=== PATIENT | female | born 1970 | race Hispanic/Latino ===

== ENCOUNTER 2017-07-27 01:31 | Emergency (ER) | payer MEDICAID ==
[2017-07-27 01:32] VITALS: BMI 33.7
[2017-07-27 02:11] VITALS: BP 150/85; PULSE 89; RESP 16; TEMP 97.6; O2SAT 99
--- NOTE | 2017-07-27 03:03 | ED PDOC ---
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 Patient states that she had a grand mal seizure x2 weeks ago and the back pain originated from EMS lifting her up incorrectly. Notes pain is worse lying down and with movement and is mitigated when standing. Confirms pain radiates bilaterally to the hips, with more intensity to the right hip. (-) numbness or weakness (other than chronic left). Notes that she cannot take NSAIDS due to fibroids and bleeding problems. PCP: Anselmo Singh - Risk Factors AAA Risk Factors: Neg: Older Than 49 Years Of Age Past Medical History Reviewed: Historical Data, Nursing Documentation, Vital Signs Vital Signs: Last Vital Signs Temp 97.6 F 07/27/17 02:01 Pulse 89 07/27/17 02:01 Resp 16 07/27/17 02:01 BP 150/85 07/27/17 02:01 Pulse Ox 99 07/27/17 02:01 - Medical History PMH: Asthma, Migraine, Seizures Denies: No Chronic Diseases, Chronic Kidney Disease - Surgical History Surgical History: Cholecystectomy, Tonsillectomy - Family History Family History: States: Unknown Family Hx - Social History Current smoker - smoking cessation education provided: No Ex-Smoker (has not smoked in the last 12 months): No Alcohol: None Drugs: Denies - Home Medications Home Medications: Ambulatory Orders Medication Instructions Recorded Albuterol HFA [Ventolin HFA 90 2 puff INH Q3H PRN 07/04/14 mcg/actuation (8 g)] Mometasone [Asmanex Twisthaler] 2 puff INH DAILY 07/04/14 diaZEpam [Valium] 5 mg PO HS 07/04/14 Atorvastatin [Lipitor] 10 mg PO DIN 08/01/16 Fluticasone Nasal [Flonase] 2 actuation NS DAILY #1 spr 08/01/16 LORazepam [Ativan] 1 mg PO PRN PRN 08/01/16 Levetiracetam [Keppra Xr] 3 tab PO BID 08/01/16 SUMAtriptan succinate [Imitrex Tab] 100 mg PO ONCE PRN #9 tab 08/01/16 SUMAtriptan succinate [Imitrex Tab] 100 mg PO PRN PRN 08/01/16 acetaZOLAMIDE [Diamox Sequels 500 1 tab PO DAILY 08/01/16 mg SR Cap] Cyclobenzaprine [Cyclobenzaprine 10 mg PO BID #15 tab 07/27/17 HCl] - Allergies Allergies/Adverse Reactions: Allergies Allergy/AdvReac Type Severity Reaction Status Date / Time No Known Allergies Allergy Verified 08/01/16 11:45 Review of Systems ROS Statement: Except As Marked, All Systems Reviewed And Found Negative Musculoskeletal: Positive for: Back Pain (lower back pain) Neurological: Positive for: Seizures. Negative for: Weakness, Numbness Physical Exam - Reviewed Nursing Documentation Reviewed: Yes Vital Signs Reviewed: Yes - Physical Exam Appears: Positive for: Non-toxic, No Acute Distress Head Exam: Positive for: ATRAUMATIC Skin: Positive for: Normal Color, Warm, Dry Eye Exam: Positive for: Normal appearance Cardiovascular/Chest: Positive for: Regular Rate, Rhythm. Negative for: Murmur Respiratory: Positive for: Normal Breath Sounds. Negative for: Respiratory Distress Gastrointestinal/Abdominal: Positive for: Soft. Negative for: Tenderness Back: Positive for: Vertebral Tenderness (lumbar vertebral and paravertebral tenderness), Other ((+) bilateral straight leg raise with more weakness of left side in comparison to right). Negative for: Normal Inspection Extremity: Negative for: Deformity Neurologic/Psych: Positive for: Alert, spooler operator automatic II-XII (intact), Oriented, Cerebellar Tests (intact), Other (distally neurovascularly intact). Negative for: Motor/Sensory Deficits ((-) saddle anesthesia, (+) left sided paralysis/ weakness from brain surgery previously) - ECG O2 Sat by Pulse Oximetry: 99 (RA) Pulse Ox Interpretation: Normal Medical Decision Making Medical Decision Makin Initial impression: muscular spasm Initial plan: * UPreg * UDip * XR LUMBAR SPINE COMPLETE * Flexeril 10mg PO * Re-eval 0400 Patient notes feeling much better and is stable for discharge home. Return precautions discussed. Scribe Attestation: Documented by Jessica Chu acting as a scribe for Orlando Lay MD. Scribe Attestation: All medical record entries made by the Scribe were at my direction and personally dictated by me. I have reviewed the chart and agree that the record accurately reflects my personal performance of the history, physical exam, medical decision making, and the department course for this patient. I have also personally directed, reviewed, and agree with the discharge instructions and disposition. Disposition - Clinical Impression Clinical Impression: Back strain - Disposition Referrals: Timo Singh MD [Staff Provider] - Disposition: Routine/Home Disposition Time: 04:00 Condition: STABLE Prescriptions: Cyclobenzaprine [Cyclobenzaprine HCl] 10 mg PO BID #15 tab Instructions: Muscle Spasm (ED), Back Exercises (ED) Forms: [facility] (Dutch)
--- NOTE | 2017-07-27 08:28 | RAD ---
PROCEDURE: Radiographs of the Lumbar Spine. HISTORY: lower back strain COMPARISON: No prior. FINDINGS: BONES: Normal alignment. No listhesis. No fracture. DISC SPACES: Minimal spondylosis appreciated L2-3 and L3-4 anteriorly. OTHER FINDINGS: None. IMPRESSION: No acute fracture or spondylolisthesis. Limited spondylosis L2-3 and L3-4.
== END 2017-07-27 04:15 | disposition home or self-care (01) ==
LOC: H.ER 01:31
DX: S39.012A Strain of muscle, fascia and tendon of lower back, initial encounter (principal); X50.9XXA Other and unspecified overexertion or strenuous movements or postures, initial encounter; Y92.89 Other specified places as the place of occurrence of the external cause; G40.909 Epilepsy, unspecified, not intractable, without status epilepticus; I69.959 Hemiplegia and hemiparesis following unspecified cerebrovascular disease affecting unspecified side; J45.909 Unspecified asthma, uncomplicated

== ENCOUNTER 2018-01-07 02:58 | Inpatient (IN) | payer MEDICAID ==
[2018-01-07 02:58] VITALS: BMI 33.7
[2018-01-07] MEDS ORDERED: Magnesium Sulfate 2 gm/50 ml 2 GM/50 ML BAG IV STA (03:57)
[2018-01-07] MEDS ORDERED: Albuterol-Ipratrop 3 mg / 0.5 (3 ml) UD INH STA (03:57)
--- NOTE | 2018-01-07 04:01 | ED PDOC ---
HPI: SOB/CHF/COPD Chief Complaint (Provider): shortness of breath, cough History Per: Patient, Family Onset/Duration Of Symptoms: Days (3) Current Symptoms Are (Timing): Still Present Quality: Burning Associated Symptoms: Fever, Sweating <Rosalie Echevarria - Last Filed: 01/07/18 06:21> <Jay Parker - Last Filed: 01/07/18 06:45> Chief Complaint (Nursing): Chest Pain Additional Complaint(s): 47 year old female presents with 3 day history of worsening shortness of breath , nonproductive cough and fevers. TMAX 101 at home, has been taking tylenol for fevers. She has been using her inhalers without relief of her symptoms. Patient unable to speak in full sentences due to dyspnea and dry cough. She has retrosternal burning that began earlier today. Last exacerbation requiring hospitalization was 3 years ago. Last exacerbation requiring antibiotics was 3 months ago. Typically given Clindamycin for her respiratory infections. PCP: Dr. Emily Singh Oral Surgery Technician: Dr. Watson. (Rosalie Echevarria) Supervising Attending Note - Supervising Attending Note The Documented history was done by the: Physician Gas Booster Engineer The documented physical exam was done by the: Physician Gas Booster Engineer - Attestation: I have personally seen and examined this patient.: Yes I have fully participated in the care of the patient.: Yes I have reviewed all pertinent clinical information, including history, physical exam and plan: Yes <Jay Parker - Last Filed: 01/07/18 06:45> Past Medical History - Medical History PMH: Asthma, Migraine, Seizures Denies: Chronic Kidney Disease - Surgical History Surgical History: Cholecystectomy, Tonsillectomy Other surgeries: myomectomy, uterine fibroid emblolization, two brain surgeries - Family History Family History: States: Unknown Family Hx <Rosalie Echevarria - Last Filed: 01/07/18 06:21> <Jay Parker - Last Filed: 01/07/18 06:45> Vital Signs: Last Vital Signs Temp 98.2 F 01/07/18 06:02 Pulse 104 H 01/07/18 06:02 Resp 16 01/07/18 06:02 BP 118/74 01/07/18 06:02 Pulse Ox 98 01/07/18 06:21 - Home Medications Home Medications: Ambulatory Orders Medication Instructions Recorded Albuterol HFA [Ventolin HFA 90 2 puff INH Q3H PRN 07/04/14 mcg/actuation (8 g)] Mometasone [Asmanex Twisthaler] 2 puff INH DAILY 07/04/14 diaZEpam [Valium] 5 mg PO HS 07/04/14 Atorvastatin [Lipitor] 10 mg PO DIN 08/01/16 Fluticasone Nasal [Flonase] 2 actuation NS DAILY #1 spr 08/01/16 LORazepam [Ativan] 1 mg PO PRN PRN 08/01/16 Levetiracetam [Keppra Xr] 3 tab PO BID 08/01/16 SUMAtriptan succinate [Imitrex Tab] 100 mg PO ONCE PRN #9 tab 08/01/16 acetaZOLAMIDE [Diamox Sequels 500 1 tab PO DAILY 08/01/16 mg SR Cap] Cyclobenzaprine [Cyclobenzaprine 10 mg PO BID #15 tab 07/27/17 HCl] - Allergies Allergies/Adverse Reactions: Allergies Allergy/AdvReac Type Severity Reaction Status Date / Time tree and shrub pollen Allergy ITCHING Verified 01/07/18 03:24 Review of Systems Constitutional: Positive for: Fever, Sweats, Weakness Eyes: Negative for: Vision Change ENT: Negative for: Nose Congestion, Throat Pain Cardiovascular: Positive for: Chest Pain. Negative for: Palpitations, Light Headedness Respiratory: Positive for: Cough, Shortness of Breath, Wheezing. Negative for: Hemoptysis Gastrointestinal: Negative for: Nausea, Vomiting, Abdominal Pain, Diarrhea Genitourinary Female: Negative for: Dysuria, Frequency Neurological: Positive for: Seizures. Negative for: Incoordination, Confusion, Altered Mental Status <Rosalie Echevarria - Last Filed: 01/07/18 06:21> Physical Exam - Physical Exam Appears: Positive for: In Acute Distress Head Exam: Positive for: ATRAUMATIC, NORMAL INSPECTION, NORMOCEPHALIC Skin: Positive for: Normal Color, Warm, DRY Neck: Positive for: Normal, Painless ROM Cardiovascular/Chest: Positive for: Regular Rate, Rhythm, Chest Non Tender. Negative for: Edema Respiratory: Positive for: Decreased Breath Sounds, Accessory Muscle Use, Respiratory Distress. Negative for: Rales, Rhonchi, Wheezing Gastrointestinal/Abdominal: Positive for: Normal Exam, Soft Neurologic/Psych: Positive for: Alert, tank car reconditioner II-XII, Oriented, Mood/Affect ( appropriate) <Rosalie Echevarria - Last Filed: 01/07/18 06:21> - Laboratory Results Result Diagrams: 01/07/18 04:58 01/07/18 04:58 - ECG O2 Sat by Pulse Oximetry: 98 <Rosalie Echevarria - Last Filed: 01/07/18 06:21> - Laboratory Results Result Diagrams: 01/07/18 04:58 01/07/18 04:58 <Jay Parker - Last Filed: 01/07/18 06:45> - Progress ED Course And Treament: 47 year old female with worsening shortness of breath, nonproductive cough and fever. --CBC --CMP --Troponin --ECG --CXR --Solumedrol 125mg --Pepcid 40mg --Magnesium 2mg IV --Upreg Case d/w Dr. Parker. Reeval: 0550 -Labs and imaging reviewed: WBC 14.6, CXR clear (pending report) -Patient continues to cough, complaining of anterior chest pain and sore throat. -Cepachol and toradol ordered. -lung sounds diminished bilaterally, cough with inspiration, O2 sat 98% on room air. Will admit for observation given lack of improvement after treatment. Case d/w Dr. Parker (Rosalie Echevarria) Disposition - Disposition Disposition Time: 06:02 - Pt Status Changed To: Hospital Disposition Of: Observation <Rosalie Echevarria - Last Filed: 01/07/18 06:21> <Jay Parker - Last Filed: 01/07/18 06:45> - Clinical Impression Clinical Impression: Chest pain, Asthma exacerbation - Disposition Condition: FAIR
[2018-01-07] MEDS ORDERED: Magnesium Sulfate 2 gm/50 ml 2 GM/50 ML BAG ONE (04:14)
[2018-01-07 05:35] LABS: BASO # 0.1 K/uL (0.0-0.2); BASO % 0.5 % (0.0-2.0); EOS # 0.2 K/uL (0.0-0.7); EOS % 1.3 % (0.0-4.0); LYMPH # 2.9 K/uL (1.0-4.3); LYMPH % 19.6 % (20.0-40.0); MEAN CELL VOLUME 85.2 fl (81.0-99.0); MEAN CORPUSCULAR HEMOGLOBIN 28.5 pg (27.0-31.0); MEAN CORPUSCULAR HGB CONC 33.5 g/dL (33.0-37.0); MEAN PLATELET VOLUME 9.5 fl (7.2-11.7); MONO # 0.8 K/uL (0.0-0.8); MONO % 5.5 % (0.0-10.0); NEUT # 10.7 K/uL (1.8-7.0); NEUT % 73.1 % (50.0-75.0); RBC 4.55 Mil/uL (3.80-5.20); RED CELL DISTRIBUTION WIDTH 14.1 % (11.5-14.5); WHITE BLOOD COUNT 14.6 K/uL (4.8-10.8)
[2018-01-07 05:39] LABS: ALB/GLOB RATIO 1.2 (1.0-2.1); ALBUMIN 4.2 g/dL (3.5-5.0); ALT/SGPT 38 U/L (9-52); AST/SGOT 23 U/L (14-36); BLOOD UREA NITROGEN 4 mg/dl (7-17); CALCIUM 9.4 mg/dL (8.4-10.2); GFR AFRICAN-AMERICAN > 60; GFR NON-AFRICAN AMERICAN > 60
[2018-01-07] MEDS ORDERED: Benzocaine/Menthol (Cepacol) Lozenge PO STA (05:40)
--- NOTE | 2018-01-07 06:46 | CP.PCM.HP ---
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 Patient presents c/o dry cough started 3 days ago associated with SOB, wheezing that persists even with albuterol pump and asmanex medications. She also reports fever x 3 days, T max 101.9, chest pain associated with cough started yesterday and reports a unwitnessed seizure episode yesterday lasting for about 5 minutes. She denies any trigger factors but relates her symptoms with (seasonal allergy) and has been also c/o sore throat, runny nose, itching eyes. Last asthma exacerbation requiring hospitalization was 3 years ago. Last exacerbation requiring antibiotics was 3 months ago. She denies nausea, vomiting, abd pain, dysuria, new focal weaknes, numbness. Typically given Clindamycin for her respiratory infections. On evaluation in ED patient in not respiratory distress, o2 sat room air 98, good air entry, no wheezing, but persistent dry cough. PCP: Dr. Emily Singh Taxicab Coordinator: Dr. Watson. 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 myomectomy PSHx: denies ETOH, rect drugs. Former smoker 1 PPD/day. quit 10 years ago. Code status : Full code Ed course VS: RR: 18. O 2 sat : 98 Labs: CBC: 14.6>13.0<396 Imaging: CXR: hyperinflation, no active pulmonary disease. Pending final report Meds: duoneb, solumedrol 125 mg IV. Present on Admission - Present on Admission Any Indicators Present on Admission: No History of DVT/PE: No History of Uncontrolled Diabetes: No Urinary Catheter: No Decubitus Ulcer Present: No Review of Systems - Review of Systems All systems: reviewed and no additional remarkable complaints except - Respiratory Respiratory: Cough, Wheezing Additional comments: sore throat, runny nose, eyes itching - Neurological Neurological: Weakness Additional comments: left side body residual Past Patient History - Infectious Disease Hx of Infectious Diseases: None - Tetanus Immunizations Tetanus Immunization: Up to Date - Past Medical History & Family History Past Medical History?: Yes - Past Social History Smoking Status: Former Smoker - CARDIAC Hx Cardiac Disorders: No - PULMONARY Hx Asthma: Yes - NEUROLOGICAL Hx Migraine: Yes Hx Seizures: Yes - HEENT Hx HEENT Problems: No - RENAL Hx Chronic Kidney Disease: No - ENDOCRINE/METABOLIC Hx Endocrine Disorders: No - HEMATOLOGICAL/ONCOLOGICAL Hx Blood Disorders: No - INTEGUMENTARY Hx Dermatological Problems: No - MUSCULOSKELETAL/RHEUMATOLOGICAL Hx Musculoskeletal Disorders: Yes (paralysis of left side) Hx Falls: No - GASTROINTESTINAL Hx Gastrointestinal Disorders: No - GENITOURINARY/GYNECOLOGICAL Hx Genitourinary Disorders: No - PSYCHIATRIC Hx Psychophysiologic Disorder: No Hx Substance Use: No - SURGICAL HISTORY Hx Cholecystectomy: Yes Hx Tonsillectomy: Yes - ANESTHESIA Hx Anesthesia: Yes Hx Anesthesia Reactions: No Meds Allergies/Adverse Reactions: Allergies Allergy/AdvReac Type Severity Reaction Status Date / Time tree and shrub pollen Allergy ITCHING Verified 01/07/18 03:24 Physical Exam - Constitutional Appears: No Acute Distress - Head Exam Head Exam: ATRAUMATIC, NORMOCEPHALIC - ENT Exam ENT Exam: Mucous Membranes Moist - Neck Exam Neck exam: Positive for: Normal Inspection - Respiratory Exam Respiratory Exam: Clear to Auscultation Bilateral. absent: Rales, Rhonchi, Wheezes - Cardiovascular Exam Cardiovascular Exam: REGULAR RHYTHM, +S1, +S2 - GI/Abdominal Exam GI & Abdominal Exam: Normal Bowel Sounds, Soft. absent: Tenderness - Extremities Exam Extremities exam: Positive for: normal inspection. Negative for: pedal edema - Neurological Exam Neurological exam: Alert, Oriented x3 - Expanded Neurological Exam Expanded Neuro motor strength exam: Left Upper Extremity: 3, Right Upper Extremity: 5, Left Lower Extremity: 4, Right Lower Extremity: 5 - Psychiatric Exam Psychiatric exam: Normal Affect, Normal Mood - Skin Skin Exam: Intact Results - Vital Signs Recent Vital Signs: Last Vital Signs Temp 98.2 F 01/07/18 06:02 Pulse 104 H 01/07/18 06:02 Resp 16 01/07/18 06:02 BP 118/74 01/07/18 06:02 Pulse Ox 98 01/07/18 06:21 - Labs Result Diagrams: 01/07/18 04:58 01/07/18 04:58 Labs: Laboratory Results - last 24 hr 01/07/18 01/07/18 01/07/18 04:58 04:58 06:05 WBC 14.6 H RBC 4.55 Hgb 13.0 Hct 38.8 MCV 85.2 MCH 28.5 MCHC 33.5 RDW 14.1 Plt Count 396 MPV 9.5 Neut % (Auto) 73.1 Lymph % (Auto) 19.6 L Cannon % (Auto) 5.5 Eos % (Auto) 1.3 Baso % (Auto) 0.5 Neut # (Auto) 10.7 H Lymph # (Auto) 2.9 Cannon # (Auto) 0.8 Eos # (Auto) 0.2 Baso # (Auto) 0.1 Sodium 145 Potassium 4.1 Chloride 103 Carbon Dioxide 25 Anion Gap 21 H BUN 4 L Creatinine 0.7 Est GFR ( Amer) > 60 Est GFR (Non-Af Amer) > 60 Random Glucose 92 Calcium 9.4 Total Bilirubin 0.3 AST 23 ALT 38 Alkaline Phosphatase 102 Troponin I < 0.0120 Total Protein 7.7 Albumin 4.2 Globulin 3.4 Albumin/Globulin Ratio 1.2 Influenza Typ A,B (EIA) Negative for flu a/b Assessment & Plan - Assessment and Plan (Free Text) Plan: Assessment/Plan 47 yo ,f, PMHx/o Asthma, Brain astrocytoma(first surgery in 1977 on right parietal lobe and the second tumor resection 1992) that left her with left side residual paralysis and seizure disorder admitted for Asthma exacerbation 1) Asthma Exacerbation -admit ob stele -s/p solumedrol 125 mg IV, duoneb ED -c/w duoneb q 4h PRN -c/w solumedrol 60 mg IV BID -CXR: no acute infiltrate -WBC: 14.6, seizure event will give clindamycin -clindamycin 600 mg IV q 8h. -f/u procalcitonin -Taxicab Coordinator consult suggested 2) Seizure disorder Secondary to brain astrocytoma -seizure precaution -Ativan 1mg IV Q 6h PRN seizure -c/w keppra 3) Hx/o Brain Astrocytoma -with residual left hemiparesis -on f/u 4) DVT prophylaxis Lovenox 40 mg sc daily
[2018-01-07] MEDS ORDERED: Sodium Chloride 3% for Inhalation 4 ML VIAL.NEB IH PRN (06:47)
[2018-01-07] MEDS ORDERED: SUMATRIPTAN SUCCINATE 100 MG PO PRN (06:53)
[2018-01-07] MEDS ORDERED: Albuterol-Ipratrop 3 mg / 0.5 (3 ml) UD INH PRN (07:17)
--- NOTE | 2018-01-07 08:33 | RAD ---
HISTORY: COMPARISON: 08/01/2016. TECHNIQUE: Chest PA and lateral FINDINGS: LINES AND TUBES: None. LUNG AND PLEURA: The lungs are well inflated and clear. No pleural effusion or pneumothorax. HEART AND MEDIASTINUM: The heart is not enlarged. The hilar and mediastinal contours are within normal limits. SKELETAL STRUCTURES: The bony structures are within normal limits for the patient's age. VISUALIZED UPPER ABDOMEN: Normal. OTHER FINDINGS: None. IMPRESSION: No active pulmonary disease.
[2018-01-07] MEDS: Clindamycin 600mg/50ml D5W 600 MG/50 ML VIAL IVPB SCH ×2 (08:52→16:47)
[2018-01-07] MEDS: Enoxaparin 40 mg Syringe SC SCH (08:54)
[2018-01-07] MEDS ORDERED: LEVETIRACETAM PO SCH (09:00)
[2018-01-07] MEDS ORDERED: acetaZOLAMIDE 500 mg SR Cap PO SCH ×2 (09:00→12:53)
[2018-01-07] MEDS ORDERED: methylPREDNISolone 80 MG in Sodium Chloride 0.9% 50 ML IVPB SCH (11:30)
[2018-01-07] MEDS ORDERED: MethylPREDNISolone 40 mg Vial IVP SCH (11:45)
[2018-01-07] MEDS: Promethazine DM 12.5 mg-30 mg/10 ml Syrup PO SCH ×3 (12:44→21:43)
[2018-01-07] MEDS ORDERED: LEVETIRACETAM 1500 MG PO SCH (12:53)
--- NOTE | 2018-01-07 13:08 | CON ---
DATE: HISTORY OF PRESENT ILLNESS: Ms. De Luna is a 47-year-old female who was referred for pulmonary evaluation after she was admitted for acute asthma and seizure disorder. She is well known to me from prior admission and from being seen in the office. She has a history of multiple brain surgeries in the past for astrocytoma and has had recurrent seizures since. She also has residual paralysis of the left side of the body due to brain surgery. She has recurrent asthma attacks with response to multiple medications, but also was resistant to multiple medications. She presently lives at home with her . She reports that she has had fever for about 3 days prior to presentation and has multiple seizure episodes. FAMILY HISTORY: Non-revealing. SOCIAL HISTORY: Socially, she does not smoke or drink. REVIEW OF SYSTEMS: Essentially remarkable for recurrent seizures and asthma attacks. PHYSICAL EXAMINATION: GENERAL: The patient is alert and oriented. Appears frail. VITAL SIGNS: Remarkable for blood pressure of 131/80, pulse of 103, respiratory rate of 18-20 per minute. She is afebrile. O2 sat 95% on room air. SKIN: Shows fair turgor. HEENT: Pupils are equal and reactive to light and accommodation. Mouth shows fair hygiene. NECK: JVP flat. LUNG: Poor aeration bilaterally with audible rales and wheezing and dullness at the bases. HEART: Regular. ABDOMEN: Soft and nontender, no organomegaly. EXTREMITIES: Show no edema or cyanosis. CENTRAL NERVOUS SYSTEM: The patient is alert and oriented has no gross deficits except for weakness of left side of the body. LABORATORY DATA: WBC 14.6, hemoglobin 13, and platelet count 396,000. Sodium 145, potassium 4.1, BUN of 4, and creatinine 0.7. Influenza A and B negative. Chest x-ray, no acute cardiopulmonary pathology noted. IMPRESSION: Acute exacerbation of asthma, upper respiratory tract infection, mucus plugging of airways, recurrent seizures, history of astrocytoma of the brain status post surgical resection, and residual paralysis of left side of the body. PLAN: The plan is appropriate treatment of asthma, aerolized bronchodilators, mucolytics to help expectorate sputum, and IV steroids. We will continue to follow with you. Further therapy will depend on findings. Reginaldo Watson MD [facility] # [id number]
--- NOTE | 2018-01-07 14:23 | CP.PCM.CON ---
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 She takes lamictal bid at home, and has several breakthrough seizurs per year. She had 2 breakthrough seizures on this visit. She is currently on lamictal 100 mg am and 200 mg pm, and is compliant. Recent video EEG results not known, nor are the results of recent EEG or MRI brain known. She tolerates lamictal well. ROS: positive for malaise and fever. PMH/PSH: as above FH/SH: as above aLL: NKDA On exam: AAOX3. PERRL. CN 2-12 normal. Left sided plegia. Sensory: decreased ft, pin left side. gait not tested. Past Patient History - Infectious Disease Hx of Infectious Diseases: None - Tetanus Immunizations Tetanus Immunization: Up to Date - Past Medical History & Family History Past Medical History?: Yes - Past Social History Smoking Status: Former Smoker - CARDIAC Hx Cardiac Disorders: No - PULMONARY Hx Asthma: Yes - NEUROLOGICAL Hx Migraine: Yes Hx Seizures: Yes - HEENT Hx HEENT Problems: No - RENAL Hx Chronic Kidney Disease: No - ENDOCRINE/METABOLIC Hx Endocrine Disorders: No - HEMATOLOGICAL/ONCOLOGICAL Hx Blood Disorders: No - INTEGUMENTARY Hx Dermatological Problems: No - MUSCULOSKELETAL/RHEUMATOLOGICAL Hx Musculoskeletal Disorders: Yes (paralysis of left side) Hx Falls: No - GASTROINTESTINAL Hx Gastrointestinal Disorders: No - GENITOURINARY/GYNECOLOGICAL Hx Genitourinary Disorders: No - PSYCHIATRIC Hx Psychophysiologic Disorder: No Hx Substance Use: No - SURGICAL HISTORY Hx Cholecystectomy: Yes Hx Tonsillectomy: Yes - ANESTHESIA Hx Anesthesia: Yes Hx Anesthesia Reactions: No Meds Allergies/Adverse Reactions: Allergies Allergy/AdvReac Type Severity Reaction Status Date / Time tree and shrub pollen Allergy ITCHING Verified 01/07/18 03:24 - Medications Medications: Current Medications Acetaminophen (Tylenol 325mg Tab) 650 mg PO Q6 PRN PRN Reason: Pain, Mild (1-3) Acetaminophen (Tylenol 325mg Tab) 650 mg PO Q6 PRN PRN Reason: Fever >100.4 F Acetazolamide (Diamox Sequels 500 Mg Sr Cap) 250 mg PO DAILY [facility] Acetylcysteine (Acetylcysteine 20%) 2 ml INH RBID [facility] Atorvastatin Calcium (Lipitor) 10 mg PO DIN [facility] Diazepam (Valium) 5 mg PO HS [facility] Enoxaparin Sodium (Lovenox) 40 mg SC DAILY [facility] PRN Reason: Protocol Last Admin: 01/07/18 08:54 Dose: 40 mg Fluticasone Propionate (Flonase) 2 spr TERRANCE DAILY [facility] Last Admin: 01/07/18 10:02 Dose: Not Given Home Med (Sumatriptan Succinate [Imitrex Tab]) 100 mg PO ONCE PRN PRN Reason: Migraine headache Home Med (Levetiracetam [Keppra Xr]) 1,500 mg PO BID [facility] Clindamycin Phosphate (Cleocin) 600 mg in 50 mls @ 50 mls/hr IVPB Q8 [facility] PRN Reason: Protocol Last Admin: 01/07/18 08:52 Dose: 50 mls/hr Ketorolac Tromethamine (Toradol) 30 mg IVP Q6 PRN PRN Reason: Pain, severe (8-10) Lorazepam (Ativan) 1 mg IVP Q6H PRN PRN Reason: Seizure activity Methylprednisolone (Solu-Medrol) 80 mg IVP Q8 [facility] Ondansetron HCl (Zofran Inj) 4 mg IVP Q6 PRN PRN Reason: Nausea/Vomiting Promethazine HCl/Dextromethorphan (Phenergan Dm Syrup) 10 ml PO Q6 [facility] Last Admin: 01/07/18 12:44 Dose: 10 ml Sucralfate (Carafate Oral Susp) 1 gm PO QID [facility] Results - Vital Signs Recent Vital Signs: Last Vital Signs Temp 98.3 F 01/07/18 12:00 Pulse 93 H 01/07/18 12:00 Resp 18 01/07/18 12:00 BP 115/69 01/07/18 12:00 Pulse Ox 97 01/07/18 12:00 - Labs Result Diagrams: 01/07/18 04:58 01/07/18 04:58 Labs: Laboratory Results - last 24 hr 01/07/18 01/07/18 01/07/18 04:58 04:58 06:05 WBC 14.6 H RBC 4.55 Hgb 13.0 Hct 38.8 MCV 85.2 MCH 28.5 MCHC 33.5 RDW 14.1 Plt Count 396 MPV 9.5 Neut % (Auto) 73.1 Lymph % (Auto) 19.6 L [place] % (Auto) 5.5 Eos % (Auto) 1.3 Baso % (Auto) 0.5 Neut # (Auto) 10.7 H Lymph # (Auto) 2.9 [place] # (Auto) 0.8 Eos # (Auto) 0.2 Baso # (Auto) 0.1 Sodium 145 Potassium 4.1 Chloride 103 Carbon Dioxide 25 Anion Gap 21 H BUN 4 L Creatinine 0.7 Est GFR ( Amer) > 60 Est GFR (Non-Af Amer) > 60 Random Glucose 92 Calcium 9.4 Total Bilirubin 0.3 AST 23 ALT 38 Alkaline Phosphatase 102 Troponin I < 0.0120 Total Protein 7.7 Albumin 4.2 Globulin 3.4 Albumin/Globulin Ratio 1.2 Influenza Typ A,B (EIA) Negative for flu a/b Assessment & Plan - Assessment and Plan (Free Text) Assessment: 47 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 Plan: 1. continue current lamictal. 2 Add keppra 1 gram Iv now and continue on 500 mg bid 3. EEG in am. 4. MRI Brain with contrast needed to evaluate for progression of lesion or development of new one. Thank you Dr. Mosley
[2018-01-07] MEDS ORDERED: Gadodiamide 287 MG/ML VIAL (15ML) IV ONE (14:40)
[2018-01-07] MEDS: Sucralfate 1 gm/10 ml Oral Susp UD PO SCH ×3 (14:47→21:43)
[2018-01-07] MEDS ORDERED: methylPREDNISolone 60 MG in Sodium Chloride 0.9% 50 ML IV SCH (15:00)
[2018-01-07 15:35] LABS: SQUAMOUS EPITHIAL < 1 /hpf (0-5); URINE BACTERIA RARE (<OCC); URINE BILIRUBIN NEGATIVE (NEGATIVE); URINE BLOOD NEGATIVE (NEGATIVE); URINE CLARITY CLEAR (Clear); URINE COLOR STRAW (YELLOW); URINE GLUCOSE (UA) >=500 mg/dL (Normal); URINE LEUKOCYTE ESTERASE NEG Leu/uL (Negative); URINE PROTEIN NEGATIVE (NEGATIVE); URINE UROBILINOGEN 0.2-1.0 mg/dL (0.2-1.0)
--- NOTE | 2018-01-07 16:00 | MRI ---
PROCEDURE: MRI BRAIN WITH AND WITHOUT CONTRAST HISTORY: intracranial lesion COMPARISON: 05/13/2012 TECHNIQUE: Multiplanar, multisequence MR images of the brain were obtained with and without intravenous contrast enhancement. 18 cc Omniscan was injected intravenously. FINDINGS: HEMORRHAGE: None DWI: No evidence of an acute or early subacute infarction. BRAIN PARENCHYMA: Since the prior examination, there has been no significant interval change in the appearance of cystic encephalomalacia and gliosis in the right posterior frontal and parietal lobe with volume loss and ex vacuo dilatation of the atrium and occipital horn of the right lateral ventricle. There are mild chronic microangiopathic changes. There is no mass, mass effect or abnormal extra-axial fluid collection. The midline sagittal structures are normal. ENHANCEMENT: No abnormal parenchymal or leptomeningeal enhancement. There is stable smooth linear right parietal dural and focal parenchymal enhancement likely in the spectrum of posttreatment changes. VENTRICLES: Minus grow atrophy CRANIUM: There is normal bone marrow signal pattern. ORBITS: Grossly unremarkable. PARANASAL SINUSES/MASTOIDS: There is a retention cyst/ polyp in the left maxillary sinus. The remaining included paranasal sinuses are predominantly clear. VASCULAR SYSTEM: Skull base flow voids intact. OTHER FINDINGS: None . IMPRESSION: 1. Little interval change in cystic encephalomalacia and gliosis with volume loss in the right posterior frontal and parietal lobes in keeping with postsurgical/ posttreatment changes. No evidence of recurrent tumor. 2. Mild chronic microangiopathic changes and mild age-related global parenchymal volume loss.
[2018-01-07] MEDS: Albuterol-Ipratrop 3 mg / 0.5 (3 ml) UD INH PRN ×2 (16:32→19:18)
[2018-01-07] MEDS ORDERED: levETIRAcetam 1,000 MG in Sodium Chloride 0.9% 100 ML IVPB ONE (18:23)
--- NOTE | 2018-01-07 19:17 | CP.PCM.PCO ---
Progress - Progress Progress: Patient seen at bedside after she stated refusing seizure medication. Plan was discussed with neurology Dr. Mosley to give patient 1 gm Kepra loading dose and then continue with home dosage with Kepra 1500 BID. Patient is refusing the generic version of kepra stating it makes her sick and precipitates seizures. She had brought her home meds however they were in a zip lock back and pharmacy does not allow patient to use it without a pharmacy issued bottle. Patient last took her dosage of kepra xr from her home meds this morning on her own. has went home to get the bottle so pharmacy will dispense medications. Currently patient declining generic kepra from the hospital.
[2018-01-07] MEDS: Acetylcysteine 20% Inhal Soln (4ml) INH SCH (19:18)
[2018-01-07] MEDS ORDERED: Home Med 1 UNIT PO SCH (20:00)
[2018-01-07] MEDS: KEPPRA PO SCH (22:39)
[2018-01-07] MEDS: [UNRECOGNIZED DRUG - OTHER] PO SCH (22:39)
[2018-01-08] MEDS: Albuterol-Ipratrop 3 mg / 0.5 (3 ml) UD INH PRN ×4 (00:19→18:59)
[2018-01-08] MEDS: Clindamycin 600mg/50ml D5W 600 MG/50 ML VIAL IVPB SCH ×2 (01:13→09:06)
[2018-01-08] MEDS: Promethazine DM 12.5 mg-30 mg/10 ml Syrup PO SCH ×4 (04:53→22:05)
[2018-01-08 05:40] LABS: BASO # 0.2 K/uL (0.0-0.2); BASO % 1.2 % (0.0-2.0); HEMOGLOBIN 11.9 g/dL (12.0-16.0); LYMPH # 0.8 K/uL (1.0-4.3); LYMPH % 4.3 % (20.0-40.0); MEAN CELL VOLUME 84.9 fl (81.0-99.0); MEAN CORPUSCULAR HEMOGLOBIN 27.9 pg (27.0-31.0); MEAN CORPUSCULAR HGB CONC 32.9 g/dL (33.0-37.0); MEAN PLATELET VOLUME 9.3 fl (7.2-11.7); MONO # 0.3 K/uL (0.0-0.8); MONO % 1.6 % (0.0-10.0); NEUT % 92.9 % (50.0-75.0); PLATELET COUNT 435 K/uL (130-400); RBC 4.26 Mil/uL (3.80-5.20); RED CELL DISTRIBUTION WIDTH 14.2 % (11.5-14.5); WHITE BLOOD COUNT 18.4 K/uL (4.8-10.8)
[2018-01-08 06:11] LABS: ALB/GLOB RATIO 1.2 (1.0-2.1); ALT/SGPT 32 U/L (9-52); AST/SGOT 21 U/L (14-36); BLOOD UREA NITROGEN 8 mg/dl (7-17); CALCIUM 9.3 mg/dL (8.4-10.2); GFR AFRICAN-AMERICAN > 60; GFR NON-AFRICAN AMERICAN > 60
[2018-01-08] MEDS: Acetylcysteine 20% Inhal Soln (4ml) INH SCH ×2 (07:21→18:59)
--- NOTE | 2018-01-08 08:27 | CP.PCM.PN ---
Addendum entered and electronically signed by Sultan Kennedy MD 01/08/18 14:00: Will order hormonal labs as requested by neuro. Pt's is on her menses now and evaluate for menstrual related seizure. Original Note: Subjective - Date & Time of Evaluation Date of Evaluation: 01/08/18 Time of Evaluation: 08:10 - Subjective Subjective: Patient seen and examined this morning. No acute overnight evernts. Pt continues to have dry cough and shortness of breath. Reports some right sided headache. Denies chest pain, dyspnea on exertion, nausea,vomiting, blurry vision , fever or chills. Pt is tolerating PO. Has regular BM and voiding regularly. Objective - Vital Signs/Intake and Output Vital Signs (last 24 hours): Temp Pulse Resp BP Pulse Ox 98 F 109 H 18 122/72 97 01/08/18 08:00 01/08/18 08:00 01/08/18 08:00 01/08/18 08:00 01/08/18 08:00 - Medications Medications: Current Medications Acetaminophen (Tylenol 325mg Tab) 650 mg PO Q6 PRN PRN Reason: Pain, Mild (1-3) Acetaminophen (Tylenol 325mg Tab) 650 mg PO Q6 PRN PRN Reason: Fever >100.4 F Acetazolamide (Diamox Sequels 500 Mg Sr Cap) 250 mg PO DAILY [facility] Acetylcysteine (Acetylcysteine 20%) 2 ml INH RBID [facility] Last Admin: 01/08/18 07:21 Dose: 2 ml Albuterol/Ipratropium (Duoneb 3 Mg/0.5 Mg (3 Ml) Ud) 3 ml INH RQ4 PRN PRN Reason: Shortness of Breath Last Admin: 01/08/18 07:21 Dose: 3 ml Atorvastatin Calcium (Lipitor) 10 mg PO DIN [facility] Last Admin: 01/07/18 18:23 Dose: 10 mg Diazepam (Valium) 5 mg PO HS [facility] Last Admin: 01/07/18 21:45 Dose: 5 mg Enoxaparin Sodium (Lovenox) 40 mg SC DAILY [facility] PRN Reason: Protocol Last Admin: 01/07/18 08:54 Dose: 40 mg Fluticasone Propionate (Flonase) 2 spr TERRANCE DAILY [facility] Last Admin: 01/07/18 10:02 Dose: Not Given Home Med (Sumatriptan Succinate [Imitrex Tab]) 100 mg PO ONCE PRN PRN Reason: Migraine headache Home Med (Home Med) 1,500 unit PO BID [facility] Last Admin: 01/07/18 22:39 Dose: 1,500 unit Clindamycin Phosphate (Cleocin) 600 mg in 50 mls @ 50 mls/hr IVPB Q8 [facility] PRN Reason: Protocol Last Admin: 01/08/18 01:13 Dose: 50 mls/hr Ketorolac Tromethamine (Toradol) 30 mg IVP Q6 PRN PRN Reason: Pain, severe (8-10) Last Admin: 01/07/18 23:54 Dose: 30 mg Lorazepam (Ativan) 1 mg IVP Q6H PRN PRN Reason: Seizure activity Methylprednisolone (Solu-Medrol) 80 mg IVP Q8 [facility] Last Admin: 01/08/18 01:14 Dose: 80 mg Ondansetron HCl (Zofran Inj) 4 mg IVP Q6 PRN PRN Reason: Nausea/Vomiting Potassium Chloride (K-Dur 20 Meq Er Tab) 40 meq PO BID [facility] Stop: 01/08/18 17:01 Promethazine HCl/Dextromethorphan (Phenergan Dm Syrup) 10 ml PO Q6 [facility] Last Admin: 01/08/18 04:53 Dose: 10 ml Sucralfate (Carafate Oral Susp) 1 gm PO QID [facility] Last Admin: 01/07/18 21:43 Dose: 1 gm - Labs Labs: 01/08/18 04:20 01/08/18 04:20 - Constitutional Appears: Non-toxic, No Acute Distress - Head Exam Head Exam: ATRAUMATIC, NORMOCEPHALIC - Eye Exam Eye Exam: Normal appearance - ENT Exam ENT Exam: Mucous Membranes Moist - Neck Exam Neck Exam: Normal Inspection - Respiratory Exam Respiratory Exam: Decreased Breath Sounds (B/L), NORMAL BREATHING PATTERN. absent: Accessory Muscle Use, Rales, Rhonchi, Wheezes - Cardiovascular Exam Cardiovascular Exam: REGULAR RHYTHM, RRR, +S1, +S2 - GI/Abdominal Exam GI & Abdominal Exam: Soft, Normal Bowel Sounds. absent: Tenderness - Extremities Exam Extremities Exam: Normal Inspection. absent: Calf Tenderness, Pedal Edema - Neurological Exam Neurological Exam: Alert, Awake, Oriented x3 - Psychiatric Exam Psychiatric exam: Anxious - Skin Skin Exam: Normal Color, Warm Assessment and Plan - Assessment and Plan (Free Text) Assessment: 47 yo female with pmhx of Asthma, brain astrocytoma (first surgery in 1977 on right parietal lobe and the second tumor resection 1992) that left her with left side residual paralysis and seizure disorder admitted for Asthma exacerbation 1) Asthma Exacerbation -s/p solumedrol 125 mg IV, duoneb ED -c/w duoneb q 4h PRN -c/w solumedrol 80 mg IV q8 -c/w acetylcystein 2 ml INH bid -c/w promethazine DM 10 ml po q6 -CXR: no acute infiltrate -WBC: 14.6, seizure event will give clindamycin -C/w clindamycin 600 mg IV q 8h. -f/u procalcitonin -Eyeglass Cutter consult appreciated 2) Seizure disorder -Secondary to brain astrocytoma -seizure precaution -Ativan 1mg IV Q 6h PRN seizure -c/w home medication: keppra XR 1500 mg po BID -Neurology on board 3) Hx/o Brain Astrocytoma -with residual left hemiparesis -f/u outpatient with Dr. Tilley 4) Migraine -c/w sumatriptan prn 5) DVT prophylaxis Lovenox 40 mg sc daily 6) Code Status -Full code
--- NOTE | 2018-01-08 08:35 | CP.PCM.PN ---
Subjective - Date & Time of Evaluation Date of Evaluation: 01/08/18 Time of Evaluation: 08:35 - Subjective Subjective: STILL C/O SOB AND DIFFICULTY EXPECTORATING SPUTUM SOME ANXIETY Objective - Vital Signs/Intake and Output Vital Signs (last 24 hours): Temp Pulse Resp BP Pulse Ox 98 F 109 H 18 122/72 97 01/08/18 08:00 01/08/18 08:00 01/08/18 08:00 01/08/18 08:00 01/08/18 08:00 - Medications Medications: Current Medications Acetaminophen (Tylenol 325mg Tab) 650 mg PO Q6 PRN PRN Reason: Pain, Mild (1-3) Acetaminophen (Tylenol 325mg Tab) 650 mg PO Q6 PRN PRN Reason: Fever >100.4 F Acetazolamide (Diamox Sequels 500 Mg Sr Cap) 250 mg PO DAILY [facility] Acetylcysteine (Acetylcysteine 20%) 2 ml INH RBID [facility] Last Admin: 01/08/18 07:21 Dose: 2 ml Albuterol/Ipratropium (Duoneb 3 Mg/0.5 Mg (3 Ml) Ud) 3 ml INH RQ4 PRN PRN Reason: Shortness of Breath Last Admin: 01/08/18 07:21 Dose: 3 ml Atorvastatin Calcium (Lipitor) 10 mg PO DIN [facility] Last Admin: 01/07/18 18:23 Dose: 10 mg Diazepam (Valium) 5 mg PO HS [facility] Last Admin: 01/07/18 21:45 Dose: 5 mg Enoxaparin Sodium (Lovenox) 40 mg SC DAILY [facility] PRN Reason: Protocol Last Admin: 01/07/18 08:54 Dose: 40 mg Fluticasone Propionate (Flonase) 2 spr TERRANCE DAILY [facility] Last Admin: 01/07/18 10:02 Dose: Not Given Home Med (Sumatriptan Succinate [Imitrex Tab]) 100 mg PO ONCE PRN PRN Reason: Migraine headache Home Med (Home Med) 1,500 unit PO BID [facility] Last Admin: 01/07/18 22:39 Dose: 1,500 unit Clindamycin Phosphate (Cleocin) 600 mg in 50 mls @ 50 mls/hr IVPB Q8 [facility] PRN Reason: Protocol Last Admin: 01/08/18 01:13 Dose: 50 mls/hr Ketorolac Tromethamine (Toradol) 30 mg IVP Q6 PRN PRN Reason: Pain, severe (8-10) Last Admin: 01/07/18 23:54 Dose: 30 mg Lorazepam (Ativan) 1 mg IVP Q6H PRN PRN Reason: Seizure activity Methylprednisolone (Solu-Medrol) 80 mg IVP Q8 [facility] Last Admin: 01/08/18 01:14 Dose: 80 mg Ondansetron HCl (Zofran Inj) 4 mg IVP Q6 PRN PRN Reason: Nausea/Vomiting Potassium Chloride (K-Dur 20 Meq Er Tab) 40 meq PO BID [facility] Stop: 01/08/18 17:01 Promethazine HCl/Dextromethorphan (Phenergan Dm Syrup) 10 ml PO Q6 [facility] Last Admin: 01/08/18 04:53 Dose: 10 ml Sucralfate (Carafate Oral Susp) 1 gm PO QID [facility] Last Admin: 01/07/18 21:43 Dose: 1 gm - Labs Labs: 01/08/18 04:20 01/08/18 04:20 - Constitutional Appears: In Acute Distress - Head Exam Head Exam: ATRAUMATIC, NORMAL INSPECTION, NORMOCEPHALIC - Eye Exam Eye Exam: EOMI, Normal appearance, PERRL Pupil Exam: NORMAL ACCOMODATION, PERRL - ENT Exam ENT Exam: Mucous Membranes Moist, Normal Exam - Neck Exam Neck Exam: Full ROM, Normal Inspection. absent: Lymphadenopathy - Respiratory Exam Respiratory Exam: Decreased Breath Sounds, Prolonged Expiratory Phase, Wheezes, NORMAL BREATHING PATTERN - Cardiovascular Exam Cardiovascular Exam: REGULAR RHYTHM, +S1, +S2. absent: Murmur - GI/Abdominal Exam GI & Abdominal Exam: Soft, Normal Bowel Sounds. absent: Tenderness - Rectal Exam Rectal Exam: NORMAL INSPECTION - Extremities Exam Extremities Exam: Full ROM, Normal Capillary Refill, Normal Inspection. absent : Joint Swelling, Pedal Edema - Back Exam Back Exam: NORMAL INSPECTION - Neurological Exam Neurological Exam: Alert, Awake, CN II-XII Intact, Normal Gait, Oriented x3 - Psychiatric Exam Psychiatric exam: Normal Affect, Normal Mood - Skin Skin Exam: Dry, Intact, Normal Color, Warm Assessment and Plan - Assessment and Plan (Free Text) Assessment: ACUTE ASTHMA URI SEIZURES Plan: CONTINUE RX ORDERED ADD WATER BOTTLE TO
--- NOTE | 2018-01-08 08:45 | CARD ---
APPROVED REPORT EKG Measurement Heart [id number] <Conclusion> Normal sinus rhythm Normal ECG
[2018-01-08] MEDS: Sucralfate 1 gm/10 ml Oral Susp UD PO SCH ×4 (09:06→22:05)
[2018-01-08] MEDS: [UNRECOGNIZED DRUG - OTHER] PO SCH (09:08)
[2018-01-08] MEDS: KEPPRA PO SCH (09:08)
[2018-01-08] MEDS: Potassium Chloride 20 mEq ER Tab PO SCH ×2 (09:09→16:34)
[2018-01-08] MEDS: Enoxaparin 40 mg Syringe SC SCH (09:09)
[2018-01-08 12:26] LABS: BANDS 1 % (0-2); HYPOCHROMIC SLIGHT; LYMPHOCYTE 3 % (20-50); MONOCYTE 3 % (0-10); NEUTROPHIL 93 % (42-75); PLATELET ESTIMATE SLIGHTLY INCREASED (NORMAL); TOTAL CELLS COUNTED 100; TOXIC GRANULATION PRESENT
--- NOTE | 2018-01-08 14:45 | RAD ---
HISTORY: shortness of breath COMPARISON: 01/07/2018. FINDINGS: LUNGS: The lungs are well inflated and clear. PLEURA: No significant pleural effusion identified, no pneumothorax apparent. CARDIOVASCULAR: Normal. OSSEOUS STRUCTURES: No significant abnormalities. VISUALIZED UPPER ABDOMEN: Normal. OTHER FINDINGS: None. IMPRESSION: No active pulmonary disease.
[2018-01-08 15:51] LABS: FSH 4.2 mIU/mL
[2018-01-08] MEDS: LEVETIRACETAM 500 MG PO SCH ×2 (18:44→22:05)
--- NOTE | 2018-01-08 19:36 | CP.PCM.PN ---
Subjective - Date & Time of Evaluation Date of Evaluation: 01/08/18 Time of Evaluation: 13:00 - Subjective Subjective: Mrs. De Luna was seen and examined today at bedside. I confirmed that she takes 1500 mg of Keppra XR BID and is not taking Lamictal. Since she does have an increased frequency of seizures recently, I had started her on Qudexy ( topiramate ER), but this was not approved by insurance. Her seizures tend to increase in frequency with her menstruation. Today is the first day of her menstrual cycle. She also has difficulty with respirations and a possible pneumonia at this time, which can promote increased seizure frequency in someone with epilepsy. Objective - Vital Signs/Intake and Output Vital Signs (last 24 hours): Temp Pulse Resp BP Pulse Ox 98.0 F 88 18 102/65 99 01/08/18 15:52 01/08/18 15:52 01/08/18 15:52 01/08/18 15:52 01/08/18 15:52 - Medications Medications: Current Medications Acetaminophen (Tylenol 325mg Tab) 650 mg PO Q6 PRN PRN Reason: Pain, Mild (1-3) Acetaminophen (Tylenol 325mg Tab) 650 mg PO Q6 PRN PRN Reason: Fever >100.4 F Acetazolamide (Diamox 250 Mg Tab) 250 mg PO BID [facility] Last Admin: 01/08/18 16:30 Dose: 250 mg Acetylcysteine (Acetylcysteine 20%) 2 ml INH RBID [facility] Last Admin: 01/08/18 18:59 Dose: 2 ml Albuterol/Ipratropium (Duoneb 3 Mg/0.5 Mg (3 Ml) Ud) 3 ml INH RQ4 PRN PRN Reason: Shortness of Breath Last Admin: 01/08/18 18:59 Dose: 3 ml Atorvastatin Calcium (Lipitor) 10 mg PO DIN [facility] Last Admin: 01/08/18 16:35 Dose: 10 mg Diazepam (Valium) 5 mg PO HS [facility] Last Admin: 01/07/18 21:45 Dose: 5 mg Enoxaparin Sodium (Lovenox) 40 mg SC DAILY [facility] PRN Reason: Protocol Last Admin: 01/08/18 09:09 Dose: 40 mg Fluticasone Propionate (Flonase) 2 spr TERRANCE DAILY [facility] Last Admin: 01/08/18 09:07 Dose: 2 spr Home Med (Sumatriptan Succinate [Imitrex Tab]) 100 mg PO ONCE PRN PRN Reason: Migraine headache Home Med (Patient's Own Medication) 3 unit PO BID [facility] Last Admin: 01/08/18 18:44 Dose: Not Given Ketorolac Tromethamine (Toradol) 30 mg IVP Q6 PRN PRN Reason: Pain, severe (8-10) Last Admin: 01/07/18 23:54 Dose: 30 mg Lorazepam (Ativan) 1 mg IVP Q6H PRN PRN Reason: Seizure activity Last Admin: 01/08/18 14:09 Dose: 1 mg Methylprednisolone (Solu-Medrol) 80 mg IVP Q8 [facility] Last Admin: 01/08/18 16:38 Dose: 80 mg Ondansetron HCl (Zofran Inj) 4 mg IVP Q6 PRN PRN Reason: Nausea/Vomiting Promethazine HCl/Dextromethorphan (Phenergan Dm Syrup) 10 ml PO Q6 [facility] Last Admin: 01/08/18 16:37 Dose: 10 ml Sucralfate (Carafate Oral Susp) 1 gm PO QID [facility] Last Admin: 01/08/18 16:30 Dose: 1 gm - Labs Labs: 01/08/18 04:20 01/08/18 04:20 - Neurological Exam Additional comments: Neurologically unchanged compared with previous examination. Assessment and Plan (1) Seizure disorder Assessment & Plan: Will continue home dose of Keppra XR 1500 mg BID and will order hormone levels. Neurology will follow. Status: Acute
[2018-01-09] MEDS: Promethazine DM 12.5 mg-30 mg/10 ml Syrup PO SCH ×4 (04:36→21:30)
[2018-01-09] MEDS: Albuterol-Ipratrop 3 mg / 0.5 (3 ml) UD INH PRN ×2 (08:17→20:13)
[2018-01-09] MEDS: Acetylcysteine 20% Inhal Soln (4ml) INH SCH ×2 (08:17→20:13)
--- NOTE | 2018-01-09 08:41 | CP.PCM.PN ---
Subjective - Date & Time of Evaluation Date of Evaluation: 01/09/18 Time of Evaluation: 08:41 - Subjective Subjective: STILL HAVING DIFFICULTY EXPECTORATING SPUTUM SOB PERSISTS HAD A SEIZURE YESTERDAY Objective - Vital Signs/Intake and Output Vital Signs (last 24 hours): Temp Pulse Resp BP Pulse Ox 97.9 F 78 18 124/82 98 01/09/18 07:48 01/09/18 07:48 01/09/18 07:48 01/09/18 07:48 01/09/18 07:48 - Medications Medications: Current Medications Acetaminophen (Tylenol 325mg Tab) 650 mg PO Q6 PRN PRN Reason: Pain, Mild (1-3) Last Admin: 01/09/18 01:30 Dose: 650 mg Acetaminophen (Tylenol 325mg Tab) 650 mg PO Q6 PRN PRN Reason: Fever >100.4 F Acetazolamide (Diamox 250 Mg Tab) 250 mg PO BID [facility] Last Admin: 01/08/18 16:30 Dose: 250 mg Acetylcysteine (Acetylcysteine 20%) 2 ml INH RBID [facility] Last Admin: 01/09/18 08:17 Dose: 2 ml Albuterol/Ipratropium (Duoneb 3 Mg/0.5 Mg (3 Ml) Ud) 3 ml INH RQ4 PRN PRN Reason: Shortness of Breath Last Admin: 01/09/18 08:17 Dose: 3 ml Atorvastatin Calcium (Lipitor) 10 mg PO DIN [facility] Last Admin: 01/08/18 16:35 Dose: 10 mg Diazepam (Valium) 5 mg PO HS [facility] Last Admin: 01/08/18 22:08 Dose: 5 mg Enoxaparin Sodium (Lovenox) 40 mg SC DAILY [facility] PRN Reason: Protocol Last Admin: 01/08/18 09:09 Dose: 40 mg Fluticasone Propionate (Flonase) 2 spr TERRANCE DAILY [facility] Last Admin: 01/08/18 09:07 Dose: 2 spr Home Med (Sumatriptan Succinate [Imitrex Tab]) 100 mg PO ONCE PRN PRN Reason: Migraine headache Home Med (Patient's Own Medication) 3 unit PO BID [facility] Last Admin: 01/08/18 22:05 Dose: 3 unit Ketorolac Tromethamine (Toradol) 30 mg IVP Q6 PRN PRN Reason: Pain, severe (8-10) Last Admin: 01/07/18 23:54 Dose: 30 mg Lorazepam (Ativan) 1 mg IVP Q6H PRN PRN Reason: Seizure activity Last Admin: 01/08/18 14:09 Dose: 1 mg Methylprednisolone (Solu-Medrol) 80 mg IVP Q8 [facility] Last Admin: 01/09/18 01:28 Dose: 80 mg Ondansetron HCl (Zofran Inj) 4 mg IVP Q6 PRN PRN Reason: Nausea/Vomiting Last Admin: 01/09/18 01:30 Dose: 4 mg Promethazine HCl/Dextromethorphan (Phenergan Dm Syrup) 10 ml PO Q6 [facility] Last Admin: 01/09/18 04:36 Dose: Not Given Sucralfate (Carafate Oral Susp) 1 gm PO QID [facility] Last Admin: 01/08/18 22:05 Dose: 1 gm - Labs Labs: 01/08/18 04:20 01/08/18 04:20 - Constitutional Appears: Chronically Ill - Head Exam Head Exam: ATRAUMATIC, NORMAL INSPECTION, NORMOCEPHALIC - Eye Exam Eye Exam: EOMI, Normal appearance, PERRL Pupil Exam: NORMAL ACCOMODATION, PERRL - ENT Exam ENT Exam: Mucous Membranes Moist, Normal Exam - Neck Exam Neck Exam: Full ROM, Normal Inspection. absent: Lymphadenopathy - Respiratory Exam Respiratory Exam: Decreased Breath Sounds, Prolonged Expiratory Phase, Rales, Wheezes, NORMAL BREATHING PATTERN - Cardiovascular Exam Cardiovascular Exam: REGULAR RHYTHM, +S1, +S2. absent: Murmur - GI/Abdominal Exam GI & Abdominal Exam: Soft, Normal Bowel Sounds. absent: Tenderness - Rectal Exam Rectal Exam: NORMAL INSPECTION - Extremities Exam Extremities Exam: Full ROM, Normal Capillary Refill, Normal Inspection. absent : Joint Swelling, Pedal Edema - Back Exam Back Exam: NORMAL INSPECTION - Neurological Exam Neurological Exam: Alert, Awake, CN II-XII Intact, Normal Gait, Oriented x3 - Psychiatric Exam Psychiatric exam: Normal Affect, Normal Mood - Skin Skin Exam: Dry, Intact, Normal Color, Warm Assessment and Plan - Assessment and Plan (Free Text) Assessment: ACUTE ASTHMA URI MUCUS PLUGGING OF AIRWAYS SEIZURES HX OF RESECTED BRAIN TUMOR Plan: TAPER STEROIDS CHEST PT
--- NOTE | 2018-01-09 08:44 | CP.PCM.PN ---
Subjective - Date & Time of Evaluation Date of Evaluation: 01/09/18 Time of Evaluation: 07:20 - Subjective Subjective: Patient seen and examined this morning. No acute overnight events. Pt continues to have dry cough and states shortness of breath has improved. Pt has an witnessed seizure yesterday. Saturating well on RA. Denies chest pain, dyspnea on exertion, nausea,vomiting, blurry vision, fever or chills. Pt is tolerating PO. Has regular BM and voiding regularly. Objective - Vital Signs/Intake and Output Vital Signs (last 24 hours): Temp Pulse Resp BP Pulse Ox 97.9 F 78 18 124/82 98 01/09/18 07:48 01/09/18 07:48 01/09/18 07:48 01/09/18 07:48 01/09/18 07:48 - Medications Medications: Current Medications Acetaminophen (Tylenol 325mg Tab) 650 mg PO Q6 PRN PRN Reason: Pain, Mild (1-3) Last Admin: 01/09/18 01:30 Dose: 650 mg Acetaminophen (Tylenol 325mg Tab) 650 mg PO Q6 PRN PRN Reason: Fever >100.4 F Acetazolamide (Diamox 250 Mg Tab) 250 mg PO BID [facility] Last Admin: 01/08/18 16:30 Dose: 250 mg Acetylcysteine (Acetylcysteine 20%) 2 ml INH RBID [facility] Last Admin: 01/09/18 08:17 Dose: 2 ml Albuterol/Ipratropium (Duoneb 3 Mg/0.5 Mg (3 Ml) Ud) 3 ml INH RQ4 PRN PRN Reason: Shortness of Breath Last Admin: 01/09/18 08:17 Dose: 3 ml Atorvastatin Calcium (Lipitor) 10 mg PO DIN [facility] Last Admin: 01/08/18 16:35 Dose: 10 mg Diazepam (Valium) 5 mg PO HS [facility] Last Admin: 01/08/18 22:08 Dose: 5 mg Enoxaparin Sodium (Lovenox) 40 mg SC DAILY [facility] PRN Reason: Protocol Last Admin: 01/08/18 09:09 Dose: 40 mg Fluticasone Propionate (Flonase) 2 spr TERRANCE DAILY [facility] Last Admin: 01/08/18 09:07 Dose: 2 spr Home Med (Sumatriptan Succinate [Imitrex Tab]) 100 mg PO ONCE PRN PRN Reason: Migraine headache Home Med (Patient's Own Medication) 3 unit PO BID [facility] Last Admin: 01/08/18 22:05 Dose: 3 unit Ketorolac Tromethamine (Toradol) 30 mg IVP Q6 PRN PRN Reason: Pain, severe (8-10) Last Admin: 01/07/18 23:54 Dose: 30 mg Lorazepam (Ativan) 1 mg IVP Q6H PRN PRN Reason: Seizure activity Last Admin: 01/08/18 14:09 Dose: 1 mg Methylprednisolone (Solu-Medrol) 60 mg IVP Q12 [facility] Ondansetron HCl (Zofran Inj) 4 mg IVP Q6 PRN PRN Reason: Nausea/Vomiting Last Admin: 01/09/18 01:30 Dose: 4 mg Promethazine HCl/Dextromethorphan (Phenergan Dm Syrup) 10 ml PO Q6 [facility] Last Admin: 01/09/18 04:36 Dose: Not Given Sucralfate (Carafate Oral Susp) 1 gm PO QID [facility] Last Admin: 01/08/18 22:05 Dose: 1 gm - Labs Labs: 01/08/18 04:20 01/08/18 04:20 - Additional Findings Additional findings: - Constitutional Appears: Non-toxic, No Acute Distress - Head Exam Head Exam: ATRAUMATIC, NORMOCEPHALIC - Eye Exam Eye Exam: Normal appearance - ENT Exam ENT Exam: Mucous Membranes Moist - Neck Exam Neck Exam: Normal Inspection - Respiratory Exam Respiratory Exam: Decreased Breath Sounds (B/L) and mild wheezing, NORMAL BREATHING PATTERN. absent: Accessory Muscle Use, Rales, Rhonchi, - Cardiovascular Exam Cardiovascular Exam: REGULAR RHYTHM, RRR, +S1, +S2 - GI/Abdominal Exam GI & Abdominal Exam: Soft, Normal Bowel Sounds. absent: Tenderness - Extremities Exam Extremities Exam: Normal Inspection. 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 Watson on board -c/w duoneb q 4h PRN -Start solumedrol 60 mg IV q12 (tapering steroid) -c/w acetylcystein 2 ml INH bid -c/w promethazine DM 10 ml po q6 -CXR: no acute infiltrate -WBC: 26.7 likely secondary to steroid -d/c clindamycin 600 mg IV q 8h. -Procalcitonin <0.05 2) Seizure disorder -Secondary to brain astrocytoma -seizure precaution -Ativan 1mg IV Q 6h PRN seizure -c/w home medication: keppra XR 1500 mg po BID -Neurology on board -f/u TSH, Estradiol, FSH, LH and prolactin 3) Hx/o Brain Astrocytoma -with residual left hemiparesis -f/u outpatient with Dr. Tilley 4) Migraine -c/w sumatriptan prn 5) DVT prophylaxis Lovenox 40 mg sc daily 6) Code Status -Full code
[2018-01-09 09:24] LABS: HEMOGLOBIN 12.6 g/dL (12.0-16.0); MEAN CORPUSCULAR HGB CONC 34.1 g/dL (33.0-37.0); RBC 4.36 Mil/uL (3.80-5.20); RED CELL DISTRIBUTION WIDTH 14.5 % (11.5-14.5); WHITE BLOOD COUNT 26.7 K/uL (4.8-10.8)
[2018-01-09 09:38] LABS: BLOOD UREA NITROGEN 18 mg/dl (7-17); CALCIUM 9.2 mg/dL (8.4-10.2); GFR AFRICAN-AMERICAN > 60; GFR NON-AFRICAN AMERICAN > 60
[2018-01-09] MEDS: Sucralfate 1 gm/10 ml Oral Susp UD PO SCH ×4 (09:44→21:30)
[2018-01-09] MEDS: LEVETIRACETAM 500 MG PO SCH ×2 (09:45→16:39)
[2018-01-09] MEDS: Enoxaparin 40 mg Syringe SC SCH (09:45)
--- NOTE | 2018-01-09 11:45 | CP.PCM.PN ---
Subjective - Date & Time of Evaluation Date of Evaluation: 01/09/18 Time of Evaluation: 11:42 - Subjective Subjective: Ms. De Luna was seen and examined at the bedside. She is alert, oriented x 3. She denies any headache, dizziness, lightheadedness uses oxygen at all times. She is able to follow simple commands. There was no untoward events overnight. Objective - Vital Signs/Intake and Output Vital Signs (last 24 hours): Temp Pulse Resp BP Pulse Ox 97.9 F 78 18 124/82 96 01/09/18 08:55 01/09/18 08:55 01/09/18 08:55 01/09/18 08:55 01/09/18 08:55 - Medications Medications: Current Medications Acetaminophen (Tylenol 325mg Tab) 650 mg PO Q6 PRN PRN Reason: Pain, Mild (1-3) Last Admin: 01/09/18 01:30 Dose: 650 mg Acetaminophen (Tylenol 325mg Tab) 650 mg PO Q6 PRN PRN Reason: Fever >100.4 F Acetazolamide (Diamox 250 Mg Tab) 250 mg PO BID [facility] Last Admin: 01/09/18 09:44 Dose: 250 mg Acetylcysteine (Acetylcysteine 20%) 2 ml INH RBID [facility] Last Admin: 01/09/18 08:17 Dose: 2 ml Albuterol/Ipratropium (Duoneb 3 Mg/0.5 Mg (3 Ml) Ud) 3 ml INH RQ4 PRN PRN Reason: Shortness of Breath Last Admin: 01/09/18 08:17 Dose: 3 ml Atorvastatin Calcium (Lipitor) 10 mg PO DIN [facility] Last Admin: 01/08/18 16:35 Dose: 10 mg Diazepam (Valium) 5 mg PO HS [facility] Last Admin: 01/08/18 22:08 Dose: 5 mg Enoxaparin Sodium (Lovenox) 40 mg SC DAILY [facility] PRN Reason: Protocol Last Admin: 01/09/18 09:45 Dose: 40 mg Fluticasone Propionate (Flonase) 2 spr TERRANCE DAILY [facility] Last Admin: 01/09/18 09:44 Dose: 2 spr Home Med (Sumatriptan Succinate [Imitrex Tab]) 100 mg PO ONCE PRN PRN Reason: Migraine headache Home Med (Patient's Own Medication) 3 unit PO BID [facility] Last Admin: 01/09/18 09:45 Dose: 3 unit Ketorolac Tromethamine (Toradol) 30 mg IVP Q6 PRN PRN Reason: Pain, severe (8-10) Last Admin: 01/07/18 23:54 Dose: 30 mg Lorazepam (Ativan) 1 mg IVP Q6H PRN PRN Reason: Seizure activity Last Admin: 01/08/18 14:09 Dose: 1 mg Methylprednisolone (Solu-Medrol) 60 mg IVP Q12 [facility] Last Admin: 01/09/18 09:46 Dose: 60 mg Ondansetron HCl (Zofran Inj) 4 mg IVP Q6 PRN PRN Reason: Nausea/Vomiting Last Admin: 01/09/18 01:30 Dose: 4 mg Promethazine HCl/Dextromethorphan (Phenergan Dm Syrup) 10 ml PO Q6 [facility] Last Admin: 01/09/18 04:36 Dose: Not Given Sucralfate (Carafate Oral Susp) 1 gm PO QID [facility] Last Admin: 01/09/18 09:44 Dose: 1 gm - Labs Labs: 01/09/18 09:00 01/09/18 09:00 - Constitutional Appears: No Acute Distress - Head Exam Head Exam: NORMAL INSPECTION - Eye Exam Pupil Exam: PERRL - Neurological Exam Neurological Exam: Alert, Awake, Oriented x3 Neuro motor strength exam: Left Upper Extremity: 5, Right Upper Extremity: 5, Left Lower Extremity: 5, Right Lower Extremity: 5 Additional comments: Neurological examination unchanged from previous examination. Assessment and Plan (1) Seizure disorder Assessment & Plan: Case discussed with Dr. Tilley, continue all current medical regimen including home dose of Keppra XR 1500 mg BID and some of the hormone levels are pending. Status: Acute
[2018-01-09 19:19] LABS: BENZODIAZEPINES, UR NEGATIVE (NEGATIVE); PHENCYCLIDINE, UR NEGATIVE (NEGATIVE)
[2018-01-09 19:34] LABS: BARBITURATES, UR NEGATIVE (NEGATIVE); OPIATES, UR NEGATIVE (NEGATIVE)
[2018-01-09 20:31] LABS: PROLACTIN 44.7 ng/mL (3.0-18.9)
[2018-01-09 22:01] LABS: ESTRADIOL (E2) 42.5 pg/mL
[2018-01-10] MEDS: Promethazine DM 12.5 mg-30 mg/10 ml Syrup PO SCH ×2 (04:26→09:05)
[2018-01-10 07:47] LABS: HEMOGLOBIN 12.8 g/dL (12.0-16.0); MEAN CORPUSCULAR HEMOGLOBIN 28.1 pg (27.0-31.0); MEAN CORPUSCULAR HGB CONC 33.5 g/dL (33.0-37.0); RBC 4.56 Mil/uL (3.80-5.20); RED CELL DISTRIBUTION WIDTH 14.3 % (11.5-14.5); WHITE BLOOD COUNT 17.2 K/uL (4.8-10.8)
[2018-01-10] MEDS: Acetylcysteine 20% Inhal Soln (4ml) INH SCH (07:53)
[2018-01-10] MEDS: Albuterol-Ipratrop 3 mg / 0.5 (3 ml) UD INH PRN (07:53)
[2018-01-10 08:08] VITALS: BP 124/83; PULSE 62; RESP 20; TEMP 98.4; O2SAT 98
[2018-01-10] MEDS: Enoxaparin 40 mg Syringe SC SCH (09:04)
[2018-01-10] MEDS: Sucralfate 1 gm/10 ml Oral Susp UD PO SCH (09:04)
[2018-01-10] MEDS: LEVETIRACETAM 500 MG PO SCH (09:05)
--- NOTE | 2018-01-10 09:50 | CP.PCM.PN ---
Subjective - Date & Time of Evaluation Date of Evaluation: 01/10/18 Time of Evaluation: 09:51 - Subjective Subjective: SOB IMPROVED WANTS TO GO HOME O2 SAT--98% ON RA Objective - Vital Signs/Intake and Output Vital Signs (last 24 hours): Temp Pulse Resp BP Pulse Ox 98.4 F 62 20 124/83 98 01/10/18 08:07 01/10/18 08:07 01/10/18 08:07 01/10/18 08:07 01/10/18 08:07 - Medications Medications: Current Medications Acetaminophen (Tylenol 325mg Tab) 650 mg PO Q6 PRN PRN Reason: Pain, Mild (1-3) Last Admin: 01/09/18 01:30 Dose: 650 mg Acetaminophen (Tylenol 325mg Tab) 650 mg PO Q6 PRN PRN Reason: Fever >100.4 F Acetazolamide (Diamox 250 Mg Tab) 250 mg PO BID [facility] Last Admin: 01/10/18 09:04 Dose: 250 mg Acetylcysteine (Acetylcysteine 20%) 2 ml INH RBID [facility] Last Admin: 01/10/18 07:53 Dose: 2 ml Albuterol/Ipratropium (Duoneb 3 Mg/0.5 Mg (3 Ml) Ud) 3 ml INH RQ4 PRN PRN Reason: Shortness of Breath Last Admin: 01/10/18 07:53 Dose: 3 ml Atorvastatin Calcium (Lipitor) 10 mg PO DIN [facility] Last Admin: 01/09/18 16:38 Dose: 10 mg Diazepam (Valium) 5 mg PO HS [facility] Last Admin: 01/09/18 21:30 Dose: 5 mg Enoxaparin Sodium (Lovenox) 40 mg SC DAILY [facility] PRN Reason: Protocol Last Admin: 01/10/18 09:04 Dose: 40 mg Fluticasone Propionate (Flonase) 2 spr TERRANCE DAILY [facility] Last Admin: 01/10/18 09:04 Dose: 2 spr Home Med (Sumatriptan Succinate [Imitrex Tab]) 100 mg PO ONCE PRN PRN Reason: Migraine headache Home Med (Patient's Own Medication) 3 unit PO BID [facility] Last Admin: 01/10/18 09:05 Dose: 3 unit Ketorolac Tromethamine (Toradol) 30 mg IVP Q6 PRN PRN Reason: Pain, severe (8-10) Last Admin: 01/07/18 23:54 Dose: 30 mg Lorazepam (Ativan) 1 mg IVP Q6H PRN PRN Reason: Seizure activity Last Admin: 01/08/18 14:09 Dose: 1 mg Methylprednisolone (Solu-Medrol) 60 mg IVP Q12 [facility] Last Admin: 01/10/18 09:05 Dose: 60 mg Ondansetron HCl (Zofran Inj) 4 mg IVP Q6 PRN PRN Reason: Nausea/Vomiting Last Admin: 01/09/18 01:30 Dose: 4 mg Promethazine HCl/Dextromethorphan (Phenergan Dm Syrup) 10 ml PO Q6 [facility] Last Admin: 01/10/18 09:05 Dose: 10 ml Sucralfate (Carafate Oral Susp) 1 gm PO QID [facility] Last Admin: 01/10/18 09:04 Dose: 1 gm - Labs Labs: 01/10/18 05:30 01/09/18 09:00 - Constitutional Appears: No Acute Distress - Head Exam Head Exam: ATRAUMATIC, NORMAL INSPECTION, NORMOCEPHALIC - Eye Exam Eye Exam: EOMI, Normal appearance, PERRL Pupil Exam: NORMAL ACCOMODATION, PERRL - ENT Exam ENT Exam: Mucous Membranes Moist, Normal Exam - Neck Exam Neck Exam: Full ROM, Normal Inspection. absent: Lymphadenopathy - Respiratory Exam Respiratory Exam: Clear to Ausculation Bilateral, Prolonged Expiratory Phase, NORMAL BREATHING PATTERN - Cardiovascular Exam Cardiovascular Exam: REGULAR RHYTHM, +S1, +S2. absent: Murmur - GI/Abdominal Exam GI & Abdominal Exam: Soft, Normal Bowel Sounds. absent: Tenderness - Rectal Exam Rectal Exam: NORMAL INSPECTION - Extremities Exam Extremities Exam: Full ROM, Normal Capillary Refill, Normal Inspection. absent : Joint Swelling, Pedal Edema - Back Exam Back Exam: NORMAL INSPECTION - Neurological Exam Neurological Exam: Alert, Awake, CN II-XII Intact, Normal Gait, Oriented x3 - Psychiatric Exam Psychiatric exam: Normal Affect, Normal Mood - Skin Skin Exam: Dry, Intact, Normal Color, Warm Assessment and Plan - Assessment and Plan (Free Text) Assessment: ASTHMA--IMPROVED LEUKOCYTOSIS DUE TO STEROIDS Plan: BEIN PO PREDNISONE OK TO D/C FROM THE PULMONARY VIEPOINT REPEAT CBC OUT PT
--- NOTE | 2018-01-10 10:37 | CP.PCM.DIS ---
Provider - Provider Date of Admission: 01/09/18 08:53 Attending physician: Madelin Sosa MD Time Spent in preparation of Discharge (in minutes): 30 Diagnosis - Discharge Diagnosis (1) Asthma exacerbation Status: Acute (2) Seizure disorder Status: Chronic (3) URI (upper respiratory infection) Status: Acute Hospital Course - Lab Results Lab Results: Micro Results 01/07/18 04:58 Blood-Venous Blood Culture - Preliminary NO GROWTH AFTER 3 DAYS 01/08/18 12:58 Sputum Gram Stain - Final Most Recent Lab Values WBC 17.2 K/uL (4.8-10.8) H 01/10/18 05:30 RBC 4.56 Mil/uL (3.80-5.20) 01/10/18 05:30 Hgb 12.8 g/dL (12.0-16.0) 01/10/18 05:30 Hct 38.3 % (34.0-47.0) 01/10/18 05:30 MCV 84.0 fl (81.0-99.0) 01/10/18 05:30 MCH 28.1 pg (27.0-31.0) 01/10/18 05:30 MCHC 33.5 g/dL (33.0-37.0) 01/10/18 05:30 RDW 14.3 % (11.5-14.5) 01/10/18 05:30 Plt Count 493 K/uL (130-400) H 01/10/18 05:30 MPV 9.3 fl (7.2-11.7) 01/08/18 04:20 Neut % (Auto) 92.9 % (50.0-75.0) H 01/08/18 04:20 Lymph % (Auto) 4.3 % (20.0-40.0) L 01/08/18 04:20 [place] % (Auto) 1.6 % (0.0-10.0) 01/08/18 04:20 Eos % (Auto) 0.0 % (0.0-4.0) 01/08/18 04:20 Baso % (Auto) 1.2 % (0.0-2.0) 01/08/18 04:20 Neut # (Auto) 17.0 K/uL (1.8-7.0) H 01/08/18 04:20 Lymph # (Auto) 0.8 K/uL (1.0-4.3) L 01/08/18 04:20 [place] # (Auto) 0.3 K/uL (0.0-0.8) 01/08/18 04:20 Eos # (Auto) 0.0 K/uL (0.0-0.7) 01/08/18 04:20 Baso # (Auto) 0.2 K/uL (0.0-0.2) 01/08/18 04:20 Neutrophils % (Manual) 93 % (42-75) H 01/08/18 04:20 Band Neutrophils % 1 % (0-2) 01/08/18 04:20 Lymphocytes % (Manual) 3 % (20-50) L 01/08/18 04:20 Monocytes % (Manual) 3 % (0-10) 01/08/18 04:20 Toxic Granulation Present 01/08/18 04:20 Platelet Estimate Slightly increased (NORMAL) H 01/08/18 04:20 Hypochromasia (manual) Slight 01/08/18 04:20 Sodium 138 mmol/l (132-148) 01/09/18 09:00 Potassium 4.3 MMOL/L (3.6-5.0) 01/09/18 09:00 Chloride 108 mmol/L (98-107) H 01/09/18 09:00 Carbon Dioxide 16 mmol/L (22-30) L 01/09/18 09:00 Anion Gap 18 (10-20) 01/09/18 09:00 BUN 18 mg/dl (7-17) H 01/09/18 09:00 Creatinine 0.8 mg/dl (0.7-1.2) 01/09/18 09:00 Est GFR ( Amer) > 60 01/09/18 09:00 Est GFR (Non-Af Amer) > 60 01/09/18 09:00 Random Glucose 139 mg/dL (65-105) H 01/09/18 09:00 Calcium 9.2 mg/dL (8.4-10.2) 01/09/18 09:00 Total Bilirubin 0.2 mg/dl (0.2-1.3) 01/08/18 04:20 AST 21 U/L (14-36) 01/08/18 04:20 ALT 32 U/L (9-52) 01/08/18 04:20 Alkaline Phosphatase 88 U/L (38-126) 01/08/18 04:20 Troponin I < 0.0120 ng/mL (0.00-0.120) 01/07/18 04:58 Total Protein 7.2 G/DL (6.3-8.2) 01/08/18 04:20 Albumin 4.0 g/dL (3.5-5.0) 01/08/18 04:20 Globulin 3.2 gm/dL (2.2-3.9) 01/08/18 04:20 Albumin/Globulin Ratio 1.2 (1.0-2.1) 01/08/18 04:20 Procalcitonin < 0.05 NG/ML (0.19-0.49) L 01/07/18 09:14 TSH 3rd Generation 0.07 mIU/ML (0.46-4.68) L 01/10/18 05:30 Estradiol (E2) Level 42.5 pg/mL 01/08/18 15:11 FSH 3rd Generation 4.2 mIU/mL 01/08/18 15:11 Luteinizing Hormone 19.6 mIU/ml 01/08/18 15:11 Prolactin 44.7 ng/mL (3.0-18.9) H 01/08/18 15:11 Urine Color Straw (YELLOW) 01/07/18 15:27 Urine Clarity Clear (Clear) 01/07/18 15:27 Urine pH 5.0 (5.0-8.0) 01/07/18 15:27 Ur Specific [place] 1.012 (1.003-1.030) 01/07/18 15:27 Urine Protein Negative mg/dL (NEGATIVE) 01/07/18 15:27 Urine Glucose (UA) >=500 mg/dL (Normal) 01/07/18 15:27 Urine Ketones Negative mg/dL (NEGATIVE) 01/07/18 15:27 Urine Blood Negative (NEGATIVE) 01/07/18 15:27 Urine Nitrate Negative (NEGATIVE) 01/07/18 15:27 Urine Bilirubin Negative (NEGATIVE) 01/07/18 15:27 Urine Urobilinogen 0.2-1.0 mg/dL (0.2-1.0) 01/07/18 15:27 Ur Leukocyte Esterase Neg Von/uL (Negative) 01/07/18 15:27 Urine RBC (Auto) 2 /hpf (0-3) 01/07/18 15:27 Urine Microscopic WBC 1 /hpf (0-5) 01/07/18 15:27 Ur Squamous Epith Cells < 1 /hpf (0-5) 01/07/18 15:27 Urine Bacteria Rare (<OCC) 01/07/18 15:27 Urine Opiates Screen Negative (NEGATIVE) 01/09/18 18:54 Urine Methadone Screen Negative (NEGATIVE) 01/09/18 18:54 Ur Barbiturates Screen Negative (NEGATIVE) 01/09/18 18:54 Ur Phencyclidine Scrn Negative (NEGATIVE) 01/09/18 18:54 Ur Amphetamines Screen Negative (NEGATIVE) 01/09/18 18:54 U Benzodiazepines Scrn Negative (NEGATIVE) 01/09/18 18:54 U Oth Cocaine Metabols Negative (NEGATIVE) 01/09/18 18:54 U Cannabinoids Screen Negative (NEGATIVE) 01/09/18 18:54 Influenza Typ A,B (EIA) Negative for flu a/b (NEGATIVE) 01/07/18 06:05 - Hospital Course Hospital Course: 47 year old female with PMH of Asthma, Brain astrocytoma (first surgery in 1977 on right parietal lobe and the second tumor resection 1992) that 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 Pt also reports multiple episodes of seizures for last few months. Pt's community health educator Dr. Watson and neurologist Dr. Tilley were consulted. Pt received solumedrol, duoneb q4h , promethazine DM and acetylcysteine during hospitalization. Pt continues to receive her home medications for seizure. Pt had one episode of witnessed seizure while in Telemetry and received ativan 1 mg IVP. Her seizure is likely secondary to her menstruation as she had seizure during menstruation in the past. Pt's respiratory symptoms improved and is medically stable to discharge home. New medications on discharge: predniSONE [predniSONE Tab] 40 mg PO DAILY for 5 days Promethazine HCl/Codeine [Prometh-Codein 6.25-10 mg/5 ml] 5 ml PO Q4 PRN #70 ml Continue with rest of the home medications Discharge Exam - Head Exam Head Exam: ATRAUMATIC, NORMAL INSPECTION, NORMOCEPHALIC - Eye Exam Eye Exam: Normal appearance - ENT Exam ENT Exam: Mucous Membranes Moist - Respiratory Exam Respiratory Exam: Clear to PA & Lateral, NORMAL BREATHING PATTERN. absent: Accessory Muscle Use, Rales, Rhonchi, Wheezes, Respiratory Distress - Cardiovascular Exam Cardiovascular Exam: REGULAR RHYTHM, RRR, +S1, +S2 - GI/Abdominal Exam GI & Abdominal Exam: Normal Bowel Sounds, Soft. absent: Tenderness - Neurological Exam Neurological exam: Alert, Oriented x3 - Psychiatric Exam Psychiatric exam: Normal Affect, Normal Mood - Skin Skin Exam: Normal Color, Warm Discharge Plan - Discharge Medications Prescriptions: predniSONE [predniSONE Tab] 40 mg PO DAILY #10 tab Promethazine HCl/Codeine [Prometh-Codein 6.25-10 mg/5 ml] 5 ml PO Q4 PRN #70 ml PRN Reason: Cough - Follow Up Plan Condition: FAIR Disposition: HOME/ ROUTINE Instructions: Asthma, Adult (DC), Seizures, Adult (DC) Additional Instructions: Please follow up with your PMD in 3 days Follow up with Dr. Watson and Dr. Tilley in 1 week Referrals: Reginaldo Watson MD [Staff Provider] - Josiah Tilley MD [Medical Doctor] -
--- NOTE | 2018-01-10 12:41 | CP.PCM.PN ---
Subjective - Date & Time of Evaluation Date of Evaluation: 01/10/18 Time of Evaluation: 12:41 - Subjective Subjective: Ms. De Luna was seen and examined at the bedside. She is alert, oriented x 3. She denies any headache, dizziness, lightheadedness uses oxygen at all times. She is able to follow simple commands. She is being discharge today.There was no untoward events overnight. Objective - Vital Signs/Intake and Output Vital Signs (last 24 hours): Temp Pulse Resp BP Pulse Ox 98.4 F 62 20 124/83 98 01/10/18 08:07 01/10/18 08:07 01/10/18 08:07 01/10/18 08:07 01/10/18 08:07 - Medications Medications: Current Medications Acetaminophen (Tylenol 325mg Tab) 650 mg PO Q6 PRN PRN Reason: Pain, Mild (1-3) Last Admin: 01/09/18 01:30 Dose: 650 mg Acetaminophen (Tylenol 325mg Tab) 650 mg PO Q6 PRN PRN Reason: Fever >100.4 F Acetazolamide (Diamox 250 Mg Tab) 250 mg PO BID [facility] Last Admin: 01/10/18 09:04 Dose: 250 mg Acetylcysteine (Acetylcysteine 20%) 2 ml INH RBID [facility] Last Admin: 01/10/18 07:53 Dose: 2 ml Albuterol/Ipratropium (Duoneb 3 Mg/0.5 Mg (3 Ml) Ud) 3 ml INH RQ4 PRN PRN Reason: Shortness of Breath Last Admin: 01/10/18 07:53 Dose: 3 ml Atorvastatin Calcium (Lipitor) 10 mg PO DIN [facility] Last Admin: 01/09/18 16:38 Dose: 10 mg Diazepam (Valium) 5 mg PO HS [facility] Last Admin: 01/09/18 21:30 Dose: 5 mg Enoxaparin Sodium (Lovenox) 40 mg SC DAILY [facility] PRN Reason: Protocol Last Admin: 01/10/18 09:04 Dose: 40 mg Fluticasone Propionate (Flonase) 2 spr TERRANCE DAILY [facility] Last Admin: 01/10/18 09:04 Dose: 2 spr Home Med (Sumatriptan Succinate [Imitrex Tab]) 100 mg PO ONCE PRN PRN Reason: Migraine headache Home Med (Patient's Own Medication) 3 unit PO BID [facility] Last Admin: 01/10/18 09:05 Dose: 3 unit Ketorolac Tromethamine (Toradol) 30 mg IVP Q6 PRN PRN Reason: Pain, severe (8-10) Last Admin: 01/07/18 23:54 Dose: 30 mg Lorazepam (Ativan) 1 mg IVP Q6H PRN PRN Reason: Seizure activity Last Admin: 01/08/18 14:09 Dose: 1 mg Methylprednisolone (Solu-Medrol) 60 mg IVP Q12 [facility] Last Admin: 01/10/18 09:05 Dose: 60 mg Ondansetron HCl (Zofran Inj) 4 mg IVP Q6 PRN PRN Reason: Nausea/Vomiting Last Admin: 01/09/18 01:30 Dose: 4 mg Promethazine HCl/Dextromethorphan (Phenergan Dm Syrup) 10 ml PO Q6 [facility] Last Admin: 01/10/18 09:05 Dose: 10 ml Sucralfate (Carafate Oral Susp) 1 gm PO QID [facility] Last Admin: 01/10/18 09:04 Dose: 1 gm - Labs Labs: 01/10/18 05:30 01/09/18 09:00 - Constitutional Appears: No Acute Distress - Head Exam Head Exam: NORMAL INSPECTION - Neurological Exam Neurological Exam: Alert, Awake, Oriented x3 Neuro motor strength exam: Left Upper Extremity: 4, Right Upper Extremity: 4, Left Lower Extremity: 4, Right Lower Extremity: 4 Additional comments: Neurological unchanged from previous examination. Assessment and Plan (1) Seizure disorder Assessment & Plan: Case discussed with Dr. Tilley, continue all current medical regimen including home dose of Keppra XR 1500 mg BID. Recommend hydration, follow up with an outpatient neurologist or Dr. Tilley at [address] [place] [address] [address] [facility] [address] tel. [phone] Status: Chronic
--- NOTE | 2018-01-10 14:05 | PQF GENQUE ---
Dr. Sosa, Please clarify type of asthma: if known:i.e. Mild intermittent Mild persistent Moderate persistent Severe persistent OR:Unable to determine H and P: Asthma Exacerbation -admit ob stele -s/p solumedrol 125 mg IV, duoneb ED -c/w duoneb q 4h PRN -c/w solumedrol 60 mg IV BID -CXR: no acute infiltrate -WBC: 14.6, seizure event will give clindamycin -clindamycin 600 mg IV q 8h. - f/u procalcitonin -Load Out Supervisor consult suggested This form is a permanent part of the medical record Clarification of your documentation is requested to better reflect the severity of illness and intensity of treatment of your patient. Indicators present [] Specify: [] [] Specify: [] [] Specify: [] [] Specify: [] Location in the medical record that reflects the above clinical findings: [] Treatment Provided: [] PHYSICIAN'S RESPONSE Based on your medical judgment of the clinical indicators outlined above please clarify the following: [] Practitioner response [] If unable to determine, please check the box, sign and date. Present On Admission (POA) Indicator: [] Present at the time of admission [] Not present at the time of admission [] Clinically Undetermined In responding to this query, please exercise your independent professional judgment. The fact that a question is asked does not imply that any particular answer is desired or expected. Thank you for your clarification on this documentation. If you have any questions please call. * Thank you, Sonam eMza RN farm adviser PATRIA
== END 2018-01-10 13:50 | disposition home or self-care (01) | DRG 97 ==
LOC: H.ER 02:58 → H.ERHOLD 05:51 → H.TEL 06:56 → H.ERHOLD 08:53 → OBSVTOIN 01-09 08:53 → H.MEDSURG1 01-10 03:45
PROVIDERS: ADMIT Family Medicine Geriatric Medicine; ATTEND Family Medicine Geriatric Medicine
DX: J45.41 Moderate persistent asthma with (acute) exacerbation (principal); Z90.49 Acquired absence of other specified parts of digestive tract; G43.909 Migraine, unspecified, not intractable, without status migrainosus; G40.209 Localization-related (focal) (partial) symptomatic epilepsy and epileptic syndromes with complex partial seizures, not intractable, without status epilepticus; Z85.841 Personal history of malignant neoplasm of brain; J06.9 Acute upper respiratory infection, unspecified; G81.94 Hemiplegia, unspecified affecting left nondominant side; T38.0X5A Adverse effect of glucocorticoids and synthetic analogues, initial encounter; D72.829 Elevated white blood cell count, unspecified; T17.990A Other foreign object in respiratory tract, part unspecified in causing asphyxiation, initial encounter; Z87.891 Personal history of nicotine dependence; E78.5 Hyperlipidemia, unspecified

== ENCOUNTER 2018-02-08 02:21 | Emergency (ER) | payer MEDICAID ==
[2018-02-08 02:22] VITALS: BMI 33.7
--- NOTE | 2018-02-08 03:10 | ED PDOC ---
HPI: Seizure Time Seen by Provider: 02/08/18 02:42 Chief Complaint (Nursing): Seizure History Per: Patient History/Exam Limitations: no limitations Recent Seizure Activity Began: Just Before Arrival Number Of Seizures: One Quality Of Seizure: Generalized Precipitating Factor(s): Other Additional Complaint(s): Hx of seizure disorder and asthma presenting with seizure and head injury, states she is on her menstrual cycle and often has seizure around this time, states that she fell and hit her head against a bag of groceries containing glass. States that she feels better now but has a headache as a result of the injury. Compliant with medications. Denies numbnes, weakness, loss of function , blurry vision. Past Medical History Reviewed: Historical Data, Nursing Documentation, Vital Signs Vital Signs: Last Vital Signs Temp 98.4 F 02/08/18 02:36 Pulse 78 02/08/18 02:36 Resp 16 02/08/18 02:36 BP 121/77 02/08/18 02:36 Pulse Ox 100 02/08/18 04:43 - Medical History PMH: Asthma, Migraine, Seizures Denies: Chronic Kidney Disease - Surgical History Surgical History: Cholecystectomy, Tonsillectomy - Family History Family History: States: Unknown Family Hx - Home Medications Home Medications: Ambulatory Orders Medication Instructions Recorded Albuterol HFA [Ventolin HFA 90 2 puff INH Q3H PRN 07/04/14 mcg/actuation (8 g)] Mometasone [Asmanex Twisthaler] 2 puff INH DAILY 07/04/14 diaZEpam [Valium] 5 mg PO HS 07/04/14 Atorvastatin [Lipitor] 10 mg PO DIN 08/01/16 Fluticasone Nasal [Flonase] 2 actuation NS DAILY #1 spr 08/01/16 LORazepam [Ativan] 1 mg PO PRN PRN 08/01/16 Levetiracetam [Keppra Xr] 3 tab PO BID 08/01/16 SUMAtriptan succinate [Imitrex Tab] 100 mg PO ONCE PRN #9 tab 08/01/16 Cyclobenzaprine [Flexeril] 10 mg PO BID #15 tab 07/27/17 acetaZOLAMIDE [Diamox 250 mg Tab] 250 mg PO BID 01/08/18 Promethazine HCl/Codeine 5 ml PO Q4 PRN #70 ml 01/10/18 [Prometh-Codein 6.25-10 mg/5 ml] predniSONE [predniSONE Tab] 40 mg PO DAILY #10 tab 01/10/18 - Allergies Allergies/Adverse Reactions: Allergies Allergy/AdvReac Type Severity Reaction Status Date / Time tree and shrub pollen Allergy ITCHING Verified 01/07/18 03:24 Review of Systems ROS Statement: Except As Marked, All Systems Reviewed And Found Negative Neurological: Positive for: Seizures, Headache. Negative for: Numbness Physical Exam - Reviewed Nursing Documentation Reviewed: Yes Vital Signs Reviewed: Yes - Physical Exam Appears: Positive for: Well, Non-toxic, No Acute Distress Head Exam: Positive for: NORMAL INSPECTION, NORMOCEPHALIC. Negative for: ATRAUMATIC (2 linear lacerations to R upper forehead, 2cm each, nonbleeding) Skin: Positive for: Normal Color, Warm, DRY Eye Exam: Positive for: EOMI, Normal appearance, PERRL ENT: Positive for: Normal ENT Inspection Neck: Positive for: Normal, Painless ROM Cardiovascular/Chest: Positive for: Regular Rate, Rhythm Respiratory: Positive for: CNT, Normal Breath Sounds Gastrointestinal/Abdominal: Positive for: Normal Exam, Soft. Negative for: Tenderness Back: Positive for: Normal Inspection Extremity: Positive for: Normal ROM. 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 Negative for: Motor/Sensory Deficits, Aphasia, Facial Droop Procedures - Laceration/Wound Repair Right Upper Head Wound Length (cm): 2 Wound's Depth, Shape: superficial Wound Explored: clean Irrigated w/ Saline (ccs): 50 Wound Repaired With: Skin adhesive Wound Complexity: Simple - ECG O2 Sat by Pulse Oximetry: 100 Medical Decision Making Medical Decision MakinAM A/P: Hx of seizure disorder, asthma presenting with head injury and seizure -patent currently A& O x3, no seizure activity seen in ED, well appearing, normal vitals, calm, pleasant -likely patient had seizure because of menstruation, currently neurologicaly intact -will get head CT -re-evval Time: 0439 CT Head FINDINGS: Brain: Stable appearance of the right frontoparietal resection cavity and adjacent gliosis. No acute hemorrhage, mass effect or midline shift. No extra-axial fluid collection. Ventricles: Stable dilatation of the right lateral ventricle. No acute hydrocephalus. Bones/joints: Right craniotomy. No acute fracture. Soft tissues: No soft tissue swelling. Sinuses: Trace left maxillary sinus fluid. Mastoid air cells: Mastoid air cells are well-aerated. IMPRESSION: No acute findings. Dictated and Authenticated by: Ranulfo Singh MD 02/08/2018 4:39 AM Eastern Time ([place] & [place]) 500 Patient awake, alert, wound cleaned and repaired. Will d/c home. Advised to followup with Dr. Tilley. Disposition - Clinical Impression Clinical Impression: Seizure disorder, Head injury - Patient ED Disposition Is Patient to be Admitted: No - Disposition Referrals: Reginaldo Watson MD [Primary Care Provider] - Josiah Tilley MD [Medical Doctor] - Disposition: Routine/Home Disposition Time: 04:56 Condition: STABLE Instructions: Minor Head Injury, Laceration Repair With Glue (DC) Forms: [employer] (Urdu)
[2018-02-08] MEDS ORDERED: Tdap Vaccine 0.5 ml Vial (10-64 yrs) IM ONE ×2 (04:44→04:54)
[2018-02-08 05:48] VITALS: BP 130/76; PULSE 76; RESP 18; TEMP 97.9; O2SAT 98
--- NOTE | 2018-02-08 09:04 | CT ---
PROCEDURE: CT HEAD WITHOUT CONTRAST. HISTORY: seizure d/o, head injury after seizure COMPARISON: Noncontrast head CT 10/02/2013. TECHNIQUE: Axial computed tomography images were obtained through the head/brain without intravenous contrast. Radiation dose: Total exam DLP = 855.67 mGy-cm. This CT exam was performed using one or more of the following dose reduction techniques: Automated exposure control, adjustment of the mA and/or kV according to patient size, and/or use of iterative reconstruction technique. FINDINGS: HEMORRHAGE: No intracranial hemorrhage. BRAIN: Postop gliosis/encephalomalacia at the posterior right frontoparietal lobe is reiterated with prominent ex vacuo expansion of the right lateral ventricle again identified. No acute cortical edema is appreciated throughout with a chronic lacune identified in the left frontal lobe superiorly within deep white matter. Posterior fossa contents remain normal appearing including the brainstem. No suspicious extra-axial collection. No mass effect. VENTRICLES: No hydrocephalus. Ex vacuo expansion of lateral ventricle as discussed above. CALVARIUM: Prior right frontoparietal and temporal craniotomy reiterated. No fracture identified. PARANASAL SINUSES: Trace left maxillary sinusitis identified in the interval. MASTOID AIR CELLS: Unremarkable as visualized. No inflammatory changes. OTHER FINDINGS: None. IMPRESSION: Stable nonacute head CT. Prior right frontal, parietal and temporal craniotomy reiterated with chronic right frontoparietal postoperative gliosis/ encephalomalacia reiterated. No interval fracture or intracranial hemorrhage appreciable. Concordant preliminary report from [facility], 02/08/2018.
== END 2018-02-08 05:10 | disposition home or self-care (01) ==
LOC: H.ER 02:21
DX: G40.909 Epilepsy, unspecified, not intractable, without status epilepticus (principal); S09.90XA Unspecified injury of head, initial encounter; S01.81XA Laceration without foreign body of other part of head, initial encounter; W19.XXXA Unspecified fall, initial encounter

== ENCOUNTER 2018-02-28 04:14 | Emergency (ER) | payer MEDICAID ==
[2018-02-28 04:15] VITALS: BMI 33.7
[2018-02-28 04:24] VITALS: RESP 18
--- NOTE | 2018-02-28 04:54 | ED PDOC ---
Lower Extremity Pain/Injury Time Seen by Provider: 02/28/18 04:34 Chief Complaint (Nursing): Lower Extremity Problem/Injury Chief Complaint (Provider): left knee, ankle pain History Per: Patient History/Exam Limitations: no limitations Onset/Duration Of Symptoms: Days (1) Current Symptoms Are (Timing): Still Present Additional Complaint(s): 48 y/o female presents for evaluation of left knee, left ankle, and left foot pain x 1 day. Patient states she has history of seizures and when she gets them she tenses up and twists her body; notes having a seizure yesterday afternoon and that the pain and swelling to the left knee/ankle/foot started after. Patient reports history of decreased sensation to left lower extremity due to brain tumor, but reports pain since the injury. Denies new numbness/ weakness, limitation of movement. Past Medical History Reviewed: Historical Data, Nursing Documentation, Vital Signs Vital Signs: Last Vital Signs Temp 98.7 F 02/28/18 04:20 Pulse 72 02/28/18 04:20 Resp 18 02/28/18 04:20 BP 124/90 02/28/18 04:20 Pulse Ox 98 02/28/18 04:20 - Medical History PMH: Asthma, Migraine, Seizures Denies: Chronic Kidney Disease - Surgical History Surgical History: Cholecystectomy, Tonsillectomy - Family History Family History: States: Unknown Family Hx - Home Medications Home Medications: Ambulatory Orders Medication Instructions Recorded Albuterol HFA [Ventolin HFA 90 2 puff INH Q3H PRN 07/04/14 mcg/actuation (8 g)] Mometasone [Asmanex Twisthaler] 2 puff INH DAILY 07/04/14 diaZEpam [Valium] 5 mg PO HS 07/04/14 Atorvastatin [Lipitor] 10 mg PO DIN 08/01/16 Fluticasone Nasal [Flonase] 2 actuation NS DAILY #1 spr 08/01/16 LORazepam [Ativan] 1 mg PO PRN PRN 08/01/16 Levetiracetam [Keppra Xr] 3 tab PO BID 08/01/16 SUMAtriptan succinate [Imitrex Tab] 100 mg PO ONCE PRN #9 tab 08/01/16 Cyclobenzaprine [Flexeril] 10 mg PO BID #15 tab 07/27/17 acetaZOLAMIDE [Diamox 250 mg Tab] 250 mg PO BID 01/08/18 Promethazine HCl/Codeine 5 ml PO Q4 PRN #70 ml 01/10/18 [Prometh-Codein 6.25-10 mg/5 ml] predniSONE [predniSONE Tab] 40 mg PO DAILY #10 tab 01/10/18 - Allergies Allergies/Adverse Reactions: Allergies Allergy/AdvReac Type Severity Reaction Status Date / Time tree and shrub pollen Allergy ITCHING Verified 01/07/18 03:24 Review of Systems ROS Statement: Except As Marked, All Systems Reviewed And Found Negative Musculoskeletal: Positive for: Leg Pain (left knee, left ankle, left foot) Physical Exam - Reviewed Nursing Documentation Reviewed: Yes Vital Signs Reviewed: Yes - Physical Exam Appears: Positive for: Well, Non-toxic, No Acute Distress Skin: Positive for: Normal Color Pulses-Dorsalis Pedis (L): 2+ Pulses-Dorsalis Pedis (R): 2+ Pulses-Post. Tibialis (L): 2+ Pulses-Post. Tibialis (R): 2+ Extremity: Positive for: Normal ROM, Swelling (Mild edema left knee; anterior pain with flexion. Diffuse swelling left ankle, dorsal aspect left foot with tenderness to palpation. Distal NV/motor intact) Neurologic/Psych: Positive for: Alert, Oriented (x3) - ECG O2 Sat by Pulse Oximetry: 98 - Other Rad xray left knee X-Ray: Viewed By Me X-Ray Interpretation: no acute findings xray left ankle X-Ray: Viewed By Ar X-Ray Interpretation: no acute findings; lucency distal tibia which was noted in 2014 xray xray left foot X-Ray: Viewed By Ar X-Ray Interpretation: no acute findings - Progress ED Course And Treament: xray's, ibuprofen Patient educated on findings, left knee wrapped in ROBERT, left foot wrapped in ROBERT , aircast applied to left ankle Advised RICE. Continue Naproxen PRN pain Follow up podiatry Return precautions given Disposition - Clinical Impression Clinical Impression: Knee injury, Injury of ankle and foot - Patient ED Disposition Is Patient to be Admitted: No Counseled Patient/Family Regarding: Studies Performed, Diagnosis, Need For Followup - Disposition Referrals: Podiatry Clinic [Outside] Disposition: Routine/Home Disposition Time: 05:30 Condition: STABLE Instructions: Ankle Sprain, Foot Sprain (DC), Knee Pain Forms: [employer] (Tuvaluan)
[2018-02-28 06:45] VITALS: BP 121/83; PULSE 71; TEMP 98.2; O2SAT 99
--- NOTE | 2018-02-28 09:58 | RAD ---
Date of service: 02/28/2018 PROCEDURE: Left Knee Radiographs. HISTORY: Pain. COMPARISON: None. FINDINGS: BONES: Normal. No fracture. JOINTS: Normal. No osteoarthritis. JOINT EFFUSION: None. OTHER FINDINGS: None. IMPRESSION: Normal radiographs of the left knee.
--- NOTE | 2018-02-28 10:00 | RAD ---
Date of service: 02/28/2018 PROCEDURE: Left Ankle Radiographs. HISTORY: injury, swelling COMPARISON: 07/04/2014 FINDINGS: BONES: No acute fracture. Stable patchy sclerotic focus situated centrally in the distal tibial diaphysis, unchanged from prior examination. 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 JOINTS: Normal. No osteoarthritis. Ankle mortise maintained. Talar dome intact SOFT TISSUES: Normal. OTHER FINDINGS: None. IMPRESSION: No acute abnormality. 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
--- NOTE | 2018-02-28 10:00 | RAD ---
Date of service: 02/28/2018 PROCEDURE: Left Foot Radiographs. HISTORY: injury, swelling COMPARISON: None. FINDINGS: BONES: Normal. No fracture. JOINTS: Normal. SOFT TISSUES: Normal. OTHER FINDINGS: None. IMPRESSION: Normal left foot radiographs.
== END 2018-02-28 06:26 | disposition home or self-care (01) ==
LOC: H.ER 04:14
DX: S89.92XA Unspecified injury of left lower leg, initial encounter (principal); S99.912A Unspecified injury of left ankle, initial encounter; S99.922A Unspecified injury of left foot, initial encounter; X50.9XXA Other and unspecified overexertion or strenuous movements or postures, initial encounter; Y92.89 Other specified places as the place of occurrence of the external cause; G40.909 Epilepsy, unspecified, not intractable, without status epilepticus

== ENCOUNTER 2018-06-16 20:47 | Emergency (ER) | payer MEDICAID ==
[2018-06-16 20:47] VITALS: BMI 33.7
[2018-06-16 21:04] VITALS: BP 131/84; PULSE 81; RESP 18; TEMP 98.6; O2SAT 100
--- NOTE | 2018-06-16 22:22 | ED PDOC ---
Lower Extremity Pain/Injury Time Seen by Provider: 06/16/18 21:27 Chief Complaint (Nursing): Lower Extremity Problem/Injury Chief Complaint (Provider): Left foot and ankle pain History Per: Patient History/Exam Limitations: no limitations Onset/Duration Of Symptoms: Mins Current Symptoms Are (Timing): Still Present Additional History Per: Family (significant other at bedside) Additional Complaint(s): 48yo female with history of brain cancer, seizures, comes to ER reporting left foot and ankle pain, occurring prior to arrival. Patient states she had a seizure at home this morning resulting in the injury. She reports a history of injury to the same foot and ankle with the same mechanism. Patient was evaluated by Dr. Patricia this past summer, had a foot MRI which showed ligamentous injury to the same foot; patient has not had a surgical repair. She reports the pain at 8/10 and it radiates to her knee. Patient states she is complaint with her Keppra at home and has an upcoming appointment with her neurologist. Patient notes she has seizures daily despite compliance with her medication, and this is not outside her norm. PMD: Dr. Singh Neurologist: Dr. Tilley Past Medical History Reviewed: Historical Data, Nursing Documentation, Vital Signs Vital Signs: Last Vital Signs Temp 98.6 F 06/16/18 21:00 Pulse 81 06/16/18 21:00 Resp 18 06/16/18 21:00 BP 131/84 06/16/18 21:00 Pulse Ox 100 06/16/18 21:00 - Medical History PMH: Anemia, Asthma, Gall Bladder Disease, Migraine, Seizures Other PMH: brain cancer - Surgical History Surgical History: Cholecystectomy, Tonsillectomy Other surgeries: brain surgery x2, fibroid removal x2 - Family History Family History: States: Unknown Family Hx - Home Medications Home Medications: Ambulatory Orders Medication Instructions Recorded RX: Albuterol HFA [Ventolin HFA 90 2 puff INH Q3H PRN 07/04/14 mcg/actuation (8 g)] RX: Mometasone [Asmanex Twisthaler] 2 puff INH DAILY 07/04/14 RX: diaZEpam [Valium] 5 mg PO HS 07/04/14 RX: Atorvastatin [Lipitor] 10 mg PO DIN 08/01/16 RX: Fluticasone Nasal [Flonase] 2 actuation NS DAILY #1 spr 08/01/16 RX: LORazepam [Ativan] 1 mg PO PRN PRN 08/01/16 RX: Levetiracetam [Keppra Xr] 3 tab PO BID 08/01/16 RX: SUMAtriptan succinate [Imitrex 100 mg PO ONCE PRN #9 tab 08/01/16 Tab] RX: Cyclobenzaprine [Flexeril] 10 mg PO BID #15 tab 07/27/17 RX: acetaZOLAMIDE [Diamox 250 mg 250 mg PO BID 01/08/18 Tab] Promethazine HCl/Codeine 5 ml PO Q4 PRN #70 ml 01/10/18 [Prometh-Codein 6.25-10 mg/5 ml] RX: predniSONE [predniSONE Tab] 40 mg PO DAILY #10 tab 01/10/18 RX: Naproxen 500 mg PO BID PRN #20 tab 06/16/18 - Allergies Allergies/Adverse Reactions: Allergies Allergy/AdvReac Type Severity Reaction Status Date / Time tree and shrub pollen Allergy ITCHING Verified 06/16/18 21:04 Review of Systems ROS Statement: Except As Marked, All Systems Reviewed And Found Negative Musculoskeletal: Positive for: Foot Pain (and ankle - left) Physical Exam - Reviewed Nursing Documentation Reviewed: Yes Vital Signs Reviewed: Yes - Physical Exam Comments: GENERAL APPEARANCE: Patient is awake, alert, oriented x 3, in no acute distress. SKIN: Warm, dry; (-) cyanosis. CHEST AND RESPIRATORY: (-) rales, (-) rhonchi, (-) wheezes; breath sounds equal bilaterally. Respirations even and nonlabored. HEART AND CARDIOVASCULAR: (-) irregularity ABDOMEN AND GI: Soft; (-) tenderness; (-) palpable mass. LOWER EXTREMITY: Effusion noted to left ankle. Edema noted to dorsum of left mid-foot. NO ROM of left ankle secondary to pain (+) tenderness to palpation of proximal aspect of left 2nd -5th metatarsals. Tenderness to left lateral malleolus. Normal distal sensation. Normal capillary refill. Left knee nontender and with full ROM. (+) distal pulse. (+) distal sensation. NEUROLOGIC: Mental status as above. GCS = 15. Pupils equal and reactive. EOMI and painless. (-) facial asymmetry (-) aphasia. Speech: clear. Cerebellar tests intact. - ECG O2 Sat by Pulse Oximetry: 100 (RA) Pulse Ox Interpretation: Normal Medical Decision Making Medical Decision Making: Impression: Acute foot and ankle pain Plan: * XR Left ankle * XR Left foot * Toradol 30mg IM 2220 Foot XR: no fracture Ankle XR: no fracture Consult placed to podiatry. Spoke with podiatry resident, Lauren Keenan who will evaluate patient in ED. 2300 Podiatry at bedside. See consult note. 2355 Thompson compression placed by podiatry. Patient declined crutches. Patient notes she has an upcoming appointment with both her neurologist and podiatry. On re-evaluation, patient reports improvement of symptoms. On exam, patient remains AAOx3, in no acute distress. Lungs clear to auscultation, cardiac RRR, abdomen soft, non-tender, repeat neuro exam shows no focal findings. VSS, stable for discharge. RICE encouraged. Lab/Diagnostic results d/w the patient in great detail. Diagnosis of acute foot /ankle pain/sprain d/w the patient. Based on history, exam and diagnostic results, plan will be for outpatient follow up with podiatry and neurology. Patient instructed to follow-up with pmd / referral provided / the clinic in 1- 2 days without fail. Advised to take medication as prescribed. Return to the emergency room at any time for any new or worsening symptoms. Patient states she fully agrees with and understands discharge instructions. States that she agrees with the plan and disposition. Verbalized and repeated discharge instructions and plan. I have given the patient opportunity to ask any additional questions. Scribe Attestation: Documented by Estefany Mckeon, acting as a scribe for AMY Jiménez. Provider Scribe Attestation: All medical record entries made by the Scribe were at my direction and personally dictated by me. I have reviewed the chart and agree that the record accurately reflects my personal performance of the history, physical exam, medical decision making, and the department course for this patient. I have also personally directed, reviewed, and agree with the discharge instructions and disposition. Disposition - Clinical Impression Clinical Impression: Ankle pain, Foot pain, Ankle sprain, Foot sprain - Patient ED Disposition Is Patient to be Admitted: No Counseled Patient/Family Regarding: Studies Performed, Diagnosis, Need For Followup, Rx Given - Disposition Referrals: Efrain Patricia MD [Staff Provider] - Josiah Tilley MD [Medical Doctor] - Disposition: Routine/Home Disposition Time: 23:55 Condition: STABLE Additional Instructions: The emergency medical care you received today was directed towards the acute presenting symptoms. If you were prescribed any medication, please fill it and give as directed. It may take several days for your symptoms to resolve. Return to the Emergency Department at any time if symptoms worsen, do not improve, or if any other problems arise. Please contact your doctor in 2 days for re-evaluation and follow up / or call one of the physicians/clinics you have been referred to that are listed on the Patient Visit Information form that is included in your discharge packet. Bring any paperwork you were given at discharge with you along with any medications to your follow up visit. Our treatment cannot replace ongoing medical care by a primary care provider (PCP) outside of the emergency department. Prescriptions: RX: Naproxen 500 mg PO BID PRN #20 tab PRN Reason: Pain, Moderate (4-7) Instructions: Ankle Sprain, Muscle and Bone Pain (DC), Foot Sprain (DC) Forms: [employer] (Slovak) Print Language: KHMER - POA Present On Arrival: Falls Or Trauma
--- NOTE | 2018-06-17 06:15 | CP.PCM.CON ---
History of Present Illness - History of Present Illness History of Present Illness: Podiatry consult note for Dr. Patricia, 48 y/o female presented to clinic due to complaints of pain to her left foot. Patient states she has hx of seizure episodes and states on 06/12/18, she "banged" her foot while she sustained a seizure episode. Patient reports the pain worsened and patient decided to come to the ER. Patient reports history of numbness and tingling, along with paralysis to the left side due to hx of brain tumors. Patient states she is having difficulty ambulating to the the injury to the left side. Review of Systems - Review of Systems All systems: reviewed and no additional remarkable complaints except Review of Systems: Patient denies F/N/V/SOB/chills/posterior calf pain Past Patient History - Infectious Disease Hx of Infectious Diseases: None - Tetanus Immunizations Tetanus Immunization: Up to Date - Past Medical History & Family History Past Medical History?: Yes - Past Social History Smoking Status: Former Smoker - CARDIAC Hx Cardiac Disorders: No - PULMONARY Hx Asthma: Yes - NEUROLOGICAL Hx Migraine: Yes Hx Seizures: Yes - HEENT Hx HEENT Problems: No - RENAL Hx Chronic Kidney Disease: No - ENDOCRINE/METABOLIC Hx Endocrine Disorders: No - HEMATOLOGICAL/ONCOLOGICAL Hx Anemia: Yes - INTEGUMENTARY Hx Dermatological Problems: No - MUSCULOSKELETAL/RHEUMATOLOGICAL Hx Musculoskeletal Disorders: Yes Other/Comment: Hx weakness and decreased sensation to Left side of body - GASTROINTESTINAL Hx Gall Bladder Disease: Yes - GENITOURINARY/GYNECOLOGICAL Hx Genitourinary Disorders: Yes Other/Comment: Hx uterine fibroids - PSYCHIATRIC Hx Psychophysiologic Disorder: No Hx Substance Use: No - SURGICAL HISTORY Hx Cholecystectomy: Yes Hx Tonsillectomy: Yes - ANESTHESIA Hx Anesthesia: Yes Hx Anesthesia Reactions: No Meds Home Medications: Home Medication List Medication Instructions Recorded Confirmed Type Naproxen 500 mg PO BID PRN #20 tab 06/16/18 Rx Allergies/Adverse Reactions: Allergies Allergy/AdvReac Type Severity Reaction Status Date / Time tree and shrub pollen Allergy ITCHING Verified 06/16/18 21:04 Physical Exam - Constitutional Appears: Well, Non-toxic, No Acute Distress - Head Exam Head Exam: ATRAUMATIC, NORMOCEPHALIC - Extremities Exam Additional comments: VASC: DP and PT 2/4 bilaterally, CFT less than 5 seconds X 10, TG cool to cool (patient baseline), minimal to mild edema noted to the left foot diffusely NEURO: diminished due to previous hx of jaswant tumor DERM: minimal to mild edema with erythema notes to the left dorsum of the foot, no open lesions, no clinical signs of infection, no ecchymosis ORTHO: diffuse pain on palpation to the left foot, pain with ankle range of motion, MSK 3/5, left foot in a plantarflexed and inverted position due to paralysis - Neurological Exam Neurological exam: Alert, Oriented x3 - Psychiatric Exam Psychiatric exam: Normal Affect, Normal Mood Results - Vital Signs Recent Vital Signs: Last Vital Signs Temp 98.6 F 06/16/18 21:00 Pulse 81 06/16/18 21:00 Resp 18 06/16/18 21:00 BP 131/84 06/16/18 21:00 Pulse Ox 100 06/17/18 00:09 Assessment & Plan - Assessment and Plan (Free Text) Assessment: 48 y/o female seen and evaluated for left foot injury due to seizure episode Plan: Patient seen and evaluated Plan discussed with attending Dr. Patricia Patient X-rays obtained: no acute fractures or dislocation left ankle, small non-ossifying fibroma or possible bone infarct seen distal metaphysis of the tibia Patient placed in a Thompson compression as she cannot tolerate a splint or use crutches Patient advised to return to ED if symptoms worsen Patient states she has an appointment with Dr. Patricia to follow up in his office Patient also strongly advised to follow up with neurologist Dr. Tilley for seizure episodes Patient demonstrated verbal understanding thank you for the consult - Date & Time Date: 06/18/18 Time: 10:02
--- NOTE | 2018-06-17 08:24 | RAD ---
Date of service: 06/16/2018 PROCEDURE: Left Ankle Radiographs. HISTORY: s/p fall COMPARISON: None available. FINDINGS: BONES: No acute fracture or destructive bony lesion identified. 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 JOINTS: Normal. No osteoarthritis. Ankle mortise maintained. Talar dome intact SOFT TISSUES: Normal. OTHER FINDINGS: None. IMPRESSION: No acute fractures or dislocation left ankle. 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
--- NOTE | 2018-06-17 08:26 | RAD ---
Date of service: 06/16/2018 PROCEDURE: Left Foot Radiographs. HISTORY: s/p fall COMPARISON: None. FINDINGS: BONES: No acute fracture or destructive bony lesion identified. JOINTS: Normal. SOFT TISSUES: Normal. OTHER FINDINGS: Incidental nonaggressive bone lesion left ankle at the distal tibia. Please see separate left ankle radiograph report 06/16/2018. IMPRESSION: No acute fracture or dislocation left foot.
== END 2018-06-17 | disposition home or self-care (01) ==
LOC: H.ER 20:47
DX: S93.602A Unspecified sprain of left foot, initial encounter (principal); S93.402A Sprain of unspecified ligament of left ankle, initial encounter; G40.909 Epilepsy, unspecified, not intractable, without status epilepticus; W19.XXXA Unspecified fall, initial encounter; Y92.89 Other specified places as the place of occurrence of the external cause; D25.9 Leiomyoma of uterus, unspecified; D64.9 Anemia, unspecified; Z85.841 Personal history of malignant neoplasm of brain
CPT/HCPCS: 73610; 73630; 96372; 99284; J1885

== ENCOUNTER 2018-12-28 05:43 | Inpatient (IN) | payer MEDICARE, MEDICAID ==
[2018-12-28 05:56] VITALS: BMI 33.3
--- NOTE | 2018-12-28 06:13 | ED PDOC ---
HPI: Seizure Time Seen by Provider: 12/28/18 06:09 Chief Complaint (Nursing): Seizure Chief Complaint (Provider): Seizure, left ankle pain History Per: Patient History/Exam Limitations: no limitations Number Of Seizures: One Associated Symptoms: Incontinence Of Stool, Injury As A Result Of Seizure Activity (left ankle) Additional Complaint(s): Rosario De Luna is a 48 year old female, with a past medical history of seizure disorder, who presents to the emergency department for evaluation s/p a seizure prior to arrival. Patient reports injuring her left ankle due to seizure and notes swelling to the area, she is currently unable to bear weight on her left foot. Patient states seizure was worst than typical episodes and was associated with incontinence of stool. Patient denies missing any dose from her Keppra XR. She also reports being worked on by Dr. Watson for shortness of breath. She denies any chest pain, vomiting, dizziness, vision changes, weakness, numbness or other medical complaints. PMD: Timo Singh Neurologist: Dr. Tilley Director Agency [employer] Strategic Partnerships: Dr. Watson Past Medical History Reviewed: Historical Data, Nursing Documentation, Vital Signs Vital Signs: Last Vital Signs Temp 98.2 F 12/28/18 06:02 Pulse 91 H 12/28/18 06:02 Resp 18 12/28/18 06:02 BP 131/81 12/28/18 06:02 Pulse Ox 98 12/28/18 06:02 Primary Care Provider: Timo Singh - Medical History PMH: Anemia, Asthma, Gall Bladder Disease, Migraine, Seizures Denies: Chronic Kidney Disease - Surgical History Surgical History: Cholecystectomy, Tonsillectomy - Family History Family History: States: Unknown Family Hx - Home Medications Home Medications: Ambulatory Orders Medication Instructions Recorded Albuterol HFA [Ventolin HFA 90 2 puff INH Q3H PRN 07/04/14 mcg/actuation (8 g)] diaZEpam [Valium] 5 mg PO HS 07/04/14 Atorvastatin [Lipitor] 10 mg PO DIN 08/01/16 LORazepam [Ativan] 1 mg PO PRN PRN 08/01/16 Levetiracetam [Keppra Xr] 3 tab PO BID 08/01/16 SUMAtriptan succinate [Imitrex Tab] 100 mg PO ONCE PRN #9 tab 08/01/16 Desloratadine/Pseudoephedrine 1 each PO BID 12/28/18 [Clarinex-D 12 Hour Tablet] predniSONE [predniSONE Tab] 1 tab PO BID 12/28/18 - Allergies Allergies/Adverse Reactions: Allergies Allergy/AdvReac Type Severity Reaction Status Date / Time tree and shrub pollen Allergy ITCHING Verified 12/28/18 05:56 Review of Systems ROS Statement: Except As Marked, All Systems Reviewed And Found Negative Cardiovascular: Negative for: Chest Pain Gastrointestinal: Negative for: Vomiting Musculoskeletal: Positive for: Foot Pain (left ankle) Neurological: Positive for: Seizures. Negative for: Weakness, Numbness, Dizziness Physical Exam - Reviewed Nursing Documentation Reviewed: Yes Vital Signs Reviewed: Yes - Physical Exam Appears: Positive for: No Acute Distress Head Exam: Positive for: ATRAUMATIC (No visible injuries to the scalp but tenderness to palpation on the right-side), NORMAL INSPECTION, NORMOCEPHALIC Skin: Positive for: Normal Color, Warm, Dry Eye Exam: Positive for: Normal appearance, EOMI, PERRL Neck: Positive for: Normal, Painless ROM, Supple Cardiovascular/Chest: Positive for: Regular Rate, Rhythm. Negative for: Murmur Respiratory: Positive for: Normal Breath Sounds, Other (coughed during examination). Negative for: Respiratory Distress Gastrointestinal/Abdominal: Positive for: Normal Exam, Soft. Negative for: Tenderness, Guarding, Rebound Back: Positive for: Normal Inspection. Negative for: L CVA Tenderness, R CVA Tenderness, Vertebral Tenderness Extremity: Positive for: Normal ROM (limited ROM to left ankle secondary to pain), Tenderness (lateral left ankle), Swelling (and ecchymosis to left lateral ankle). Negative for: Deformity Neurological/Psych: Positive for: Awake, Alert, Normal Tone, Symmetric/Intact Strength, Oriented (x3). Negative for: Lethargic, Motor/Sensory Deficits, Facial Droop - Laboratory Results Result Diagrams: 12/28/18 06:30 12/28/18 06:30 - ECG O2 Sat by Pulse Oximetry: 98 (RA) Pulse Ox Interpretation: Normal Medical Decision Making Medical Decision Making: Time: 06:09 Initial Impression: Seizure seems to be worst than typical with left ankle swe lling and pain as well as worsening confusion, nausea, and head pain. Patient is also being worked on by Dr. Watson for shortness of breath. Will get CXR. Initial Plan: --Type and screen --Head w/o contrast [CT] --EKG --BMP --Troponin I --CBC w/ differential --PTT --PT --Chest Portable --Morphine 2 mg IVP --NaCl 1,000 ml IV 1,000 mls/hr --Ankle left 3 views routine [RAD] --Reevaluation Time: 0700 --Patient with pmHx of epilepsy with previous brain surgery and tumors presents with severe seizure. Patient reports left ankle pain and swelling associated with severe headache postictal. Stable vitals with recent work-up for shortness of breath. Endorsed to Dr. Smith pending lab, CT brain, CXR, and left ankle XR results. Scribe Attestation: Documented by Davey Wade and Alpa Villegas, acting as scribes for Yvette Berger MD. Provider Scribe Attestation: All medical record entries made by the Scribe were at my direction and personally dictated by me. I have reviewed the chart and agree that the record accurately reflects my personal performance of the history, physical exam, medical decision making, and the department course for this patient. I have also personally directed, reviewed, and agree with the discharge instructions and disposition. Disposition - Clinical Impression Clinical Impression: Generalized seizure, Ankle fracture - Disposition Disposition: Transfer of Care Disposition Time: 07:00 Condition: FAIR
[2018-12-28] MEDS ORDERED: Sodium Chloride 0.9% 1,000 ML IV STA (06:14)
[2018-12-28 07:12] LABS: INR 1.1; PROTHROMBIN TIME 12.6 Seconds (9.8-13.1)
[2018-12-28 07:15] LABS: PARTIAL THROMBOPLASTIN TIME 34.9 Seconds (25.6-37.1)
[2018-12-28 07:21] LABS: BASO # 0.1 K/uL (0.0-0.2); BASO % 0.4 % (0.0-2.0); EOS % 0.2 % (0.0-4.0); HEMOGLOBIN 12.8 g/dL (12.0-16.0); LYMPH # 2.6 K/uL (1.0-4.3); LYMPH % 16.9 % (20.0-40.0); MEAN CELL VOLUME 86.2 fl (81.0-99.0); MEAN CORPUSCULAR HEMOGLOBIN 29.7 pg (27.0-31.0); MEAN CORPUSCULAR HGB CONC 34.4 g/dL (33.0-37.0); MEAN PLATELET VOLUME 8.8 fl (7.2-11.7); MONO # 0.8 K/uL (0.0-0.8); MONO % 5.4 % (0.0-10.0); NEUT % 77.1 % (50.0-75.0); NRBC % 0.1 % (0.0-0.0); RBC 4.31 Mil/uL (3.80-5.20); RED CELL DISTRIBUTION WIDTH 13.1 % (11.5-14.5); WHITE BLOOD COUNT 15.5 K/uL (4.8-10.8)
[2018-12-28 07:27] LABS: BLOOD UREA NITROGEN 12 mg/dl (7-17); CALCIUM 9.3 mg/dL (8.4-10.2); GFR NON-AFRICAN AMERICAN > 60
--- NOTE | 2018-12-28 07:29 | ED PDOC ---
- Laboratory Results Result Diagrams: 12/28/18 06:30 12/28/18 06:30 Lab Results: PT 12.6 Seconds (9.8-13.1) 12/28/18 06:30 INR 1.1 12/28/18 06:30 APTT 34.9 Seconds (25.6-37.1) 12/28/18 06:30 - ECG O2 Sat by Pulse Oximetry: 98 (RA) Medical Decision Making Medical Decision Making: Time: 699 --Patient endorsed to provider by Dr. Berger pending lab, CT brain, CXR, and XR left ankle results. Time: 816 --XRs interpreted by provider: CXR: (-) active disease. XR left ankle: (+) tibia fracture. Podiatry consult initiated. Time: 818 --Podiatry resident made aware of case. Time: 843 --Case discussed with hospitalist, Dr. Willard. Scribe Attestation: Documented by Alpa Villegas, acting as a scribe for Sanchez Smith MD. Provider Scribe Attestation: All medical record entries made by the Scribe were at my direction and personally dictated by me. I have reviewed the chart and agree that the record accurately reflects my personal performance of the history, physical exam, medical decision making, and the department course for this patient. I have also personally directed, reviewed, and agree with the discharge instructions and disposition. Disposition Discussed With : Sulma Willard - Clinical Impression Clinical Impression: Generalized seizure, Ankle fracture - POA Present On Arrival: None - Disposition Disposition: Hospitalized as Observation Patient Disposition Time: 09:03 Condition: FAIR Forms: [employer] (Maori)
[2018-12-28] MEDS ORDERED: Albuterol-Ipratrop 3 mg / 0.5 (3 ml) UD INH PRN (09:58)
--- NOTE | 2018-12-28 11:09 | RAD ---
Date of service: 12/28/2018 HISTORY: possible admission COMPARISON: 01/08/2018. FINDINGS: LUNGS: No active pulmonary disease. PLEURA: No significant pleural effusion identified, no pneumothorax apparent. CARDIOVASCULAR: No atherosclerotic calcification present Normal. OSSEOUS STRUCTURES: No significant abnormalities. VISUALIZED UPPER ABDOMEN: Normal. OTHER FINDINGS: None. IMPRESSION: No active disease. No significant interval change compared to the prior examination(s).
--- NOTE | 2018-12-28 11:12 | RAD ---
Date of service: 12/28/2018 PROCEDURE: Left Ankle Radiographs. HISTORY: trauma with pain/swelling COMPARISON: 06/16/2018 left ankle. 03/29/2018 MRI left ankle. TECHNIQUE: 3 views obtained. FINDINGS: BONES: Oblique fracture distal left fibula. Stable calcific focus in the intramedullary canal consistent with previously suspected bone infarct. JOINTS: Normal. No osteoarthritis. Ankle mortise maintained. Talar dome intact SOFT TISSUES: Soft tissue swelling attests to the acuity of the fracture. OTHER FINDINGS: None. IMPRESSION: Acute oblique distal left fibular fracture above and extending to the ankle mortise.
--- NOTE | 2018-12-28 11:14 | CP.PCM.HP ---
<Khadar Gruber - Last Filed: 12/28/18 13:05> History of Present Illness - History of Present Illness History of Present Illness: 48 yo female with Hx of seizure, Left sided paralysis, asthma, brain tumor, migraine brought by to ED due to having a episode of seizure which cause her to hit her head, and twist her ankle and loss of BM. Patient state that she normally get seizure 2 every mo, and normally she can control the fall and never had lost BM. Patient also complain of headache, nuasea, Otherwise patient have no complains. Allergy: tree and shrub pollen PCP: Jarek Matta as neurologist, Dr. Watson as band manager PMH: asthma, left sided paralysis, seizure, migraine PSH cholesystectomy, tumor resection of brain Smoke: denies smoking drinking or drug use ER VItals : 97.8 , 82 hr, Bp 143/71, 100 CBC 15.5, PLt 439 CMP: K 3.5 Trop negative Chest xray Negative for disease Ct: head no acute changes Ankle X-ray : acute oblique distal left fibular fracture above and extending to the ankle mortise. Present on Admission - Present on Admission Any Indicators Present on Admission: No Review of Systems - Review of Systems All systems: reviewed and no additional remarkable complaints except Past Patient History - Infectious Disease Hx of Infectious Diseases: None - Tetanus Immunizations Tetanus Immunization: Up to Date - Past Medical History & Family History Past Medical History?: Yes - Past Social History Smoking Status: Former Smoker - CARDIAC Hx Cardiac Disorders: No - PULMONARY Hx Asthma: Yes - NEUROLOGICAL Hx Neurological Disorder: Yes (seizures, migraine) - HEENT Hx HEENT Problems: No - RENAL Hx Chronic Kidney Disease: No - ENDOCRINE/METABOLIC Hx Endocrine Disorders: No - HEMATOLOGICAL/ONCOLOGICAL Hx Blood Disorders: Yes (anemia) - INTEGUMENTARY Hx Dermatological Problems: No - MUSCULOSKELETAL/RHEUMATOLOGICAL Hx Musculoskeletal Disorders: Yes - GASTROINTESTINAL Hx Gall Bladder Disease: Yes - GENITOURINARY/GYNECOLOGICAL Hx Genitourinary Disorders: Yes - PSYCHIATRIC Hx Psychophysiologic Disorder: No - SURGICAL HISTORY Hx Cholecystectomy: Yes Hx Tonsillectomy: Yes Other/Comment: tumor removed from brain - ANESTHESIA Hx Anesthesia: Yes Hx Anesthesia Reactions: No Meds Allergies/Adverse Reactions: Allergies Allergy/AdvReac Type Severity Reaction Status Date / Time tree and shrub pollen Allergy ITCHING Verified 12/28/18 05:56 Physical Exam - Constitutional Appears: Well, Non-toxic, No Acute Distress - Head Exam Head Exam: ATRAUMATIC, NORMAL INSPECTION, NORMOCEPHALIC - Eye Exam Eye Exam: EOMI, Normal appearance, PERRL Pupil Exam: NORMAL ACCOMODATION, PERRL - ENT Exam ENT Exam: Mucous Membranes Moist, Normal Exam - Respiratory Exam Respiratory Exam: Wheezes, NORMAL BREATHING PATTERN - Cardiovascular Exam Cardiovascular Exam: REGULAR RHYTHM, +S1, +S2 - GI/Abdominal Exam GI & Abdominal Exam: Normal Bowel Sounds, Soft - Extremities Exam Additional comments: Loss of sensation left part of face with paralysis. Edematous of left ankle. otherwise normal - Neurological Exam Neurological exam: Alert, Oriented x3 - Psychiatric Exam Psychiatric exam: Normal Affect, Normal Mood - Skin Skin Exam: Dry, Intact, Normal Color, Warm Results - Vital Signs Recent Vital Signs: Last Vital Signs Temp 99.1 F 12/28/18 11:08 Pulse 84 12/28/18 11:08 Resp 16 12/28/18 11:08 BP 107/72 12/28/18 11:08 Pulse Ox 99 12/28/18 11:06 - Labs Result Diagrams: 12/28/18 06:30 12/28/18 06:30 Labs: Laboratory Results - last 24 hr 12/28/18 12/28/18 12/28/18 05:45 06:30 06:30 WBC 15.5 H RBC 4.31 Hgb 12.8 Hct 37.1 MCV 86.2 D MCH 29.7 MCHC 34.4 RDW 13.1 Plt Count 439 H MPV 8.8 Neut % (Auto) 77.1 H Lymph % (Auto) 16.9 L Pratt % (Auto) 5.4 Eos % (Auto) 0.2 Baso % (Auto) 0.4 Neut # (Auto) 12.0 H Lymph # (Auto) 2.6 Pratt # (Auto) 0.8 Eos # (Auto) 0.0 Baso # (Auto) 0.1 PT INR APTT Sodium 136 Potassium 3.5 L Chloride 101 Carbon Dioxide 24 Anion Gap 15 BUN 12 Creatinine 0.7 Est GFR ( Amer) > 60 Est GFR (Non-Af Amer) > 60 POC Glucose (mg/dL) 101 Random Glucose 95 Calcium 9.3 Troponin I < 0.0120 Blood Type Antibody Screen BBK History Checked 12/28/18 12/28/18 06:30 06:30 WBC RBC Hgb Hct MCV MCH MCHC RDW Plt Count MPV Neut % (Auto) Lymph % (Auto) Pratt % (Auto) Eos % (Auto) Baso % (Auto) Neut # (Auto) Lymph # (Auto) Pratt # (Auto) Eos # (Auto) Baso # (Auto) PT 12.6 INR 1.1 APTT 34.9 Sodium Potassium Chloride Carbon Dioxide Anion Gap BUN Creatinine Est GFR ( Amer) Est GFR (Non-Af Amer) POC Glucose (mg/dL) Random Glucose Calcium Troponin I Blood Type A POSITIVE Antibody Screen Negative BBK History Checked Patient has bt Assessment & Plan - Assessment and Plan (Free Text) Assessment: 48 yo female with Hx of seizure, Left sided paralysis, asthma, brain tumor brought by to ED due to having a episode of seizure. Admitted for seizure exacerbation and ankle fracture. Seizure Chronic CT scan no change Will increase keppra to [address] luna informed Fibular fracture Acute Fall induced Podiatry on case, Surgery will be done on Sunday Asthma improved s/p deuonab Continue home medication Migraine Continue home medication DVT heparin 5000 q8h Hold before surgery on sunday <Carrie Chen - Last Filed: 12/29/18 20:36> Results - Vital Signs Recent Vital Signs: Last Vital Signs Temp 98.2 F 12/29/18 20:12 Pulse 83 12/29/18 20:12 Resp 16 12/29/18 20:12 BP 105/71 12/29/18 20:12 Pulse Ox 98 12/29/18 20:12 - Labs Result Diagrams: 12/28/18 06:30 12/28/18 06:30 Labs: Laboratory Results - last 24 hr 12/28/18 22:44 Urine Color Straw Urine Clarity Clear Urine pH 8.0 Ur Specific [place] 1.009 Urine Protein Negative Urine Glucose (UA) Neg Urine Ketones Negative Urine Blood Negative Urine Nitrate Negative Urine Bilirubin Negative Urine Urobilinogen 0.2-1.0 Ur Leukocyte Esterase Neg Urine RBC (Auto) 2 Urine Microscopic WBC < 1 Ur Squamous Epith Cells 1 Urine Bacteria Rare Attending/Attestation - Attestation I have personally seen and examined this patient.: Yes I have fully participated in the care of the patient.: Yes I have reviewed all pertinent clinical information: Yes Notes (Text): Agree with findings and plan as above.
--- NOTE | 2018-12-28 12:25 | CT ---
Date of service: 12/28/2018 PROCEDURE: CT HEAD WITHOUT CONTRAST. HISTORY: head trauma COMPARISON: 10/02/2013 and 02/08/2018. TECHNIQUE: Axial computed tomography images were obtained through the head/brain without intravenous contrast. Supplemental Coronal and Sagittal projections created and reviewed. Radiation dose: Total exam DLP = 893.91 mGy-cm. This CT exam was performed using one or more of the following dose reduction techniques: Automated exposure control, adjustment of the mA and/or kV according to patient size, and/or use of iterative reconstruction technique. FINDINGS: HEMORRHAGE: No intracranial hemorrhage. BRAIN: Encephalomalacia change right parietal lobe. Findings related to known surgical resection of brain tumor. No atrophy or chronic microvascular ischemic changes. VENTRICLES: Ipsilateral ventricular dilatation/hydrocephalus FX vacuo. CALVARIUM: Stable craniotomy defect right parietal bone. PARANASAL SINUSES: Unremarkable as visualized. No significant inflammatory changes. MASTOID AIR CELLS: Unremarkable as visualized. No inflammatory changes. OTHER FINDINGS: None. IMPRESSION: No acute intracranial abnormalities. Stable findings related to right parietal craniotomy, underlying encephalomalacia change status post tumor resection. Concordant results (preliminary interpretation) provided by SUHA AMEZQUITA. Procedure Completed: 06:59. Preliminary Report: Interpreted and electronically signed: 07:41. Final Interpretation: 12:21.
--- NOTE | 2018-12-28 12:32 | CP.PCM.CON ---
History of Present Illness - History of Present Illness History of Present Illness: Podiatry consult note for Dr. Patricia 48 yo female with Hx of seizure, Left sided paralysis, asthma, brain tumor brought by to ED due to having a episode of seizure which cause her to hit her head, and twist her ankle. Patient admits to severe paint o the left ankle and states she is unable to bear weight at this time. Patient has seen Dr. Patricia in the past and was recommended to have MRI for the left ankle pain and she was unable to.Patient denies any other pedal complains. Patient also complain of headache, nuasea, Otherwise patient have no complains. Allergy: tree and shrub pollen PCP: Jarek Matta as neurologist, Dr. Watson as pattern hanger Medication: Keppra Er 500 PMH: asthma, left sided paralysis, seizure PSH cholesystectomy, tumor resection of brain Smoke: denies smoking drinking or drug use Past Patient History - Infectious Disease Hx of Infectious Diseases: None - Tetanus Immunizations Tetanus Immunization: Up to Date - Past Medical History & Family History Past Medical History?: Yes - Past Social History Smoking Status: Former Smoker - CARDIAC Hx Cardiac Disorders: No - PULMONARY Hx Asthma: Yes - NEUROLOGICAL Hx Neurological Disorder: Yes (seizures, migraine) - HEENT Hx HEENT Problems: No - RENAL Hx Chronic Kidney Disease: No - ENDOCRINE/METABOLIC Hx Endocrine Disorders: No - HEMATOLOGICAL/ONCOLOGICAL Hx Blood Disorders: Yes (anemia) - INTEGUMENTARY Hx Dermatological Problems: No - MUSCULOSKELETAL/RHEUMATOLOGICAL Hx Musculoskeletal Disorders: Yes - GASTROINTESTINAL Hx Gall Bladder Disease: Yes - GENITOURINARY/GYNECOLOGICAL Hx Genitourinary Disorders: Yes - PSYCHIATRIC Hx Psychophysiologic Disorder: No - SURGICAL HISTORY Hx Cholecystectomy: Yes Hx Tonsillectomy: Yes Other/Comment: tumor removed from brain - ANESTHESIA Hx Anesthesia: Yes Hx Anesthesia Reactions: No Meds Allergies/Adverse Reactions: Allergies Allergy/AdvReac Type Severity Reaction Status Date / Time tree and shrub pollen Allergy ITCHING Verified 12/28/18 05:56 - Medications Medications: Current Medications Albuterol/Ipratropium (Duoneb 3 Mg/0.5 Mg (3 Ml) Ud) 3 ml INH RQ4 PRN PRN Reason: Shortness of Breath Physical Exam - Constitutional Appears: Well, Non-toxic, No Acute Distress - Head Exam Head Exam: ATRAUMATIC, NORMOCEPHALIC - Eye Exam Eye Exam: Normal appearance - ENT Exam ENT Exam: Mucous Membranes Moist - Respiratory Exam Respiratory Exam: Clear to Auscultation Bilateral - Cardiovascular Exam Cardiovascular Exam: REGULAR RHYTHM, +S1, +S2 - Extremities Exam Additional comments: Left lower extremity exam: VASC: DP and PT 2/4 bilaterally, CFT less than 5 seconds X 10, TG cool to cool (patient baseline), minimal to mild edema noted to the left lateral aspect of the ankle NEURO: diminished due to previous hx of brain tumor DERM: minimal to mild edema with erythema noted to the left lateral aspect of the ankle, no open lesions, no clinical signs of infection, no ecchymosis ORTHO: diffuse pain on palpation to the left foot, pain with ankle range of motion, MSK 3/5, left foot in a plantarflexed and inverted position due to paralysis - Neurological Exam Neurological exam: Alert, Oriented x3 - Psychiatric Exam Psychiatric exam: Normal Affect - Skin Skin Exam: Normal Color Results - Vital Signs Recent Vital Signs: Last Vital Signs Temp 97.8 F 12/28/18 12:27 Pulse 82 12/28/18 12:27 Resp 20 12/28/18 12:27 BP 139/93 H 12/28/18 12:27 Pulse Ox 100 12/28/18 12:27 - Labs Result Diagrams: 12/28/18 06:30 12/28/18 06:30 Labs: Laboratory Results - last 24 hr 12/28/18 12/28/18 12/28/18 05:45 06:30 06:30 WBC 15.5 H RBC 4.31 Hgb 12.8 Hct 37.1 MCV 86.2 D MCH 29.7 MCHC 34.4 RDW 13.1 Plt Count 439 H MPV 8.8 Neut % (Auto) 77.1 H Lymph % (Auto) 16.9 L Riley % (Auto) 5.4 Eos % (Auto) 0.2 Baso % (Auto) 0.4 Neut # (Auto) 12.0 H Lymph # (Auto) 2.6 Riley # (Auto) 0.8 Eos # (Auto) 0.0 Baso # (Auto) 0.1 PT INR APTT Sodium 136 Potassium 3.5 L Chloride 101 Carbon Dioxide 24 Anion Gap 15 BUN 12 Creatinine 0.7 Est GFR ( Amer) > 60 Est GFR (Non-Af Amer) > 60 POC Glucose (mg/dL) 101 Random Glucose 95 Calcium 9.3 Troponin I < 0.0120 Blood Type Antibody Screen BBK History Checked 12/28/18 12/28/18 06:30 06:30 WBC RBC Hgb Hct MCV MCH MCHC RDW Plt Count MPV Neut % (Auto) Lymph % (Auto) Riley % (Auto) Eos % (Auto) Baso % (Auto) Neut # (Auto) Lymph # (Auto) Riley # (Auto) Eos # (Auto) Baso # (Auto) PT 12.6 INR 1.1 APTT 34.9 Sodium Potassium Chloride Carbon Dioxide Anion Gap BUN Creatinine Est GFR ( Amer) Est GFR (Non-Af Amer) POC Glucose (mg/dL) Random Glucose Calcium Troponin I Blood Type A POSITIVE Antibody Screen Negative BBK History Checked Patient has bt Assessment & Plan - Assessment and Plan (Free Text) Assessment: 48 y/o female seen and evaluated for left ankle injury due to seizure episode Plan: Patient seen and evaluated Plan discussed with attending Dr. Patricia Patient X-rays obtained: acute fracture of the distal fibula, small non- ossifying fibroma or possible bone infarct seen distal metaphysis of the tibia Patient placed in a posterior splint Surgical shoe dispensed Patient educated on risks and benefits for surgical intervention (ORIF of the left fibula). patient opts for surgery, Patient scheduled for ORIF of left ankle on Sunday 2:00 pm Please provide medical clearance Patient to be NWB at this time to the LLE PT ordered to aid patient ambulate CT of the left ankle ordered Thank you for the consult
[2018-12-28] MEDS ORDERED: Albuterol HFA 90 mcg/actuation (8 g) INH PRN (13:13)
--- NOTE | 2018-12-28 14:11 | CT ---
Date of service: 12/28/2018 PROCEDURE: Left lower extremity CT. HISTORY: evaluate distal fibular fracture COMPARISON: December 28, 2018. Plain film radiographs. 03/29/2018 MRI left ankle. Summary of findings on the comparison examination: Ill-defined focal area of signal abnormality in the medullary cavity of the distal tibia measuring 1.7 centimeters with centrally decreased T1 signal and increased STIR signal. This may represent a prominent bone infarct. TECHNIQUE: 2.5 mm axial acquisition and display. Coronal and sagittal reconstructions. Dose report (mGy-cm): 410.82 Supplemental 3D volume rendering. FINDINGS: Redemonstration of distal left fibular fracture. The fracture is oblique extending over a distance 1.8 cm. The most distal aspect is at the level of the ankle mortise. Major fracture fragments are anatomically aligned. Soft tissue swelling attests to the acuity of the fracture. This is lateral to the distal fibula. Small joint effusion identified. The ankle mortise is intact including the anatomic relationships of the distal tibia, fibula and talus. Incidental finding(s): Intramedullary areas of calcification likely atypical bone infarct. Findings better lucid aided and described in greater detail on previous MRI. IMPRESSION: Acute/obliques distal fibular fracture. Major fracture fragments are anatomically aligned. Lateral soft tissue swelling noted. Small joint effusion.
[2018-12-29 00:17] LABS: SQUAMOUS EPITHIAL 1 /hpf (0-5); URINE BACTERIA RARE (<OCC); URINE BILIRUBIN NEGATIVE (NEGATIVE); URINE BLOOD NEGATIVE (NEGATIVE); URINE CLARITY CLEAR (Clear); URINE COLOR STRAW (YELLOW); URINE GLUCOSE (UA) NEG (NEGATIVE); URINE LEUKOCYTE ESTERASE NEG Leu/uL (Negative); URINE PROTEIN NEGATIVE (NEGATIVE); URINE UROBILINOGEN 0.2-1.0 mg/dL (0.2-1.0)
--- NOTE | 2018-12-29 09:38 | CP.PCM.PN ---
<Khadar Gruber - Last Filed: 12/29/18 13:35> Subjective - Date & Time of Evaluation Date of Evaluation: 12/29/18 Time of Evaluation: 08:00 - Subjective Subjective: Patient seen and examined at bedside today, no acute event overnight. Patient is doing well. Medically optimized for surgery tomorrow Objective - Vital Signs/Intake and Output Vital Signs (last 24 hours): Temp Pulse Resp BP Pulse Ox 98 F 54 L 20 94/59 L 97 12/29/18 08:20 12/29/18 08:20 12/29/18 08:20 12/29/18 08:20 12/29/18 08:20 - Medications Medications: Current Medications Albuterol (Ventolin Hfa 90 Mcg/Actuation (8 G)) 2 puff INH Q3H PRN PRN Reason: Shortness of Breath Albuterol/Ipratropium (Duoneb 3 Mg/0.5 Mg (3 Ml) Ud) 3 ml INH RQ4 PRN PRN Reason: Shortness of Breath Atorvastatin Calcium (Lipitor) 10 mg PO DIN [facility] Last Admin: 12/28/18 17:00 Dose: 10 mg Diazepam (Valium) 5 mg PO HS [facility] Last Admin: 12/28/18 21:17 Dose: Not Given Heparin Sodium (Porcine) (Heparin) 5,000 units SC Q8 [facility]; Protocol Stop: 12/29/18 23:59 Last Admin: 12/29/18 01:28 Dose: 5,000 units Levetiracetam (Keppra) 750 mg PO Q12 [facility] Last Admin: 12/28/18 21:13 Dose: 750 mg Loratadine (Claritin) 10 mg PO DAILY [facility] Last Admin: 12/28/18 16:57 Dose: 10 mg Lorazepam (Ativan) 1 mg PO Q4 PRN PRN Reason: Seizure activity Sumatriptan Succinate (Imitrex Tab) 100 mg PO ONCE PRN PRN Reason: Migraine headache Last Admin: 12/28/18 16:58 Dose: 100 mg - Labs Labs: 12/28/18 06:30 12/28/18 06:30 PT 12.6 Seconds (9.8-13.1) 12/28/18 06:30 INR 1.1 12/28/18 06:30 APTT 34.9 Seconds (25.6-37.1) 12/28/18 06:30 - Constitutional Appears: Non-toxic, No Acute Distress - Head Exam Head Exam: ATRAUMATIC, NORMAL INSPECTION, NORMOCEPHALIC - Eye Exam Eye Exam: EOMI, Normal appearance, PERRL Pupil Exam: NORMAL ACCOMODATION, PERRL - ENT Exam ENT Exam: Mucous Membranes Moist, Normal Exam - Neck Exam Neck Exam: Full ROM, Normal Inspection - Respiratory Exam Respiratory Exam: Clear to Ausculation Bilateral, NORMAL BREATHING PATTERN - Cardiovascular Exam Cardiovascular Exam: REGULAR RHYTHM, +S1, +S2 - GI/Abdominal Exam GI & Abdominal Exam: Soft, Normal Bowel Sounds - Extremities Exam Extremities Exam: Full ROM, Normal Capillary Refill, Normal Inspection Additional comments: left ankle wrapped with ROBERT - Neurological Exam Neurological Exam: Alert, Awake, Oriented x3 - Psychiatric Exam Psychiatric exam: Normal Affect, Normal Mood - Skin Skin Exam: Dry, Intact, Normal Color, Warm Assessment and Plan - Assessment and Plan (Free Text) Assessment: Assessment: 48 yo female with Hx of seizure, Left sided paralysis, asthma, brain tumor brought by to ED due to having a episode of seizure. Admitted for seizure exacerbation and ankle fracture. Medically Optimized, cleared for surgery Patient is stable, low risk for moderate risk procedure Seizure Chronic CT scan no change patient need Keppra ER 1500 BID original brand Fibular fracture Acute Fall induced Podiatry on case, Surgery will be done on Sunday Patient is medically optimized and clear for surgery tomorrow Asthma improved s/p deuonab Continue home medication Migraine Continue home medication DVT heparin 5000 q8h Hold before surgery on sunday <Carrie Chen - Last Filed: 12/29/18 20:31> Objective - Vital Signs/Intake and Output Vital Signs (last 24 hours): Temp Pulse Resp BP Pulse Ox 98.2 F 83 16 105/71 98 12/29/18 20:12 12/29/18 20:12 12/29/18 20:12 12/29/18 20:12 12/29/18 20:12 - Medications Medications: Current Medications Albuterol (Ventolin Hfa 90 Mcg/Actuation (8 G)) 2 puff INH Q3H PRN PRN Reason: Shortness of Breath Albuterol/Ipratropium (Duoneb 3 Mg/0.5 Mg (3 Ml) Ud) 3 ml INH RQ4 PRN PRN Reason: Shortness of Breath Atorvastatin Calcium (Lipitor) 10 mg PO DIN [facility] Last Admin: 12/29/18 17:15 Dose: 10 mg Diazepam (Valium) 5 mg PO HS [facility] Last Admin: 12/28/18 21:17 Dose: Not Given Heparin Sodium (Porcine) (Heparin) 5,000 units SC Q8 [facility]; Protocol Stop: 12/29/18 23:59 Last Admin: 12/29/18 09:42 Dose: 5,000 units Lacosamide (Vimpat) 50 mg PO BID [facility] Last Admin: 12/29/18 17:15 Dose: 50 mg Levetiracetam (Keppra) 750 mg PO Q12 [facility] Last Admin: 12/29/18 09:43 Dose: 750 mg Loratadine (Claritin) 10 mg PO DAILY [facility] Last Admin: 12/29/18 09:42 Dose: 10 mg Lorazepam (Ativan) 1 mg PO Q4 PRN PRN Reason: Seizure activity Sumatriptan Succinate (Imitrex Tab) 100 mg PO DAILY PRN PRN Reason: Migraine headache Last Admin: 12/29/18 14:03 Dose: 100 mg - Labs Labs: 12/28/18 06:30 12/28/18 06:30 PT 12.6 Seconds (9.8-13.1) 12/28/18 06:30 INR 1.1 12/28/18 06:30 APTT 34.9 Seconds (25.6-37.1) 12/28/18 06:30 Attending/Attestation - Attestation I have personally seen and examined this patient.: Yes I have fully participated in the care of the patient.: Yes I have reviewed all pertinent clinical information, including history, physical exam and plan: Yes Notes (Text): Agree with findings and plan as above.
--- NOTE | 2018-12-29 09:50 | CARD ---
APPROVED REPORT Date of service: 12/28/2018 EKG Measurement Heart [id number] NM [id number] <Conclusion> Normal sinus rhythm Normal ECG
--- NOTE | 2018-12-29 11:47 | CP.PCM.CON ---
History of Present Illness - History of Present Illness History of Present Illness: Neurology Consultation Note: Consult requested by Dr. Singh Mrs. 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 Review of Systems - Constitutional Constitutional: As Per HPI - EENT Eyes: absent: As Per HPI, Blind Spots, Blurred Vision, Change in Vision, Decreased Night Vision, Diplopia, Discharge, Dry Eye, Exophthalmos, Floaters, Irritation, Itchy Eyes, Loss of Peripheral Vision, Pain, Photophobia, Requires Corrective Lenses, Sees Flashes, Spots in Vision, Tunnel Vision, Other Visual Disturbances, Loss of Vision, Other Ears: absent: As Per HPI, Decreased Hearing, Ear Discharge, Ear Pain, Tinnitus, Abnormal Hearing, Disequilibrium, Dizziness, Other Nose/Mouth/Throat: absent: As Per HPI, Epistaxis, Nasal Congestion, Nasal Disch arge, Nasal Obstruction, Nasal Trauma, Nose Pain, Post Nasal Drip, Sinus Pain, Sinus Pressure, Bleeding Gums, Change in Voice, Dental Pain, Dry Mouth, Dysphagia, Halitosis, Hoarsness, Lip Swelling, Mouth Lesions, Mouth Pain, Odynophagia, Sore Throat, Throat Swelling, Tongue Swelling, Facial Pain, Neck Pain, Neck Mass, Other - Cardiovascular Cardiovascular: absent: As Per HPI, Acrocyanosis, Chest Pain, Chest Pain at Rest, Chest Pain with Activity, Claudication, Diaphoresis, Dyspnea, Dyspnea on Exertion, Edema, Irregular Heart Rhythm, Pain Radiating to Arm/Neck/Jaw, Leg Edema, Leg Ulcers, Lightheadedness, Orthopnea, Palpitations, Paroxysmal Nocturnal Dyspnea, Pedal Edema, Radiating Pain, Rapid Heart Rate, Slow Heart Rate, Syncope, Other - Respiratory Respiratory: absent: As Per HPI, Cough, Dyspnea, Hemoptysis, Dyspnea on Exertion, Wheezing, Snoring, Stridor, Pain on Inspiration, Chest Congestion, Excessive Mucous Production, Change in Mucous Color, Pain with Coughing, Other - Gastrointestinal Gastrointestinal: absent: As Per HPI, Abdominal Pain, Belching, Bloating, Change in Bowel Habits, Change in Stool Character, Coffee Ground Emesis, Constipation, Cramping, Diarrhea, Dyspepsia, Dysphagia, Early Satiety, Excessive Flatus, Fecal Incontinence, Heartburn, Hematemesis, Hematochezia, Loose Stools, Melena, Nausea, Odynophagia, Temesmus, Vomiting, Other - Musculoskeletal Musculoskeletal: Joint Swelling, Myalgias - Integumentary Integumentary: absent: As Per HPI, Acne, Alopecia, Bleeding Lesions, Change in Hair, Change in Nails, Change in Pigmentation, Changing Lesions, Dry Skin, Erythema, Furuncle, Hirsutism, Lesions, New Lesions, Non-Healing Lesions, Photosensitivity, Pruritus, Rash, Skin Pain, Skin Ulcer, Sores, Striae, Swelling, Unusual Bruising, Wounds, Jaundice, Other - Neurological Neurological: As Per HPI - Psychiatric Psychiatric: absent: As Per HPI, Abnormal Sleep Pattern, Anhedonia, Anxiety, Auditory Hallucinations, Behavioral Changes, Change in Appetite, Change in Libido, Confusion, Depression, Difficulty Concentrating, Hallucinations, Homicidal Ideation, Hopelessness, Irritability, Memory Loss, Mood Swings, Panic Attacks, Paranoia, Suicidal Ideation, Visual Hallucinations, Tactile Spencer llucinations, Other - Endocrine Endocrine: absent: As Per HPI, Change in Body Appearance, Change in Libido, Cold Intolorance, Deepening of Voice, Excessive Sweating, Fatigue, Flushing, Heat Intolorance, Increase in Ring/Shoe/Hat Size, Palpitations, Polydipsia, Polyphagia, Polyuria, Other - Hematologic/Lymphatic Hematologic: absent: As Per HPI, Easy Bleeding, Easy Bruising, Lymphadenopathy, Other Past Patient History - Infectious Disease Hx of Infectious Diseases: None - Tetanus Immunizations Tetanus Immunization: Up to Date - Past Medical History & Family History Past Medical History?: Yes - Past Social History Smoking Status: Former Smoker - CARDIAC Hx Cardiac Disorders: No - PULMONARY Hx Asthma: Yes - NEUROLOGICAL Hx Migraine: Yes Hx Seizures: Yes - HEENT Hx HEENT Problems: No - RENAL Hx Chronic Kidney Disease: No - ENDOCRINE/METABOLIC Hx Endocrine Disorders: No - HEMATOLOGICAL/ONCOLOGICAL Hx Anemia: Yes - INTEGUMENTARY Hx Dermatological Problems: No - MUSCULOSKELETAL/RHEUMATOLOGICAL Hx Musculoskeletal Disorders: Yes - GASTROINTESTINAL Hx Gall Bladder Disease: Yes - GENITOURINARY/GYNECOLOGICAL Hx Genitourinary Disorders: Yes - PSYCHIATRIC Hx Psychophysiologic Disorder: No - SURGICAL HISTORY Hx Cholecystectomy: Yes Hx Tonsillectomy: Yes - ANESTHESIA Hx Anesthesia: Yes Hx Anesthesia Reactions: No Meds Allergies/Adverse Reactions: Allergies Allergy/AdvReac Type Severity Reaction Status Date / Time tree and shrub pollen Allergy ITCHING Verified 12/28/18 05:56 - Medications Medications: Current Medications Albuterol (Ventolin Hfa 90 Mcg/Actuation (8 G)) 2 puff INH Q3H PRN PRN Reason: Shortness of Breath Albuterol/Ipratropium (Duoneb 3 Mg/0.5 Mg (3 Ml) Ud) 3 ml INH RQ4 PRN PRN Reason: Shortness of Breath Atorvastatin Calcium (Lipitor) 10 mg PO DIN [facility] Last Admin: 12/28/18 17:00 Dose: 10 mg Diazepam (Valium) 5 mg PO HS [facility] Last Admin: 12/28/18 21:17 Dose: Not Given Heparin Sodium (Porcine) (Heparin) 5,000 units SC Q8 [facility]; Protocol Stop: 12/29/18 23:59 Last Admin: 12/29/18 09:42 Dose: 5,000 units Levetiracetam (Keppra) 750 mg PO Q12 [facility] Last Admin: 12/29/18 09:43 Dose: 750 mg Loratadine (Claritin) 10 mg PO DAILY [facility] Last Admin: 12/29/18 09:42 Dose: 10 mg Lorazepam (Ativan) 1 mg PO Q4 PRN PRN Reason: Seizure activity Sumatriptan Succinate (Imitrex Tab) 100 mg PO ONCE PRN PRN Reason: Migraine headache Last Admin: 12/28/18 16:58 Dose: 100 mg Physical Exam - Constitutional Appears: Well - Head Exam Head Exam: ATRAUMATIC, NORMAL INSPECTION, NORMOCEPHALIC - Eye Exam Eye Exam: EOMI, Normal appearance, PERRL Pupil Exam: NORMAL ACCOMODATION, PERRL - ENT Exam ENT Exam: Mucous Membranes Moist, Normal Exam - Neck Exam Neck exam: Positive for: Normal Inspection - Respiratory Exam Respiratory Exam: Clear to Auscultation Bilateral, NORMAL BREATHING PATTERN - Cardiovascular Exam Cardiovascular Exam: REGULAR RHYTHM, +S1, +S2 - GI/Abdominal Exam GI & Abdominal Exam: Normal Bowel Sounds, Soft. absent: Tenderness - Extremities Exam Extremities exam: Positive for: joint swelling, tenderness - Back Exam Back exam: NORMAL INSPECTION - Neurological Exam Neurological exam: Abnormal Gait, Alert, CN II-XII Intact, Oriented x3, Reflexes Normal Additional comments: Left side hemiplegia noted with 3-4/5 strength - Psychiatric Exam Psychiatric exam: Normal Affect, Normal Mood - Skin Skin Exam: Dry, Intact, Normal Color, Warm Results - Vital Signs Recent Vital Signs: Last Vital Signs Temp 98 F 12/29/18 08:20 Pulse 54 L 12/29/18 08:20 Resp 20 12/29/18 08:20 BP 94/59 L 12/29/18 08:20 Pulse Ox 97 12/29/18 08:20 - Labs Result Diagrams: 12/28/18 06:30 12/28/18 06:30 Labs: Laboratory Results - last 24 hr 12/28/18 22:44 Urine Color Straw Urine Clarity Clear Urine pH 8.0 Ur Specific Bricelyn 1.009 Urine Protein Negative Urine Glucose (UA) Neg Urine Ketones Negative Urine Blood Negative Urine Nitrate Negative Urine Bilirubin Negative Urine Urobilinogen 0.2-1.0 Ur Leukocyte Esterase Neg Urine RBC (Auto) 2 Urine Microscopic WBC < 1 Ur Squamous Epith Cells 1 Urine Bacteria Rare Assessment & Plan (1) Seizure Assessment and Plan: Will continue home dose of Keppra 1500 mg BID (must be brand name and EXTENDED RELEASE) and add Vimpat 50 mg BID. Will follow the patient in the office. Status: Acute
--- NOTE | 2018-12-29 12:38 | CP.PCM.PN ---
Subjective - Date & Time of Evaluation Date of Evaluation: 12/29/18 Time of Evaluation: 12:37 - Subjective Subjective: Podiatry progress note for Dr. Patricia, 48 yo female seen and evaluated at bedside for left leg lateral malleolus fracture. Patient is AAOx3 and in NAD. Patient admits tomoderate pain to the leg. patient denies acute overnight events, denies any other complains at this time.Denies f/n/v/sob. States PT came to see her however she was not comfortable ambulating with a walker. Objective - Vital Signs/Intake and Output Vital Signs (last 24 hours): Temp Pulse Resp BP Pulse Ox 97.9 F 75 20 111/76 100 12/29/18 12:31 12/29/18 12:31 12/29/18 12:31 12/29/18 12:31 12/29/18 12:31 - Medications Medications: Current Medications Albuterol (Ventolin Hfa 90 Mcg/Actuation (8 G)) 2 puff INH Q3H PRN PRN Reason: Shortness of Breath Albuterol/Ipratropium (Duoneb 3 Mg/0.5 Mg (3 Ml) Ud) 3 ml INH RQ4 PRN PRN Reason: Shortness of Breath Atorvastatin Calcium (Lipitor) 10 mg PO DIN [facility] Last Admin: 12/28/18 17:00 Dose: 10 mg Diazepam (Valium) 5 mg PO HS [facility] Last Admin: 12/28/18 21:17 Dose: Not Given Heparin Sodium (Porcine) (Heparin) 5,000 units SC Q8 [facility]; Protocol Stop: 12/29/18 23:59 Last Admin: 12/29/18 09:42 Dose: 5,000 units Lacosamide (Vimpat) 50 mg PO BID [facility] Levetiracetam (Keppra) 750 mg PO Q12 [facility] Last Admin: 12/29/18 09:43 Dose: 750 mg Loratadine (Claritin) 10 mg PO DAILY [facility] Last Admin: 12/29/18 09:42 Dose: 10 mg Lorazepam (Ativan) 1 mg PO Q4 PRN PRN Reason: Seizure activity Sumatriptan Succinate (Imitrex Tab) 100 mg PO ONCE PRN PRN Reason: Migraine headache Last Admin: 12/28/18 16:58 Dose: 100 mg - Labs Labs: 12/28/18 06:30 12/28/18 06:30 PT 12.6 Seconds (9.8-13.1) 12/28/18 06:30 INR 1.1 12/28/18 06:30 APTT 34.9 Seconds (25.6-37.1) 12/28/18 06:30 - Constitutional Appears: Well, Non-toxic, No Acute Distress - Head Exam Head Exam: ATRAUMATIC, NORMOCEPHALIC - Eye Exam Eye Exam: Normal appearance - ENT Exam ENT Exam: Mucous Membranes Moist - Respiratory Exam Respiratory Exam: Clear to Ausculation Bilateral - Cardiovascular Exam Cardiovascular Exam: REGULAR RHYTHM, +S1, +S2 - Extremities Exam Additional comments: Left lower extremity exam: VASC: DP and PT 2/4 bilaterally, CFT less than 5 seconds X 10, TG cool to cool (patient baseline), minimal to mild edema noted to the left lateral aspect of the ankle NEURO: diminished due to previous hx of brain tumor DERM: minimal to mild edema with erythema noted to the left lateral aspect of t he ankle, no open lesions, no clinical signs of infection, no ecchymosis ORTHO: diffuse pain on palpation to the left foot, pain with ankle range of motion, MSK 3/5, left foot in a plantarflexed and inverted position due to paralysis - Neurological Exam Neurological Exam: Alert, Awake, Oriented x3 Assessment and Plan - Assessment and Plan (Free Text) Assessment: 48 y/o female seen and evaluated for left ankle injury due to seizure episode Plan: Patient seen and evaluated Plan discussed with attending Dr. Patricia Patient X-rays obtained: acute fracture of the distal fibula, small non- ossifying fibroma or possible bone infarct seen distal metaphysis of the tibia Patient placed in a posterior splint Surgical shoe dispensed Patient educated on risks and benefits for surgical intervention (ORIF of the left fibula). patient opts for surgery, Patient scheduled for ORIF of left ankle on Sunday 2:00 pm Medical clearance on file Patient to be NWB at this time to the LLE PT ordered to aid patient ambulate CT of the left ankle shows small joint effusion along with oblique fracture of the distal fibula Heparin placed on hold NPO diet ordered starting midnight
[2018-12-29] MEDS: Lacosamide 50 MG Tab PO SCH (17:15)
[2018-12-30 05:51] LABS: HEMOGLOBIN 12.2 g/dL (12.0-16.0); MEAN CELL VOLUME 85.9 fl (81.0-99.0); MEAN CORPUSCULAR HEMOGLOBIN 29.8 pg (27.0-31.0); MEAN CORPUSCULAR HGB CONC 34.7 g/dL (33.0-37.0); RBC 4.09 Mil/uL (3.80-5.20); RED CELL DISTRIBUTION WIDTH 13.2 % (11.5-14.5); WHITE BLOOD COUNT 9.4 K/uL (4.8-10.8)
[2018-12-30 05:54] LABS: ALB/GLOB RATIO 1.5 (1.0-2.1); ALBUMIN 3.9 g/dL (3.5-5.0); ALT/SGPT 76 U/L (9-52); AST/SGOT 33 U/L (14-36); BLOOD UREA NITROGEN 12 mg/dl (7-17); CALCIUM 8.7 mg/dL (8.4-10.2); GFR NON-AFRICAN AMERICAN > 60
--- NOTE | 2018-12-30 08:58 | CP.PCM.PN ---
Subjective - Date & Time of Evaluation Date of Evaluation: 12/30/18 Time of Evaluation: 07:00 - Subjective Subjective: Patient seen and examined at bedside. Patient have no complains per today. She is ready for surgery. Patient denies any complains. Objective - Vital Signs/Intake and Output Vital Signs (last 24 hours): Temp Pulse Resp BP Pulse Ox 97.9 F 77 20 108/72 98 12/30/18 08:33 12/30/18 08:33 12/30/18 08:33 12/30/18 08:33 12/30/18 08:33 - Medications Medications: Current Medications Albuterol (Ventolin Hfa 90 Mcg/Actuation (8 G)) 2 puff INH Q3H PRN PRN Reason: Shortness of Breath Albuterol/Ipratropium (Duoneb 3 Mg/0.5 Mg (3 Ml) Ud) 3 ml INH RQ4 PRN PRN Reason: Shortness of Breath Last Admin: 12/29/18 23:56 Dose: 3 ml Atorvastatin Calcium (Lipitor) 10 mg PO DIN [facility] Last Admin: 12/29/18 17:15 Dose: 10 mg Diazepam (Valium) 5 mg PO HS [facility] Last Admin: 12/29/18 22:14 Dose: 5 mg Lacosamide (Vimpat) 50 mg PO BID [facility] Last Admin: 12/29/18 17:15 Dose: 50 mg Levetiracetam (Keppra) 750 mg PO Q12 [facility] Last Admin: 12/29/18 22:14 Dose: 750 mg Loratadine (Claritin) 10 mg PO DAILY [facility] Last Admin: 12/29/18 09:42 Dose: 10 mg Lorazepam (Ativan) 1 mg PO Q4 PRN PRN Reason: Seizure activity Sumatriptan Succinate (Imitrex Tab) 100 mg PO DAILY PRN PRN Reason: Migraine headache Last Admin: 12/29/18 14:03 Dose: 100 mg - Labs Labs: 12/30/18 04:45 12/30/18 04:45 PT 12.6 Seconds (9.8-13.1) 12/28/18 06:30 INR 1.1 12/28/18 06:30 APTT 34.9 Seconds (25.6-37.1) 12/28/18 06:30 - Constitutional Appears: Well, Non-toxic, No Acute Distress - Head Exam Head Exam: ATRAUMATIC, NORMAL INSPECTION, NORMOCEPHALIC - Eye Exam Eye Exam: EOMI, Normal appearance, PERRL Pupil Exam: NORMAL ACCOMODATION, PERRL - ENT Exam ENT Exam: Mucous Membranes Moist, Normal Exam - Neck Exam Neck Exam: Full ROM, Normal Inspection - Respiratory Exam Respiratory Exam: Clear to Ausculation Bilateral, NORMAL BREATHING PATTERN - Cardiovascular Exam Cardiovascular Exam: REGULAR RHYTHM, +S1, +S2 - GI/Abdominal Exam GI & Abdominal Exam: Soft, Normal Bowel Sounds - Extremities Exam Extremities Exam: Normal Capillary Refill Additional comments: LEFT lower ext wrapped with ROBERT - Neurological Exam Neurological Exam: Alert, Awake, CN II-XII Intact, Normal Gait, Oriented x3 - Psychiatric Exam Psychiatric exam: Normal Affect, Normal Mood - Skin Skin Exam: Dry, Intact, Normal Color, Warm Assessment and Plan - Assessment and Plan (Free Text) Assessment: 48 yo female with Hx of seizure, Left sided paralysis, asthma, brain tumor brought by to ED due to having a episode of seizure. Admitted for seizure exacerbation and ankle fracture. Patient is stable, low risk for moderate risk procedure Heparin on Hold for surgery Seizure Chronic CT scan no change Patient on Own medication ( keppra 1500 BID ER Brand name) Fibular fracture Acute Fall induced Podiatry on case, Surgery today at 14:00 Patient is medically optimized and clear for surgery Asthma improved s/p deuonab Continue home medication Migraine Continue home medication Diet NPO for surgery DVT heparin 5000 q8h is on hold
[2018-12-30] MEDS: Lacosamide 50 MG Tab PO SCH ×2 (09:31→18:52)
[2018-12-30] MEDS ORDERED: Lactated Ringer's 1,000 ML IV SCH (10:45)
--- NOTE | 2018-12-30 11:46 | CP.PCM.PN ---
Subjective - Date & Time of Evaluation Date of Evaluation: 12/30/18 Time of Evaluation: 11:41 - Subjective Subjective: Podiatry progress note for Dr. Patricia, 48 yo female seen and evaluated at bedside for left leg lateral malleolus fracture. Patient is AAOx3 and in NAD. Patient states that she still have pain to the left leg 03/22. patient denies acute overnight events, denies any other complains at this time.Denies F/N/V/C/CP or SOB. Patient is aware with her surgery today. She confirmed her NPO status. Objective - Vital Signs/Intake and Output Vital Signs (last 24 hours): Temp Pulse Resp BP Pulse Ox 97.9 F 77 20 108/72 98 12/30/18 08:33 12/30/18 08:33 12/30/18 08:33 12/30/18 08:33 12/30/18 08:33 - Medications Medications: Current Medications Albuterol (Ventolin Hfa 90 Mcg/Actuation (8 G)) 2 puff INH Q3H PRN PRN Reason: Shortness of Breath Albuterol/Ipratropium (Duoneb 3 Mg/0.5 Mg (3 Ml) Ud) 3 ml INH RQ4 PRN PRN Reason: Shortness of Breath Last Admin: 12/29/18 23:56 Dose: 3 ml Atorvastatin Calcium (Lipitor) 10 mg PO DIN [facility] Last Admin: 12/29/18 17:15 Dose: 10 mg Diazepam (Valium) 5 mg PO HS [facility] Last Admin: 12/29/18 22:14 Dose: 5 mg Home Med (Levetiracetam [Keppra Xr]) 3 tab PO BID [facility] Lactated Ringer's (Lactated Ringer's) 1,000 mls @ 125 mls/hr IV .Q8H [facility] Last Admin: 12/30/18 11:05 Dose: 125 mls/hr Lacosamide (Vimpat) 50 mg PO BID [facility] Last Admin: 12/30/18 09:31 Dose: 50 mg Levetiracetam (Keppra) 750 mg PO Q12 [facility] Last Admin: 12/30/18 09:26 Dose: 750 mg Loratadine (Claritin) 10 mg PO DAILY [facility] Last Admin: 12/30/18 09:23 Dose: Not Given Lorazepam (Ativan) 1 mg PO Q4 PRN PRN Reason: Seizure activity Sumatriptan Succinate (Imitrex Tab) 100 mg PO DAILY PRN PRN Reason: Migraine headache Last Admin: 12/29/18 14:03 Dose: 100 mg - Labs Labs: 12/30/18 04:45 12/30/18 04:45 PT 12.6 Seconds (9.8-13.1) 12/28/18 06:30 INR 1.1 12/28/18 06:30 APTT 34.9 Seconds (25.6-37.1) 12/28/18 06:30 - Constitutional Appears: Well, Non-toxic, No Acute Distress - Head Exam Head Exam: ATRAUMATIC, NORMOCEPHALIC - Extremities Exam Additional comments: Left lower extremity exam: Posterior splint was C/D/I Cap refill < 3 sec to all digits - Neurological Exam Neurological Exam: Alert, Awake, Oriented x3 - Psychiatric Exam Psychiatric exam: Normal Affect, Normal Mood Assessment and Plan - Assessment and Plan (Free Text) Assessment: 48 y/o female seen and evaluated for left ankle fracture 2ry to seizure episode Plan: Patient seen and evaluated Plan discussed with attending Dr. Patricia Patient X-rays obtained: acute fracture of the distal fibula, small non- ossifying fibroma or possible bone infarct seen distal metaphysis of the tibia CT of the left ankle shows small joint effusion along with oblique fracture of the distal fibula Patient posterior splint kept C/D/I Patient NPO status confirmed Patient scheduled for ORIF of left ankle today at 2:00 pm Medical clearance on file Patient to stay NWB at this time to the E, To use wheelchair. PT ordered, Reccs appreciated Heparin placed on hold Podiatry will continue to follow up the patient while in house.
[2018-12-30] MEDS ORDERED: Lidocaine 1% Inj (20ml) ONE (13:39)
[2018-12-30] MEDS ORDERED: Bupivacaine 0.5% Inj(30mL) ONE (13:39)
[2018-12-30] MEDS ORDERED: Lidocaine 2% Jelly (5 ml) TOP ONE (13:45)
[2018-12-30] MEDS ORDERED: Propofol 10 mg/ml Inj (20 ML) ONE (13:45)
[2018-12-30] MEDS ORDERED: Lidocaine 1% 5ml Abboject ONE (13:45)
[2018-12-30] MEDS ORDERED: Midazolam 2 MG/2 ML VIAL ONE (13:45)
[2018-12-30] MEDS ORDERED: ceFAZolin 2 GM in Sodium Chloride 0.9% 100 ML IVPB ONE (13:54)
[2018-12-30] MEDS ORDERED: Lidocaine 2% Inj (20ml) INFIL ONE (13:54)
[2018-12-30] MEDS ORDERED: Bupivacaine 0.5% Inj(30mL) IJ ONE (13:54)
[2018-12-30] MEDS ORDERED: Sodium Chloride 0.9% 1,000 ML IV SCH (14:00)
[2018-12-30] MEDS ORDERED: Lactated Ringer's 1,000 ML IV ONE (14:20)
[2018-12-30] MEDS ORDERED: Sodium Chloride 0.9% 1,000 ML IV ONE (14:20)
[2018-12-30] MEDS ORDERED: Bupivacaine HCl 0.25% PF (30 ml) Inj ONE (15:12)
[2018-12-30] MEDS ORDERED: EPINEPHrine 1 mg/ml (1:1000) Inj ONE (15:13)
[2018-12-30] MEDS ORDERED: Oxycodone/Acetaminophen 5/325 mg Tab PO PRN (16:37)
--- NOTE | 2018-12-30 16:39 | PCM.SURG1 ---
Surgeon's Initial Post Op Note - Surgeon's Notes Surgeon: Dr. Patricia Tool Worker: Vale Izquierdo PGY2, Lee Scales PGY2, Janice Chamorro PGY1 Type of Anesthesia: General LMA Anesthesia Administered By: Dr. Del Rio Pre-Operative Diagnosis: Left fibular fracture Operative Findings: See operative report. m: Synthes 5 hole fibular contour plate, 3.5 x 22mm screw, 2.7 x 18mm locking screw (x2), 2.7 x 12mm locking screw, 2.7 x 16mm locking screw, 2-0 vicryl, 4-0 vicryl, 4-0 monocryl Post-Operative Diagnosis: Same Operation Performed: Left fibular fracture ORIF Specimen/Specimens Removed: n/a Estimated Blood Loss: EBL {In ML}: 15 Blood Products Given: N/A Drains Used: No Drains Post-Op Condition: Good Date of Surgery/Procedure: 12/30/18 Time of Surgery/Procedure: 16:39
[2018-12-30] MEDS ORDERED: HYDROmorphone 0.5 mg/0.5 ml ISec IVP PRN (16:41)
--- NOTE | 2018-12-30 16:48 | PCM.ANESB2 ---
Popliteal Nerve Block - Popliteal Nerve Block Date of Procedure: 12/30/18 Anesthesiologist: Dr. Del Rio Pre-Procedure Diagnosis: S/P ORIF left fibular fracture Post-Procedure Diagnosis: S/P ORIF left fibular fracture Procedure Performed: Popliteal Nerve Block Left - Procedure Popliteal Nerve Block: This procedure was explained to the patient that it is for post-operative pain management. Consent was obtained after a thorough discussion with the patient regarding the benefits and possible complications of local anesthetic block of the sciatic nerve at the popliteal level. The patient was brought to the operating room and standard monitors are applied. Time-out was held with the circulating nurse to confirm the correct side and the appropriate block. After the surgery while still under general anesthesia, patient's operative leg was gently raised and supported and the groove in between the biceps femoris and vastus lateralis muscles was carefully palpated. The skin approximately 8cm above the popliteal crease was then marked. The ultrasound transducer was then applied to the posterior thigh approximately 8cm above the popliteal crease in the transverse plane and the sciatic nerve before its division was visualized lateral to the popliteal artery and in between the bicep femoris and semimembranosus/semitendinosus muscles. After identification, the lateral portion of the thigh was prepped with Chloraprep solution. At this point, a # 20 gauge Stimuplex insulated 4 inch needle was inserted into pre-marked area and advanced in a perpendicular direction. The needle was inserted above the ultrasound transducer in-plane towards the sciatic nerve in a [id number] direction. Needle advancement was performed carefully under direct ultrasound visualization. Nerve stimulator was used and dorsiflexion of the left foot was elicited at a current of 0.3 MA. After repeated negative aspi ration, 5cc of 0.25% Bupivacaine with 1:200,000 epinephrine was injected and this was flowed with 25cc of 0.25% Bupivacaine with 1:200,000 epinephrine. Under ultrasound guidance the local anesthetics were observed surrounding sciatic nerve . The needle was removed intact and sterile dressing was applied. The patient tolerated the popliteal nerve block well with stable vital signs and was subsequently awaken from anesthesia. Then transported to PACU.
[2018-12-30] MEDS ORDERED: LEVETIRACETAM PO SCH (17:00)
[2018-12-30 17:50] VITALS: RESP 18
[2018-12-30] MEDS: Sodium Chloride 0.9% 1,000 ML IV SCH (18:46)
[2018-12-30] MEDS: LEVETIRACETAM PO SCH (19:07)
--- NOTE | 2018-12-30 19:30 | CP.PCM.PCO ---
Assessment/Plan - Assessment and Plan (Free Text) Assessment: POST-OP NOTE 48 YO Female admitted after a seizure episode with L fibular fracture. Pt seen and examined post-op Left fibular fracture ORIF Patient is awake, alert, eating dinner. No acute distress, not endorsing any pain currently. O: GEN: NAD H: S1S2 no additional heart sounds Resp: clear breath sounds AB: BS+, NT Ext: LLE in wrap, toes noted, moving all toes. Cap refill <2 sec Neuro: AAO x 3 A/P: -abx as per podiatry -pain management -PT consulted
[2018-12-30] MEDS: Oxycodone/Acetaminophen 5/325 mg Tab PO PRN (21:04)
--- NOTE | 2018-12-30 22:40 | PCM.OP ---
Operative Report - Operative Report Date of Surgery/Procedure: 12/30/18 Time of Surgery/Procedure: 14:00 Surgeon: Dr. Efrain Patricia DPM Crate Maker: Dr. Vale Izquierdo DPM PGY-2, Dr. Lee Scales DPM PGY-2, Dr. Janice Chamorro DPM PGY-1 Anesthesia/Sedation: General Endo with popliteal block Pre-Operative Diagnosis: Left displaced fibular fracture Post-Operative Diagnosis: same Indication for Surgery: Indications: The patient is a 48 year-old femalewith the above diagnoses. The patient sustained trauma to her left lower extremity on 12/28/18 in which she twisted her left ankle during a seizure. Patient reports persistent pain to the left lower extremity. She was brought to the emergency room in which upon plain films of left ankle, shown a displaced oblique fibular fracture at the level of the ankle joint. The patient signed the consent after careful explanation of risks, benefits, complication and alternatives for surgical procedure. No guarantees were given nor implied. NPO status was confirmed prior to taking patient to the OR. Operative Findings: see operative report below unstable displaced fibular fracture Procedure/Operation Description: Preparation: The patient was brought to the operating room and placed on the operating room table in supine position. A well-padded pneumatic thigh tourniquet was placed to the patient's left thigh. After general sedation was administered, the left foot was then prepped and draped in usual sterile manner. Esmarch was utilized to exsanguinate the patient's left foot. Pneumatic thigh tourniquet was then inflated to 350 mmHg and procedure began. Attention was directed to the lateral aspect of the left ankle at the distal fibular. Using a skin marker, the incision placement was marked after the identification of the fibular borders. With the use of a #15 blade, an approximately 7 cm in length linear incision was created over the lateral aspect of the fibula. The incision was carried from proximal to distal to the level of the malleolus. The incision was carried to the level of periosteum using blunt and sharp dissection. All neurovascular structures encountered were retracted, ligated and bovied as necessary. At this time with the use of a freer, the periosteum was dissected free from its osseous attachments. During this time, a short oblique displaced fracture at the distal fibular at the level of the ankle joint was noted. Next with a use of #15 blade, the surrounding soft tissue was dissected from the fracture site. The fracture fragment was distracted distally and copious amounts of saline solution was irrigated at surgical site to remove hemorrhagic tissue and coagulated blood from the fracture site. Again, the surgical site was then copiously irrigated with normal sterile. At this time via the use of a bone clamp and distal and proximal distraction. The fracture was placed in an anatomical corrected position with noted increased length to the fibula and moravian of the ankle mortis upon performing this procedure. Upon establishment of correct length of the fibular the fracture was clamped reduction clamps. Using AO standard and technique, a 3.5 x 22mm lag screw was placed across the fracture site in order to allow for interfragmentary screw fixation. Upon completion of this procedure, the bone clamped was removed. It was noted that good fixation had been achieved across the fracture site. During this time, the fibular fracture was evaluated and noted to be in good reduction. Utilizing C-arm, the fibular fracture was reduced and in good alignment and length. At this time, a Synthes 5 hole fibular contour plate was utilized at the lateral aspect of the fibular. Proper alignment and placement of plate was confirmed using C-arm. Next attention was directed to the most distal holes of the plate in which using AO standard and technique, was fixated via the use of 2.7 mm lock ing screws x 4. Next attention was directed to the proximal holes on the plate which using standard AO technique, was fixated with the use of 2.7 screws x 3. Upon completion of the fibular reduction and fixation, the surgical site was copiously irrigated with normal sterile saline. Utilizing C-arm, the correction was assess and noted to be excellent. At this time the periosteum was reapproximated with the use of #2 -O Vicryl in continuously running suture technique. Next via the use of 4-0 Vicryl, the subcutaneous tissue was reapproximated in simple suture pattern. Next via the use of 4-0 monocril, subcuticular and skin was closed and reapproximated in running continuous suture technique. Steri-strips applied. Surgical site dressed with wet to dry dsd, gauze, Doug, Webril, and posterior splint. Pneumatic thigh tourniquet was deflated with hyperemic response noted to the entire left lower extremity with capillary refill time < 3 seconds to the digits. Estimated Blood Loss: 15 cc Complications: none, stable Discharge & Condition: Postoperative Condition: The patient tolerated the anesthesia and procedure well and was escorted to the recovery room with vital signs stable and neurovascular status intact to the left lower extremity. Posterior splint on and intact. Keep dressing clean, dry and intact. Patient will follow up with Dr. Patricia in his office within 1 week upon discharge.
[2018-12-31] MEDS: Sodium Chloride 0.9% 1,000 ML IV SCH (01:58)
[2018-12-31 06:03] LABS: BASO # 0.1 K/uL (0.0-0.2); BASO % 0.9 % (0.0-2.0); EOS # 0.1 K/uL (0.0-0.7); EOS % 0.8 % (0.0-4.0); HEMOGLOBIN 11.6 g/dL (12.0-16.0); LYMPH # 2.3 K/uL (1.0-4.3); LYMPH % 22.4 % (20.0-40.0); MEAN CELL VOLUME 87.8 fl (81.0-99.0); MEAN CORPUSCULAR HEMOGLOBIN 29.9 pg (27.0-31.0); MEAN PLATELET VOLUME 8.6 fl (7.2-11.7); MONO # 0.6 K/uL (0.0-0.8); MONO % 6.2 % (0.0-10.0); NEUT % 69.7 % (50.0-75.0); RBC 3.88 Mil/uL (3.80-5.20); RED CELL DISTRIBUTION WIDTH 13.5 % (11.5-14.5)
--- NOTE | 2018-12-31 06:18 | CP.PCM.PN ---
Subjective - Date & Time of Evaluation Date of Evaluation: 12/31/18 Time of Evaluation: 08:00 - Subjective Subjective: Patient seen and examined. S/P ORIF day 1. Patient is doing well, pain is tolerated with percocet. Patient have no complains as per today. Objective - Vital Signs/Intake and Output Vital Signs (last 24 hours): Temp Pulse Resp BP Pulse Ox 97.7 F 83 18 102/63 100 12/31/18 05:24 12/31/18 05:24 12/31/18 05:24 12/31/18 05:24 12/31/18 05:24 Intake and Output: 12/30/18 12/31/18 18:59 06:59 Intake Total 500 700 Output Total 15 Balance 500 685 - Medications Medications: Current Medications Acetaminophen (Tylenol 325mg Tab) 325 mg PO Q4 PRN PRN Reason: Pain, Mild (1-3) Albuterol (Ventolin Hfa 90 Mcg/Actuation (8 G)) 2 puff INH Q3H PRN PRN Reason: Shortness of Breath Albuterol/Ipratropium (Duoneb 3 Mg/0.5 Mg (3 Ml) Ud) 3 ml INH RQ4 PRN PRN Reason: Shortness of Breath Last Admin: 12/29/18 23:56 Dose: 3 ml Atorvastatin Calcium (Lipitor) 10 mg PO DIN [facility] Last Admin: 12/30/18 18:48 Dose: 10 mg Cephalexin Monohydrate (Keflex) 500 mg PO Q8 [facility]; Protocol Last Admin: 12/31/18 01:58 Dose: 500 mg Diazepam (Valium) 5 mg PO HS [facility] Last Admin: 12/30/18 23:07 Dose: 5 mg Home Med (Levetiracetam [Keppra Xr]) 1,500 tab PO BID [facility] Last Admin: 12/30/18 19:07 Dose: 1,500 tab Sodium Chloride (Sodium Chloride 0.9%) 1,000 mls @ 60 mls/hr IV .[id number] [facility] Stop: 12/31/18 13:56 Sodium Chloride (Sodium Chloride 0.9%) 1,000 mls @ 100 mls/hr IV .Q10H [facility] Last Admin: 12/31/18 01:58 Dose: 100 mls/hr Lacosamide (Vimpat) 50 mg PO BID [facility] Last Admin: 12/30/18 18:52 Dose: 50 mg Levetiracetam (Keppra) 750 mg PO Q12 [facility] Last Admin: 12/30/18 09:26 Dose: 750 mg Loratadine (Claritin) 10 mg PO DAILY [facility] Last Admin: 12/30/18 09:23 Dose: Not Given Lorazepam (Ativan) 1 mg PO Q4 PRN PRN Reason: Seizure activity Oxycodone/Acetaminophen (Percocet 5/325 Mg Tab) 1 tab PO Q4 PRN PRN Reason: Pain, moderate (4-7) Stop: 01/02/19 16:38 Oxycodone/Acetaminophen (Percocet 5/325 Mg Tab) 2 tab PO Q4 PRN PRN Reason: Pain, severe (8-10) Stop: 01/02/19 16:38 Last Admin: 12/30/18 21:04 Dose: 2 tab Sumatriptan Succinate (Imitrex Tab) 100 mg PO DAILY PRN PRN Reason: Migraine headache Last Admin: 12/29/18 14:03 Dose: 100 mg - Labs Labs: 12/31/18 05:35 12/30/18 04:45 PT 12.6 Seconds (9.8-13.1) 12/28/18 06:30 INR 1.1 12/28/18 06:30 APTT 34.9 Seconds (25.6-37.1) 12/28/18 06:30 Assessment and Plan - Assessment and Plan (Free Text) Assessment: Assessment: 48 yo female with Hx of seizure, Left sided paralysis, asthma, brain tumor brought by to ED due to having a episode of seizure. Admitted for seizure exacerbation and ankle fracture. S/P ORIF of the fibula day 1 Fibular fracture S/P day 1 ORIF PT/OT on case Podiatry on case Will be discharged to Acute rehab Will continue on Percocet for pain Keflex 500mg cap q8 for 1 week Anticoagulant for 14 days Follow up with Dr. Patricia at his office Patient will need wheelchair Seizure Chronic, stable, no change CT scan no change Patient on Own medication ( keppra 1500 BID ER Brand name) Asthma improved s/p deuonab Continue home medication Migraine Continue home medication Diet Regular diet DVT Lovenox 40SC
[2018-12-31 06:34] LABS: ALB/GLOB RATIO 1.4 (1.0-2.1); ALBUMIN 3.7 g/dL (3.5-5.0); ALT/SGPT 82 U/L (9-52); AST/SGOT 52 U/L (14-36); BLOOD UREA NITROGEN 11 mg/dl (7-17); CALCIUM 8.1 mg/dL (8.4-10.2); GFR NON-AFRICAN AMERICAN > 60
--- NOTE | 2018-12-31 07:36 | PQF ---
PROVIDER RESPONSE TEXT: Mild intermittent REVIEWER QUERY TEXT: Asthma Specificity and Type 2 (two) queries: 1. Asthma is documented in the Medical Record. Please specify the type 2. Severity of asthma : i.e.exacerbation or stable Such as: -- Mild intermittent -- Mild persistent -- Moderate persistent -- Severe persistent -- Other, please specify H and P: Respiratory: Exam: Wheezes, Normal Breathing Pattern Impression includes: Asthma --mproved s/p duoneb Continue home medication The patient's Clinical Indicators include: -- Query created by: Sonam Meza on 12/30/2018 2:47 PM Electronically signed by: Khadar Gonzalez 12/31/2018 7:33 AM
[2018-12-31] MEDS: LEVETIRACETAM PO SCH ×2 (08:50→17:43)
[2018-12-31] MEDS: Oxycodone/Acetaminophen 5/325 mg Tab PO PRN ×3 (08:56→23:27)
[2018-12-31] MEDS: Lacosamide 50 MG Tab PO SCH ×2 (08:57→17:42)
--- NOTE | 2018-12-31 10:13 | CP.PCM.PN ---
Subjective - Date & Time of Evaluation Date of Evaluation: 12/31/18 Time of Evaluation: 10:07 - Subjective Subjective: Podiatry progress note for Dr. Patricia, 48 y/o female seen and evaluated 1 day S/P ORIF Left ankle fracture. Patient is AAOx3 and in NAD. Patient states that she is having painat the surgery site 03/22. patient denies acute overnight events, denies any other complains at this time.Denies F/N/V/C/CP or SOB. Objective - Vital Signs/Intake and Output Vital Signs (last 24 hours): Temp Pulse Resp BP Pulse Ox 98.7 F 87 18 111/77 97 12/31/18 08:22 12/31/18 08:22 12/31/18 08:22 12/31/18 08:22 12/31/18 08:22 Intake and Output: 12/31/18 12/31/18 06:59 18:59 Intake Total 700 Output Total 15 Balance 685 - Medications Medications: Current Medications Acetaminophen (Tylenol 325mg Tab) 325 mg PO Q4 PRN PRN Reason: Pain, Mild (1-3) Albuterol (Ventolin Hfa 90 Mcg/Actuation (8 G)) 2 puff INH Q3H PRN PRN Reason: Shortness of Breath Albuterol/Ipratropium (Duoneb 3 Mg/0.5 Mg (3 Ml) Ud) 3 ml INH RQ4 PRN PRN Reason: Shortness of Breath Last Admin: 12/29/18 23:56 Dose: 3 ml Atorvastatin Calcium (Lipitor) 10 mg PO DIN [facility] Last Admin: 12/30/18 18:48 Dose: 10 mg Cephalexin Monohydrate (Keflex) 500 mg PO Q8 [facility]; Protocol Last Admin: 12/31/18 08:50 Dose: 500 mg Diazepam (Valium) 5 mg PO HS [facility] Last Admin: 12/30/18 23:07 Dose: 5 mg Enoxaparin Sodium (Lovenox) 40 mg SC DAILY [facility]; Protocol Home Med (Levetiracetam [Keppra Xr]) 1,500 tab PO BID [facility] Last Admin: 12/31/18 08:50 Dose: 1,500 tab Lacosamide (Vimpat) 50 mg PO BID [facility] Last Admin: 12/31/18 08:57 Dose: 50 mg Levetiracetam (Keppra) 750 mg PO Q12 [facility] Last Admin: 12/30/18 09:26 Dose: 750 mg Loratadine (Claritin) 10 mg PO DAILY [facility] Last Admin: 12/31/18 08:50 Dose: 10 mg Lorazepam (Ativan) 1 mg PO Q4 PRN PRN Reason: Seizure activity Oxycodone/Acetaminophen (Percocet 5/325 Mg Tab) 1 tab PO Q4 PRN PRN Reason: Pain, moderate (4-7) Stop: 01/02/19 16:38 Oxycodone/Acetaminophen (Percocet 5/325 Mg Tab) 2 tab PO Q4 PRN PRN Reason: Pain, severe (8-10) Stop: 01/02/19 16:38 Last Admin: 12/31/18 08:56 Dose: 2 tab Sumatriptan Succinate (Imitrex Tab) 100 mg PO DAILY PRN PRN Reason: Migraine headache Last Admin: 12/31/18 08:50 Dose: 100 mg - Labs Labs: 12/31/18 05:35 12/31/18 05:35 PT 12.6 Seconds (9.8-13.1) 12/28/18 06:30 INR 1.1 12/28/18 06:30 APTT 34.9 Seconds (25.6-37.1) 12/28/18 06:30 - Constitutional Appears: Well, Non-toxic, No Acute Distress - Head Exam Head Exam: ATRAUMATIC, NORMOCEPHALIC - Extremities Exam Additional comments: Left lower extremity exam: Posterior splint was C/D/I Cap refill < 3 sec to all digits - Neurological Exam Neurological Exam: Alert, Awake, Oriented x3 - Psychiatric Exam Psychiatric exam: Normal Affect, Normal Mood Assessment and Plan - Assessment and Plan (Free Text) Assessment: 48 y/o female seen and evaluated 1 day S/P ORIF Left ankle fracture. Plan: Patient seen and evaluated Plan discussed with attending Dr. Patricia Charts, labs and vitals reviewed; Afebrile, No leukocytosis Patient X-rays obtained: acute fracture of the distal fibula, small non- ossifying fibroma or possible bone infarct seen distal metaphysis of the tibia CT of the left ankle shows small joint effusion along with oblique fracture of the distal fibula Postoperative X-ray: Satisfactory ORIF of the fibula. Patient posterior splint kept C/D/I Patient to stay NWB at this time to the LLE, To use wheelchair. PT ordered, Reccs appreciated Recommended discharging the patient to [facility]. Patient refused and want to be disch arged home. 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 Rx; Keflex 500 mg caps Q8 for 1 week. Rx; Percocet 325/5mg PO, Q4-6, PRN for pain. Rx; Wheelchair. Patient to follow up within one week with Dr. Patricia at his office Patient expressed verbal understanding. Podiatry will continue to follow up the patient while in house.
--- NOTE | 2018-12-31 12:26 | RAD ---
Date of service: 12/30/2018 PROCEDURE: Left Ankle Radiographs. HISTORY: s/p left ankle fracture COMPARISON: Preoperative study 12/28/2018. TECHNIQUE: 3 views obtained. FINDINGS: BONES: Satisfactory postoperative findings related to open reduction internal fixation distal left fibular fracture. No evidence of orthopedic hardware failure. JOINTS: Normal. No osteoarthritis. Ankle mortise maintained. Talar dome intact SOFT TISSUES: Normal. OTHER FINDINGS: None. IMPRESSION: Satisfactory postoperative status.
[2019-01-01 05:33] LABS: BASO # 0.1 K/uL (0.0-0.2); BASO % 0.6 % (0.0-2.0); EOS # 0.1 K/uL (0.0-0.7); HEMOGLOBIN 11.8 g/dL (12.0-16.0); LYMPH # 2.2 K/uL (1.0-4.3); MEAN CORPUSCULAR HEMOGLOBIN 29.6 pg (27.0-31.0); MEAN CORPUSCULAR HGB CONC 33.7 g/dL (33.0-37.0); MEAN PLATELET VOLUME 8.8 fl (7.2-11.7); MONO # 0.7 K/uL (0.0-0.8); MONO % 7.1 % (0.0-10.0); NEUT # 6.3 K/uL (1.8-7.0); NEUT % 67.3 % (50.0-75.0); RBC 3.97 Mil/uL (3.80-5.20); RED CELL DISTRIBUTION WIDTH 13.9 % (11.5-14.5); WHITE BLOOD COUNT 9.4 K/uL (4.8-10.8)
[2019-01-01 05:49] LABS: BLOOD UREA NITROGEN 13 mg/dl (7-17); GFR NON-AFRICAN AMERICAN > 60
[2019-01-01] MEDS: Oxycodone/Acetaminophen 5/325 mg Tab PO PRN ×2 (08:58→15:18)
[2019-01-01] MEDS: Lacosamide 50 MG Tab PO SCH ×2 (08:58→17:11)
[2019-01-01] MEDS ORDERED: Enoxaparin 40 mg Syringe SC SCH (09:00)
[2019-01-01] MEDS: LEVETIRACETAM PO SCH ×2 (09:00→17:14)
--- NOTE | 2019-01-01 10:09 | CP.PCM.PN ---
Subjective - Date & Time of Evaluation Date of Evaluation: 01/01/19 Time of Evaluation: 10:07 - Subjective Subjective: Podiatry progress note for Dr. Patricia, 48 y/o female seen and evaluated 2 days S/P ORIF Left ankle fracture. Patient is AAOx3 and in NAD. Patient states that she is having pain at the surgery site but better than yesterday. patient denies acute overnight events, denies any other complains at this time.Denies F/N/V/C/CP or SOB. Objective - Vital Signs/Intake and Output Vital Signs (last 24 hours): Temp Pulse Resp BP Pulse Ox 98.8 F 81 18 116/79 97 01/01/19 08:00 01/01/19 08:00 01/01/19 08:00 01/01/19 08:00 01/01/19 08:00 - Medications Medications: Current Medications Acetaminophen (Tylenol 325mg Tab) 325 mg PO Q4 PRN PRN Reason: Pain, Mild (1-3) Albuterol (Ventolin Hfa 90 Mcg/Actuation (8 G)) 2 puff INH Q3H PRN PRN Reason: Shortness of Breath Albuterol/Ipratropium (Duoneb 3 Mg/0.5 Mg (3 Ml) Ud) 3 ml INH RQ4 PRN PRN Reason: Shortness of Breath Last Admin: 12/29/18 23:56 Dose: 3 ml Atorvastatin Calcium (Lipitor) 10 mg PO DIN [facility] Last Admin: 12/31/18 17:43 Dose: 10 mg Diazepam (Valium) 5 mg PO HS [facility] Last Admin: 12/31/18 23:25 Dose: 5 mg Enoxaparin Sodium (Lovenox) 40 mg SC DAILY [facility]; Protocol Last Admin: 01/01/19 09:00 Dose: 40 mg Home Med (Levetiracetam [Keppra Xr]) 1,500 tab PO BID [facility] Last Admin: 01/01/19 09:00 Dose: 1,500 tab Lacosamide (Vimpat) 50 mg PO BID [facility] Last Admin: 01/01/19 08:58 Dose: 50 mg Levetiracetam (Keppra) 750 mg PO Q12 [facility] Last Admin: 12/30/18 09:26 Dose: 750 mg Loratadine (Claritin) 10 mg PO DAILY [facility] Last Admin: 01/01/19 09:00 Dose: 10 mg Lorazepam (Ativan) 1 mg PO Q4 PRN PRN Reason: Seizure activity Oxycodone/Acetaminophen (Percocet 5/325 Mg Tab) 1 tab PO Q4 PRN PRN Reason: Pain, moderate (4-7) Stop: 01/02/19 16:38 Oxycodone/Acetaminophen (Percocet 5/325 Mg Tab) 2 tab PO Q4 PRN PRN Reason: Pain, severe (8-10) Stop: 01/02/19 16:38 Last Admin: 01/01/19 08:58 Dose: 2 tab Sumatriptan Succinate (Imitrex Tab) 100 mg PO DAILY PRN PRN Reason: Migraine headache Last Admin: 12/31/18 08:50 Dose: 100 mg - Labs Labs: 01/01/19 04:55 01/01/19 04:55 PT 12.6 Seconds (9.8-13.1) 12/28/18 06:30 INR 1.1 12/28/18 06:30 APTT 34.9 Seconds (25.6-37.1) 12/28/18 06:30 - Constitutional Appears: Well, Non-toxic, No Acute Distress - Head Exam Head Exam: ATRAUMATIC, NORMOCEPHALIC - Extremities Exam Additional comments: Left lower extremity exam: Posterior splint was C/D/I Cap refill < 3 sec to all digits - Neurological Exam Neurological Exam: Alert, Awake, Oriented x3 - Psychiatric Exam Psychiatric exam: Normal Affect, Normal Mood Assessment and Plan - Assessment and Plan (Free Text) Assessment: 48 y/o female seen and evaluated 2 days S/P ORIF Left ankle fracture. Plan: Patient seen and evaluated Plan discussed with attending Dr. Patricia Charts, labs and vitals reviewed; Afebrile, No leukocytosis Patient X-rays obtained: acute fracture of the distal fibula, small non- ossifying fibroma or possible bone infarct seen distal metaphysis of the tibia CT of the left ankle shows small joint effusion along with oblique fracture of the distal fibula Postoperative left ankle X-ray: Satisfactory ORIF of the fibula. Patient posterior splint kept C/D/I Patient to stay NWB at this time to the E, To use wheelchair. PT ordered, Reccs appreciated Recommended discharging the patient to [facility]. Patient refused and want to be discharged home. After Dr Singh discussion with the patient yesterday. Patient will be dischar ged to TCU. Patient instructed to continue icing and elevation of the LLE. Patient expressed verbal understanding. Podiatry will continue to follow up the patient while in house.
[2019-01-01 11:52] VITALS: TEMP 98.2
--- NOTE | 2019-01-01 12:05 | CP.PCM.DIS ---
Provider - Provider Date of Admission: 12/28/18 09:53 Attending physician: Timo Singh MD Consults: 12/28/18 18:11 Neurology Consult Routine Comment: Consulting Provider: Josiah Tilley Consulting Physician: Josiah Tilley Reason for Consult: s/p seizure Time Spent in preparation of Discharge (in minutes): 20 Diagnosis - Discharge Diagnosis (1) Ankle fracture Status: Acute (2) Seizure Status: Chronic Hospital Course - Lab Results Lab Results: Most Recent Lab Values WBC 9.4 K/uL (4.8-10.8) 01/01/19 04:55 RBC 3.97 Mil/uL (3.80-5.20) 01/01/19 04:55 Hgb 11.8 g/dL (12.0-16.0) L 01/01/19 04:55 Hct 35.0 % (34.0-47.0) 01/01/19 04:55 MCV 88.0 fl (81.0-99.0) 01/01/19 04:55 MCH 29.6 pg (27.0-31.0) 01/01/19 04:55 MCHC 33.7 g/dL (33.0-37.0) 01/01/19 04:55 RDW 13.9 % (11.5-14.5) 01/01/19 04:55 Plt Count 381 K/uL (130-400) 01/01/19 04:55 MPV 8.8 fl (7.2-11.7) 01/01/19 04:55 Neut % (Auto) 67.3 % (50.0-75.0) 01/01/19 04:55 Lymph % (Auto) 24.0 % (20.0-40.0) 01/01/19 04:55 [place] % (Auto) 7.1 % (0.0-10.0) 01/01/19 04:55 Eos % (Auto) 1.0 % (0.0-4.0) 01/01/19 04:55 Baso % (Auto) 0.6 % (0.0-2.0) 01/01/19 04:55 Neut # (Auto) 6.3 K/uL (1.8-7.0) 01/01/19 04:55 Lymph # (Auto) 2.2 K/uL (1.0-4.3) 01/01/19 04:55 [place] # (Auto) 0.7 K/uL (0.0-0.8) 01/01/19 04:55 Eos # (Auto) 0.1 K/uL (0.0-0.7) 01/01/19 04:55 Baso # (Auto) 0.1 K/uL (0.0-0.2) 01/01/19 04:55 PT 12.6 Seconds (9.8-13.1) 12/28/18 06:30 INR 1.1 12/28/18 06:30 APTT 34.9 Seconds (25.6-37.1) 12/28/18 06:30 Sodium 137 mmol/l (132-148) 01/01/19 04:55 Potassium 3.6 MMOL/L (3.6-5.0) 01/01/19 04:55 Chloride 101 mmol/L (98-107) 01/01/19 04:55 Carbon Dioxide 27 mmol/L (22-30) 01/01/19 04:55 Anion Gap 13 (10-20) 01/01/19 04:55 BUN 13 mg/dl (7-17) 01/01/19 04:55 Creatinine 0.7 mg/dl (0.7-1.2) 01/01/19 04:55 Est GFR ( Amer) > 60 01/01/19 04:55 Est GFR (Non-Af Amer) > 60 01/01/19 04:55 POC Glucose (mg/dL) 67 mg/dL (65-110) 12/30/18 11:19 Random Glucose 106 mg/dL (65-105) H 01/01/19 04:55 Calcium 9.0 mg/dL (8.4-10.2) 01/01/19 04:55 Total Bilirubin 0.4 mg/dl (0.2-1.3) 12/31/18 05:35 AST 52 U/L (14-36) H D 12/31/18 05:35 ALT 82 U/L (9-52) H 12/31/18 05:35 Alkaline Phosphatase 104 U/L (38-126) 12/31/18 05:35 Troponin I < 0.0120 ng/mL (0.00-0.120) 12/28/18 06:30 Total Protein 6.2 G/DL (6.3-8.2) L 12/31/18 05:35 Albumin 3.7 g/dL (3.5-5.0) 12/31/18 05:35 Globulin 2.6 gm/dL (2.2-3.9) 12/31/18 05:35 Albumin/Globulin Ratio 1.4 (1.0-2.1) 12/31/18 05:35 Urine Color Straw (YELLOW) 12/28/18 22:44 Urine Clarity Clear (Clear) 12/28/18 22:44 Urine pH 8.0 (5.0-8.0) 12/28/18 22:44 Ur Specific [place] 1.009 (1.003-1.030) 12/28/18 22:44 Urine Protein Negative mg/dL (NEGATIVE) 12/28/18 22:44 Urine Glucose (UA) Neg mg/dL (NEGATIVE) 12/28/18 22:44 Urine Ketones Negative mg/dL (NEGATIVE) 12/28/18 22:44 Urine Blood Negative (NEGATIVE) 12/28/18 22:44 Urine Nitrate Negative (NEGATIVE) 12/28/18 22:44 Urine Bilirubin Negative (NEGATIVE) 12/28/18 22:44 Urine Urobilinogen 0.2-1.0 mg/dL (0.2-1.0) 12/28/18 22:44 Ur Leukocyte Esterase Neg Von/uL (Negative) 12/28/18 22:44 Urine RBC (Auto) 2 /hpf (0-3) 12/28/18 22:44 Urine Microscopic WBC < 1 /hpf (0-5) 12/28/18 22:44 Ur Squamous Epith Cells 1 /hpf (0-5) 12/28/18 22:44 Urine Bacteria Rare (<OCC) 12/28/18 22:44 Blood Type A POSITIVE 12/28/18 06:30 Antibody Screen Negative 12/28/18 06:30 BBK History Checked Patient has bt 12/28/18 06:30 - Hospital Course Hospital Course: 48 yo female with Hx of seizure, Left sided paralysis, asthma, brain tumor brought by to ED due to having a episode of seizure. Admitted for seizure exacerbation and ankle fracture. Patient X-Ray positive for fibular fracture, Patient was sent to OR for ORIF. Podiatry, PT/OT were on the case. Patient was placed on Keflex 500mg, percocet and anticoagulant. PT/OT recommended patient to be discharge to Acute Rehab. Podiatry would like to see patient in 1 week after discharge for evaluation. During her stay patient also was worked up for her worsen seizure. Dr. Tilley. Dr tilley added Vimpat 50mg and increased her Keppra to 750 ER, cleared her to go for acute rehab for fracture Otherwise patient have no complains. She is doing well. No seizure since she have been in hospital. patient recovering well from surgery. Patient will be discharge to Acute rehab for mo PT/OT Patient will be discharge with Keflex 500 mg cap Q8 for 1 week Percocet 325/5mg, Q4-6, PRn for pain Rx; wheelchair Patient need follow up with Dr. Patricia Home modification for fall precaution given. Discharge Exam - Head Exam Head Exam: ATRAUMATIC, NORMAL INSPECTION, NORMOCEPHALIC - Eye Exam Eye Exam: EOMI, Normal appearance Pupil Exam: NORMAL ACCOMODATION, PERRL - Respiratory Exam Respiratory Exam: Clear to PA & Lateral, NORMAL BREATHING PATTERN, UNREMARKABLE - Cardiovascular Exam Cardiovascular Exam: REGULAR RHYTHM, +S1, +S2 - GI/Abdominal Exam GI & Abdominal Exam: Normal Bowel Sounds, Unremarkable - Extremities Exam Additional comments: Alan wrapped on LEFT - Neurological Exam Neurological exam: Alert, CN II-XII Intact, Normal Gait, Oriented x3, Reflexes Normal - Psychiatric Exam Psychiatric exam: Normal Affect, Normal Mood - Skin Skin Exam: Dry, Intact, Normal Color, Warm Discharge Plan - Follow Up Plan Condition: FAIR Disposition: HOME/ ROUTINE Instructions: Seizures, Adult (DC), Open Reduction and Internal Fixation Surgery (DC) Additional Instructions: [facility] visiting nurse [phone] Referrals: Efrain Patricia MD [Staff Provider] - Josiah Tilley MD [Medical Doctor] - Timo Singh MD [Staff Provider] -
[2019-01-01 14:23] VITALS: O2SAT 98
[2019-01-01 16:00] VITALS: BP 108/67; PULSE 52
[2019-01-01] MEDS ORDERED: LEVETIRACETAM PO SCH (17:00)
== END 2019-01-01 18:25 | DRG 493 ==
LOC: H.ER 05:43 → H.ERHOLD 09:02 → OBSVTOIN 09:53 → H.TEL 11:22
PROVIDERS: ADMIT Family Medicine; ATTEND Family Medicine
PROC: 3E0T33Z Introduction of Anti-inflammatory into Peripheral Nerves and Plexi, Percutaneous Approach (ICD-10-PCS; 2018-12-30)
PROC: 0QSK04Z Reposition Left Fibula with Internal Fixation Device, Open Approach (ICD-10-PCS; principal; 2018-12-30 14:30)
PROC: 3E0T3BZ Introduction of Anesthetic Agent into Peripheral Nerves and Plexi, Percutaneous Approach (ICD-10-PCS; 2018-12-30 14:30)
PROC: F07Z9FZ Gait Training/Functional Ambulation Treatment using Assistive, Adaptive, Supportive or Protective Equipment (ICD-10-PCS; 2018-12-31)
DX: S82.62XA Displaced fracture of lateral malleolus of left fibula, initial encounter for closed fracture (principal); G40.009 Localization-related (focal) (partial) idiopathic epilepsy and epileptic syndromes with seizures of localized onset, not intractable, without status epilepticus; G81.94 Hemiplegia, unspecified affecting left nondominant side; G43.909 Migraine, unspecified, not intractable, without status migrainosus; J45.20 Mild intermittent asthma, uncomplicated; Z85.841 Personal history of malignant neoplasm of brain; X50.1XXA Overexertion from prolonged static or awkward postures, initial encounter; Y93.89 Activity, other specified; Y92.9 Unspecified place or not applicable; Z87.891 Personal history of nicotine dependence

== ENCOUNTER 2019-01-01 17:46 | Inpatient (IN) | payer MEDICARE, MEDICAID ==
[2019-01-01 18:51] VITALS: BMI 35.3
[2019-01-01] MEDS ORDERED: Albuterol HFA 90 mcg/actuation (8 g) INH PRN (20:39)
[2019-01-01] MEDS ORDERED: Oxycodone/Acetaminophen 5/325 mg Tab PO PRN (20:41)
[2019-01-01] MEDS ORDERED: Albuterol-Ipratrop 3 mg / 0.5 (3 ml) UD INH PRN (21:06)
[2019-01-01] MEDS: Oxycodone/Acetaminophen 5/325 mg Tab PO PRN (22:14)
[2019-01-02] MEDS: Enoxaparin 40 mg Syringe SC SCH (08:19)
--- NOTE | 2019-01-02 08:29 | CP.PCM.HP ---
History of Present Illness - History of Present Illness History of Present Illness: 48 yo female with Hx of seizure, Left sided paralysis, asthma, brain tumor brought to ER due having a episode of seizure. Admitted for seizure exacerbation and ankle fracture. Patient had a ORIF on 12/30/18. Patient was seen by PT/OT a nd podiatry. Patient was started on Keflex, percocet for pain and their recommendation is for patient to be admitted to Acute rehab for recovery. Patient report feeling sluggish, and slow, she believe its due to the Vimpat that was recently started by her neurologist. Otherwise she is feeling fine, pain controlled with medication, and is ready to start recovery. Allergy: tree and shrub pollen PCP: Jarek Matta as neurologist, Dr. Watson as rate manager PMH: asthma, left sided paralysis, seizure, migraine PSH cholesystectomy, tumor resection of brain Smoke: denies smoking drinking or drug use Present on Admission - Present on Admission Any Indicators Present on Admission: No Review of Systems - Review of Systems All systems: reviewed and no additional remarkable complaints except Past Patient History - Infectious Disease Hx of Infectious Diseases: None - Tetanus Immunizations Tetanus Immunization: Up to Date - Past Medical History & Family History Past Medical History?: Yes - Past Social History Smoking Status: Former Smoker - CARDIAC Hx Cardiac Disorders: No - PULMONARY Hx Respiratory Disorders: Yes Hx Asthma: Yes - NEUROLOGICAL Hx Neurological Disorder: Yes Hx Migraine: Yes Hx Seizures: Yes Other/Comment: hx brain tumor-had resectionin 1977 and 1992 - HEENT Hx HEENT Problems: Yes Other/Comment: uses eyeglasses for reading-eyeglasses left at home - RENAL Hx Chronic Kidney Disease: No - ENDOCRINE/METABOLIC Hx Endocrine Disorders: No - HEMATOLOGICAL/ONCOLOGICAL Hx AIDS: No Hx Human Immunodeficiency Virus (HIV): No - INTEGUMENTARY Hx Dermatological Problems: No - MUSCULOSKELETAL/RHEUMATOLOGICAL Hx Falls: Yes - GASTROINTESTINAL Hx Gastrointestinal Disorders: Yes Hx Gall Bladder Disease: Yes (had Cholecystectomy) - GENITOURINARY/GYNECOLOGICAL Hx Genitourinary Disorders: Yes Other/Comment: with overactive bladder - PSYCHIATRIC Hx Psychophysiologic Disorder: No Hx Substance Use: No - SURGICAL HISTORY Hx Surgeries: Yes Hx Cholecystectomy: Yes Other/Comment: Embolization and Myomectomy-fibroid - ANESTHESIA Hx Anesthesia: Yes Hx Anesthesia Reactions: No Hx Malignant Hyperthermia: No Meds Allergies/Adverse Reactions: Allergies Allergy/AdvReac Type Severity Reaction Status Date / Time tree and shrub pollen Allergy ITCHING Verified 01/01/19 20:33 Physical Exam - Constitutional Appears: Well, Non-toxic, No Acute Distress - Head Exam Head Exam: ATRAUMATIC, NORMAL INSPECTION, NORMOCEPHALIC - Eye Exam Eye Exam: EOMI, Normal appearance Pupil Exam: NORMAL ACCOMODATION, Unequal - ENT Exam ENT Exam: Mucous Membranes Moist, Normal Exam - Neck Exam Neck exam: Positive for: Normal Inspection - Respiratory Exam Respiratory Exam: Clear to Auscultation Bilateral, NORMAL BREATHING PATTERN - Cardiovascular Exam Cardiovascular Exam: REGULAR RHYTHM, +S1, +S2 - GI/Abdominal Exam GI & Abdominal Exam: Normal Bowel Sounds, Soft - Extremities Exam Extremities exam: Positive for: normal inspection Additional comments: case noted on LEFT lower extremeties - Back Exam Back exam: NORMAL INSPECTION - Neurological Exam Neurological exam: Alert, Oriented x3, Reflexes Normal - Psychiatric Exam Psychiatric exam: Normal Affect, Normal Mood - Skin Skin Exam: Dry, Normal Color, Warm Results - Vital Signs Recent Vital Signs: Last Vital Signs Temp 97.9 F 01/01/19 19:00 Pulse 86 01/01/19 19:30 Resp 18 01/01/19 19:30 BP 112/69 01/01/19 19:00 Pulse Ox 99 01/01/19 19:30 Assessment & Plan - Assessment and Plan (Free Text) Assessment: 48 yo female with Hx of seizure, Left sided paralysis, asthma, brain tumor brought by to ED due to having a episode of seizure which have caused a left ankle fracture with ORIF. s/p surgery 3 X-rays obtained: acute fracture of the distal fibula, small non-ossifying fibroma or possible bone infarct seen distal metaphysis of the tibia CT of the left ankle shows small joint effusion along with oblique fracture of the distal fibula Fibular fracture S/p rehab, in Acute rehab S/P day 3 ORIF Podiatry on case Continue PT/OT recommendation on Percocet for pain 2 tab for severe, 1 for mod continue Keflex 500mg cap q8 for 1 week Patient will need wheelchair after d/c Seizure Chronic, stable, no change CT scan no change Patient on Own medication ( keppra 1500 BID ER Brand name) Jarek vaughan due to Vimpat possible s/e will follow up with recommendation Asthma Continue home medication Migraine Continue home medication Diet Regular diet DVT Lovenox 40SC .
[2019-01-02] MEDS: LEVETIRACETAM PO SCH ×2 (08:46→17:00)
[2019-01-02] MEDS: Oxycodone/Acetaminophen 5/325 mg Tab PO PRN ×2 (08:49→20:38)
[2019-01-02] MEDS: Lacosamide 50 MG Tab PO SCH ×2 (08:49→17:03)
--- NOTE | 2019-01-02 09:52 | CP.PCM.PN ---
Subjective - Date & Time of Evaluation Date of Evaluation: 01/02/19 Time of Evaluation: 09:50 - Subjective Subjective: Podiatry progress note for Dr. Patricia, 48 y/o female seen and evaluated 3 days S/P ORIF Left ankle fracture. Patient is AAOx3 and in NAD. Patient states that she is having some throbbing pain at the surgery site but it's improving. patient denies acute overnight events, denies any other complains at this time.Denies F/N/V/C/CP or SOB. Patient moved to acute rehab yesterday. Objective - Vital Signs/Intake and Output Vital Signs (last 24 hours): Temp Pulse Resp BP Pulse Ox 97.9 F 86 18 112/69 99 01/01/19 19:00 01/01/19 19:30 01/01/19 19:30 01/01/19 19:00 01/01/19 19:30 - Medications Medications: Current Medications Acetaminophen (Tylenol 325mg Tab) 325 mg PO Q4 PRN PRN Reason: Pain, Mild (1-3) Albuterol (Ventolin Hfa 90 Mcg/Actuation (8 G)) 2 puff INH Q3H PRN PRN Reason: Shortness of Breath Albuterol/Ipratropium (Duoneb 3 Mg/0.5 Mg (3 Ml) Ud) 3 ml INH RQ6 PRN PRN Reason: Shortness of Breath Atorvastatin Calcium (Lipitor) 10 mg PO DIN [facility] Diazepam (Valium) 5 mg PO HS [facility] Last Admin: 01/01/19 23:16 Dose: 5 mg Enoxaparin Sodium (Lovenox) 40 mg SC DAILY [facility]; Protocol Last Admin: 01/02/19 08:19 Dose: 40 mg Home Med (Levetiracetam [Keppra Xr]) 3 tab PO BID [facility] Lacosamide (Vimpat) 50 mg PO BID [facility] Last Admin: 01/02/19 08:49 Dose: 50 mg Lactobacillus Acidophilus (Bacid Acidophilus) 1 cap PO DAILY [facility] Loratadine (Claritin) 10 mg PO DAILY [facility] Last Admin: 01/02/19 08:20 Dose: 10 mg Lorazepam (Ativan) 1 mg PO Q4 PRN PRN Reason: Agitation Oxycodone/Acetaminophen (Percocet 5/325 Mg Tab) 2 tab PO Q6 PRN PRN Reason: Pain, severe (8-10) Stop: 01/04/19 20:42 Last Admin: 01/02/19 08:49 Dose: 2 tab Oxycodone/Acetaminophen (Percocet 5/325 Mg Tab) 1 tab PO Q6 PRN PRN Reason: Pain, moderate (4-7) Stop: 01/04/19 20:42 Sumatriptan Succinate (Imitrex Tab) 100 mg PO ONCE PRN PRN Reason: Migraine headache Last Admin: 01/02/19 08:21 Dose: 100 mg - Constitutional Appears: Well, Non-toxic, No Acute Distress - Head Exam Head Exam: ATRAUMATIC, NORMOCEPHALIC - Extremities Exam Additional comments: Left lower extremity exam: Posterior splint was C/D/I Cap refill < 3 sec to all digits - Neurological Exam Neurological Exam: Alert, Awake, Oriented x3 - Psychiatric Exam Psychiatric exam: Normal Affect, Normal Mood Assessment and Plan - Assessment and Plan (Free Text) Assessment: 48 y/o female seen and evaluated 3 days S/P ORIF Left ankle fracture. Plan: Patient seen and evaluated Plan discussed with attending Dr. Patricia Charts, labs and vitals reviewed; Afebrile, No leukocytosis Patient X-rays obtained: acute fracture of the distal fibula, small non- ossifying fibroma or possible bone infarct seen distal metaphysis of the tibia CT of the left ankle shows small joint effusion along with oblique fracture of the distal fibula Postoperative left ankle X-ray: Satisfactory ORIF of the fibula. Patient posterior splint kept C/D/I Patient to stay NWB at this time to the LLE, To use wheelchair. PT ordered, Reccs appreciated Recommended discharging the patient to [facility]. Patient refused and want to be discharged home. Patient moved to acute rehab in the hospital yesterday. Patient instructed to continue icing and elevation of the LLE. Patient expressed verbal understanding. Podiatry will continue to follow up the patient while in house.
[2019-01-02] MEDS: Lactobacillus Acidophilus 500 MU Cap PO SCH (11:45)
[2019-01-02] MEDS: CALCIUM MAGNESIUM ZINC PO SCH (11:46)
--- NOTE | 2019-01-02 19:38 | PCM.OPOC ---
Physiatry Overall Plan of Care - Overall Plan of Care Estimated Length of Stay in Weeks: 3 Rehab Impairment: Mobility, Gait, Cognition, Speech, Balance, Coordination Etiologic Diagnosis: Other Rehab/Medical Prognosis: Fair - Anticipated Interventions Physical Therapy:: Yes Number of Hours: 1 Number of times per week: 5 Number of Week(s) Duration: 3 Occupational Therapy:: Yes Number of Hours: 1 Number of times per week: 5 Number of Week(s) Duration: 3 Speech Therapy:: Yes Number of Hours: 1 Number of times per week: 5 Number of Week(s) Duration: 3 Recreational Therapy:: Yes Number of Hours: 1 Number of times per week: 5 Number of Week(s) Duration: 3 - Therapy Goals Bed Mobility: Independent Ambulation: Supervision Functional Positional Changes:: Independent - Functional Status Prior to Admission: independent Current Status: now needs assistance - Functional Outcomes Functional Outcomes: fair - Discharge Plan Identification of Barriers to Discharge: Home Situation Discharge Destination: Home
--- NOTE | 2019-01-02 19:42 | PCM.CPAPS ---
History of Present Illness - History of Present Illness History of Present Illness: 48 year old female admitted to acute rehab with diagnosis of left ankle fracture status post ORIF now with cast . Other PMH of brain tumor, left sided paralysis and brain tumor. Review of Systems - Musculoskeletal Musculoskeletal: Abnormal Gait, Limited Range of Motion, Muscle Weakness Past Patient History - Infectious Disease Hx of Infectious Diseases: None - Tetanus Immunizations Tetanus Immunization: Up to Date - Past Medical History & Family History Past Medical History?: Yes - Past Social History Smoking Status: Former Smoker - CARDIAC Hx Cardiac Disorders: No - PULMONARY Hx Respiratory Disorders: Yes Hx Asthma: Yes - NEUROLOGICAL Hx Neurological Disorder: Yes Hx Migraine: Yes Hx Seizures: Yes Other/Comment: hx brain tumor-had resectionin 1977 and 1992 - HEENT Hx HEENT Problems: Yes Other/Comment: uses eyeglasses for reading-eyeglasses left at home - RENAL Hx Chronic Kidney Disease: No - ENDOCRINE/METABOLIC Hx Endocrine Disorders: No - HEMATOLOGICAL/ONCOLOGICAL Hx AIDS: No Hx Human Immunodeficiency Virus (HIV): No - INTEGUMENTARY Hx Dermatological Problems: No - MUSCULOSKELETAL/RHEUMATOLOGICAL Hx Falls: Yes - GASTROINTESTINAL Hx Gastrointestinal Disorders: Yes Hx Gall Bladder Disease: Yes (had Cholecystectomy) - GENITOURINARY/GYNECOLOGICAL Hx Genitourinary Disorders: Yes Other/Comment: with overactive bladder - PSYCHIATRIC Hx Psychophysiologic Disorder: No Hx Substance Use: No - SURGICAL HISTORY Hx Surgeries: Yes Hx Cholecystectomy: Yes Other/Comment: Embolization and Myomectomy-fibroid - ANESTHESIA Hx Anesthesia: Yes Hx Anesthesia Reactions: No Hx Malignant Hyperthermia: No Meds Allergies/Adverse Reactions: Allergies Allergy/AdvReac Type Severity Reaction Status Date / Time tree and shrub pollen Allergy ITCHING Verified 01/01/19 20:33 - Medications Medications: Current Medications Acetaminophen (Tylenol 325mg Tab) 325 mg PO Q4 PRN PRN Reason: Pain, Mild (1-3) Albuterol (Ventolin Hfa 90 Mcg/Actuation (8 G)) 2 puff INH Q3H PRN PRN Reason: Shortness of Breath Albuterol/Ipratropium (Duoneb 3 Mg/0.5 Mg (3 Ml) Ud) 3 ml INH RQ6 PRN PRN Reason: Shortness of Breath Atorvastatin Calcium (Lipitor) 10 mg PO DIN [facility] Last Admin: 01/02/19 17:01 Dose: 10 mg Diazepam (Valium) 5 mg PO [facility] Last Admin: 01/01/19 23:16 Dose: 5 mg Enoxaparin Sodium (Lovenox) 40 mg SC DAILY [facility]; Protocol Last Admin: 01/02/19 08:19 Dose: 40 mg Home Med (Levetiracetam [Keppra Xr]) 3 tab PO BID [facility] Last Admin: 01/02/19 17:00 Dose: 3 tab Home Med (Patient's Own Medication) 1 unit PO DAILY [facility] Last Admin: 01/02/19 11:46 Dose: 1 unit Lacosamide (Vimpat) 50 mg PO BID [facility] Last Admin: 01/02/19 17:03 Dose: 50 mg Lactobacillus Acidophilus (Bacid Acidophilus) 1 cap PO DAILY [facility] Last Admin: 01/02/19 11:45 Dose: 1 cap Loratadine (Claritin) 10 mg PO DAILY [facility] Last Admin: 01/02/19 08:20 Dose: 10 mg Lorazepam (Ativan) 1 mg PO Q4 PRN PRN Reason: Agitation Oxycodone/Acetaminophen (Percocet 5/325 Mg Tab) 2 tab PO Q6 PRN PRN Reason: Pain, severe (8-10) Stop: 01/04/19 20:42 Last Admin: 01/02/19 08:49 Dose: 2 tab Oxycodone/Acetaminophen (Percocet 5/325 Mg Tab) 1 tab PO Q6 PRN PRN Reason: Pain, moderate (4-7) Stop: 01/04/19 20:42 Sumatriptan Succinate (Imitrex Tab) 100 mg PO ONCE PRN PRN Reason: Migraine headache Last Admin: 01/02/19 08:21 Dose: 100 mg Physical Exam - Constitutional Appears: Well - Head Exam Head Exam: ATRAUMATIC, NORMAL INSPECTION, NORMOCEPHALIC - Eye Exam Eye Exam: EOMI, Normal appearance Pupil Exam: NORMAL ACCOMODATION, PERRL - ENT Exam ENT Exam: Mucous Membranes Moist, Normal Exam - Neck Exam Neck exam: Positive for: Normal Inspection - Respiratory Exam Respiratory Exam: Clear to Auscultation Bilateral, NORMAL BREATHING PATTERN - Cardiovascular Exam Cardiovascular Exam: REGULAR RHYTHM - GI/Abdominal Exam GI & Abdominal Exam: Normal Bowel Sounds - Rectal Exam Rectal Exam: NORMAL INSPECTION - Exam External exam: NORMAL EXTERNAL EXAM - Extremities Exam Extremities exam: Positive for: normal inspection Additional comments: left leg short leg cast, history of left side paralysis - Back Exam Back exam: NORMAL INSPECTION - Neurological Exam Neurological exam: Alert - Psychiatric Exam Psychiatric exam: Normal Affect - Skin Skin Exam: Normal Color Results - Vital Signs Recent Vital Signs: Last Vital Signs Temp 97.3 F L 01/02/19 09:52 Pulse 77 01/02/19 09:52 Resp 19 01/02/19 09:52 BP 129/66 01/02/19 09:52 Pulse Ox 99 01/02/19 09:52 Assessment & Plan (1) Ankle fracture Assessment and Plan: plan for physical, occupational rec and speech therapy program, overall plan of care written Status: Acute (2) Asthma exacerbation Status: Acute (3) Back strain Status: Acute (4) Breakthrough seizure Status: Acute - Functional Status Prior to Admission: independent Current Status: now needs assistance Impairment Code: 08.9
[2019-01-02] MEDS ORDERED: Magnesium Hydroxide Susp 30 ml UD PO PRN (21:03)
[2019-01-03] MEDS: Oxycodone/Acetaminophen 5/325 mg Tab PO PRN ×2 (06:52→14:50)
--- NOTE | 2019-01-03 07:22 | CP.PCM.PN ---
Subjective - Date & Time of Evaluation Date of Evaluation: 01/03/19 Time of Evaluation: 07:20 - Subjective Subjective: Podiatry progress note for Dr. Patricia, 48 y/o female seen and evaluated 4 days S/P ORIF Left ankle fracture. Patient is AAOx3 and in NAD. Patient states that she is having throbbing pain at the surgery site Specially with PT mobilization but it's well controlled by pain meds. patient denies acute overnight events, denies any other complains at this time.Denies F/N/V/C/CP or SOB. Patient moved to acute rehab yesterday. Objective - Vital Signs/Intake and Output Vital Signs (last 24 hours): Temp Pulse Resp BP Pulse Ox 98.6 F 88 20 124/75 98 01/02/19 20:44 01/02/19 20:44 01/02/19 20:44 01/02/19 20:44 01/02/19 20:44 - Medications Medications: Current Medications Acetaminophen (Tylenol 325mg Tab) 325 mg PO Q4 PRN PRN Reason: Pain, Mild (1-3) Albuterol (Ventolin Hfa 90 Mcg/Actuation (8 G)) 2 puff INH Q3H PRN PRN Reason: Shortness of Breath Albuterol/Ipratropium (Duoneb 3 Mg/0.5 Mg (3 Ml) Ud) 3 ml INH RQ6 PRN PRN Reason: Shortness of Breath Atorvastatin Calcium (Lipitor) 10 mg PO DIN [facility] Last Admin: 01/02/19 17:01 Dose: 10 mg Diazepam (Valium) 5 mg PO HS [facility] Last Admin: 01/02/19 22:45 Dose: Not Given Docusate Sodium (Colace) 100 mg PO BID [facility] Last Admin: 01/02/19 22:45 Dose: 100 mg Enoxaparin Sodium (Lovenox) 40 mg SC DAILY [facility]; Protocol Last Admin: 01/02/19 08:19 Dose: 40 mg Home Med (Levetiracetam [Keppra Xr]) 3 tab PO BID [facility] Last Admin: 01/02/19 17:00 Dose: 3 tab Home Med (Patient's Own Medication) 1 unit PO DAILY [facility] Last Admin: 01/02/19 11:46 Dose: 1 unit Lacosamide (Vimpat) 50 mg PO BID [facility] Last Admin: 01/02/19 17:03 Dose: 50 mg Lactobacillus Acidophilus (Bacid Acidophilus) 1 cap PO DAILY [facility] Last Admin: 01/02/19 11:45 Dose: 1 cap Loratadine (Claritin) 10 mg PO DAILY [facility] Last Admin: 01/02/19 08:20 Dose: 10 mg Lorazepam (Ativan) 1 mg PO Q4 PRN PRN Reason: Agitation Magnesium Hydroxide (Milk Of Magnesia) 15 ml PO Q6 PRN PRN Reason: Constipation Oxycodone/Acetaminophen (Percocet 5/325 Mg Tab) 2 tab PO Q6 PRN PRN Reason: Pain, severe (8-10) Stop: 01/04/19 20:42 Last Admin: 01/03/19 06:52 Dose: 2 tab Oxycodone/Acetaminophen (Percocet 5/325 Mg Tab) 1 tab PO Q6 PRN PRN Reason: Pain, moderate (4-7) Stop: 01/04/19 20:42 Sumatriptan Succinate (Imitrex Tab) 100 mg PO ONCE PRN PRN Reason: Migraine headache Last Admin: 01/02/19 08:21 Dose: 100 mg - Constitutional Appears: Well, Non-toxic, No Acute Distress - Head Exam Head Exam: ATRAUMATIC, NORMOCEPHALIC - Extremities Exam Additional comments: Left lower extremity exam: Posterior splint was C/D/I Cap refill < 3 sec to all digits - Neurological Exam Neurological Exam: Alert, Awake, Oriented x3 - Psychiatric Exam Psychiatric exam: Normal Affect, Normal Mood Assessment and Plan - Assessment and Plan (Free Text) Assessment: 48 y/o female seen and evaluated 4 days S/P ORIF Left ankle fracture. Plan: Patient seen and evaluated Plan discussed with attending Dr. Patricia Charts, labs and vitals reviewed; Afebrile, No leukocytosis Patient X-rays obtained: acute fracture of the distal fibula, small non- ossifying fibroma or possible bone infarct seen distal metaphysis of the tibia CT of the left ankle shows small joint effusion along with oblique fracture of the distal fibula Postoperative left ankle X-ray: Satisfactory ORIF of the fibula. Patient posterior splint kept C/D/I Patient to stay NWB at this time to the E, To use wheelchair. PT ordered, Reccs appreciated Recommended discharging the patient to [facility]. Patient refused and want to be discharged home. Patient moved to acute rehab in the hospital yesterday. Patient instructed to continue icing and elevation of the LLE. Patient expressed verbal understanding. Podiatry will continue to follow up the patient while in house.
[2019-01-03] MEDS: Enoxaparin 40 mg Syringe SC SCH (08:57)
[2019-01-03] MEDS: LEVETIRACETAM PO SCH (08:58)
[2019-01-03] MEDS: Lactobacillus Acidophilus 500 MU Cap PO SCH (09:04)
[2019-01-03] MEDS: Lacosamide 50 MG Tab PO SCH (09:04)
[2019-01-03] MEDS: CALCIUM MAGNESIUM ZINC PO SCH (10:00)
--- NOTE | 2019-01-03 10:38 | CP.PCM.CON ---
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 Med history postive for a recent fall-fx, previous Brain Tumors- see medical record for complete medical history/medications. Social History: pt lives with her fiancee of 10+ years. She never and has no children. Pt reported a very postive relationship with her fiancee, and friends. She spoke of a very active life prior to admission with outings with friends, lunches and activity. Ed/Voc: pt born/raised in [place], did not graduate HS. She has not been in the work force as she had her first brain tumor at age 21. Pt denied a history of psychiatric medications. She reported counseling with at [facility] and later during the passing of her father. Pt denied recent counseling/treatment. On interview, pt spoke of her current distress due to her cognitive slowing/slurred speech reported as medication based. She spoke of distress due to her fx though that is secondary to her cognitive frustrations. MSE: pt alert, oriented to year, month, day though not date, Affect constricted, mood angry/dysphoric due to current challenges, no si no hi ideation, no psychosis. Plan: Continued Sup therapy (nursing consulted on patient's report) Dx: Adjustment Dx with depression Past Patient History - Infectious Disease Hx of Infectious Diseases: None - Tetanus Immunizations Tetanus Immunization: Up to Date - Past Medical History & Family History Past Medical History?: Yes - Past Social History Smoking Status: Former Smoker - CARDIAC Hx Cardiac Disorders: No - PULMONARY Hx Respiratory Disorders: Yes Hx Asthma: Yes - NEUROLOGICAL Hx Neurological Disorder: Yes Hx Migraine: Yes Hx Seizures: Yes Other/Comment: hx brain tumor-had resectionin 1977 and 1992 - HEENT Hx HEENT Problems: Yes Other/Comment: uses eyeglasses for reading-eyeglasses left at home - RENAL Hx Chronic Kidney Disease: No - ENDOCRINE/METABOLIC Hx Endocrine Disorders: No - HEMATOLOGICAL/ONCOLOGICAL Hx AIDS: No Hx Human Immunodeficiency Virus (HIV): No - INTEGUMENTARY Hx Dermatological Problems: No - MUSCULOSKELETAL/RHEUMATOLOGICAL Hx Falls: Yes - GASTROINTESTINAL Hx Gastrointestinal Disorders: Yes Hx Gall Bladder Disease: Yes (had Cholecystectomy) - GENITOURINARY/GYNECOLOGICAL Hx Genitourinary Disorders: Yes Other/Comment: with overactive bladder - PSYCHIATRIC Hx Psychophysiologic Disorder: No Hx Substance Use: No - SURGICAL HISTORY Hx Surgeries: Yes Hx Cholecystectomy: Yes Other/Comment: Embolization and Myomectomy-fibroid - ANESTHESIA Hx Anesthesia: Yes Hx Anesthesia Reactions: No Hx Malignant Hyperthermia: No Meds Allergies/Adverse Reactions: Allergies Allergy/AdvReac Type Severity Reaction Status Date / Time tree and shrub pollen Allergy ITCHING Verified 01/01/19 20:33 - Medications Medications: Current Medications Acetaminophen (Tylenol 325mg Tab) 325 mg PO Q4 PRN PRN Reason: Pain, Mild (1-3) Albuterol (Ventolin Hfa 90 Mcg/Actuation (8 G)) 2 puff INH Q3H PRN PRN Reason: Shortness of Breath Last Admin: 01/03/19 08:59 Dose: 2 puff Albuterol/Ipratropium (Duoneb 3 Mg/0.5 Mg (3 Ml) Ud) 3 ml INH RQ6 PRN PRN Reason: Shortness of Breath Atorvastatin Calcium (Lipitor) 10 mg PO DIN [facility] Last Admin: 01/02/19 17:01 Dose: 10 mg Diazepam (Valium) 5 mg PO HS [facility] Last Admin: 01/02/19 22:45 Dose: Not Given Docusate Sodium (Colace) 100 mg PO BID [facility] Last Admin: 01/03/19 08:57 Dose: 100 mg Enoxaparin Sodium (Lovenox) 40 mg SC DAILY [facility]; Protocol Last Admin: 01/03/19 08:57 Dose: 40 mg Home Med (Levetiracetam [Keppra Xr]) 3 tab PO BID [facility] Last Admin: 01/03/19 08:58 Dose: 3 tab Home Med (Patient's Own Medication) 1 unit PO DAILY [facility] Last Admin: 01/02/19 11:46 Dose: 1 unit Lacosamide (Vimpat) 50 mg PO BID [facility] Last Admin: 01/03/19 09:04 Dose: 50 mg Lactobacillus Acidophilus (Bacid Acidophilus) 1 cap PO DAILY [facility] Last Admin: 01/03/19 09:04 Dose: 1 cap Loratadine (Claritin) 10 mg PO DAILY [facility] Last Admin: 01/03/19 08:58 Dose: 10 mg Lorazepam (Ativan) 1 mg PO Q4 PRN PRN Reason: Agitation Magnesium Hydroxide (Milk Of Magnesia) 15 ml PO Q6 PRN PRN Reason: Constipation Oxycodone/Acetaminophen (Percocet 5/325 Mg Tab) 2 tab PO Q6 PRN PRN Reason: Pain, severe (8-10) Stop: 01/04/19 20:42 Last Admin: 01/03/19 06:52 Dose: 2 tab Oxycodone/Acetaminophen (Percocet 5/325 Mg Tab) 1 tab PO Q6 PRN PRN Reason: Pain, moderate (4-7) Stop: 01/04/19 20:42 Sumatriptan Succinate (Imitrex Tab) 100 mg PO ONCE PRN PRN Reason: Migraine headache Last Admin: 01/02/19 08:21 Dose: 100 mg Results - Vital Signs Recent Vital Signs: Last Vital Signs Temp 97.5 F L 01/03/19 08:36 Pulse 81 01/03/19 08:36 Resp 22 01/03/19 08:36 BP 130/67 01/03/19 08:36 Pulse Ox 100 01/03/19 08:36
--- NOTE | 2019-01-03 12:58 | CP.PCM.CON ---
History of Present Illness - History of Present Illness History of Present Illness: 48 YR OLD FEMALE S/P L FOOT/ANKLE SURGERY FOR REPAIR OF FRACTURE FOLLOWING AN ACCIDENTAL FALL.SHE IS REFERRED FOR EVALUATION BECAUSE OF ACUTE ASTHMA EXACERBATION.SHE C/O COUGH,SOB AND WHEEZING HX OF ASTHMA,BRAIN SURGERY,SEIZURES AND VASOMOTOR RHINITIS Past Patient History - Infectious Disease Hx of Infectious Diseases: None - Tetanus Immunizations Tetanus Immunization: Up to Date - Past Medical History & Family History Past Medical History?: Yes - Past Social History Smoking Status: Former Smoker - CARDIAC Hx Cardiac Disorders: No - PULMONARY Hx Respiratory Disorders: Yes Hx Asthma: Yes - NEUROLOGICAL Hx Neurological Disorder: Yes Hx Migraine: Yes Hx Seizures: Yes Other/Comment: hx brain tumor-had resectionin 1977 and 1992 - HEENT Hx HEENT Problems: Yes Other/Comment: uses eyeglasses for reading-eyeglasses left at home - RENAL Hx Chronic Kidney Disease: No - ENDOCRINE/METABOLIC Hx Endocrine Disorders: No - HEMATOLOGICAL/ONCOLOGICAL Hx AIDS: No Hx Human Immunodeficiency Virus (HIV): No - INTEGUMENTARY Hx Dermatological Problems: No - MUSCULOSKELETAL/RHEUMATOLOGICAL Hx Falls: Yes - GASTROINTESTINAL Hx Gastrointestinal Disorders: Yes Hx Gall Bladder Disease: Yes (had Cholecystectomy) - GENITOURINARY/GYNECOLOGICAL Hx Genitourinary Disorders: Yes Other/Comment: with overactive bladder - PSYCHIATRIC Hx Psychophysiologic Disorder: No Hx Substance Use: No - SURGICAL HISTORY Hx Surgeries: Yes Hx Cholecystectomy: Yes Other/Comment: Embolization and Myomectomy-fibroid - ANESTHESIA Hx Anesthesia: Yes Hx Anesthesia Reactions: No Hx Malignant Hyperthermia: No Meds Allergies/Adverse Reactions: Allergies Allergy/AdvReac Type Severity Reaction Status Date / Time tree and shrub pollen Allergy ITCHING Verified 01/01/19 20:33 - Medications Medications: Current Medications Acetaminophen (Tylenol 325mg Tab) 325 mg PO Q4 PRN PRN Reason: Pain, Mild (1-3) Albuterol/Ipratropium (Duoneb 3 Mg/0.5 Mg (3 Ml) Ud) 3 ml INH RQ6 PRN PRN Reason: Shortness of Breath Albuterol/Ipratropium (Duoneb 3 Mg/0.5 Mg (3 Ml) Ud) 3 ml INH RQ6 [facility] Atorvastatin Calcium (Lipitor) 10 mg PO DIN [facility] Last Admin: 01/02/19 17:01 Dose: 10 mg Diazepam (Valium) 5 mg PO HS [facility] Last Admin: 01/02/19 22:45 Dose: Not Given Docusate Sodium (Colace) 100 mg PO BID [facility] Last Admin: 01/03/19 08:57 Dose: 100 mg Enoxaparin Sodium (Lovenox) 40 mg SC DAILY [facility]; Protocol Last Admin: 01/03/19 08:57 Dose: 40 mg Home Med (Levetiracetam [Keppra Xr]) 3 tab PO BID [facility] Last Admin: 01/03/19 08:58 Dose: 3 tab Home Med (Patient's Own Medication) 1 unit PO DAILY [facility] Last Admin: 01/02/19 11:46 Dose: 1 unit Methylprednisolone 40 mg/ (Sodium Chloride) 50 mls @ 100 mls/hr IVPB Q12 [facility] Lacosamide (Vimpat) 50 mg PO BID [facility] Last Admin: 01/03/19 09:04 Dose: 50 mg Lactobacillus Acidophilus (Bacid Acidophilus) 1 cap PO DAILY [facility] Last Admin: 01/03/19 09:04 Dose: 1 cap Loratadine (Claritin) 10 mg PO DAILY [facility] Last Admin: 01/03/19 08:58 Dose: 10 mg Lorazepam (Ativan) 1 mg PO Q4 PRN PRN Reason: Agitation Magnesium Hydroxide (Milk Of Magnesia) 15 ml PO Q6 PRN PRN Reason: Constipation Montelukast Sodium (Singulair) 10 mg PO [facility] Oxycodone/Acetaminophen (Percocet 5/325 Mg Tab) 2 tab PO Q6 PRN PRN Reason: Pain, severe (8-10) Stop: 01/04/19 20:42 Last Admin: 01/03/19 06:52 Dose: 2 tab Oxycodone/Acetaminophen (Percocet 5/325 Mg Tab) 1 tab PO Q6 PRN PRN Reason: Pain, moderate (4-7) Stop: 01/04/19 20:42 Sumatriptan Succinate (Imitrex Tab) 100 mg PO ONCE PRN PRN Reason: Migraine headache Last Admin: 01/02/19 08:21 Dose: 100 mg Physical Exam - Constitutional Appears: Well Additional comments: MILD SOB AT REST ANXIOUS - Head Exam Head Exam: ATRAUMATIC, NORMAL INSPECTION, NORMOCEPHALIC - Eye Exam Eye Exam: EOMI, Normal appearance, PERRL Pupil Exam: NORMAL ACCOMODATION, PERRL - ENT Exam ENT Exam: Mucous Membranes Moist, Normal Exam - Neck Exam Neck exam: Positive for: Normal Inspection - Respiratory Exam Respiratory Exam: Decreased Breath Sounds, Wheezes, NORMAL BREATHING PATTERN - Cardiovascular Exam Cardiovascular Exam: REGULAR RHYTHM - GI/Abdominal Exam GI & Abdominal Exam: Normal Bowel Sounds, Soft. absent: Tenderness - Rectal Exam Rectal Exam: NORMAL INSPECTION - Extremities Exam Extremities exam: Positive for: tenderness Additional comments: L FOOT/ANKLE TENDERNESS - Back Exam Back exam: NORMAL INSPECTION - Neurological Exam Neurological exam: Alert, CN II-XII Intact, Normal Gait, Oriented x3, Reflexes Normal - Psychiatric Exam Psychiatric exam: Normal Affect, Normal Mood - Skin Skin Exam: Dry, Intact, Normal Color, Warm Results - Vital Signs Recent Vital Signs: Last Vital Signs Temp 97.5 F L 01/03/19 08:36 Pulse 81 01/03/19 08:36 Resp 22 01/03/19 08:36 BP 130/67 01/03/19 08:36 Pulse Ox 100 01/03/19 08:36 Assessment & Plan - Assessment and Plan (Free Text) Assessment: S/P L FOOT/ANKLE SURGERY ACUTE PERSISTENT ASTHMA SEIZURE DISORDERD VASOMOTOR RHINITIS Plan: SEE ORDERS - Date & Time Date: 01/03/19 Time: 13:00
[2019-01-03] MEDS ORDERED: methylPREDNISolone 40 MG in Sodium Chloride 0.9% 50 ML IVPB SCH (13:00)
--- NOTE | 2019-01-03 13:40 | CP.PCM.CON ---
History of Present Illness - History of Present Illness History of Present Illness: consult requested for anxiety 48 yo female with Hx of seizure, Left sided paralysis, asthma, brain tumor brought to ER due having a episode of seizure. Admitted for seizure exacerbation and ankle fracture. pt on evaluation pleasant cooperative denied any previous history of psychiatric treatment, pt reported coping well with her current medical illness, stated she is well supported by her fiance, reported she also has supportive friends , denied any changes in sleep or appetite denied mood changes, stated she is currently on diazepam prescribed by neurologist for post surgery spasms at night and also ativan for aborting seizures pt speech normal. thought form coherent mood reported fine affect appropriate denied any current suicidal or homicidal ideation denied perceptual disturbances, alert awake oriented x3 Past Patient History - Infectious Disease Hx of Infectious Diseases: None - Tetanus Immunizations Tetanus Immunization: Up to Date - Past Medical History & Family History Past Medical History?: Yes - Past Social History Smoking Status: Former Smoker - CARDIAC Hx Cardiac Disorders: No - PULMONARY Hx Respiratory Disorders: Yes Hx Asthma: Yes - NEUROLOGICAL Hx Neurological Disorder: Yes Hx Migraine: Yes Hx Seizures: Yes Other/Comment: hx brain tumor-had resectionin 1977 and 1992 - HEENT Hx HEENT Problems: Yes Other/Comment: uses eyeglasses for reading-eyeglasses left at home - RENAL Hx Chronic Kidney Disease: No - ENDOCRINE/METABOLIC Hx Endocrine Disorders: No - HEMATOLOGICAL/ONCOLOGICAL Hx AIDS: No Hx Human Immunodeficiency Virus (HIV): No - INTEGUMENTARY Hx Dermatological Problems: No - MUSCULOSKELETAL/RHEUMATOLOGICAL Hx Falls: Yes - GASTROINTESTINAL Hx Gastrointestinal Disorders: Yes Hx Gall Bladder Disease: Yes (had Cholecystectomy) - GENITOURINARY/GYNECOLOGICAL Hx Genitourinary Disorders: Yes Other/Comment: with overactive bladder - PSYCHIATRIC Hx Psychophysiologic Disorder: No Hx Substance Use: No - SURGICAL HISTORY Hx Surgeries: Yes Hx Cholecystectomy: Yes Other/Comment: Embolization and Myomectomy-fibroid - ANESTHESIA Hx Anesthesia: Yes Hx Anesthesia Reactions: No Hx Malignant Hyperthermia: No Meds Allergies/Adverse Reactions: Allergies Allergy/AdvReac Type Severity Reaction Status Date / Time tree and shrub pollen Allergy ITCHING Verified 01/01/19 20:33 - Medications Medications: Current Medications Acetaminophen (Tylenol 325mg Tab) 325 mg PO Q4 PRN PRN Reason: Pain, Mild (1-3) Albuterol/Ipratropium (Duoneb 3 Mg/0.5 Mg (3 Ml) Ud) 3 ml INH RQ6 PRN PRN Reason: Shortness of Breath Albuterol/Ipratropium (Duoneb 3 Mg/0.5 Mg (3 Ml) Ud) 3 ml INH RQ6 [facility] Atorvastatin Calcium (Lipitor) 10 mg PO DIN [facility] Last Admin: 01/02/19 17:01 Dose: 10 mg Diazepam (Valium) 5 mg PO HS [facility] Last Admin: 01/02/19 22:45 Dose: Not Given Docusate Sodium (Colace) 100 mg PO BID [facility] Last Admin: 01/03/19 08:57 Dose: 100 mg Enoxaparin Sodium (Lovenox) 40 mg SC DAILY [facility]; Protocol Last Admin: 01/03/19 08:57 Dose: 40 mg Home Med (Levetiracetam [Keppra Xr]) 3 tab PO BID [facility] Last Admin: 01/03/19 08:58 Dose: 3 tab Home Med (Patient's Own Medication) 1 unit PO DAILY [facility] Last Admin: 01/03/19 10:00 Dose: 1 unit Lacosamide (Vimpat) 50 mg PO BID [facility] Last Admin: 01/03/19 09:04 Dose: 50 mg Lactobacillus Acidophilus (Bacid Acidophilus) 1 cap PO DAILY [facility] Last Admin: 01/03/19 09:04 Dose: 1 cap Loratadine (Claritin) 10 mg PO DAILY [facility] Last Admin: 01/03/19 08:58 Dose: 10 mg Lorazepam (Ativan) 1 mg PO Q4 PRN PRN Reason: Agitation Magnesium Hydroxide (Milk Of Magnesia) 15 ml PO Q6 PRN PRN Reason: Constipation Methylprednisolone (Solu-Medrol) 40 mg IVP Q12H [facility] Montelukast Sodium (Singulair) 10 mg PO HS [facility] Oxycodone/Acetaminophen (Percocet 5/325 Mg Tab) 2 tab PO Q6 PRN PRN Reason: Pain, severe (8-10) Stop: 01/04/19 20:42 Last Admin: 01/03/19 06:52 Dose: 2 tab Oxycodone/Acetaminophen (Percocet 5/325 Mg Tab) 1 tab PO Q6 PRN PRN Reason: Pain, moderate (4-7) Stop: 01/04/19 20:42 Sumatriptan Succinate (Imitrex Tab) 100 mg PO ONCE PRN PRN Reason: Migraine headache Last Admin: 01/02/19 08:21 Dose: 100 mg Results - Vital Signs Recent Vital Signs: Last Vital Signs Temp 97.5 F L 01/03/19 08:36 Pulse 81 01/03/19 08:36 Resp 22 01/03/19 08:36 BP 130/67 01/03/19 08:36 Pulse Ox 100 01/03/19 08:36 Assessment & Plan - Assessment and Plan (Free Text) Assessment: no diagnosis or condition on axis I Plan: pt psychiatrically cleared for discharge upon medical clearance
[2019-01-03] MEDS: Albuterol-Ipratrop 3 mg / 0.5 (3 ml) UD INH SCH ×2 (14:00→19:31)
--- NOTE | 2019-01-03 14:10 | CP.PCM.PN ---
Subjective - Date & Time of Evaluation Date of Evaluation: 01/03/19 Time of Evaluation: 07:00 - Subjective Subjective: Patient seen and examined at bedside. Patient report feeling sluggish and want to see a neurologist to stop her Vimpat. She also would like to see a psychologist. Otherwise patient had no complains today. Objective - Vital Signs/Intake and Output Vital Signs (last 24 hours): Temp Pulse Resp BP Pulse Ox 97.5 F L 81 22 130/67 100 01/03/19 08:36 01/03/19 08:36 01/03/19 08:36 01/03/19 08:36 01/03/19 08:36 - Medications Medications: Current Medications Acetaminophen (Tylenol 325mg Tab) 325 mg PO Q4 PRN PRN Reason: Pain, Mild (1-3) Albuterol/Ipratropium (Duoneb 3 Mg/0.5 Mg (3 Ml) Ud) 3 ml INH RQ6 PRN PRN Reason: Shortness of Breath Albuterol/Ipratropium (Duoneb 3 Mg/0.5 Mg (3 Ml) Ud) 3 ml INH RQ6 [facility] Atorvastatin Calcium (Lipitor) 10 mg PO DIN [facility] Last Admin: 01/02/19 17:01 Dose: 10 mg Diazepam (Valium) 5 mg PO HS [facility] Last Admin: 01/02/19 22:45 Dose: Not Given Docusate Sodium (Colace) 100 mg PO BID [facility] Last Admin: 01/03/19 08:57 Dose: 100 mg Enoxaparin Sodium (Lovenox) 40 mg SC DAILY [facility]; Protocol Last Admin: 01/03/19 08:57 Dose: 40 mg Home Med (Levetiracetam [Keppra Xr]) 3 tab PO BID [facility] Last Admin: 01/03/19 08:58 Dose: 3 tab Home Med (Patient's Own Medication) 1 unit PO DAILY [facility] Last Admin: 01/03/19 10:00 Dose: 1 unit Lacosamide (Vimpat) 50 mg PO BID [facility] Last Admin: 01/03/19 09:04 Dose: 50 mg Lactobacillus Acidophilus (Bacid Acidophilus) 1 cap PO DAILY [facility] Last Admin: 01/03/19 09:04 Dose: 1 cap Loratadine (Claritin) 10 mg PO DAILY [facility] Last Admin: 01/03/19 08:58 Dose: 10 mg Lorazepam (Ativan) 1 mg PO Q4 PRN PRN Reason: Agitation Magnesium Hydroxide (Milk Of Magnesia) 15 ml PO Q6 PRN PRN Reason: Constipation Methylprednisolone (Solu-Medrol) 40 mg IVP Q12H [facility] Montelukast Sodium (Singulair) 10 mg PO HS [facility] Oxycodone/Acetaminophen (Percocet 5/325 Mg Tab) 2 tab PO Q6 PRN PRN Reason: Pain, severe (8-10) Stop: 01/04/19 20:42 Last Admin: 01/03/19 06:52 Dose: 2 tab Oxycodone/Acetaminophen (Percocet 5/325 Mg Tab) 1 tab PO Q6 PRN PRN Reason: Pain, moderate (4-7) Stop: 01/04/19 20:42 Sumatriptan Succinate (Imitrex Tab) 100 mg PO ONCE PRN PRN Reason: Migraine headache Last Admin: 01/02/19 08:21 Dose: 100 mg - Constitutional Appears: Well, Non-toxic, No Acute Distress - Head Exam Head Exam: ATRAUMATIC, NORMAL INSPECTION, NORMOCEPHALIC - Eye Exam Eye Exam: EOMI, Normal appearance, PERRL Pupil Exam: NORMAL ACCOMODATION, PERRL - ENT Exam ENT Exam: Mucous Membranes Moist, Normal Exam - Neck Exam Neck Exam: Full ROM, Normal Inspection - Respiratory Exam Respiratory Exam: Rales, NORMAL BREATHING PATTERN - Cardiovascular Exam Cardiovascular Exam: REGULAR RHYTHM, +S1, +S2 - GI/Abdominal Exam GI & Abdominal Exam: Soft, Normal Bowel Sounds - Extremities Exam Additional comments: Alan Wrap noted on left lower extremities - Back Exam Back Exam: NORMAL INSPECTION - Neurological Exam Neurological Exam: Alert, Awake, CN II-XII Intact, Normal Gait, Oriented x3 - Psychiatric Exam Psychiatric exam: Normal Affect, Normal Mood - Skin Skin Exam: Dry, Intact, Normal Color, Warm Assessment and Plan - Assessment and Plan (Free Text) Assessment: 48 yo female with Hx of seizure, Left sided paralysis, asthma, brain tumor brought by to ED due to having a episode of seizure which have caused a left ankle fracture with ORIF. s/p surgery 4 X-rays obtained: acute fracture of the distal fibula, small non-ossifying fibroma or possible bone infarct seen distal metaphysis of the tibia CT of the left ankle shows small joint effusion along with oblique fracture of the distal fibula Fibular fracture S/p rehab, in Acute rehab S/P day 4 ORIF Podiatry on case Continue PT/OT recommendation on Percocet for pain 2 tab for severe, 1 for mod Seizure Chronic, stable, no change CT scan no change As per Dr. Mosley will stop Vimpat and start keppra 1000mg Q12h Asthma Continue home medication Migraine Continue home medication Diet Regular diet DVT Lovenox 40SC .
--- NOTE | 2019-01-03 14:18 | CP.PCM.CON ---
History of Present Illness - History of Present Illness History of Present Illness: Neurology consult dictated. 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 SHe follows with Dr. Tilley and was started on vimpat 50 mg bid, in addition to her keppra xr. However, she feels that vimpat makes her extremely fatigued, and would like to be tapered down. PLan; 1. If keppra xr is not already on board, would load with 1 gram IV now and continue on 1000 mg bid, 2. After loading, would decrease vimpat to [address] Mosley Neurology Past Patient History - Infectious Disease Hx of Infectious Diseases: None - Tetanus Immunizations Tetanus Immunization: Up to Date - Past Medical History & Family History Past Medical History?: Yes - Past Social History Smoking Status: Former Smoker - CARDIAC Hx Cardiac Disorders: No - PULMONARY Hx Respiratory Disorders: Yes Hx Asthma: Yes - NEUROLOGICAL Hx Neurological Disorder: Yes Hx Migraine: Yes Hx Seizures: Yes Other/Comment: hx brain tumor-had resectionin 1977 and 1992 - HEENT Hx HEENT Problems: Yes Other/Comment: uses eyeglasses for reading-eyeglasses left at home - RENAL Hx Chronic Kidney Disease: No - ENDOCRINE/METABOLIC Hx Endocrine Disorders: No - HEMATOLOGICAL/ONCOLOGICAL Hx AIDS: No Hx Human Immunodeficiency Virus (HIV): No - INTEGUMENTARY Hx Dermatological Problems: No - MUSCULOSKELETAL/RHEUMATOLOGICAL Hx Falls: Yes - GASTROINTESTINAL Hx Gastrointestinal Disorders: Yes Hx Gall Bladder Disease: Yes (had Cholecystectomy) - GENITOURINARY/GYNECOLOGICAL Hx Genitourinary Disorders: Yes Other/Comment: with overactive bladder - PSYCHIATRIC Hx Psychophysiologic Disorder: No Hx Substance Use: No - SURGICAL HISTORY Hx Surgeries: Yes Hx Cholecystectomy: Yes Other/Comment: Embolization and Myomectomy-fibroid - ANESTHESIA Hx Anesthesia: Yes Hx Anesthesia Reactions: No Hx Malignant Hyperthermia: No Meds Allergies/Adverse Reactions: Allergies Allergy/AdvReac Type Severity Reaction Status Date / Time tree and shrub pollen Allergy ITCHING Verified 01/01/19 20:33 - Medications Medications: Current Medications Acetaminophen (Tylenol 325mg Tab) 325 mg PO Q4 PRN PRN Reason: Pain, Mild (1-3) Albuterol/Ipratropium (Duoneb 3 Mg/0.5 Mg (3 Ml) Ud) 3 ml INH RQ6 PRN PRN Reason: Shortness of Breath Albuterol/Ipratropium (Duoneb 3 Mg/0.5 Mg (3 Ml) Ud) 3 ml INH RQ6 [facility] Atorvastatin Calcium (Lipitor) 10 mg PO DIN [facility] Last Admin: 01/02/19 17:01 Dose: 10 mg Diazepam (Valium) 5 mg PO HS [facility] Last Admin: 01/02/19 22:45 Dose: Not Given Docusate Sodium (Colace) 100 mg PO BID [facility] Last Admin: 01/03/19 08:57 Dose: 100 mg Enoxaparin Sodium (Lovenox) 40 mg SC DAILY [facility]; Protocol Last Admin: 01/03/19 08:57 Dose: 40 mg Home Med (Levetiracetam [Keppra Xr]) 3 tab PO BID [facility] Last Admin: 01/03/19 08:58 Dose: 3 tab Home Med (Patient's Own Medication) 1 unit PO DAILY [facility] Last Admin: 01/03/19 10:00 Dose: 1 unit Lacosamide (Vimpat) 50 mg PO BID [facility] Last Admin: 01/03/19 09:04 Dose: 50 mg Lactobacillus Acidophilus (Bacid Acidophilus) 1 cap PO DAILY [facility] Last Admin: 01/03/19 09:04 Dose: 1 cap Loratadine (Claritin) 10 mg PO DAILY [facility] Last Admin: 01/03/19 08:58 Dose: 10 mg Lorazepam (Ativan) 1 mg PO Q4 PRN PRN Reason: Agitation Magnesium Hydroxide (Milk Of Magnesia) 15 ml PO Q6 PRN PRN Reason: Constipation Methylprednisolone (Solu-Medrol) 40 mg IVP Q12H [facility] Montelukast Sodium (Singulair) 10 mg PO HS [facility] Oxycodone/Acetaminophen (Percocet 5/325 Mg Tab) 2 tab PO Q6 PRN PRN Reason: Pain, severe (8-10) Stop: 01/04/19 20:42 Last Admin: 01/03/19 06:52 Dose: 2 tab Oxycodone/Acetaminophen (Percocet 5/325 Mg Tab) 1 tab PO Q6 PRN PRN Reason: Pain, moderate (4-7) Stop: 01/04/19 20:42 Sumatriptan Succinate (Imitrex Tab) 100 mg PO ONCE PRN PRN Reason: Migraine headache Last Admin: 01/02/19 08:21 Dose: 100 mg Results - Vital Signs Recent Vital Signs: Last Vital Signs Temp 97.5 F L 01/03/19 08:36 Pulse 81 01/03/19 08:36 Resp 22 01/03/19 08:36 BP 130/67 01/03/19 08:36 Pulse Ox 100 01/03/19 08:36
[2019-01-03] MEDS: MethylPREDNISolone 40 mg Vial IVP SCH (15:00)
--- NOTE | 2019-01-03 15:33 | CP.PCM.PN ---
Subjective - Date & Time of Evaluation Date of Evaluation: 01/03/19 Time of Evaluation: 14:00 - Subjective Subjective: no acute complaints at present Objective - Vital Signs/Intake and Output Vital Signs (last 24 hours): Temp Pulse Resp BP Pulse Ox 97.5 F L 81 22 130/67 100 01/03/19 08:36 01/03/19 08:36 01/03/19 08:36 01/03/19 08:36 01/03/19 08:36 - Medications Medications: Current Medications Acetaminophen (Tylenol 325mg Tab) 325 mg PO Q4 PRN PRN Reason: Pain, Mild (1-3) Albuterol/Ipratropium (Duoneb 3 Mg/0.5 Mg (3 Ml) Ud) 3 ml INH RQ6 PRN PRN Reason: Shortness of Breath Albuterol/Ipratropium (Duoneb 3 Mg/0.5 Mg (3 Ml) Ud) 3 ml INH RQ6 [facility] Atorvastatin Calcium (Lipitor) 10 mg PO DIN [facility] Last Admin: 01/02/19 17:01 Dose: 10 mg Diazepam (Valium) 5 mg PO HS [facility] Last Admin: 01/02/19 22:45 Dose: Not Given Docusate Sodium (Colace) 100 mg PO BID [facility] Last Admin: 01/03/19 08:57 Dose: 100 mg Enoxaparin Sodium (Lovenox) 40 mg SC DAILY [facility]; Protocol Last Admin: 01/03/19 08:57 Dose: 40 mg Home Med (Patient's Own Medication) 1 unit PO DAILY [facility] Last Admin: 01/03/19 10:00 Dose: 1 unit Lactobacillus Acidophilus (Bacid Acidophilus) 1 cap PO DAILY [facility] Last Admin: 01/03/19 09:04 Dose: 1 cap Levetiracetam (Keppra) 1,000 mg PO Q12 [facility] Loratadine (Claritin) 10 mg PO DAILY [facility] Last Admin: 01/03/19 08:58 Dose: 10 mg Lorazepam (Ativan) 1 mg PO Q4 PRN PRN Reason: Agitation Magnesium Hydroxide (Milk Of Magnesia) 15 ml PO Q6 PRN PRN Reason: Constipation Methylprednisolone (Solu-Medrol) 40 mg IVP Q12H [facility] Montelukast Sodium (Singulair) 10 mg PO HS [facility] Oxycodone/Acetaminophen (Percocet 5/325 Mg Tab) 2 tab PO Q6 PRN PRN Reason: Pain, severe (8-10) Stop: 01/04/19 20:42 Last Admin: 01/03/19 14:50 Dose: 2 tab Oxycodone/Acetaminophen (Percocet 5/325 Mg Tab) 1 tab PO Q6 PRN PRN Reason: Pain, moderate (4-7) Stop: 01/04/19 20:42 Sumatriptan Succinate (Imitrex Tab) 100 mg PO ONCE PRN PRN Reason: Migraine headache Last Admin: 01/02/19 08:21 Dose: 100 mg - Constitutional Appears: Well - Head Exam Head Exam: ATRAUMATIC, NORMAL INSPECTION, NORMOCEPHALIC - Eye Exam Eye Exam: EOMI, Normal appearance, PERRL Pupil Exam: NORMAL ACCOMODATION - ENT Exam ENT Exam: Mucous Membranes Moist, Normal Exam - Neck Exam Neck Exam: Full ROM, Normal Inspection - Respiratory Exam Respiratory Exam: Clear to Ausculation Bilateral, NORMAL BREATHING PATTERN - Cardiovascular Exam Cardiovascular Exam: REGULAR RHYTHM - GI/Abdominal Exam GI & Abdominal Exam: Soft, Normal Bowel Sounds - Rectal Exam Rectal Exam: NORMAL INSPECTION - Exam External exam: NORMAL EXTERNAL EXAM - Extremities Exam Extremities Exam: Full ROM, Normal Capillary Refill, Normal Inspection - Back Exam Back Exam: NORMAL INSPECTION - Neurological Exam Neurological Exam: Alert, Awake Neuro motor strength exam: Left Upper Extremity: 3, Right Upper Extremity: 3, Left Lower Extremity: 3, Right Lower Extremity: 3 - Psychiatric Exam Psychiatric exam: Normal Affect, Normal Mood - Skin Skin Exam: Dry, Normal Color Assessment and Plan (1) Ankle fracture Assessment & Plan: plan for physical, occupational, rec and speech therapy Status: Acute (2) Asthma exacerbation Status: Acute (3) Back strain Status: Acute (4) Breakthrough seizure Status: Acute
[2019-01-03] MEDS: FLUTICASONE PROPION/SALMETEROL 55-14 INHALER IH SCH (21:34)
[2019-01-03] MEDS ORDERED: KEPPRA 500 MG PO SCH (22:30)
[2019-01-03] MEDS: Benzocaine/Menthol (Cepacol) Lozenge PO PRN (23:36)
[2019-01-04] MEDS: MethylPREDNISolone 40 mg Vial IVP SCH (01:51)
[2019-01-04] MEDS: Albuterol-Ipratrop 3 mg / 0.5 (3 ml) UD INH SCH ×4 (02:00→19:12)
[2019-01-04] MEDS ORDERED: MethylPREDNISolone 40 mg Vial IVPB SCH (06:00)
[2019-01-04] MEDS: methylPREDNISolone 40 MG/50ML NS IVPB SCH ×2 (06:10→17:53)
[2019-01-04 07:04] LABS: HEMOGLOBIN 11.8 g/dL (12.0-16.0); MEAN CELL VOLUME 87.6 fl (81.0-99.0); MEAN CORPUSCULAR HEMOGLOBIN 29.2 pg (27.0-31.0); MEAN CORPUSCULAR HGB CONC 33.3 g/dL (33.0-37.0); RBC 4.06 Mil/uL (3.80-5.20); RED CELL DISTRIBUTION WIDTH 13.5 % (11.5-14.5); WHITE BLOOD COUNT 13.1 K/uL (4.8-10.8)
[2019-01-04] MEDS: Oxycodone/Acetaminophen 5/325 mg Tab PO PRN (08:24)
[2019-01-04] MEDS: Lactobacillus Acidophilus 500 MU Cap PO SCH (08:26)
[2019-01-04] MEDS: CALCIUM MAGNESIUM ZINC PO SCH (08:27)
[2019-01-04] MEDS: KEPPRA 500 MG PO SCH ×2 (08:27→20:55)
[2019-01-04] MEDS: Enoxaparin 40 mg Syringe SC SCH (08:27)
[2019-01-04] MEDS ORDERED: Lacosamide 50 MG Tab PO ONE (09:00)
[2019-01-04] MEDS ORDERED: Sodium Chloride 3% for Inhalation 4 ML VIAL.NEB IH PRN (09:05)
--- NOTE | 2019-01-04 09:09 | CP.PCM.PN ---
Subjective - Date & Time of Evaluation Date of Evaluation: 01/04/19 Time of Evaluation: 09:09 - Subjective Subjective: C/O COUGH WITH THICK MUCUS PRODUCTION Objective - Vital Signs/Intake and Output Vital Signs (last 24 hours): Temp Pulse Resp BP Pulse Ox 97.9 F 92 H 20 153/90 H 97 01/04/19 07:40 01/04/19 07:40 01/04/19 07:40 01/04/19 07:40 01/04/19 07:40 - Medications Medications: Current Medications Acetaminophen (Tylenol 325mg Tab) 325 mg PO Q4 PRN PRN Reason: Pain, Mild (1-3) Albuterol/Ipratropium (Duoneb 3 Mg/0.5 Mg (3 Ml) Ud) 3 ml INH RQ6 PRN PRN Reason: Shortness of Breath Albuterol/Ipratropium (Duoneb 3 Mg/0.5 Mg (3 Ml) Ud) 3 ml INH RQ6 [facility] Last Admin: 01/04/19 08:37 Dose: 3 ml Atorvastatin Calcium (Lipitor) 10 mg PO DIN [facility] Last Admin: 01/03/19 17:14 Dose: 10 mg Benzocaine/Menthol (Cepacol Sore Throat) 1 cullen PO Q3 PRN PRN Reason: Sore Throat Last Admin: 01/03/19 23:36 Dose: 1 cullen Clindamycin HCl (Cleocin) 300 mg PO Q8 [facility]; Protocol Diazepam (Valium) 5 mg PO HS [facility] Last Admin: 01/03/19 22:38 Dose: Not Given Docusate Sodium (Colace) 100 mg PO BID [facility] Last Admin: 01/03/19 17:09 Dose: 100 mg Enoxaparin Sodium (Lovenox) 40 mg SC DAILY [facility]; Protocol Last Admin: 01/04/19 08:27 Dose: 40 mg Home Med (Patient's Own Medication) 1 unit PO DAILY [facility] Last Admin: 01/04/19 08:27 Dose: 1 unit Home Med (Patient's Own Medication) 3 unit PO Q12 [facility] Last Admin: 01/04/19 08:27 Dose: 3 unit Methylprednisolone 40 mg/ (Sodium Chloride) 50 mls @ 100 mls/hr IVPB Q12H [facility] Last Admin: 01/04/19 06:10 Dose: 100 mls/hr Lactobacillus Acidophilus (Bacid Acidophilus) 1 cap PO DAILY [facility] Last Admin: 01/04/19 08:26 Dose: 1 cap Lorazepam (Ativan) 1 mg PO Q4 PRN PRN Reason: Agitation Magnesium Hydroxide (Milk Of Magnesia) 15 ml PO Q6 PRN PRN Reason: Constipation Montelukast Sodium (Singulair) 10 mg PO HS [facility] Last Admin: 01/03/19 22:36 Dose: 10 mg Oxycodone/Acetaminophen (Percocet 5/325 Mg Tab) 2 tab PO Q6 PRN PRN Reason: Pain, severe (8-10) Stop: 01/09/19 20:42 Last Admin: 01/04/19 08:24 Dose: 2 tab Oxycodone/Acetaminophen (Percocet 5/325 Mg Tab) 1 tab PO Q6 PRN PRN Reason: Pain, moderate (4-7) Stop: 01/09/19 20:42 Promethazine HCl/Dextromethorphan (Phenergan Dm Syrup) 10 ml PO Q6 PRN PRN Reason: Cough Sumatriptan Succinate (Imitrex Tab) 100 mg PO ONCE PRN PRN Reason: Migraine headache Last Admin: 01/02/19 08:21 Dose: 100 mg - Labs Labs: 01/04/19 06:00 - Constitutional Appears: No Acute Distress - Head Exam Head Exam: ATRAUMATIC, NORMAL INSPECTION, NORMOCEPHALIC - Eye Exam Eye Exam: EOMI, Normal appearance, PERRL Pupil Exam: NORMAL ACCOMODATION, PERRL - ENT Exam ENT Exam: Mucous Membranes Moist, Normal Exam - Neck Exam Neck Exam: Full ROM, Normal Inspection. absent: Lymphadenopathy - Respiratory Exam Respiratory Exam: Prolonged Expiratory Phase, Wheezes, NORMAL BREATHING PATTERN - Cardiovascular Exam Cardiovascular Exam: REGULAR RHYTHM, +S1, +S2. absent: Murmur - GI/Abdominal Exam GI & Abdominal Exam: Soft, Normal Bowel Sounds. absent: Tenderness - Rectal Exam Rectal Exam: NORMAL INSPECTION - Extremities Exam Extremities Exam: Full ROM, Normal Capillary Refill, Normal Inspection. absent: Joint Swelling, Pedal Edema - Back Exam Back Exam: NORMAL INSPECTION - Neurological Exam Neurological Exam: Alert, Awake, CN II-XII Intact, Normal Gait, Oriented x3 - Psychiatric Exam Psychiatric exam: Normal Affect, Normal Mood - Skin Skin Exam: Dry, Intact, Normal Color, Warm Assessment and Plan - Assessment and Plan (Free Text) Assessment: ASTHMA EXACERBATION URI Plan: ADD CLINDAMYCIN AND PHENERGAN TO RX D/C CLARITIN SPUTUM CULTURES
[2019-01-04] MEDS: FLUTICASONE PROPION/SALMETEROL 55-14 INHALER IH SCH (09:23)
[2019-01-04] MEDS: Mometasone 220 mcg/puff-14 puff Inh INH SCH (09:37)
[2019-01-04] MEDS: Pantoprazole 40 mg EC Tab PO SCH (19:01)
[2019-01-04] MEDS: Famotidine 40 MG/5 ML PO PRN (19:02)
[2019-01-04] MEDS: CLARINEX D PO SCH (21:05)
[2019-01-04] MEDS: Benzocaine/Menthol (Cepacol) Lozenge PO PRN (21:47)
[2019-01-05] MEDS: Albuterol-Ipratrop 3 mg / 0.5 (3 ml) UD INH SCH ×5 (01:36→19:33)
[2019-01-05] MEDS ORDERED: MethylPREDNISolone 40 mg Vial IVP SCH (06:00)
--- NOTE | 2019-01-05 08:19 | CP.PCM.PN ---
Subjective - Date & Time of Evaluation Date of Evaluation: 01/05/19 Time of Evaluation: 08:17 - Subjective Subjective: Podiatry progress note for Dr. Patricia, 48 y/o female seen and evaluated 4 days S/P ORIF Left ankle fracture. Patient is AAOx3 and in NAD. Patient states that she is having throbbing pain at the surgery site Specially with PT mobilization but it's well controlled by pain meds which she takes only in the morning with PT sessions. patient denies acute overnight events, denies any other complains at this time.Denies F/N/V/CP or SOB. She states that she has episodes of cough. Objective - Vital Signs/Intake and Output Vital Signs (last 24 hours): Temp Pulse Resp BP Pulse Ox 97.8 F 100 H 20 114/60 97 01/04/19 20:16 01/04/19 20:16 01/04/19 20:16 01/04/19 20:16 01/04/19 20:16 - Medications Medications: Current Medications Acetaminophen (Tylenol 325mg Tab) 325 mg PO Q4 PRN PRN Reason: Pain, Mild (1-3) Albuterol/Ipratropium (Duoneb 3 Mg/0.5 Mg (3 Ml) Ud) 3 ml INH RQ6 PRN PRN Reason: Shortness of Breath Albuterol/Ipratropium (Duoneb 3 Mg/0.5 Mg (3 Ml) Ud) 3 ml INH RQ6 [facility] Last Admin: 01/05/19 07:16 Dose: 3 ml Atorvastatin Calcium (Lipitor) 10 mg PO DIN [facility] Last Admin: 01/04/19 17:54 Dose: 10 mg Benzocaine/Menthol (Cepacol Sore Throat) 1 cullen PO Q3 PRN PRN Reason: Sore Throat Last Admin: 01/04/19 21:47 Dose: 1 cullen Clindamycin HCl (Cleocin) 300 mg PO Q8 [facility]; Protocol Last Admin: 01/05/19 06:27 Dose: 300 mg Diazepam (Valium) 5 mg PO HS [facility] Last Admin: 01/04/19 21:07 Dose: Not Given Docusate Sodium (Colace) 100 mg PO BID [facility] Last Admin: 01/04/19 17:54 Dose: 100 mg Enoxaparin Sodium (Lovenox) 40 mg SC DAILY [facility]; Protocol Last Admin: 01/04/19 08:27 Dose: 40 mg Famotidine (Pepcid) 40 mg PO DAILY PRN PRN Reason: ACID REFLUX Last Admin: 01/04/19 19:02 Dose: 40 mg Home Med (Patient's Own Medication) 1 unit PO DAILY [facility] Last Admin: 01/04/19 08:27 Dose: 1 unit Home Med (Patient's Own Medication) 3 unit PO Q12 [facility] Last Admin: 01/04/19 20:55 Dose: 3 unit Home Med (Patient's Own Medication) 1 unit PO Q12 [facility] Last Admin: 01/04/19 21:05 Dose: 1 unit Lactobacillus Acidophilus (Bacid Acidophilus) 1 cap PO DAILY [facility] Last Admin: 01/04/19 08:26 Dose: 1 cap Lorazepam (Ativan) 1 mg PO Q4 PRN PRN Reason: Agitation Magnesium Hydroxide (Milk Of Magnesia) 15 ml PO Q6 PRN PRN Reason: Constipation Methylprednisolone (Solu-Medrol) 40 mg IVP Q12@0600,1800 [facility] Last Admin: 01/05/19 06:26 Dose: 40 mg Mometasone Furoate (Asmanex Twisthaler 220 Mcg) 1 puff INH DAILY [facility] Last Admin: 01/04/19 09:37 Dose: 1 puff Montelukast Sodium (Singulair) 10 mg PO HS [facility] Last Admin: 01/04/19 21:02 Dose: Not Given Oxycodone/Acetaminophen (Percocet 5/325 Mg Tab) 2 tab PO Q6 PRN PRN Reason: Pain, severe (8-10) Stop: 01/09/19 20:42 Last Admin: 01/04/19 08:24 Dose: 2 tab Oxycodone/Acetaminophen (Percocet 5/325 Mg Tab) 1 tab PO Q6 PRN PRN Reason: Pain, moderate (4-7) Stop: 01/09/19 20:42 Pantoprazole Sodium (Protonix Ec Tab) 40 mg PO DAILY [facility] Last Admin: 01/04/19 19:01 Dose: 40 mg Promethazine HCl/Dextromethorphan (Phenergan Dm Syrup) 10 ml PO Q6 PRN PRN Reason: Cough Sumatriptan Succinate (Imitrex Tab) 100 mg PO ONCE PRN PRN Reason: Migraine headache Last Admin: 01/02/19 08:21 Dose: 100 mg - Labs Labs: 01/04/19 06:00 - Constitutional Appears: Well, Non-toxic, No Acute Distress - Head Exam Head Exam: ATRAUMATIC, NORMOCEPHALIC - Extremities Exam Additional comments: Left lower extremity exam: Posterior splint was C/D/I Cap refill < 3 sec to all digits - Neurological Exam Neurological Exam: Alert, Awake, Oriented x3 - Psychiatric Exam Psychiatric exam: Normal Affect, Normal Mood Assessment and Plan - Assessment and Plan (Free Text) Assessment: 48 y/o female seen and evaluated 6 days S/P ORIF Left ankle fracture. Plan: Patient seen and evaluated Plan discussed with attending Dr. Patricia Charts, labs and vitals reviewed; Afebrile, WBCs; 13.1 Patient X-rays obtained: acute fracture of the distal fibula, small non- ossifying fibroma or possible bone infarct seen distal metaphysis of the tibia CT of the left ankle shows small joint effusion along with oblique fracture of the distal fibula Postoperative left ankle X-ray: Satisfactory ORIF of the fibula. Patient posterior splint kept C/D/I Patient to stay NWB at this time to the LLE, To use wheelchair. PT ordered, Reccs appreciated Recommended discharging the patient to [facility]. Patient refused and want to be discharged home. Patient moved to acute rehab in the hospital yesterday. Patient instructed to continue icing and elevation of the LLE. Patient expressed verbal understanding. Podiatry will continue to follow up the patient while in house.
[2019-01-05] MEDS: Pantoprazole 40 mg EC Tab PO SCH (08:55)
[2019-01-05] MEDS: CALCIUM MAGNESIUM ZINC PO SCH (08:56)
[2019-01-05] MEDS: KEPPRA 500 MG PO SCH ×2 (08:56→21:29)
[2019-01-05] MEDS: CLARINEX D PO SCH ×2 (08:56→21:30)
[2019-01-05] MEDS: Mometasone 220 mcg/puff-14 puff Inh INH SCH (08:57)
[2019-01-05] MEDS: Lactobacillus Acidophilus 500 MU Cap PO SCH (08:58)
[2019-01-05] MEDS: Enoxaparin 40 mg Syringe SC SCH (08:59)
--- NOTE | 2019-01-05 12:01 | CP.PCM.PN ---
Subjective - Date & Time of Evaluation Date of Evaluation: 01/05/19 Time of Evaluation: 12:01 - Subjective Subjective: STILL COUGHING SOB LESS Objective - Vital Signs/Intake and Output Vital Signs (last 24 hours): Temp Pulse Resp BP Pulse Ox 98.1 F 100 H 20 125/66 96 01/05/19 09:53 01/05/19 09:53 01/05/19 09:53 01/05/19 09:53 01/05/19 09:53 - Medications Medications: Current Medications Acetaminophen (Tylenol 325mg Tab) 325 mg PO Q4 PRN PRN Reason: Pain, Mild (1-3) Last Admin: 01/05/19 10:43 Dose: 325 mg Albuterol/Ipratropium (Duoneb 3 Mg/0.5 Mg (3 Ml) Ud) 3 ml INH RQ6 PRN PRN Reason: Shortness of Breath Albuterol/Ipratropium (Duoneb 3 Mg/0.5 Mg (3 Ml) Ud) 3 ml INH RQ6 [facility] Last Admin: 01/05/19 07:16 Dose: 3 ml Atorvastatin Calcium (Lipitor) [address] [facility] Last Admin: 01/04/19 17:54 Dose: 10 mg Benzocaine/Menthol (Cepacol Sore Throat) 1 cullen PO Q3 PRN PRN Reason: Sore Throat Last Admin: 01/04/19 21:47 Dose: 1 cullen Clindamycin HCl (Cleocin) [address] [facility]; Protocol Last Admin: 01/05/19 06:27 Dose: 300 mg Diazepam (Valium) [address] [facility] Last Admin: 01/04/19 21:07 Dose: Not Given Docusate Sodium (Colace) [address] [facility] Last Admin: 01/05/19 08:54 Dose: 100 mg Enoxaparin Sodium (Lovenox) [address] [facility]; Protocol Last Admin: 01/05/19 08:59 Dose: 40 mg Famotidine (Pepcid) 40 mg PO DAILY PRN PRN Reason: ACID REFLUX Last Admin: 01/04/19 19:02 Dose: 40 mg Home Med (Patient's Own Medication) [address] [facility] Last Admin: 01/05/19 08:56 Dose: 1 unit Home Med (Patient's Own Medication) [address] [facility] Last Admin: 01/05/19 08:56 Dose: 3 unit Home Med (Patient's Own Medication) [address] [facility] Last Admin: 01/05/19 08:56 Dose: 1 unit Lactobacillus Acidophilus (Bacid Acidophilus) [address] [facility] Last Admin: 01/05/19 08:58 Dose: 1 cap Lorazepam (Ativan) 1 mg PO Q4 PRN PRN Reason: Agitation Magnesium Hydroxide (Milk Of Magnesia) 15 ml PO Q6 PRN PRN Reason: Constipation Methylprednisolone (Solu-Medrol) 40 mg IVP Q12@0600,1800 [facility] Last Admin: 01/05/19 06:26 Dose: 40 mg Mometasone Furoate (Asmanex Twisthaler 220 Mcg) [address] [facility] Last Admin: 01/05/19 08:57 Dose: 1 puff Montelukast Sodium (Singulair) [address] [facility] Last Admin: 01/04/19 21:02 Dose: Not Given Oxycodone/Acetaminophen (Percocet 5/325 Mg Tab) 2 tab PO Q6 PRN PRN Reason: Pain, severe (8-10) Stop: 01/09/19 20:42 Last Admin: 01/04/19 08:24 Dose: 2 tab Oxycodone/Acetaminophen (Percocet 5/325 Mg Tab) 1 tab PO Q6 PRN PRN Reason: Pain, moderate (4-7) Stop: 01/09/19 20:42 Pantoprazole Sodium (Protonix Ec Tab) [address] [facility] Last Admin: 01/05/19 08:55 Dose: 40 mg Promethazine HCl/Dextromethorphan (Phenergan Dm Syrup) 10 ml PO Q6 PRN PRN Reason: Cough Sumatriptan Succinate (Imitrex Tab) 100 mg PO ONCE PRN PRN Reason: Migraine headache Last Admin: 01/02/19 08:21 Dose: 100 mg - Labs Labs: 01/04/19 06:00 - Constitutional Appears: No Acute Distress - Head Exam Head Exam: ATRAUMATIC, NORMAL INSPECTION, NORMOCEPHALIC - Eye Exam Eye Exam: EOMI, Normal appearance, PERRL Pupil Exam: NORMAL ACCOMODATION, PERRL - ENT Exam ENT Exam: Mucous Membranes Moist, Normal Exam - Neck Exam Neck Exam: Full ROM, Normal Inspection. absent: Lymphadenopathy - Respiratory Exam Respiratory Exam: Prolonged Expiratory Phase, Rales, NORMAL BREATHING PATTERN - Cardiovascular Exam Cardiovascular Exam: REGULAR RHYTHM, +S1, +S2. absent: Murmur - GI/Abdominal Exam GI & Abdominal Exam: Soft, Normal Bowel Sounds. absent: Tenderness - Rectal Exam Rectal Exam: NORMAL INSPECTION - Extremities Exam Extremities Exam: Full ROM, Normal Capillary Refill, Tenderness. absent: Joint Swelling, Pedal Edema - Back Exam Back Exam: NORMAL INSPECTION - Neurological Exam Neurological Exam: Alert, Awake, CN II-XII Intact, Normal Gait, Oriented x3 - Psychiatric Exam Psychiatric exam: Normal Affect, Normal Mood - Skin Skin Exam: Dry, Intact, Normal Color, Warm Assessment and Plan - Assessment and Plan (Free Text) Assessment: ASTHMA S/P FOOT/ANKLE FRACTURE SEIZURES Plan: D/C SOLUMEDROL BEGIN PO PREDNISONE ADD MUCMYST TO RX
[2019-01-05] MEDS: Acetylcysteine 20% Inhal Soln (4ml) INH SCH (19:33)
[2019-01-06] MEDS: Albuterol-Ipratrop 3 mg / 0.5 (3 ml) UD INH SCH ×4 (01:01→19:28)
[2019-01-06] MEDS: Promethazine DM 12.5 mg-30 mg/10 ml Syrup PO PRN ×2 (05:13→17:29)
[2019-01-06] MEDS: Benzocaine/Menthol (Cepacol) Lozenge PO PRN ×4 (07:00→21:29)
[2019-01-06] MEDS: Acetylcysteine 20% Inhal Soln (4ml) INH SCH ×2 (08:10→19:28)
[2019-01-06] MEDS: CLARINEX D PO SCH ×2 (09:00→21:01)
[2019-01-06] MEDS: Mometasone 220 mcg/puff-14 puff Inh INH SCH (09:01)
[2019-01-06] MEDS: Enoxaparin 40 mg Syringe SC SCH (09:08)
[2019-01-06] MEDS: Oxycodone/Acetaminophen 5/325 mg Tab PO PRN (09:23)
[2019-01-06] MEDS: Lactobacillus Acidophilus 500 MU Cap PO SCH (09:30)
[2019-01-06] MEDS: KEPPRA 500 MG PO SCH ×2 (09:31→21:01)
[2019-01-06] MEDS: Pantoprazole 40 mg EC Tab PO SCH (09:32)
[2019-01-06] MEDS: CALCIUM MAGNESIUM ZINC PO SCH (09:33)
[2019-01-06] MEDS ORDERED: Promethazine 6.25 MG/5 ML CUP PO STA (09:36)
--- NOTE | 2019-01-06 11:08 | CP.PCM.PN ---
Subjective - Date & Time of Evaluation Date of Evaluation: 01/06/19 Time of Evaluation: 11:08 - Subjective Subjective: C/O COUGH WITH CHEST TIGHTNESS SPUTUM IS GREENISH Objective - Vital Signs/Intake and Output Vital Signs (last 24 hours): Temp Pulse Resp BP Pulse Ox 98.1 F 91 H 20 149/93 H 96 01/06/19 07:42 01/06/19 07:42 01/06/19 07:42 01/06/19 07:42 01/06/19 07:42 - Medications Medications: Current Medications Acetaminophen (Tylenol 325mg Tab) 325 mg PO Q4 PRN PRN Reason: Pain, Mild (1-3) Last Admin: 01/05/19 10:43 Dose: 325 mg Acetylcysteine (Acetylcysteine 20%) 2 ml INH RBID [facility] Last Admin: 01/06/19 08:10 Dose: 2 ml Albuterol/Ipratropium (Duoneb 3 Mg/0.5 Mg (3 Ml) Ud) 3 ml INH RQ6 PRN PRN Reason: Shortness of Breath Albuterol/Ipratropium (Duoneb 3 Mg/0.5 Mg (3 Ml) Ud) 3 ml INH RQ6 [facility] Last Admin: 01/06/19 08:10 Dose: 3 ml Atorvastatin Calcium (Lipitor) 10 mg PO DIN [facility] Last Admin: 01/05/19 16:52 Dose: 10 mg Benzocaine/Menthol (Cepacol Sore Throat) 1 cullen PO Q1 PRN PRN Reason: Sore Throat Clindamycin HCl (Cleocin) 300 mg PO Q8 [facility]; Protocol Last Admin: 01/06/19 06:34 Dose: 300 mg Diazepam (Valium) 5 mg PO HS [facility] Last Admin: 01/05/19 21:09 Dose: Not Given Docusate Sodium (Colace) 100 mg PO BID [facility] Last Admin: 01/06/19 09:31 Dose: 100 mg Enoxaparin Sodium (Lovenox) 40 mg SC DAILY [facility]; Protocol Last Admin: 01/06/19 09:08 Dose: 40 mg Famotidine (Pepcid) 40 mg PO DAILY PRN PRN Reason: ACID REFLUX Last Admin: 01/04/19 19:02 Dose: 40 mg Home Med (Patient's Own Medication) 1 unit PO DAILY [facility] Last Admin: 01/06/19 09:33 Dose: 1 unit Home Med (Patient's Own Medication) 3 unit PO Q12 [facility] Last Admin: 01/06/19 09:31 Dose: 3 unit Home Med (Patient's Own Medication) 1 unit PO Q12 [facility] Last Admin: 01/06/19 09:00 Dose: 1 unit Lactobacillus Acidophilus (Bacid Acidophilus) 1 cap PO DAILY [facility] Last Admin: 01/06/19 09:30 Dose: 1 cap Lorazepam (Ativan) 1 mg PO Q4 PRN PRN Reason: Agitation Magnesium Hydroxide (Milk Of Magnesia) 15 ml PO Q6 PRN PRN Reason: Constipation Mometasone Furoate (Asmanex Twisthaler 220 Mcg) 1 puff INH DAILY [facility] Last Admin: 01/06/19 09:01 Dose: 1 puff Oxycodone/Acetaminophen (Percocet 5/325 Mg Tab) 2 tab PO Q6 PRN PRN Reason: Pain, severe (8-10) Stop: 01/09/19 20:42 Last Admin: 01/06/19 09:23 Dose: 2 tab Oxycodone/Acetaminophen (Percocet 5/325 Mg Tab) 1 tab PO Q6 PRN PRN Reason: Pain, moderate (4-7) Stop: 01/09/19 20:42 Pantoprazole Sodium (Protonix Ec Tab) 40 mg PO DAILY [facility] Last Admin: 01/06/19 09:32 Dose: 40 mg Promethazine HCl/Dextromethorphan (Phenergan Dm Syrup) 10 ml PO Q6 PRN PRN Reason: Cough Last Admin: 01/06/19 05:13 Dose: 10 ml Sumatriptan Succinate (Imitrex Tab) 100 mg PO DAILY PRN PRN Reason: Migraine headache Last Admin: 01/06/19 09:40 Dose: 100 mg - Labs Labs: 01/04/19 06:00 - Constitutional Appears: Chronically Ill - Head Exam Head Exam: ATRAUMATIC, NORMAL INSPECTION, NORMOCEPHALIC - Eye Exam Eye Exam: EOMI, Normal appearance, PERRL Pupil Exam: NORMAL ACCOMODATION, PERRL - ENT Exam ENT Exam: Mucous Membranes Moist, Normal Exam - Neck Exam Neck Exam: Full ROM, Normal Inspection. absent: Lymphadenopathy - Respiratory Exam Respiratory Exam: Prolonged Expiratory Phase, Rales, Wheezes, NORMAL BREATHING PATTERN - Cardiovascular Exam Cardiovascular Exam: REGULAR RHYTHM, +S1, +S2. absent: Murmur - GI/Abdominal Exam GI & Abdominal Exam: Soft, Normal Bowel Sounds. absent: Tenderness - Rectal Exam Rectal Exam: NORMAL INSPECTION - Extremities Exam Extremities Exam: Full ROM, Normal Capillary Refill, Normal Inspection. absent: Joint Swelling, Pedal Edema - Back Exam Back Exam: NORMAL INSPECTION - Neurological Exam Neurological Exam: Abnormal Gait, Alert, Awake, CN II-XII Intact, Oriented x3 - Psychiatric Exam Psychiatric exam: Normal Affect, Normal Mood - Skin Skin Exam: Dry, Intact, Normal Color, Warm Assessment and Plan - Assessment and Plan (Free Text) Assessment: ASTHMA URI Plan: CXR ORDERED CONTINUE CURRENT RX
--- NOTE | 2019-01-06 11:52 | CP.PCM.PN ---
Subjective - Date & Time of Evaluation Date of Evaluation: 01/06/19 Time of Evaluation: 07:00 - Subjective Subjective: Patient seen and examined at bedside. Nurse called today in morning due to patient was complaining of severe headache, back pain, sore throat. Patient was tearful and wanted medication for pain. After receiving her migraine medication and percocet. Patient is back to baseline. Patient complain of cough and chest tightness Objective - Vital Signs/Intake and Output Vital Signs (last 24 hours): Temp Pulse Resp BP Pulse Ox 98.1 F 91 H 20 149/93 H 96 01/06/19 07:42 01/06/19 07:42 01/06/19 07:42 01/06/19 07:42 01/06/19 07:42 - Medications Medications: Current Medications Acetaminophen (Tylenol 325mg Tab) 325 mg PO Q4 PRN PRN Reason: Pain, Mild (1-3) Last Admin: 01/05/19 10:43 Dose: 325 mg Acetylcysteine (Acetylcysteine 20%) 2 ml INH RBID [facility] Last Admin: 01/06/19 08:10 Dose: 2 ml Albuterol/Ipratropium (Duoneb 3 Mg/0.5 Mg (3 Ml) Ud) 3 ml INH RQ6 PRN PRN Reason: Shortness of Breath Albuterol/Ipratropium (Duoneb 3 Mg/0.5 Mg (3 Ml) Ud) 3 ml INH RQ6 [facility] Last Admin: 01/06/19 08:10 Dose: 3 ml Atorvastatin Calcium (Lipitor) 10 mg PO DIN [facility] Last Admin: 01/05/19 16:52 Dose: 10 mg Benzocaine/Menthol (Cepacol Sore Throat) 1 cullen PO Q1 PRN PRN Reason: Sore Throat Clindamycin HCl (Cleocin) 300 mg PO Q8 [facility]; Protocol Last Admin: 01/06/19 06:34 Dose: 300 mg Diazepam (Valium) 5 mg PO HS [facility] Last Admin: 01/05/19 21:09 Dose: Not Given Docusate Sodium (Colace) 100 mg PO BID [facility] Last Admin: 01/06/19 09:31 Dose: 100 mg Enoxaparin Sodium (Lovenox) 40 mg SC DAILY [facility]; Protocol Last Admin: 01/06/19 09:08 Dose: 40 mg Famotidine (Pepcid) 40 mg PO DAILY PRN PRN Reason: ACID REFLUX Last Admin: 01/04/19 19:02 Dose: 40 mg Home Med (Patient's Own Medication) 1 unit PO DAILY [facility] Last Admin: 01/06/19 09:33 Dose: 1 unit Home Med (Patient's Own Medication) 3 unit PO Q12 [facility] Last Admin: 01/06/19 09:31 Dose: 3 unit Home Med (Patient's Own Medication) 1 unit PO Q12 [facility] Last Admin: 01/06/19 09:00 Dose: 1 unit Lactobacillus Acidophilus (Bacid Acidophilus) 1 cap PO DAILY [facility] Last Admin: 01/06/19 09:30 Dose: 1 cap Lorazepam (Ativan) 1 mg PO Q4 PRN PRN Reason: Agitation Magnesium Hydroxide (Milk Of Magnesia) 15 ml PO Q6 PRN PRN Reason: Constipation Mometasone Furoate (Asmanex Twisthaler 220 Mcg) 1 puff INH DAILY [facility] Last Admin: 01/06/19 09:01 Dose: 1 puff Oxycodone/Acetaminophen (Percocet 5/325 Mg Tab) 2 tab PO Q6 PRN PRN Reason: Pain, severe (8-10) Stop: 01/09/19 20:42 Last Admin: 01/06/19 09:23 Dose: 2 tab Oxycodone/Acetaminophen (Percocet 5/325 Mg Tab) 1 tab PO Q6 PRN PRN Reason: Pain, moderate (4-7) Stop: 01/09/19 20:42 Pantoprazole Sodium (Protonix Ec Tab) 40 mg PO DAILY [facility] Last Admin: 01/06/19 09:32 Dose: 40 mg Promethazine HCl/Dextromethorphan (Phenergan Dm Syrup) 10 ml PO Q6 PRN PRN Reason: Cough Last Admin: 01/06/19 05:13 Dose: 10 ml Sumatriptan Succinate (Imitrex Tab) 100 mg PO DAILY PRN PRN Reason: Migraine headache Last Admin: 01/06/19 09:40 Dose: 100 mg - Labs Labs: 01/04/19 06:00 - Constitutional Appears: Well, Non-toxic, No Acute Distress - Head Exam Head Exam: ATRAUMATIC, NORMAL INSPECTION, NORMOCEPHALIC - Eye Exam Eye Exam: EOMI, Normal appearance, PERRL Pupil Exam: NORMAL ACCOMODATION, PERRL - ENT Exam ENT Exam: Mucous Membranes Moist, Normal Exam - Neck Exam Neck Exam: Full ROM, Normal Inspection - Respiratory Exam Respiratory Exam: Clear to Ausculation Bilateral, NORMAL BREATHING PATTERN - Cardiovascular Exam Cardiovascular Exam: REGULAR RHYTHM, +S1, +S2 - GI/Abdominal Exam GI & Abdominal Exam: Soft, Normal Bowel Sounds - Extremities Exam Extremities Exam: Full ROM, Normal Capillary Refill, Normal Inspection - Back Exam Back Exam: NORMAL INSPECTION - Neurological Exam Neurological Exam: Alert, Awake, Oriented x3 - Psychiatric Exam Psychiatric exam: Normal Affect, Normal Mood - Skin Skin Exam: Dry, Intact, Normal Color, Warm Assessment and Plan - Assessment and Plan (Free Text) Assessment: 48 yo female with Hx of seizure, Left sided paralysis, asthma, brain tumor brought by to ED due to having a episode of seizure which have caused a left ankle fracture with ORIF. X-rays obtained: acute fracture of the distal fibula, small non-ossifying fibroma or possible bone infarct seen distal metaphysis of the tibia CT of the left ankle shows small joint effusion along with oblique fracture of the distal fibula Fibular fracture S/p rehab, in Acute rehab Podiatry on case Continue PT/OT recommendation on Percocet for pain 2 tab for severe, 1 for mod URI Patient report cough, with chest tightness Start on phenergan follow up chest X-ray Seizure Chronic, stable, no change CT scan no change Continue keppra 1000mg Q12h Asthma Continue home medication Migraine Continue home medication Diet Regular diet DVT Lovenox 40SC .
[2019-01-06] MEDS: Famotidine 40 MG/5 ML PO PRN (12:01)
--- NOTE | 2019-01-06 17:13 | RAD ---
Date of service: 01/06/2019 HISTORY: ASTHMA COMPARISON: Chest radiograph 12/28/2018. TECHNIQUE: 1 view obtained. FINDINGS: LUNGS: No active pulmonary disease. PLEURA: No significant pleural effusion identified, no pneumothorax apparent. CARDIOVASCULAR: No aortic atherosclerotic calcification present. Normal cardiac size. No pulmonary vascular congestion. OSSEOUS STRUCTURES: No significant abnormalities. VISUALIZED UPPER ABDOMEN: Normal. OTHER FINDINGS: None. IMPRESSION: No interval acute cardiopulmonary disease appreciated.
[2019-01-06] MEDS ORDERED: Alum-Mag Hydrox-Simethicone Susp (30 mL) PO ONE (21:56)
[2019-01-07] MEDS: Albuterol-Ipratrop 3 mg / 0.5 (3 ml) UD INH SCH ×4 (01:01→19:00)
[2019-01-07] MEDS: Benzocaine/Menthol (Cepacol) Lozenge PO PRN (01:13)
[2019-01-07 07:57] LABS: BASO # 0.1 K/uL (0.0-0.2); BASO % 0.5 % (0.0-2.0); EOS # 0.2 K/uL (0.0-0.7); EOS % 1.8 % (0.0-4.0); HEMOGLOBIN 12.9 g/dL (12.0-16.0); LYMPH # 2.2 K/uL (1.0-4.3); LYMPH % 16.8 % (20.0-40.0); MEAN CELL VOLUME 87.9 fl (81.0-99.0); MEAN CORPUSCULAR HEMOGLOBIN 29.2 pg (27.0-31.0); MEAN CORPUSCULAR HGB CONC 33.3 g/dL (33.0-37.0); MEAN PLATELET VOLUME 8.1 fl (7.2-11.7); MONO # 0.8 K/uL (0.0-0.8); MONO % 5.7 % (0.0-10.0); NEUT % 75.2 % (50.0-75.0); NRBC % 0.1 % (0.0-0.0); RBC 4.41 Mil/uL (3.80-5.20); RED CELL DISTRIBUTION WIDTH 13.9 % (11.5-14.5); WHITE BLOOD COUNT 13.3 K/uL (4.8-10.8)
[2019-01-07] MEDS: Acetylcysteine 20% Inhal Soln (4ml) INH SCH ×2 (08:06→19:00)
[2019-01-07 08:25] LABS: ALB/GLOB RATIO 1.4 (1.0-2.1); ALBUMIN 4.3 g/dL (3.5-5.0); ALT/SGPT 63 U/L (9-52); AST/SGOT 39 U/L (14-36); BLOOD UREA NITROGEN 13 mg/dl (7-17); CALCIUM 9.3 mg/dL (8.4-10.2); GFR NON-AFRICAN AMERICAN > 60
[2019-01-07] MEDS ORDERED: Povidone Iodine Topical 10% Sol EXT ONE (08:25)
[2019-01-07] MEDS ORDERED: Povidone Iodine Topical 10% Sol ONE (08:28)
[2019-01-07] MEDS: Oxycodone/Acetaminophen 5/325 mg Tab PO PRN ×2 (08:58→23:35)
[2019-01-07] MEDS: KEPPRA 500 MG PO SCH ×2 (09:07→21:48)
[2019-01-07] MEDS: Pantoprazole 40 mg EC Tab PO SCH (09:07)
[2019-01-07] MEDS: CALCIUM MAGNESIUM ZINC PO SCH (09:07)
[2019-01-07] MEDS: CLARINEX D PO SCH ×2 (09:07→21:48)
[2019-01-07] MEDS: Mometasone 220 mcg/puff-14 puff Inh INH SCH (09:09)
[2019-01-07] MEDS: Enoxaparin 40 mg Syringe SC SCH (09:10)
[2019-01-07] MEDS: Lactobacillus Acidophilus 500 MU Cap PO SCH (09:14)
--- NOTE | 2019-01-07 09:23 | CP.PCM.PN ---
Subjective - Date & Time of Evaluation Date of Evaluation: 01/07/19 Time of Evaluation: 09:20 - Subjective Subjective: Podiatry progress notes for DR. Patricia: 48 y/o female seen and evaluated 8 days S/P ORIF Left ankle fracture. Patient is AAOx3 and in NAD. Patient states that she is still having some pain at the surgery site Specially with PT mobilization but it's well controlled by pain meds. patient denies acute overnight events, denies any other complains at this time. Patient states that she has cough and chest infection now. She denies any recent F/N/V/CP or SOB. Objective - Vital Signs/Intake and Output Vital Signs (last 24 hours): Temp Pulse Resp BP Pulse Ox 98.2 F 94 H 22 117/73 95 01/07/19 08:12 01/07/19 08:12 01/07/19 08:12 01/07/19 08:12 01/07/19 08:12 - Medications Medications: Current Medications Acetaminophen (Tylenol 325mg Tab) 325 mg PO Q4 PRN PRN Reason: Pain, Mild (1-3) Last Admin: 01/05/19 10:43 Dose: 325 mg Acetylcysteine (Acetylcysteine 20%) 2 ml INH RBID [facility] Last Admin: 01/07/19 08:06 Dose: 2 ml Albuterol/Ipratropium (Duoneb 3 Mg/0.5 Mg (3 Ml) Ud) 3 ml INH RQ6 PRN PRN Reason: Shortness of Breath Albuterol/Ipratropium (Duoneb 3 Mg/0.5 Mg (3 Ml) Ud) 3 ml INH RQ6 [facility] Last Admin: 01/07/19 08:06 Dose: 3 ml Atorvastatin Calcium (Lipitor) 10 mg PO DIN [facility] Last Admin: 01/06/19 17:28 Dose: 10 mg Benzocaine/Menthol (Cepacol Sore Throat) 1 cullen PO Q1 PRN PRN Reason: Sore Throat Last Admin: 01/07/19 01:13 Dose: 1 cullen Clindamycin HCl (Cleocin) 300 mg PO Q8 [facility]; Protocol Last Admin: 01/07/19 06:51 Dose: 300 mg Diazepam (Valium) 5 mg PO HS [facility] Last Admin: 01/06/19 21:17 Dose: Not Given Docusate Sodium (Colace) 100 mg PO BID [facility] Last Admin: 01/07/19 09:08 Dose: 100 mg Enoxaparin Sodium (Lovenox) 40 mg SC DAILY [facility]; Protocol Last Admin: 01/07/19 09:10 Dose: 40 mg Famotidine (Pepcid) 40 mg PO DAILY PRN PRN Reason: ACID REFLUX Last Admin: 01/06/19 12:01 Dose: 40 mg Home Med (Patient's Own Medication) 1 unit PO DAILY [facility] Last Admin: 01/07/19 09:07 Dose: 1 unit Home Med (Patient's Own Medication) 3 unit PO Q12 [facility] Last Admin: 01/07/19 09:07 Dose: 3 unit Home Med (Patient's Own Medication) 1 unit PO Q12 [facility] Last Admin: 01/07/19 09:07 Dose: 1 unit Lactobacillus Acidophilus (Bacid Acidophilus) 1 cap PO DAILY [facility] Last Admin: 01/07/19 09:14 Dose: 1 cap Lorazepam (Ativan) 1 mg PO Q4 PRN PRN Reason: Agitation Magnesium Hydroxide (Milk Of Magnesia) 15 ml PO Q6 PRN PRN Reason: Constipation Mometasone Furoate (Asmanex Twisthaler 220 Mcg) 1 puff INH DAILY [facility] Last Admin: 01/07/19 09:09 Dose: 1 puff Oxycodone/Acetaminophen (Percocet 5/325 Mg Tab) 2 tab PO Q6 PRN PRN Reason: Pain, severe (8-10) Stop: 01/09/19 20:42 Last Admin: 01/07/19 08:58 Dose: 2 tab Oxycodone/Acetaminophen (Percocet 5/325 Mg Tab) 1 tab PO Q6 PRN PRN Reason: Pain, moderate (4-7) Stop: 01/09/19 20:42 Pantoprazole Sodium (Protonix Ec Tab) 40 mg PO DAILY [facility] Last Admin: 01/07/19 09:07 Dose: 40 mg Promethazine HCl/Dextromethorphan (Phenergan Dm Syrup) 10 ml PO Q6 PRN PRN Reason: Cough Last Admin: 01/06/19 17:29 Dose: 10 ml Sumatriptan Succinate (Imitrex Tab) 100 mg PO DAILY PRN PRN Reason: Migraine headache Last Admin: 01/06/19 09:40 Dose: 100 mg - Labs Labs: 01/07/19 07:35 01/07/19 07:35 - Constitutional Appears: Well, Non-toxic, No Acute Distress - Head Exam Head Exam: ATRAUMATIC - Extremities Exam Additional comments: Left lower extremity exam: VASC: DP and PT 2/4 bilaterally, Cap refill < 3 seconds to all digits, Temp gradient cool to cool, Mild edema noted to the left lateral aspect of the ankle. NEURO: Diminished due to previous hx of brain tumor DERM: Mild edema noted to the left lateral aspect of the ankle,Surgical wound looks clean/dry and intact with sutures in place and streri-strips as well. No erythema or drainage, no clinical signs of infection, No signs of wound dehiscen ce. MSK: Pain on palpation to the lateral malleolous, Mild pain with ankle range of motion, MSK 3/5, left foot in a plantarflexed and inverted position due to paralysisPodiatry progress note for Dr. Patricia, - Neurological Exam Neurological Exam: Alert, Awake, Oriented x3 - Psychiatric Exam Psychiatric exam: Normal Affect, Normal Mood Assessment and Plan - Assessment and Plan (Free Text) Assessment: 48 y/o female seen and evaluated 8 days S/P ORIF Left ankle fracture. Plan: Patient seen and evaluated Plan discussed with attending Dr. Patricia Charts, labs and vitals reviewed; Afebrile, WBCs; 13.3 Patient X-rays obtained: acute fracture of the distal fibula, small non- ossifying fibroma or possible bone infarct seen distal metaphysis of the tibia CT of the left ankle shows small joint effusion along with oblique fracture of the distal fibula Postoperative left ankle X-ray: Satisfactory ORIF of the fibula. Patient posterior splint removed. Surgical wound dressed with betadine and DSD. Patient transferred to CAM walker Patient to stay NWB at this time to the LLE, To use wheelchair. PT on-board, Reccs appreciated Patient still in the acute rehab in the hospital. Continue icing and elevation of the LLE. Podiatry will continue to follow up the patient while in house.
--- NOTE | 2019-01-07 20:29 | CP.PCM.PN ---
Subjective - Date & Time of Evaluation Date of Evaluation: 01/07/19 Time of Evaluation: 12:00 - Subjective Subjective: patient is more alert, less discomfort or pain, change of cast to brace on left leg Objective - Vital Signs/Intake and Output Vital Signs (last 24 hours): Temp Pulse Resp BP Pulse Ox 97.4 F L 100 H 20 122/75 100 01/07/19 20:07 01/07/19 20:07 01/07/19 20:07 01/07/19 20:07 01/07/19 20:07 - Medications Medications: Current Medications Acetaminophen (Tylenol 325mg Tab) 325 mg PO Q4 PRN PRN Reason: Pain, Mild (1-3) Last Admin: 01/05/19 10:43 Dose: 325 mg Acetylcysteine (Acetylcysteine 20%) 2 ml INH RBID [facility] Last Admin: 01/07/19 19:00 Dose: 2 ml Albuterol/Ipratropium (Duoneb 3 Mg/0.5 Mg (3 Ml) Ud) 3 ml INH RQ6 PRN PRN Reason: Shortness of Breath Albuterol/Ipratropium (Duoneb 3 Mg/0.5 Mg (3 Ml) Ud) 3 ml INH RQ6 [facility] Last Admin: 01/07/19 19:00 Dose: 3 ml Atorvastatin Calcium (Lipitor) 10 mg PO DIN [facility] Last Admin: 01/07/19 16:50 Dose: 10 mg Benzocaine/Menthol (Cepacol Sore Throat) 1 cullen PO Q1 PRN PRN Reason: Sore Throat Last Admin: 01/07/19 01:13 Dose: 1 cullen Clindamycin HCl (Cleocin) 300 mg PO Q8 [facility]; Protocol Last Admin: 01/07/19 13:22 Dose: 300 mg Diazepam (Valium) 5 mg PO HS [facility] Last Admin: 01/06/19 21:17 Dose: Not Given Docusate Sodium (Colace) 100 mg PO BID [facility] Last Admin: 01/07/19 16:50 Dose: 100 mg Enoxaparin Sodium (Lovenox) 40 mg SC DAILY [facility]; Protocol Last Admin: 01/07/19 09:10 Dose: 40 mg Famotidine (Pepcid) 40 mg PO DAILY PRN PRN Reason: ACID REFLUX Last Admin: 01/06/19 12:01 Dose: 40 mg Home Med (Patient's Own Medication) 1 unit PO DAILY [facility] Last Admin: 01/07/19 09:07 Dose: 1 unit Home Med (Patient's Own Medication) 3 unit PO Q12 [facility] Last Admin: 01/07/19 09:07 Dose: 3 unit Home Med (Patient's Own Medication) 1 unit PO Q12 [facility] Last Admin: 01/07/19 09:07 Dose: 1 unit Lactobacillus Acidophilus (Bacid Acidophilus) 1 cap PO DAILY [facility] Last Admin: 01/07/19 09:14 Dose: 1 cap Lorazepam (Ativan) 1 mg PO Q4 PRN PRN Reason: Agitation Magnesium Hydroxide (Milk Of Magnesia) 15 ml PO Q6 PRN PRN Reason: Constipation Mometasone Furoate (Asmanex Twisthaler 220 Mcg) 1 puff INH DAILY [facility] Last Admin: 01/07/19 09:09 Dose: 1 puff Oxycodone/Acetaminophen (Percocet 5/325 Mg Tab) 2 tab PO Q6 PRN PRN Reason: Pain, severe (8-10) Stop: 01/09/19 20:42 Last Admin: 01/07/19 08:58 Dose: 2 tab Oxycodone/Acetaminophen (Percocet 5/325 Mg Tab) 1 tab PO Q6 PRN PRN Reason: Pain, moderate (4-7) Stop: 01/09/19 20:42 Pantoprazole Sodium (Protonix Ec Tab) 40 mg PO DAILY [facility] Last Admin: 01/07/19 09:07 Dose: 40 mg Promethazine HCl/Dextromethorphan (Phenergan Dm Syrup) 10 ml PO Q6 PRN PRN Reason: Cough Last Admin: 01/06/19 17:29 Dose: 10 ml Sumatriptan Succinate (Imitrex Tab) 100 mg PO DAILY PRN PRN Reason: Migraine headache Last Admin: 01/07/19 17:50 Dose: 100 mg - Labs Labs: 01/07/19 07:35 01/07/19 07:35 - Constitutional Appears: Well - Head Exam Head Exam: ATRAUMATIC, NORMAL INSPECTION, NORMOCEPHALIC - Eye Exam Eye Exam: EOMI, Normal appearance, PERRL Pupil Exam: NORMAL ACCOMODATION, PERRL - ENT Exam ENT Exam: Mucous Membranes Moist, Normal Exam - Neck Exam Neck Exam: Full ROM - Respiratory Exam Respiratory Exam: Clear to Ausculation Bilateral, NORMAL BREATHING PATTERN - Cardiovascular Exam Cardiovascular Exam: REGULAR RHYTHM - GI/Abdominal Exam GI & Abdominal Exam: Normal Bowel Sounds - Rectal Exam Rectal Exam: NORMAL INSPECTION - Exam External exam: NORMAL EXTERNAL EXAM - Extremities Exam Extremities Exam: Full ROM, Normal Inspection - Back Exam Back Exam: NORMAL INSPECTION - Neurological Exam Neurological Exam: Alert Neuro motor strength exam: Left Upper Extremity: 3, Right Upper Extremity: 3, Left Lower Extremity: 2/1 (brace , ), Right Lower Extremity: 3 - Psychiatric Exam Psychiatric exam: Normal Affect - Skin Skin Exam: Dry, Normal Color Assessment and Plan (1) Ankle fracture Assessment & Plan: patient with new brace for left ankle as compared to the other short leg cast, team conference for am, status post therapy program Status: Acute (2) Asthma exacerbation Status: Acute (3) Back strain Status: Acute (4) Breakthrough seizure Status: Acute
--- NOTE | 2019-01-07 20:51 | CP.PCM.PN ---
Subjective - Date & Time of Evaluation Date of Evaluation: 01/05/19 Time of Evaluation: 12:30 - Subjective Subjective: no acute complaints at present Objective - Vital Signs/Intake and Output Vital Signs (last 24 hours): Temp Pulse Resp BP Pulse Ox 97.4 F L 100 H 20 122/75 100 01/07/19 20:07 01/07/19 20:07 01/07/19 20:07 01/07/19 20:07 01/07/19 20:07 - Medications Medications: Current Medications Acetaminophen (Tylenol 325mg Tab) 325 mg PO Q4 PRN PRN Reason: Pain, Mild (1-3) Last Admin: 01/05/19 10:43 Dose: 325 mg Acetylcysteine (Acetylcysteine 20%) 2 ml INH RBID CURT Last Admin: 01/07/19 19:00 Dose: 2 ml Albuterol/Ipratropium (Duoneb 3 Mg/0.5 Mg (3 Ml) Ud) 3 ml INH RQ6 PRN PRN Reason: Shortness of Breath Albuterol/Ipratropium (Duoneb 3 Mg/0.5 Mg (3 Ml) Ud) 3 ml INH RQ6 CURT Last Admin: 01/07/19 19:00 Dose: 3 ml Atorvastatin Calcium (Lipitor) 10 mg PO DIN [facility] Last Admin: 01/07/19 16:50 Dose: 10 mg Benzocaine/Menthol (Cepacol Sore Throat) 1 cullen PO Q1 PRN PRN Reason: Sore Throat Last Admin: 01/07/19 01:13 Dose: 1 cullen Clindamycin HCl (Cleocin) 300 mg PO Q8 [facility]; Protocol Last Admin: 01/07/19 13:22 Dose: 300 mg Diazepam (Valium) 5 mg PO HS [facility] Last Admin: 01/06/19 21:17 Dose: Not Given Docusate Sodium (Colace) 100 mg PO BID [facility] Last Admin: 01/07/19 16:50 Dose: 100 mg Enoxaparin Sodium (Lovenox) 40 mg SC DAILY [facility]; Protocol Last Admin: 01/07/19 09:10 Dose: 40 mg Famotidine (Pepcid) 40 mg PO DAILY PRN PRN Reason: ACID REFLUX Last Admin: 01/06/19 12:01 Dose: 40 mg Home Med (Patient's Own Medication) 1 unit PO DAILY [facility] Last Admin: 01/07/19 09:07 Dose: 1 unit Home Med (Patient's Own Medication) 3 unit PO Q12 [facility] Last Admin: 01/07/19 09:07 Dose: 3 unit Home Med (Patient's Own Medication) 1 unit PO Q12 [facility] Last Admin: 01/07/19 09:07 Dose: 1 unit Lactobacillus Acidophilus (Bacid Acidophilus) 1 cap PO DAILY [facility] Last Admin: 01/07/19 09:14 Dose: 1 cap Lorazepam (Ativan) 1 mg PO Q4 PRN PRN Reason: Agitation Magnesium Hydroxide (Milk Of Magnesia) 15 ml PO Q6 PRN PRN Reason: Constipation Mometasone Furoate (Asmanex Twisthaler 220 Mcg) 1 puff INH DAILY [facility] Last Admin: 01/07/19 09:09 Dose: 1 puff Oxycodone/Acetaminophen (Percocet 5/325 Mg Tab) 2 tab PO Q6 PRN PRN Reason: Pain, severe (8-10) Stop: 01/09/19 20:42 Last Admin: 01/07/19 08:58 Dose: 2 tab Oxycodone/Acetaminophen (Percocet 5/325 Mg Tab) 1 tab PO Q6 PRN PRN Reason: Pain, moderate (4-7) Stop: 01/09/19 20:42 Pantoprazole Sodium (Protonix Ec Tab) 40 mg PO DAILY [facility] Last Admin: 01/07/19 09:07 Dose: 40 mg Promethazine HCl/Dextromethorphan (Phenergan Dm Syrup) 10 ml PO Q6 PRN PRN Reason: Cough Last Admin: 01/06/19 17:29 Dose: 10 ml Sumatriptan Succinate (Imitrex Tab) 100 mg PO DAILY PRN PRN Reason: Migraine headache Last Admin: 01/07/19 17:50 Dose: 100 mg - Labs Labs: 01/07/19 07:35 01/07/19 07:35 - Constitutional Appears: Well - Head Exam Head Exam: ATRAUMATIC, NORMAL INSPECTION, NORMOCEPHALIC - Eye Exam Eye Exam: EOMI, Normal appearance Pupil Exam: NORMAL ACCOMODATION, PERRL - ENT Exam ENT Exam: Mucous Membranes Moist, Normal Exam - Neck Exam Neck Exam: Full ROM - Respiratory Exam Respiratory Exam: Clear to Ausculation Bilateral, NORMAL BREATHING PATTERN - Cardiovascular Exam Cardiovascular Exam: REGULAR RHYTHM - GI/Abdominal Exam GI & Abdominal Exam: Normal Bowel Sounds - Rectal Exam Rectal Exam: NORMAL INSPECTION - Exam External exam: NORMAL EXTERNAL EXAM - Back Exam Back Exam: NORMAL INSPECTION - Neurological Exam Neurological Exam: Alert, Awake Neuro motor strength exam: Left Upper Extremity: 3, Right Upper Extremity: 3, Left Lower Extremity: 2/1, Right Lower Extremity: 3 - Psychiatric Exam Psychiatric exam: Normal Affect Assessment and Plan (1) Ankle fracture Assessment & Plan: plan to continue with physical, occupational and rec therapy, podiatry follow up Status: Acute (2) Asthma exacerbation Status: Acute (3) Back strain Status: Acute (4) Breakthrough seizure Status: Acute
[2019-01-07] MEDS: Famotidine 40 MG/5 ML PO PRN (21:59)
[2019-01-07] MEDS ORDERED: Alum-Mag Hydrox-Simethicone Susp (30 mL) PO ONE (23:12)
[2019-01-08] MEDS: Albuterol-Ipratrop 3 mg / 0.5 (3 ml) UD INH SCH ×4 (01:11→19:12)
--- NOTE | 2019-01-08 06:37 | CP.PCM.PN ---
Subjective - Date & Time of Evaluation Date of Evaluation: 01/08/19 Time of Evaluation: 08:00 - Subjective Subjective: Patient seen and examined today. No acute event overnight. Patient still complaining of cough, which is being taken care of with Dr Watson. Otherwise patient report mod pain in her leg that improve with percocet but would like to take less percocet for now. No other complaints Objective - Vital Signs/Intake and Output Vital Signs (last 24 hours): Temp Pulse Resp BP Pulse Ox 97.4 F L 100 H 20 122/75 100 01/07/19 20:07 01/07/19 20:07 01/07/19 20:07 01/07/19 20:07 01/07/19 20:07 - Medications Medications: Current Medications Acetaminophen (Tylenol 325mg Tab) 325 mg PO Q4 PRN PRN Reason: Pain, Mild (1-3) Last Admin: 01/05/19 10:43 Dose: 325 mg Acetylcysteine (Acetylcysteine 20%) 2 ml INH RBID CURT Last Admin: 01/07/19 19:00 Dose: 2 ml Albuterol/Ipratropium (Duoneb 3 Mg/0.5 Mg (3 Ml) Ud) 3 ml INH RQ6 PRN PRN Reason: Shortness of Breath Albuterol/Ipratropium (Duoneb 3 Mg/0.5 Mg (3 Ml) Ud) 3 ml INH RQ6 [facility] Last Admin: 01/08/19 01:11 Dose: 3 ml Atorvastatin Calcium (Lipitor) 10 mg PO DIN [facility] Last Admin: 01/07/19 16:50 Dose: 10 mg Benzocaine/Menthol (Cepacol Sore Throat) 1 cullen PO Q1 PRN PRN Reason: Sore Throat Last Admin: 01/07/19 01:13 Dose: 1 cullen Clindamycin HCl (Cleocin) 300 mg PO Q8 [facility]; Protocol Last Admin: 01/07/19 21:48 Dose: 300 mg Diazepam (Valium) 5 mg PO HS [facility] Last Admin: 01/07/19 21:49 Dose: Not Given Docusate Sodium (Colace) 100 mg PO BID [facility] Last Admin: 01/07/19 16:50 Dose: 100 mg Enoxaparin Sodium (Lovenox) 40 mg SC DAILY [facility]; Protocol Last Admin: 01/07/19 09:10 Dose: 40 mg Famotidine (Pepcid) 40 mg PO DAILY PRN PRN Reason: ACID REFLUX Last Admin: 01/07/19 21:59 Dose: 40 mg Home Med (Patient's Own Medication) 1 unit PO DAILY [facility] Last Admin: 01/07/19 09:07 Dose: 1 unit Home Med (Patient's Own Medication) 3 unit PO Q12 [facility] Last Admin: 01/07/19 21:48 Dose: 3 unit Home Med (Patient's Own Medication) 1 unit PO Q12 [facility] Last Admin: 01/07/19 21:48 Dose: 1 unit Lactobacillus Acidophilus (Bacid Acidophilus) 1 cap PO DAILY [facility] Last Admin: 01/07/19 09:14 Dose: 1 cap Lorazepam (Ativan) 1 mg PO Q4 PRN PRN Reason: Agitation Magnesium Hydroxide (Milk Of Magnesia) 15 ml PO Q6 PRN PRN Reason: Constipation Mometasone Furoate (Asmanex Twisthaler 220 Mcg) 1 puff INH DAILY [facility] Last Admin: 01/07/19 09:09 Dose: 1 puff Oxycodone/Acetaminophen (Percocet 5/325 Mg Tab) 2 tab PO Q6 PRN PRN Reason: Pain, severe (8-10) Stop: 01/09/19 20:42 Last Admin: 01/07/19 23:35 Dose: 2 tab Oxycodone/Acetaminophen (Percocet 5/325 Mg Tab) 1 tab PO Q6 PRN PRN Reason: Pain, moderate (4-7) Stop: 01/09/19 20:42 Pantoprazole Sodium (Protonix Ec Tab) 40 mg PO DAILY [facility] Last Admin: 01/07/19 09:07 Dose: 40 mg Promethazine HCl/Dextromethorphan (Phenergan Dm Syrup) 10 ml PO Q6 PRN PRN Reason: Cough Last Admin: 01/06/19 17:29 Dose: 10 ml Sumatriptan Succinate (Imitrex Tab) 100 mg PO DAILY PRN PRN Reason: Migraine headache Last Admin: 01/07/19 17:50 Dose: 100 mg - Labs Labs: 01/07/19 07:35 01/07/19 07:35 Assessment and Plan - Assessment and Plan (Free Text) Assessment: 48 yo female with Hx of seizure, Left sided paralysis, asthma, brain tumor brou ght by to ED due to having a episode of seizure which have caused a left ankle fracture with ORIF. X-rays obtained: acute fracture of the distal fibula, small non-ossifying fibroma or possible bone infarct seen distal metaphysis of the tibia CT of the left ankle shows small joint effusion along with oblique fracture of the distal fibula Fibular fracture S/p rehab, in Acute rehab Podiatry on case Continue PT/OT recommendation on Percocet for pain 2 tab for severe, 1 for mod URI Patient report cough, with chest tightness On phenergan X-ray negative Seizure Chronic, stable, no change CT scan no change Continue keppra 1000mg Q12h Asthma Continue home medication Migraine Continue home medication Diet Regular diet DVT Lovenox 40SC .
[2019-01-08] MEDS: Acetylcysteine 20% Inhal Soln (4ml) INH SCH ×2 (07:24→19:12)
[2019-01-08] MEDS: Mometasone 220 mcg/puff-14 puff Inh INH SCH (08:38)
[2019-01-08] MEDS: Lactobacillus Acidophilus 500 MU Cap PO SCH (08:38)
[2019-01-08] MEDS: Enoxaparin 40 mg Syringe SC SCH (08:42)
[2019-01-08] MEDS: CLARINEX D PO SCH ×2 (08:43→21:38)
[2019-01-08] MEDS: CALCIUM MAGNESIUM ZINC PO SCH (08:43)
[2019-01-08] MEDS: Pantoprazole 40 mg EC Tab PO SCH (08:43)
[2019-01-08] MEDS: KEPPRA 500 MG PO SCH ×2 (08:43→21:37)
[2019-01-08] MEDS: Famotidine 40 MG/5 ML PO PRN (08:44)
--- NOTE | 2019-01-08 08:50 | CP.PCM.PN ---
Subjective - Date & Time of Evaluation Date of Evaluation: 01/08/19 Time of Evaluation: 08:51 - Subjective Subjective: C/O COUGH WITH SORETHROAT AND BROWN SPUTUM X SEVERAL DAYS ALL WORKUP HAS BEEN NON-REVEALING Objective - Vital Signs/Intake and Output Vital Signs (last 24 hours): Temp Pulse Resp BP Pulse Ox 97.5 F L 87 22 110/72 97 01/08/19 07:57 01/08/19 07:57 01/08/19 07:57 01/08/19 07:57 01/08/19 07:57 - Medications Medications: Current Medications Acetaminophen (Tylenol 325mg Tab) 325 mg PO Q4 PRN PRN Reason: Pain, Mild (1-3) Last Admin: 01/05/19 10:43 Dose: 325 mg Acetylcysteine (Acetylcysteine 20%) 2 ml INH RBID CURT Last Admin: 01/08/19 07:24 Dose: 2 ml Albuterol/Ipratropium (Duoneb 3 Mg/0.5 Mg (3 Ml) Ud) 3 ml INH RQ6 PRN PRN Reason: Shortness of Breath Albuterol/Ipratropium (Duoneb 3 Mg/0.5 Mg (3 Ml) Ud) 3 ml INH RQ6 [facility] Last Admin: 01/08/19 07:24 Dose: 3 ml Atorvastatin Calcium (Lipitor) 10 mg PO DIN [facility] Last Admin: 01/07/19 16:50 Dose: 10 mg Benzocaine/Menthol (Cepacol Sore Throat) 1 cullen PO Q1 PRN PRN Reason: Sore Throat Last Admin: 01/07/19 01:13 Dose: 1 cullen Clindamycin HCl (Cleocin) 300 mg PO Q8 [facility]; Protocol Last Admin: 01/08/19 08:30 Dose: 300 mg Diazepam (Valium) 5 mg PO HS [facility] Last Admin: 01/07/19 21:49 Dose: Not Given Docusate Sodium (Colace) 100 mg PO BID [facility] Last Admin: 01/08/19 08:43 Dose: 100 mg Enoxaparin Sodium (Lovenox) 40 mg SC DAILY [facility]; Protocol Last Admin: 01/08/19 08:42 Dose: 40 mg Famotidine (Pepcid) 40 mg PO DAILY PRN PRN Reason: ACID REFLUX Last Admin: 01/08/19 08:44 Dose: 40 mg Home Med (Patient's Own Medication) 1 unit PO DAILY [facility] Last Admin: 01/08/19 08:43 Dose: 1 unit Home Med (Patient's Own Medication) 3 unit PO Q12 [facility] Last Admin: 01/08/19 08:43 Dose: 3 unit Home Med (Patient's Own Medication) 1 unit PO Q12 [facility] Last Admin: 01/08/19 08:43 Dose: 1 unit Lactobacillus Acidophilus (Bacid Acidophilus) 1 cap PO DAILY [facility] Last Admin: 01/08/19 08:38 Dose: 1 cap Lorazepam (Ativan) 1 mg PO Q4 PRN PRN Reason: Agitation Magnesium Hydroxide (Milk Of Magnesia) 15 ml PO Q6 PRN PRN Reason: Constipation Mometasone Furoate (Asmanex Twisthaler 220 Mcg) 1 puff INH DAILY [facility] Last Admin: 01/08/19 08:38 Dose: 1 puff Oxycodone/Acetaminophen (Percocet 5/325 Mg Tab) 2 tab PO Q6 PRN PRN Reason: Pain, severe (8-10) Stop: 01/09/19 20:42 Last Admin: 01/07/19 23:35 Dose: 2 tab Oxycodone/Acetaminophen (Percocet 5/325 Mg Tab) 1 tab PO Q6 PRN PRN Reason: Pain, moderate (4-7) Stop: 01/09/19 20:42 Pantoprazole Sodium (Protonix Ec Tab) 40 mg PO DAILY [facility] Last Admin: 01/08/19 08:43 Dose: 40 mg Promethazine HCl/Dextromethorphan (Phenergan Dm Syrup) 10 ml PO Q6 PRN PRN Reason: Cough Last Admin: 01/06/19 17:29 Dose: 10 ml Sumatriptan Succinate (Imitrex Tab) 100 mg PO DAILY PRN PRN Reason: Migraine headache Last Admin: 01/07/19 17:50 Dose: 100 mg - Labs Labs: 01/07/19 07:35 01/07/19 07:35 - Constitutional Appears: Chronically Ill - Head Exam Head Exam: ATRAUMATIC, NORMAL INSPECTION, NORMOCEPHALIC - Eye Exam Eye Exam: EOMI, Normal appearance, PERRL Pupil Exam: NORMAL ACCOMODATION, PERRL - ENT Exam ENT Exam: Mucous Membranes Moist, Normal Exam - Neck Exam Neck Exam: Full ROM, Normal Inspection. absent: Lymphadenopathy - Respiratory Exam Respiratory Exam: Prolonged Expiratory Phase, Wheezes, NORMAL BREATHING PATTERN - Cardiovascular Exam Cardiovascular Exam: REGULAR RHYTHM, +S1, +S2. absent: Murmur - GI/Abdominal Exam GI & Abdominal Exam: Soft, Normal Bowel Sounds. absent: Tenderness - Rectal Exam Rectal Exam: NORMAL INSPECTION - Extremities Exam Extremities Exam: Full ROM, Normal Capillary Refill. absent: Joint Swelling, Pedal Edema Additional comments: L LEG IN A BOOT - Back Exam Back Exam: NORMAL INSPECTION - Neurological Exam Neurological Exam: Alert, Awake, CN II-XII Intact, Normal Gait, Oriented x3 - Psychiatric Exam Psychiatric exam: Normal Affect, Normal Mood - Skin Skin Exam: Dry, Intact, Normal Color, Warm Assessment and Plan - Assessment and Plan (Free Text) Assessment: ACUTE ASTHMA UR Plan: CONTINUE RX ORDERED
--- NOTE | 2019-01-08 12:31 | PCM.PSYTMC ---
Acute Rehab Team Conference - - Vital Signs: Vital Signs (Last 8 Hours): Vital Signs 01/08/19 07:57 Temperature 97.5 F L Pulse Rate 87 Respiratory 22 Rate Blood Pressure 110/72 O2 Sat by Pulse 97 Oximetry Pain: 0 - Precautions: Precautions: Fall Prevention, Seizure - Medications/Other Issues: Comment: On Minna Javed - Consults: Comment: Pulmo: seen 01/08. Neuro. Dr. Wright psychiatrist - Skin: Incision Line Treatment: left leg dressing, cam boot AAT - Toileting: Toileting: Minimal Assistance - Bladder Management: Bladder Pattern: Normal Voiding Method: Toilet, Bedside Commode Bladder Management: Minimal Assistance - Transfers: Transfers: Minimal Assistance - ADL's: ADL's: Minimal Assistance - Pain Management: Other Intervention:: on percocet for pain as needed - Patient/Family Teaching: Other Intervention:: safety measures, seizure precaution, medications usage - Goals/Time Frame: Comment: be home with less pain, seizure prevention as possible - Provider: Registered Nurse:: Aster Gonzales Physical Therapy - Bed Mobility Bed Mobility: Verbal Cues, Contact Guard - Transfers Wheelchair to Mat: Verbal Cues, Minimal Assistance Sit to Stand: Verbal Cues, Contact Guard - Ambulation Level of Assistance: Verbal Cues, Contact Guard Distance (ft.): 20 Assistive Devices: Rolling Walker Orthoses: CAM boot to LLE NWB - Standing Balance Static Stand: Contact Guard Assist - Pain Pain (assessed during therapy session): 8 Alleviating Techniques: Medication, Position Change, Elevation Comment: Pain in LLE - Insight/Carryover Insight/Carryover: Good - Patient/Family Education Comment: Safety, weightbearing precautions, POC - Assessment/Plan Assessment: Pt is actively participating in PT tx session focusing on BLE strengthening exercises, endurance activities, and functional mobility training. Pt currently requires CGA for bed mobility and transfers, CGA for hopping with RW, supervision for WC mobility. Pt is NWB LLE, wears CAM boot per podiatry. Pt will continue to benefit from skilled PT interventions to address deficits, reduce fall risk, and maximize functional independence. - Goals Timeframe: 2 weeks Goals: Sit < > supine mod I. Sit < > stand transfers mod I with RW. Pt will ambulate 50 ft with RW mod I. Pt will propel WC 150 ft mod I. Pt will negotiate 2 stairs with min A - Provider Physical Therapist:: Kat Negron License Number:: [id number] Occupational Therapy - Arousal/Attention/Orientation Level of Consciousness: Awake, Alert Patient Orientation: Person, Place, Time - ADL/IADL Self Feeding: Set-up Help Grooming: Set-up Help Bathing-Upper Ext: Set-up Help Bathing-Lower Ext: Contact Guard Dressing-Lower Ext: Set-up Help Homemaking: Contact Guard Comment: patient uses tub transfer bench during bathing - Sitting Balance Static Sitting: Independent without upper extremity support Dynamic Sitting: Requires supervision - Transfers Wheelchair to Bed Transfers: Contact Guard Toilet Transfers: Contact Guard Tub Transfers: Verbal Cues, Contact Guard - Wheelchair Management Level of Assistance: Supervision, Verbal Cues Distance (ft.): 150 - Upper Extremity Status Right Upper Extremity Comment: AROM WFLs. strength WFLs Left Upper Extremity Comment: AROM WFLs. impaired gross motor/fine motro coordination from previous brain surgeru - Pain Pain (assessed during therapy session): 7 Alleviating Techniques: Medication, Position Change Comment: intermittent pain in L LE - Insight/Carryover Insight/Carryover: Good - Patient/Family Education Comment: weight bearing status, therapy schedule, role of OT, plan of care, d/c planning, ae/dme education - Assessment/Plan Assessment: patient is a 49 yo female with h/o atypical seziures , who presents to [facility] s/p fall resulting in Left fibular fracture. patient is s/p L ORIF. patient presents with pain in LLE, non weight bearing status LLE, impaired dynamic standing balance, impaired acitvity tolerance, impaired LUE sensation , gross motor/fine motor coordination from previous brain surgery , impaired knowledge of adaptive/compnesatory techs. patient also with increased anxiety levels. At this time pt completes functional transfers with CS/CGA, ub adls witrh set up assist and lb adls with overall cga, and toileting with cga. patient educated on usage/application of appropriate dme/ae. recommended dme: tub transfer bench, 3 in 1 commode , w/c and rw - Goals Comment: goal: intermittent supervision with bathing/iadls - Provider Occupational Therapist:: Jessi Limon License Number: [id number] Speech Therapy - Consult Information Patient on Program: Yes Medical Diagnosis: Seizures Treatment Diagnosis: Cognitive Communication Impairment - Assessment Problem Solving Impairment: Mild Memory Impairment: Mild - Plan Assessment: Ms De Luna currently presnets with a mild cognitive communication imapirment characterized by deficits in the areas of high level reasoning, high level problem solving, and high level executive function/ attention skills. Plan: Continue Speech/Language Therapy Frequency: 3-5 times per week Duration: 1 week - Provider Therapist: Idania Machado License Number: [id number] Recreational Therapy - Participation Participation: Participates in Individual and/or Group Sessions - Attendance Attendance: 3-5 times per week - Activities Leisure Activities: Cards and Games - Socialization Level of Socialization: Initiates/interacts freely with care givers and peer - Diversional Time Diversional Time: television, music, word searches, games - Assessment Assessment/Plan: Pt is agreeable to participate in 1:1 recreation therapy sessions throughout stay on unit. Pt was oriented to tapple task and carried over task rules. Pt was mod I with task as pt required extended time to initate responses related to categories. Pt was presented with word searches to complete during her free time for diversion. Pt will continue to benefit from participating in recreation therapy sessions throughout stay on unit. Problems Currently Limiting Participation: pain, NWB L LE, L side paralysis, seizure precautions Goals and Time Frame: Pt will tolerate participating in 30 minutes of recreation therapy session with mod I by date of discharge. - Provider Therapist: Louise Cuellar Nutrition - Current Diet Current Diet/Supplement/Feedings: Regular Diet - Appetite Percent Meal Consumed: 50-74% - Comments Comments: Pt complains of constipation - Assessment/Goals/Time Frame Assessments/Goals/Time Frame: 1) Pt to consume at least 75% meals without GI upset x 5-7 days. 2) Pt weight to remain stable within 3# x 5-7 days, with lo sses of 0.5-1#/week welcomed upon discharge. Follow up 01/14 - Provider Provider: Angel Gill Case Management - Psychosocial Assessment Support Systems: Leo Jacobson (significant other) - [phone] Psychological Interventions/Needs: Patient is AAO and able to verbalize needs. Discharge Concerns: Patient is NWB to LLE and will require asist. Patient also has a history of seizures and chronic L sided weakness. Patient/Family Meeting: CM met with patient and rehab team. Intervention/Goal/Outcome: 1. Goal: Intermittent supervision 2. Plan: home with VNS 3. schedule f/u appts 4. DME needs 5. continued emotional support - Discharge Plan Discharge Plan: Home with services - Provider Provider: Jodi Velasco License Number: [id number] Rehabilitation Plan - Treatment Plan Treatment Plan: Physical Therapy, Occupational Therapy, Speech, Dietary, Patient/Family Education - Discharge Plan Discharge to: Home (DC 4)
--- NOTE | 2019-01-08 13:27 | CP.PCM.PN ---
Subjective - Date & Time of Evaluation Date of Evaluation: 01/08/19 Time of Evaluation: 13:27 Objective - Vital Signs/Intake and Output Vital Signs (last 24 hours): Temp Pulse Resp BP Pulse Ox 97.5 F L 87 22 110/72 97 01/08/19 07:57 01/08/19 07:57 01/08/19 07:57 01/08/19 07:57 01/08/19 07:57 - Medications Medications: Current Medications Acetaminophen (Tylenol 325mg Tab) 325 mg PO Q4 PRN PRN Reason: Pain, Mild (1-3) Last Admin: 01/05/19 10:43 Dose: 325 mg Acetylcysteine (Acetylcysteine 20%) 2 ml INH RBID CURT Last Admin: 01/08/19 07:24 Dose: 2 ml Albuterol/Ipratropium (Duoneb 3 Mg/0.5 Mg (3 Ml) Ud) 3 ml INH RQ6 PRN PRN Reason: Shortness of Breath Albuterol/Ipratropium (Duoneb 3 Mg/0.5 Mg (3 Ml) Ud) 3 ml INH RQ6 [facility] Last Admin: 01/08/19 13:15 Dose: 3 ml Atorvastatin Calcium (Lipitor) 10 mg PO DIN [facility] Last Admin: 01/07/19 16:50 Dose: 10 mg Benzocaine/Menthol (Cepacol Sore Throat) 1 cullen PO Q1 PRN PRN Reason: Sore Throat Last Admin: 01/07/19 01:13 Dose: 1 cullen Benzonatate (Tessalon Perles) 200 mg PO Q8 PRN PRN Reason: Cough Clindamycin HCl (Cleocin) 300 mg PO Q8 [facility]; Protocol Last Admin: 01/08/19 08:30 Dose: 300 mg Diazepam (Valium) 5 mg PO HS [facility] Last Admin: 01/07/19 21:49 Dose: Not Given Docusate Sodium (Colace) 100 mg PO BID [facility] Last Admin: 01/08/19 08:43 Dose: 100 mg Enoxaparin Sodium (Lovenox) 40 mg SC DAILY [facility]; Protocol Last Admin: 01/08/19 08:42 Dose: 40 mg Famotidine (Pepcid) 40 mg PO DAILY PRN PRN Reason: ACID REFLUX Last Admin: 01/08/19 08:44 Dose: 40 mg Home Med (Patient's Own Medication) 1 unit PO DAILY [facility] Last Admin: 01/08/19 08:43 Dose: 1 unit Home Med (Patient's Own Medication) 3 unit PO Q12 [facility] Last Admin: 01/08/19 08:43 Dose: 3 unit Home Med (Patient's Own Medication) 1 unit PO Q12 [facility] Last Admin: 01/08/19 08:43 Dose: 1 unit Lactobacillus Acidophilus (Bacid Acidophilus) 1 cap PO DAILY [facility] Last Admin: 01/08/19 08:38 Dose: 1 cap Lorazepam (Ativan) 1 mg PO Q4 PRN PRN Reason: Agitation Magnesium Hydroxide (Milk Of Magnesia) 15 ml PO Q6 PRN PRN Reason: Constipation Mometasone Furoate (Asmanex Twisthaler 220 Mcg) 1 puff INH DAILY [facility] Last Admin: 01/08/19 08:38 Dose: 1 puff Oxycodone/Acetaminophen (Percocet 5/325 Mg Tab) 2 tab PO Q6 PRN PRN Reason: Pain, severe (8-10) Stop: 01/09/19 20:42 Last Admin: 01/07/19 23:35 Dose: 2 tab Oxycodone/Acetaminophen (Percocet 5/325 Mg Tab) 1 tab PO Q6 PRN PRN Reason: Pain, moderate (4-7) Stop: 01/09/19 20:42 Pantoprazole Sodium (Protonix Ec Tab) 40 mg PO DAILY [facility] Last Admin: 01/08/19 08:43 Dose: 40 mg Promethazine HCl/Dextromethorphan (Phenergan Dm Syrup) 10 ml PO Q6 PRN PRN Reason: Cough Last Admin: 01/06/19 17:29 Dose: 10 ml Sumatriptan Succinate (Imitrex Tab) 100 mg PO DAILY PRN PRN Reason: Migraine headache Last Admin: 01/07/19 17:50 Dose: 100 mg - Labs Labs: 01/07/19 07:35 01/07/19 07:35
--- NOTE | 2019-01-08 13:35 | CP.PCM.PN ---
Subjective - Date & Time of Evaluation Date of Evaluation: 01/08/19 Time of Evaluation: 11:30 - Subjective Subjective: no acute complaints of leg pain Objective - Vital Signs/Intake and Output Vital Signs (last 24 hours): Temp Pulse Resp BP Pulse Ox 97.5 F L 87 22 110/72 97 01/08/19 07:57 01/08/19 07:57 01/08/19 07:57 01/08/19 07:57 01/08/19 07:57 - Medications Medications: Current Medications Acetaminophen (Tylenol 325mg Tab) 325 mg PO Q4 PRN PRN Reason: Pain, Mild (1-3) Last Admin: 01/05/19 10:43 Dose: 325 mg Acetylcysteine (Acetylcysteine 20%) 2 ml INH RBID [facility] Last Admin: 01/08/19 07:24 Dose: 2 ml Albuterol/Ipratropium (Duoneb 3 Mg/0.5 Mg (3 Ml) Ud) 3 ml INH RQ6 PRN PRN Reason: Shortness of Breath Albuterol/Ipratropium (Duoneb 3 Mg/0.5 Mg (3 Ml) Ud) 3 ml INH RQ6 [facility] Last Admin: 01/08/19 13:15 Dose: 3 ml Atorvastatin Calcium (Lipitor) 10 mg PO DIN [facility] Last Admin: 01/07/19 16:50 Dose: 10 mg Benzocaine/Menthol (Cepacol Sore Throat) 1 cullen PO Q1 PRN PRN Reason: Sore Throat Last Admin: 01/07/19 01:13 Dose: 1 cullen Benzonatate (Tessalon Perles) 200 mg PO Q8 PRN PRN Reason: Cough Clindamycin HCl (Cleocin) 300 mg PO Q8 [facility]; Protocol Last Admin: 01/08/19 08:30 Dose: 300 mg Diazepam (Valium) 5 mg PO HS [facility] Last Admin: 01/07/19 21:49 Dose: Not Given Docusate Sodium (Colace) 100 mg PO BID [facility] Last Admin: 01/08/19 08:43 Dose: 100 mg Enoxaparin Sodium (Lovenox) 40 mg SC DAILY [facility]; Protocol Last Admin: 01/08/19 08:42 Dose: 40 mg Famotidine (Pepcid) 40 mg PO DAILY PRN PRN Reason: ACID REFLUX Last Admin: 01/08/19 08:44 Dose: 40 mg Home Med (Patient's Own Medication) 1 unit PO DAILY [facility] Last Admin: 01/08/19 08:43 Dose: 1 unit Home Med (Patient's Own Medication) 3 unit PO Q12 [facility] Last Admin: 01/08/19 08:43 Dose: 3 unit Home Med (Patient's Own Medication) 1 unit PO Q12 [facility] Last Admin: 01/08/19 08:43 Dose: 1 unit Lactobacillus Acidophilus (Bacid Acidophilus) 1 cap PO DAILY [facility] Last Admin: 01/08/19 08:38 Dose: 1 cap Lorazepam (Ativan) 1 mg PO Q4 PRN PRN Reason: Agitation Magnesium Hydroxide (Milk Of Magnesia) 15 ml PO Q6 PRN PRN Reason: Constipation Mometasone Furoate (Asmanex Twisthaler 220 Mcg) 1 puff INH DAILY [facility] Last Admin: 01/08/19 08:38 Dose: 1 puff Oxycodone/Acetaminophen (Percocet 5/325 Mg Tab) 2 tab PO Q6 PRN PRN Reason: Pain, severe (8-10) Stop: 01/09/19 20:42 Last Admin: 01/07/19 23:35 Dose: 2 tab Oxycodone/Acetaminophen (Percocet 5/325 Mg Tab) 1 tab PO Q6 PRN PRN Reason: Pain, moderate (4-7) Stop: 01/09/19 20:42 Pantoprazole Sodium (Protonix Ec Tab) 40 mg PO DAILY [facility] Last Admin: 01/08/19 08:43 Dose: 40 mg Promethazine HCl/Dextromethorphan (Phenergan Dm Syrup) 10 ml PO Q6 PRN PRN Reason: Cough Last Admin: 01/06/19 17:29 Dose: 10 ml Sumatriptan Succinate (Imitrex Tab) 100 mg PO DAILY PRN PRN Reason: Migraine headache Last Admin: 01/07/19 17:50 Dose: 100 mg - Labs Labs: 01/07/19 07:35 01/07/19 07:35 - Constitutional Appears: Well - Head Exam Head Exam: ATRAUMATIC, NORMAL INSPECTION, NORMOCEPHALIC - Eye Exam Eye Exam: EOMI, Normal appearance, PERRL Pupil Exam: NORMAL ACCOMODATION, PERRL - ENT Exam ENT Exam: Mucous Membranes Moist, Normal Exam - Neck Exam Neck Exam: Full ROM, Normal Inspection - Respiratory Exam Respiratory Exam: Clear to Ausculation Bilateral, NORMAL BREATHING PATTERN - Cardiovascular Exam Cardiovascular Exam: REGULAR RHYTHM - GI/Abdominal Exam GI & Abdominal Exam: Soft, Normal Bowel Sounds - Rectal Exam Rectal Exam: NORMAL INSPECTION - Exam External exam: NORMAL EXTERNAL EXAM - Extremities Exam Extremities Exam: Full ROM, Normal Capillary Refill, Normal Inspection - Back Exam Back Exam: NORMAL INSPECTION - Neurological Exam Neurological Exam: Alert Neuro motor strength exam: Left Lower Extremity: 3 (brace) - Psychiatric Exam Psychiatric exam: Normal Affect, Normal Mood - Skin Skin Exam: Dry, Intact Assessment and Plan (1) Ankle fracture Assessment & Plan: Dr Orozco to follow up regarding new brace for the leg, paln for discharge for january 14 Status: Acute (2) Asthma exacerbation Status: Acute (3) Back strain Status: Acute (4) Breakthrough seizure Status: Acute
--- NOTE | 2019-01-08 15:46 | CP.PCM.PN ---
Subjective - Date & Time of Evaluation Date of Evaluation: 01/08/19 Time of Evaluation: 15:43 - Subjective Subjective: Neuro Follow-Up: Ms. De Luna was evaluated this afternoon at bedside. She has been feeling better; has not had any further episodes of lethargy and feeling tired since being off of the Vimpat. She offers no complaints today; is tolerating the therapy well. Pt is concerned that her Keppra XR is running out and she need pre-authorization for refills. ROS today is unremarkable. Objective - Vital Signs/Intake and Output Vital Signs (last 24 hours): Temp Pulse Resp BP Pulse Ox 97.5 F L 87 22 110/72 97 01/08/19 07:57 01/08/19 07:57 01/08/19 07:57 01/08/19 07:57 01/08/19 07:57 - Medications Medications: Current Medications Acetaminophen (Tylenol 325mg Tab) 325 mg PO Q4 PRN PRN Reason: Pain, Mild (1-3) Last Admin: 01/05/19 10:43 Dose: 325 mg Acetylcysteine (Acetylcysteine 20%) 2 ml INH RBID [facility] Last Admin: 01/08/19 07:24 Dose: 2 ml Albuterol/Ipratropium (Duoneb 3 Mg/0.5 Mg (3 Ml) Ud) 3 ml INH RQ6 PRN PRN Reason: Shortness of Breath Albuterol/Ipratropium (Duoneb 3 Mg/0.5 Mg (3 Ml) Ud) 3 ml INH RQ6 [facility] Last Admin: 01/08/19 13:15 Dose: 3 ml Atorvastatin Calcium (Lipitor) 10 mg PO DIN [facility] Last Admin: 01/07/19 16:50 Dose: 10 mg Benzocaine/Menthol (Cepacol Sore Throat) 1 cullen PO Q1 PRN PRN Reason: Sore Throat Last Admin: 01/07/19 01:13 Dose: 1 cullen Benzonatate (Tessalon Perles) 200 mg PO Q8 PRN PRN Reason: Cough Clindamycin HCl (Cleocin) 300 mg PO Q8 [facility]; Protocol Last Admin: 01/08/19 08:30 Dose: 300 mg Diazepam (Valium) 5 mg PO HS [facility] Last Admin: 01/07/19 21:49 Dose: Not Given Docusate Sodium (Colace) 100 mg PO BID [facility] Last Admin: 01/08/19 08:43 Dose: 100 mg Enoxaparin Sodium (Lovenox) 40 mg SC DAILY [facility]; Protocol Last Admin: 01/08/19 08:42 Dose: 40 mg Famotidine (Pepcid) 40 mg PO DAILY PRN PRN Reason: ACID REFLUX Last Admin: 01/08/19 08:44 Dose: 40 mg Home Med (Patient's Own Medication) 1 unit PO DAILY [facility] Last Admin: 01/08/19 08:43 Dose: 1 unit Home Med (Patient's Own Medication) 3 unit PO Q12 [facility] Last Admin: 01/08/19 08:43 Dose: 3 unit Home Med (Patient's Own Medication) 1 unit PO Q12 [facility] Last Admin: 01/08/19 08:43 Dose: 1 unit Lactobacillus Acidophilus (Bacid Acidophilus) 1 cap PO DAILY [facility] Last Admin: 01/08/19 08:38 Dose: 1 cap Lorazepam (Ativan) 1 mg PO Q4 PRN PRN Reason: Agitation Magnesium Hydroxide (Milk Of Magnesia) 15 ml PO Q6 PRN PRN Reason: Constipation Mometasone Furoate (Asmanex Twisthaler 220 Mcg) 1 puff INH DAILY [facility] Last Admin: 01/08/19 08:38 Dose: 1 puff Oxycodone/Acetaminophen (Percocet 5/325 Mg Tab) 2 tab PO Q6 PRN PRN Reason: Pain, severe (8-10) Stop: 01/09/19 20:42 Last Admin: 01/07/19 23:35 Dose: 2 tab Oxycodone/Acetaminophen (Percocet 5/325 Mg Tab) 1 tab PO Q6 PRN PRN Reason: Pain, moderate (4-7) Stop: 01/09/19 20:42 Pantoprazole Sodium (Protonix Ec Tab) 40 mg PO DAILY [facility] Last Admin: 01/08/19 08:43 Dose: 40 mg Promethazine HCl/Dextromethorphan (Phenergan Dm Syrup) 10 ml PO Q6 PRN PRN Reason: Cough Last Admin: 01/06/19 17:29 Dose: 10 ml Sumatriptan Succinate (Imitrex Tab) 100 mg PO DAILY PRN PRN Reason: Migraine headache Last Admin: 01/07/19 17:50 Dose: 100 mg - Labs Labs: 01/07/19 07:35 01/07/19 07:35 - Constitutional Appears: Well, Non-toxic, No Acute Distress - Head Exam Head Exam: NORMAL INSPECTION, NORMOCEPHALIC - Eye Exam Eye Exam: EOMI, Normal appearance Pupil Exam: NORMAL ACCOMODATION - ENT Exam ENT Exam: Mucous Membranes Moist - Neck Exam Neck Exam: Full ROM - Respiratory Exam Respiratory Exam: NORMAL BREATHING PATTERN - Neurological Exam Neurological Exam: Alert, Awake, CN II-XII Intact, Oriented x3 Additional comments: No tremors or abnormal movements. - Psychiatric Exam Psychiatric exam: Normal Affect, Normal Mood - Skin Skin Exam: Normal Color Assessment and Plan (1) Seizure Assessment & Plan: -Continue Keppra XR 1500mg PO BID. -Continue seizure precautions. -I have discussed with Dr. Tilley the need to obtain a pre-authorization to continue her Keppra XR. We have a copy of the paperwork that was sent to the pt and we have sent a copy to our office staff. -Notify neuro of any acute changes. Loren Torres DNP, [employer] d/w Dr. Tilley Status: Chronic
[2019-01-09] MEDS: Albuterol-Ipratrop 3 mg / 0.5 (3 ml) UD INH SCH ×3 (01:05→19:10)
[2019-01-09] MEDS: Mometasone 220 mcg/puff-14 puff Inh INH SCH (08:23)
[2019-01-09] MEDS: Lactobacillus Acidophilus 500 MU Cap PO SCH (08:25)
[2019-01-09] MEDS: Enoxaparin 40 mg Syringe SC SCH (08:27)
[2019-01-09] MEDS: CALCIUM MAGNESIUM ZINC PO SCH (08:28)
[2019-01-09] MEDS: CLARINEX D PO SCH ×2 (08:28→21:40)
[2019-01-09] MEDS: Pantoprazole 40 mg EC Tab PO SCH (08:29)
[2019-01-09] MEDS: Acetylcysteine 20% Inhal Soln (4ml) INH SCH ×2 (08:32→19:10)
[2019-01-09] MEDS: Oxycodone/Acetaminophen 5/325 mg Tab PO PRN (08:33)
[2019-01-09 08:50] LABS: ALB/GLOB RATIO 1.4 (1.0-2.1); ALT/SGPT 40 U/L (9-52); AST/SGOT 31 U/L (14-36); BLOOD UREA NITROGEN 17 mg/dl (7-17); CALCIUM 8.8 mg/dL (8.4-10.2); GFR NON-AFRICAN AMERICAN > 60
--- NOTE | 2019-01-09 09:26 | CP.PCM.PN ---
Subjective - Date & Time of Evaluation Date of Evaluation: 01/09/19 Time of Evaluation: 09:27 - Subjective Subjective: CONTINUES TO COUGH WITH MINIMAL SPUTUM PRODUCTION SPUTUM IS THICK AND TENACEOUS SOB LESS Objective - Vital Signs/Intake and Output Vital Signs (last 24 hours): Temp Pulse Resp BP Pulse Ox 97.3 F L 94 H 20 109/72 99 01/09/19 08:28 01/09/19 08:28 01/09/19 08:28 01/09/19 08:28 01/09/19 08:28 - Medications Medications: Current Medications Acetaminophen (Tylenol 325mg Tab) 325 mg PO Q4 PRN PRN Reason: Pain, Mild (1-3) Last Admin: 01/05/19 10:43 Dose: 325 mg Acetylcysteine (Acetylcysteine 20%) 2 ml INH RBID [facility] Last Admin: 01/09/19 08:32 Dose: 2 ml Albuterol/Ipratropium (Duoneb 3 Mg/0.5 Mg (3 Ml) Ud) 3 ml INH RQ6 PRN PRN Reason: Shortness of Breath Albuterol/Ipratropium (Duoneb 3 Mg/0.5 Mg (3 Ml) Ud) 3 ml INH RQ6 [facility] Last Admin: 01/09/19 08:32 Dose: 3 ml Atorvastatin Calcium (Lipitor) 10 mg PO DIN [facility] Last Admin: 01/08/19 21:38 Dose: 10 mg Benzocaine/Menthol (Cepacol Sore Throat) 1 cullen PO Q1 PRN PRN Reason: Sore Throat Last Admin: 01/07/19 01:13 Dose: 1 cullen Benzonatate (Tessalon Perles) 200 mg PO Q8 PRN PRN Reason: Cough Clindamycin HCl (Cleocin) 300 mg PO Q8 [facility]; Protocol Last Admin: 01/09/19 08:25 Dose: 300 mg Diazepam (Valium) 5 mg PO HS [facility] Last Admin: 01/08/19 21:43 Dose: Not Given Docusate Sodium (Colace) 100 mg PO BID [facility] Last Admin: 01/09/19 08:26 Dose: 100 mg Enoxaparin Sodium (Lovenox) 40 mg SC DAILY [facility]; Protocol Last Admin: 01/09/19 08:27 Dose: 40 mg Famotidine (Pepcid) 40 mg PO DAILY PRN PRN Reason: ACID REFLUX Last Admin: 01/08/19 08:44 Dose: 40 mg Home Med (Patient's Own Medication) 1 unit PO DAILY [facility] Last Admin: 01/09/19 08:28 Dose: 1 unit Home Med (Patient's Own Medication) 3 unit PO Q12 [facility] Last Admin: 01/08/19 21:37 Dose: 3 unit Home Med (Patient's Own Medication) 1 unit PO Q12 [facility] Last Admin: 01/09/19 08:28 Dose: 1 unit Lactobacillus Acidophilus (Bacid Acidophilus) 1 cap PO DAILY [facility] Last Admin: 01/09/19 08:25 Dose: 1 cap Lorazepam (Ativan) 1 mg PO Q4 PRN PRN Reason: Agitation Magnesium Hydroxide (Milk Of Magnesia) 15 ml PO Q6 PRN PRN Reason: Constipation Mometasone Furoate (Asmanex Twisthaler 220 Mcg) 1 puff INH DAILY [facility] Last Admin: 01/09/19 08:23 Dose: 1 puff Oxycodone/Acetaminophen (Percocet 5/325 Mg Tab) 2 tab PO Q6 PRN PRN Reason: Pain, severe (8-10) Stop: 01/09/19 20:42 Last Admin: 01/09/19 08:33 Dose: 2 tab Oxycodone/Acetaminophen (Percocet 5/325 Mg Tab) 1 tab PO Q6 PRN PRN Reason: Pain, moderate (4-7) Stop: 01/09/19 20:42 Pantoprazole Sodium (Protonix Ec Tab) 40 mg PO DAILY [facility] Last Admin: 01/09/19 08:29 Dose: 40 mg Promethazine HCl/Dextromethorphan (Phenergan Dm Syrup) 10 ml PO Q6 PRN PRN Reason: Cough Last Admin: 01/06/19 17:29 Dose: 10 ml Sumatriptan Succinate (Imitrex Tab) 100 mg PO DAILY PRN PRN Reason: Migraine headache Last Admin: 01/07/19 17:50 Dose: 100 mg - Labs Labs: 01/07/19 07:35 01/09/19 07:50 - Constitutional Appears: No Acute Distress - Head Exam Head Exam: ATRAUMATIC, NORMAL INSPECTION, NORMOCEPHALIC - Eye Exam Eye Exam: EOMI, Normal appearance, PERRL Pupil Exam: NORMAL ACCOMODATION, PERRL - ENT Exam ENT Exam: Mucous Membranes Moist, Normal Exam - Neck Exam Neck Exam: Full ROM, Normal Inspection. absent: Lymphadenopathy - Respiratory Exam Respiratory Exam: Prolonged Expiratory Phase, NORMAL BREATHING PATTERN - Cardiovascular Exam Cardiovascular Exam: REGULAR RHYTHM, +S1, +S2. absent: Murmur - GI/Abdominal Exam GI & Abdominal Exam: Soft, Normal Bowel Sounds. absent: Tenderness - Rectal Exam Rectal Exam: NORMAL INSPECTION - Extremities Exam Extremities Exam: Full ROM, Normal Capillary Refill, Normal Inspection. absent: Joint Swelling, Pedal Edema Additional comments: L LEG IN A SPLINT - Back Exam Back Exam: NORMAL INSPECTION - Neurological Exam Neurological Exam: Alert, Awake, CN II-XII Intact, Oriented x3 - Psychiatric Exam Psychiatric exam: Normal Affect, Normal Mood - Skin Skin Exam: Dry, Intact, Normal Color, Warm Assessment and Plan - Assessment and Plan (Free Text) Assessment: ASTHMA Plan: CONTINUE CURRENT RX CHEST PT
[2019-01-09 10:02] LABS: BASO # 0.1 K/uL (0.0-0.2); BASO % 0.6 % (0.0-2.0); EOS # 0.3 K/uL (0.0-0.7); EOS % 2.7 % (0.0-4.0); HEMOGLOBIN 12.3 g/dL (12.0-16.0); LYMPH # 1.9 K/uL (1.0-4.3); LYMPH % 17.9 % (20.0-40.0); MEAN CELL VOLUME 86.3 fl (81.0-99.0); MEAN CORPUSCULAR HEMOGLOBIN 29.2 pg (27.0-31.0); MEAN CORPUSCULAR HGB CONC 33.9 g/dL (33.0-37.0); MEAN PLATELET VOLUME 8.2 fl (7.2-11.7); MONO # 0.6 K/uL (0.0-0.8); MONO % 5.4 % (0.0-10.0); NEUT # 7.6 K/uL (1.8-7.0); NEUT % 73.4 % (50.0-75.0); NRBC % 0.1 % (0.0-0.0); RBC 4.19 Mil/uL (3.80-5.20); RED CELL DISTRIBUTION WIDTH 13.5 % (11.5-14.5); WHITE BLOOD COUNT 10.4 K/uL (4.8-10.8)
--- NOTE | 2019-01-09 10:14 | CP.PCM.PN ---
Subjective - Date & Time of Evaluation Date of Evaluation: 01/09/19 Time of Evaluation: 10:11 - Subjective Subjective: Podiatry progress notes for DR. Patricia: 48 y/o female seen and evaluated 10 days S/P ORIF Left ankle fracture. Patient is AAOx3 and in NAD. Patient was doing nebulizer session during the visit. Patient states that she is still having some pain at the surgery site but well controlled by pain meds. patient denies acute overnight events, denies any other complains at this time. Patient states that she still has dry cough. She denies any recent F/N/V/CP. Objective - Vital Signs/Intake and Output Vital Signs (last 24 hours): Temp Pulse Resp BP Pulse Ox 97.3 F L 94 H 20 109/72 99 01/09/19 08:28 01/09/19 08:28 01/09/19 08:28 01/09/19 08:28 01/09/19 08:28 - Medications Medications: Current Medications Acetaminophen (Tylenol 325mg Tab) 325 mg PO Q4 PRN PRN Reason: Pain, Mild (1-3) Last Admin: 01/05/19 10:43 Dose: 325 mg Acetylcysteine (Acetylcysteine 20%) 2 ml INH RBID [facility] Last Admin: 01/09/19 08:32 Dose: 2 ml Albuterol/Ipratropium (Duoneb 3 Mg/0.5 Mg (3 Ml) Ud) 3 ml INH RQ6 PRN PRN Reason: Shortness of Breath Albuterol/Ipratropium (Duoneb 3 Mg/0.5 Mg (3 Ml) Ud) 3 ml INH RQ6 [facility] Last Admin: 01/09/19 08:32 Dose: 3 ml Atorvastatin Calcium (Lipitor) 10 mg PO DIN [facility] Last Admin: 01/08/19 21:38 Dose: 10 mg Benzocaine/Menthol (Cepacol Sore Throat) 1 cullen PO Q1 PRN PRN Reason: Sore Throat Last Admin: 01/07/19 01:13 Dose: 1 cullen Benzonatate (Tessalon Perles) 200 mg PO Q8 PRN PRN Reason: Cough Clindamycin HCl (Cleocin) 300 mg PO Q8 [facility]; Protocol Last Admin: 01/09/19 08:25 Dose: 300 mg Diazepam (Valium) 5 mg PO HS [facility] Last Admin: 01/08/19 21:43 Dose: Not Given Docusate Sodium (Colace) 100 mg PO BID [facility] Last Admin: 01/09/19 08:26 Dose: 100 mg Enoxaparin Sodium (Lovenox) 40 mg SC DAILY [facility]; Protocol Last Admin: 01/09/19 08:27 Dose: 40 mg Famotidine (Pepcid) 40 mg PO DAILY PRN PRN Reason: ACID REFLUX Last Admin: 01/08/19 08:44 Dose: 40 mg Home Med (Patient's Own Medication) 1 unit PO DAILY [facility] Last Admin: 01/09/19 08:28 Dose: 1 unit Home Med (Patient's Own Medication) 3 unit PO Q12 [facility] Last Admin: 01/08/19 21:37 Dose: 3 unit Home Med (Patient's Own Medication) 1 unit PO Q12 [facility] Last Admin: 01/09/19 08:28 Dose: 1 unit Lactobacillus Acidophilus (Bacid Acidophilus) 1 cap PO DAILY [facility] Last Admin: 01/09/19 08:25 Dose: 1 cap Lorazepam (Ativan) 1 mg PO Q4 PRN PRN Reason: Agitation Magnesium Hydroxide (Milk Of Magnesia) 15 ml PO Q6 PRN PRN Reason: Constipation Mometasone Furoate (Asmanex Twisthaler 220 Mcg) 1 puff INH DAILY [facility] Last Admin: 01/09/19 08:23 Dose: 1 puff Oxycodone/Acetaminophen (Percocet 5/325 Mg Tab) 2 tab PO Q6 PRN PRN Reason: Pain, severe (8-10) Stop: 01/09/19 20:42 Last Admin: 01/09/19 08:33 Dose: 2 tab Oxycodone/Acetaminophen (Percocet 5/325 Mg Tab) 1 tab PO Q6 PRN PRN Reason: Pain, moderate (4-7) Stop: 01/09/19 20:42 Pantoprazole Sodium (Protonix Ec Tab) 40 mg PO DAILY [facility] Last Admin: 01/09/19 08:29 Dose: 40 mg Promethazine HCl/Dextromethorphan (Phenergan Dm Syrup) 10 ml PO Q6 PRN PRN Reason: Cough Last Admin: 01/06/19 17:29 Dose: 10 ml Sumatriptan Succinate (Imitrex Tab) 100 mg PO DAILY PRN PRN Reason: Migraine headache Last Admin: 01/07/19 17:50 Dose: 100 mg - Labs Labs: 01/09/19 07:50 01/09/19 07:50 - Constitutional Appears: Well, Non-toxic, No Acute Distress - Head Exam Head Exam: ATRAUMATIC, NORMOCEPHALIC - Extremities Exam Additional comments: Left lower extremity exam: VASC: DP and PT 2/4 bilaterally, Cap refill < 3 seconds to all digits, Temp gradient cool to cool, Mild edema noted to the left lateral aspect of the ankle. NEURO: Diminished due to previous hx of brain tumor. DERM: Mild edema noted to the left lateral aspect of the ankle,Surgical wound looks clean/dry and intact with sutures in place and streri-strips as well. No erythema or drainage, no clinical signs of infection, No signs of wound dehiscence. MSK: Pain on palpation to the lateral malleolous, Mild pain with ankle range of motion, MSK 3/5, left foot in a plantarflexed and inverted position due to paralysis. - Neurological Exam Neurological Exam: Alert, Awake, Oriented x3 - Psychiatric Exam Psychiatric exam: Normal Affect, Normal Mood Assessment and Plan - Assessment and Plan (Free Text) Assessment: 48 y/o female seen and evaluated 10 days S/P ORIF Left ankle fracture. Plan: Patient seen and evaluated Plan discussed with attending Dr. Patricia Charts, labs and vitals reviewed; Afebrile, WBCs; 10.6 Patient X-rays obtained: acute fracture of the distal fibula, small non- ossifying fibroma or possible bone infarct seen distal metaphysis of the tibia CT of the left ankle shows small joint effusion along with oblique fracture of the distal fibula Postoperative left ankle X-ray: Satisfactory ORIF of the fibula. Surgical wound dressed with betadine and DSD. Patient transferred to CAM walker Ordered new longer CAM walker Patient to stay NWB at this time to the LLE, To use wheelchair. PT on-board, Reccs appreciated Patient still in the acute rehab in the hospital. Continue icing and elevation of the LLE PRN. Podiatry will continue to follow up the patient while in house.
[2019-01-09] MEDS: KEPPRA 500 MG PO SCH ×2 (12:23→21:40)
[2019-01-10] MEDS: Albuterol-Ipratrop 3 mg / 0.5 (3 ml) UD INH SCH ×4 (01:38→19:05)
[2019-01-10] MEDS: Acetylcysteine 20% Inhal Soln (4ml) INH SCH ×2 (07:43→19:05)
--- NOTE | 2019-01-10 08:03 | CP.PCM.PN ---
Subjective - Date & Time of Evaluation Date of Evaluation: 01/10/19 Time of Evaluation: 08:00 - Subjective Subjective: Patient seen and examined at bedside. No acute event overnight patient have no complaints. Patient recovering well. report that want acetaminophen for pain instead of percocet. Objective - Vital Signs/Intake and Output Vital Signs (last 24 hours): Temp Pulse Resp BP Pulse Ox 97.7 F 99 H 20 123/87 100 01/09/19 21:00 01/09/19 21:00 01/09/19 21:00 01/09/19 21:00 01/09/19 21:00 - Medications Medications: Current Medications Acetaminophen (Tylenol 325mg Tab) 325 mg PO Q4 PRN PRN Reason: Pain, Mild (1-3) Last Admin: 01/05/19 10:43 Dose: 325 mg Acetylcysteine (Acetylcysteine 20%) 2 ml INH RBID [facility] Last Admin: 01/10/19 07:43 Dose: 2 ml Albuterol/Ipratropium (Duoneb 3 Mg/0.5 Mg (3 Ml) Ud) 3 ml INH RQ6 PRN PRN Reason: Shortness of Breath Albuterol/Ipratropium (Duoneb 3 Mg/0.5 Mg (3 Ml) Ud) 3 ml INH RQ6 [facility] Last Admin: 01/10/19 07:43 Dose: 3 ml Atorvastatin Calcium (Lipitor) 10 mg PO DIN [facility] Last Admin: 01/09/19 16:32 Dose: 10 mg Benzocaine/Menthol (Cepacol Sore Throat) 1 cullen PO Q1 PRN PRN Reason: Sore Throat Last Admin: 01/07/19 01:13 Dose: 1 cullen Benzonatate (Tessalon Perles) 200 mg PO Q8 PRN PRN Reason: Cough Clindamycin HCl (Cleocin) 300 mg PO Q8 [facility]; Protocol Last Admin: 01/10/19 06:24 Dose: 300 mg Diazepam (Valium) 5 mg PO HS [facility] Last Admin: 01/09/19 21:41 Dose: Not Given Docusate Sodium (Colace) 100 mg PO BID [facility] Last Admin: 01/09/19 16:32 Dose: 100 mg Enoxaparin Sodium (Lovenox) 40 mg SC DAILY [facility]; Protocol Last Admin: 01/09/19 08:27 Dose: 40 mg Famotidine (Pepcid) 40 mg PO DAILY PRN PRN Reason: ACID REFLUX Last Admin: 01/08/19 08:44 Dose: 40 mg Home Med (Patient's Own Medication) 1 unit PO DAILY [facility] Last Admin: 01/09/19 08:28 Dose: 1 unit Home Med (Patient's Own Medication) 3 unit PO Q12 [facility] Last Admin: 01/09/19 21:40 Dose: 3 unit Home Med (Patient's Own Medication) 1 unit PO Q12 [facility] Last Admin: 01/09/19 21:40 Dose: 1 unit Lactobacillus Acidophilus (Bacid Acidophilus) 1 cap PO DAILY [facility] Last Admin: 01/09/19 08:25 Dose: 1 cap Lorazepam (Ativan) 1 mg PO Q4 PRN PRN Reason: Agitation Magnesium Hydroxide (Milk Of Magnesia) 15 ml PO Q6 PRN PRN Reason: Constipation Mometasone Furoate (Asmanex Twisthaler 220 Mcg) 1 puff INH DAILY [facility] Last Admin: 01/09/19 08:23 Dose: 1 puff Pantoprazole Sodium (Protonix Ec Tab) 40 mg PO DAILY [facility] Last Admin: 01/09/19 08:29 Dose: 40 mg Promethazine HCl/Dextromethorphan (Phenergan Dm Syrup) 10 ml PO Q6 PRN PRN Reason: Cough Last Admin: 01/06/19 17:29 Dose: 10 ml Sumatriptan Succinate (Imitrex Tab) 100 mg PO DAILY PRN PRN Reason: Migraine headache Last Admin: 01/07/19 17:50 Dose: 100 mg - Labs Labs: 01/09/19 07:50 01/09/19 07:50 - Constitutional Appears: Well, Non-toxic, No Acute Distress - Head Exam Head Exam: ATRAUMATIC, NORMAL INSPECTION, NORMOCEPHALIC - Eye Exam Eye Exam: EOMI, Normal appearance, PERRL Pupil Exam: NORMAL ACCOMODATION, PERRL - ENT Exam ENT Exam: Mucous Membranes Moist, Normal Exam - Neck Exam Neck Exam: Full ROM, Normal Inspection - Respiratory Exam Respiratory Exam: Clear to Ausculation Bilateral, NORMAL BREATHING PATTERN - Cardiovascular Exam Cardiovascular Exam: REGULAR RHYTHM, +S1, +S2 - GI/Abdominal Exam GI & Abdominal Exam: Soft, Normal Bowel Sounds - Extremities Exam Extremities Exam: Full ROM, Normal Capillary Refill, Normal Inspection Additional comments: Surgical BOOT noted - Neurological Exam Neurological Exam: Alert, Awake, Oriented x3 - Psychiatric Exam Psychiatric exam: Normal Affect, Normal Mood - Skin Skin Exam: Dry, Intact, Normal Color, Warm Assessment and Plan - Assessment and Plan (Free Text) Plan: 48 yo female with Hx of seizure, Left sided paralysis, asthma, brain tumor brought by to ED due to having a episode of seizure which have caused a left ankle fracture with ORIF. X-rays obtained: acute fracture of the distal fibula, small non-ossifying fibroma or possible bone infarct seen distal metaphysis of the tibia CT of the left ankle shows small joint effusion along with oblique fracture of the distal fibula Fibular fracture S/p rehab, in Acute rehab Podiatry on case Continue PT/OT recommendation on Percocet for pain 2 tab for severe, [address] acetaminophen for pain URI cough improved Dr. Concepcion on case On phenergan X-ray negative Improving Seizure Chronic, stable, no change CT scan no change Continue keppra 1000mg Q12h Asthma Continue home medication Migraine Continue home medication Diet Regular diet DVT Lovenox 40SC .
[2019-01-10] MEDS: Mometasone 220 mcg/puff-14 puff Inh INH SCH (08:32)
[2019-01-10] MEDS: Enoxaparin 40 mg Syringe SC SCH (08:32)
[2019-01-10] MEDS: CALCIUM MAGNESIUM ZINC PO SCH (08:33)
[2019-01-10] MEDS: CLARINEX D PO SCH ×2 (08:33→21:06)
[2019-01-10] MEDS: KEPPRA 500 MG PO SCH ×2 (08:33→21:06)
[2019-01-10] MEDS: Pantoprazole 40 mg EC Tab PO SCH (08:34)
[2019-01-10] MEDS: Lactobacillus Acidophilus 500 MU Cap PO SCH (08:36)
[2019-01-10] MEDS: Promethazine DM 12.5 mg-30 mg/10 ml Syrup PO PRN (08:38)
[2019-01-10] MEDS ORDERED: Oxycodone/Acetaminophen 5/325 mg Tab PO PRN ×2 (08:56→08:57)
--- NOTE | 2019-01-10 10:38 | CP.PCM.PN ---
Subjective - Date & Time of Evaluation Date of Evaluation: 01/10/19 Time of Evaluation: 10:38 - Subjective Subjective: COUGHING UP THICK SPUTUM USING CPT VALVE Objective - Vital Signs/Intake and Output Vital Signs (last 24 hours): Temp Pulse Resp BP Pulse Ox 97.9 F 92 H 18 108/76 96 01/10/19 09:18 01/10/19 09:18 01/10/19 09:18 01/10/19 09:18 01/10/19 09:18 - Medications Medications: Current Medications Acetaminophen (Tylenol 325mg Tab) 325 mg PO Q4 PRN PRN Reason: Pain, Mild (1-3) Last Admin: 01/05/19 10:43 Dose: 325 mg Acetylcysteine (Acetylcysteine 20%) 2 ml INH RBID [facility] Last Admin: 01/10/19 07:43 Dose: 2 ml Albuterol/Ipratropium (Duoneb 3 Mg/0.5 Mg (3 Ml) Ud) 3 ml INH RQ6 PRN PRN Reason: Shortness of Breath Albuterol/Ipratropium (Duoneb 3 Mg/0.5 Mg (3 Ml) Ud) 3 ml INH RQ6 [facility] Last Admin: 01/10/19 07:43 Dose: 3 ml Atorvastatin Calcium (Lipitor) 10 mg PO DIN [facility] Last Admin: 01/09/19 16:32 Dose: 10 mg Benzocaine/Menthol (Cepacol Sore Throat) 1 cullen PO Q1 PRN PRN Reason: Sore Throat Last Admin: 01/07/19 01:13 Dose: 1 cullen Benzonatate (Tessalon Perles) 200 mg PO Q8 PRN PRN Reason: Cough Clindamycin HCl (Cleocin) 300 mg PO Q8 [facility]; Protocol Last Admin: 01/10/19 06:24 Dose: 300 mg Diazepam (Valium) 5 mg PO HS [facility] Last Admin: 01/09/19 21:41 Dose: Not Given Docusate Sodium (Colace) 100 mg PO BID [facility] Last Admin: 01/10/19 08:32 Dose: 100 mg Enoxaparin Sodium (Lovenox) 40 mg SC DAILY [facility]; Protocol Last Admin: 01/10/19 08:32 Dose: 40 mg Famotidine (Pepcid) 40 mg PO DAILY PRN PRN Reason: ACID REFLUX Last Admin: 01/08/19 08:44 Dose: 40 mg Home Med (Patient's Own Medication) 1 unit PO DAILY [facility] Last Admin: 01/10/19 08:33 Dose: 1 unit Home Med (Patient's Own Medication) 3 unit PO Q12 [facility] Last Admin: 01/10/19 08:33 Dose: 3 unit Home Med (Patient's Own Medication) 1 unit PO Q12 [facility] Last Admin: 01/10/19 08:33 Dose: 1 unit Lactobacillus Acidophilus (Bacid Acidophilus) 1 cap PO DAILY [facility] Last Admin: 01/10/19 08:36 Dose: 1 cap Lorazepam (Ativan) 1 mg PO Q4 PRN PRN Reason: Agitation Magnesium Hydroxide (Milk Of Magnesia) 15 ml PO Q6 PRN PRN Reason: Constipation Mometasone Furoate (Asmanex Twisthaler 220 Mcg) 1 puff INH DAILY [facility] Last Admin: 01/10/19 08:32 Dose: 1 puff Oxycodone/Acetaminophen (Percocet 5/325 Mg Tab) 1 tab PO Q4 PRN PRN Reason: Pain, moderate (4-7) Stop: 01/13/19 08:57 Oxycodone/Acetaminophen (Percocet 5/325 Mg Tab) 2 tab PO Q6 PRN PRN Reason: Pain, severe (8-10) Stop: 01/13/19 08:58 Last Admin: 01/10/19 09:54 Dose: 2 tab Pantoprazole Sodium (Protonix Ec Tab) 40 mg PO DAILY [facility] Last Admin: 01/10/19 08:34 Dose: 40 mg Promethazine HCl/Dextromethorphan (Phenergan Dm Syrup) 10 ml PO Q6 PRN PRN Reason: Cough Last Admin: 01/10/19 08:38 Dose: 10 ml Sumatriptan Succinate (Imitrex Tab) 100 mg PO DAILY PRN PRN Reason: Migraine headache Last Admin: 01/07/19 17:50 Dose: 100 mg - Labs Labs: 01/09/19 07:50 01/09/19 07:50 - Constitutional Appears: No Acute Distress - Head Exam Head Exam: ATRAUMATIC, NORMAL INSPECTION, NORMOCEPHALIC - Eye Exam Eye Exam: EOMI, Normal appearance, PERRL Pupil Exam: NORMAL ACCOMODATION, PERRL - ENT Exam ENT Exam: Mucous Membranes Moist, Normal Exam - Neck Exam Neck Exam: Full ROM, Normal Inspection. absent: Lymphadenopathy - Respiratory Exam Respiratory Exam: Decreased Breath Sounds, Prolonged Expiratory Phase, Rales, NORMAL BREATHING PATTERN - Cardiovascular Exam Cardiovascular Exam: REGULAR RHYTHM, +S1, +S2. absent: Murmur - GI/Abdominal Exam GI & Abdominal Exam: Soft, Normal Bowel Sounds. absent: Tenderness - Rectal Exam Rectal Exam: NORMAL INSPECTION - Extremities Exam Extremities Exam: Full ROM, Normal Capillary Refill, Tenderness. absent: Joint Swelling, Pedal Edema Additional comments: L LEG IN SPLINT - Back Exam Back Exam: NORMAL INSPECTION - Neurological Exam Neurological Exam: Alert, Awake, CN II-XII Intact, Normal Gait, Oriented x3 - Psychiatric Exam Psychiatric exam: Normal Affect, Normal Mood - Skin Skin Exam: Dry, Intact, Normal Color, Warm Assessment and Plan - Assessment and Plan (Free Text) Assessment: ASTHMA URI Plan: CONTINUE CURRENT RX
--- NOTE | 2019-01-10 11:08 | CP.PCM.CON ---
History of Present Illness - History of Present Illness History of Present Illness: Pt seen for sup therapy along with . Pt spoke of improved mood with medication change and support of MD's. Pt discussed looking forward to return home, hopefully next week. Pt spoke of life spent in the hospital, needing to be home. Pt spoke of family stressors, dissapointments, and adjustments. Jihan provided support, discussed his presence and reviewed strategies and statements communicated to reduce distress. Pt referred to the global technical writer for supportive services if needed in the future. 10:45-11:05 Past Patient History - Infectious Disease Hx of Infectious Diseases: None - Tetanus Immunizations Tetanus Immunization: Up to Date - Past Medical History & Family History Past Medical History?: Yes - Past Social History Smoking Status: Former Smoker - CARDIAC Hx Cardiac Disorders: No - PULMONARY Hx Respiratory Disorders: Yes Hx Asthma: Yes - NEUROLOGICAL Hx Neurological Disorder: Yes Hx Migraine: Yes Hx Seizures: Yes Other/Comment: hx brain tumor-had resectionin 1977 and 1992 - HEENT Hx HEENT Problems: Yes Other/Comment: uses eyeglasses for reading-eyeglasses left at home - RENAL Hx Chronic Kidney Disease: No - ENDOCRINE/METABOLIC Hx Endocrine Disorders: No - HEMATOLOGICAL/ONCOLOGICAL Hx AIDS: No Hx Human Immunodeficiency Virus (HIV): No - INTEGUMENTARY Hx Dermatological Problems: No - MUSCULOSKELETAL/RHEUMATOLOGICAL Hx Falls: Yes - GASTROINTESTINAL Hx Gastrointestinal Disorders: Yes Hx Gall Bladder Disease: Yes (had Cholecystectomy) - GENITOURINARY/GYNECOLOGICAL Hx Genitourinary Disorders: Yes Other/Comment: with overactive bladder - PSYCHIATRIC Hx Psychophysiologic Disorder: No Hx Substance Use: No - SURGICAL HISTORY Hx Surgeries: Yes Hx Cholecystectomy: Yes Other/Comment: Embolization and Myomectomy-fibroid - ANESTHESIA Hx Anesthesia: Yes Hx Anesthesia Reactions: No Hx Malignant Hyperthermia: No Meds Allergies/Adverse Reactions: Allergies Allergy/AdvReac Type Severity Reaction Status Date / Time tree and shrub pollen Allergy ITCHING Verified 01/01/19 20:33 - Medications Medications: Current Medications Acetaminophen (Tylenol 325mg Tab) 325 mg PO Q4 PRN PRN Reason: Pain, Mild (1-3) Last Admin: 01/05/19 10:43 Dose: 325 mg Acetylcysteine (Acetylcysteine 20%) 2 ml INH RBID [facility] Last Admin: 01/10/19 07:43 Dose: 2 ml Albuterol/Ipratropium (Duoneb 3 Mg/0.5 Mg (3 Ml) Ud) 3 ml INH RQ6 PRN PRN Reason: Shortness of Breath Albuterol/Ipratropium (Duoneb 3 Mg/0.5 Mg (3 Ml) Ud) 3 ml INH RQ6 [facility] Last Admin: 01/10/19 07:43 Dose: 3 ml Atorvastatin Calcium (Lipitor) 10 mg PO DIN [facility] Last Admin: 01/09/19 16:32 Dose: 10 mg Benzocaine/Menthol (Cepacol Sore Throat) 1 cullen PO Q1 PRN PRN Reason: Sore Throat Last Admin: 01/07/19 01:13 Dose: 1 cullen Benzonatate (Tessalon Perles) 200 mg PO Q8 PRN PRN Reason: Cough Clindamycin HCl (Cleocin) 300 mg PO Q8 [facility]; Protocol Last Admin: 01/10/19 06:24 Dose: 300 mg Diazepam (Valium) 5 mg PO HS [facility] Last Admin: 01/09/19 21:41 Dose: Not Given Docusate Sodium (Colace) 100 mg PO BID [facility] Last Admin: 01/10/19 08:32 Dose: 100 mg Enoxaparin Sodium (Lovenox) 40 mg SC DAILY [facility]; Protocol Last Admin: 01/10/19 08:32 Dose: 40 mg Famotidine (Pepcid) 40 mg PO DAILY PRN PRN Reason: ACID REFLUX Last Admin: 01/08/19 08:44 Dose: 40 mg Home Med (Patient's Own Medication) 1 unit PO DAILY [facility] Last Admin: 01/10/19 08:33 Dose: 1 unit Home Med (Patient's Own Medication) 3 unit PO Q12 [facility] Last Admin: 01/10/19 08:33 Dose: 3 unit Home Med (Patient's Own Medication) 1 unit PO Q12 [facility] Last Admin: 01/10/19 08:33 Dose: 1 unit Lactobacillus Acidophilus (Bacid Acidophilus) 1 cap PO DAILY [facility] Last Admin: 01/10/19 08:36 Dose: 1 cap Lorazepam (Ativan) 1 mg PO Q4 PRN PRN Reason: Agitation Magnesium Hydroxide (Milk Of Magnesia) 15 ml PO Q6 PRN PRN Reason: Constipation Mometasone Furoate (Asmanex Twisthaler 220 Mcg) 1 puff INH DAILY [facility] Last Admin: 01/10/19 08:32 Dose: 1 puff Oxycodone/Acetaminophen (Percocet 5/325 Mg Tab) 1 tab PO Q4 PRN PRN Reason: Pain, moderate (4-7) Stop: 01/13/19 08:57 Oxycodone/Acetaminophen (Percocet 5/325 Mg Tab) 2 tab PO Q6 PRN PRN Reason: Pain, severe (8-10) Stop: 01/13/19 08:58 Last Admin: 01/10/19 09:54 Dose: 2 tab Pantoprazole Sodium (Protonix Ec Tab) 40 mg PO DAILY [facility] Last Admin: 01/10/19 08:34 Dose: 40 mg Promethazine HCl/Dextromethorphan (Phenergan Dm Syrup) 10 ml PO Q6 PRN PRN Reason: Cough Last Admin: 01/10/19 08:38 Dose: 10 ml Sumatriptan Succinate (Imitrex Tab) 100 mg PO DAILY PRN PRN Reason: Migraine headache Last Admin: 01/07/19 17:50 Dose: 100 mg Results - Vital Signs Recent Vital Signs: Last Vital Signs Temp 97.9 F 01/10/19 09:18 Pulse 92 H 01/10/19 09:18 Resp 18 01/10/19 09:18 BP 108/76 01/10/19 09:18 Pulse Ox 96 01/10/19 09:18 - Labs Result Diagrams: 01/09/19 07:50 01/09/19 07:50
--- NOTE | 2019-01-10 12:54 | CP.PCM.PN ---
Subjective - Date & Time of Evaluation Date of Evaluation: 01/10/19 Time of Evaluation: 12:00 - Subjective Subjective: no acute complaints at present Objective - Vital Signs/Intake and Output Vital Signs (last 24 hours): Temp Pulse Resp BP Pulse Ox 97.9 F 92 H 18 108/76 96 01/10/19 09:18 01/10/19 09:18 01/10/19 09:18 01/10/19 09:18 01/10/19 09:18 - Medications Medications: Current Medications Acetaminophen (Tylenol 325mg Tab) 325 mg PO Q4 PRN PRN Reason: Pain, Mild (1-3) Last Admin: 01/05/19 10:43 Dose: 325 mg Acetylcysteine (Acetylcysteine 20%) 2 ml INH RBID [facility] Last Admin: 01/10/19 07:43 Dose: 2 ml Albuterol/Ipratropium (Duoneb 3 Mg/0.5 Mg (3 Ml) Ud) 3 ml INH RQ6 PRN PRN Reason: Shortness of Breath Albuterol/Ipratropium (Duoneb 3 Mg/0.5 Mg (3 Ml) Ud) 3 ml INH RQ6 [facility] Last Admin: 01/10/19 07:43 Dose: 3 ml Atorvastatin Calcium (Lipitor) 10 mg PO DIN [facility] Last Admin: 01/09/19 16:32 Dose: 10 mg Benzocaine/Menthol (Cepacol Sore Throat) 1 cullen PO Q1 PRN PRN Reason: Sore Throat Last Admin: 01/07/19 01:13 Dose: 1 cullen Benzonatate (Tessalon Perles) 200 mg PO Q8 PRN PRN Reason: Cough Clindamycin HCl (Cleocin) 300 mg PO Q8 [facility]; Protocol Last Admin: 01/10/19 06:24 Dose: 300 mg Diazepam (Valium) 5 mg PO HS [facility] Last Admin: 01/09/19 21:41 Dose: Not Given Docusate Sodium (Colace) 100 mg PO BID [facility] Last Admin: 01/10/19 08:32 Dose: 100 mg Enoxaparin Sodium (Lovenox) 40 mg SC DAILY [facility]; Protocol Last Admin: 01/10/19 08:32 Dose: 40 mg Famotidine (Pepcid) 40 mg PO DAILY PRN PRN Reason: ACID REFLUX Last Admin: 01/08/19 08:44 Dose: 40 mg Home Med (Patient's Own Medication) 1 unit PO DAILY [facility] Last Admin: 01/10/19 08:33 Dose: 1 unit Home Med (Patient's Own Medication) 3 unit PO Q12 [facility] Last Admin: 01/10/19 08:33 Dose: 3 unit Home Med (Patient's Own Medication) 1 unit PO Q12 [facility] Last Admin: 01/10/19 08:33 Dose: 1 unit Lactobacillus Acidophilus (Bacid Acidophilus) 1 cap PO DAILY [facility] Last Admin: 01/10/19 08:36 Dose: 1 cap Lorazepam (Ativan) 1 mg PO Q4 PRN PRN Reason: Agitation Magnesium Hydroxide (Milk Of Magnesia) 15 ml PO Q6 PRN PRN Reason: Constipation Mometasone Furoate (Asmanex Twisthaler 220 Mcg) 1 puff INH DAILY [facility] Last Admin: 01/10/19 08:32 Dose: 1 puff Oxycodone/Acetaminophen (Percocet 5/325 Mg Tab) 1 tab PO Q4 PRN PRN Reason: Pain, moderate (4-7) Stop: 01/13/19 08:57 Oxycodone/Acetaminophen (Percocet 5/325 Mg Tab) 2 tab PO Q6 PRN PRN Reason: Pain, severe (8-10) Stop: 01/13/19 08:58 Last Admin: 01/10/19 09:54 Dose: 2 tab Pantoprazole Sodium (Protonix Ec Tab) 40 mg PO DAILY [facility] Last Admin: 01/10/19 08:34 Dose: 40 mg Promethazine HCl/Dextromethorphan (Phenergan Dm Syrup) 10 ml PO Q6 PRN PRN Reason: Cough Last Admin: 01/10/19 08:38 Dose: 10 ml Sumatriptan Succinate (Imitrex Tab) 100 mg PO DAILY PRN PRN Reason: Migraine headache Last Admin: 01/07/19 17:50 Dose: 100 mg - Labs Labs: 01/09/19 07:50 01/09/19 07:50 - Constitutional Appears: Well - Head Exam Head Exam: ATRAUMATIC, NORMAL INSPECTION, NORMOCEPHALIC - Eye Exam Eye Exam: EOMI, Normal appearance, PERRL Pupil Exam: NORMAL ACCOMODATION, PERRL - ENT Exam ENT Exam: Mucous Membranes Moist, Normal Exam - Neck Exam Neck Exam: Full ROM, Normal Inspection - Respiratory Exam Respiratory Exam: Clear to Ausculation Bilateral, NORMAL BREATHING PATTERN - Cardiovascular Exam Cardiovascular Exam: REGULAR RHYTHM - GI/Abdominal Exam GI & Abdominal Exam: Soft, Normal Bowel Sounds - Rectal Exam Rectal Exam: NORMAL INSPECTION - Exam External exam: NORMAL EXTERNAL EXAM - Extremities Exam Extremities Exam: Full ROM, Normal Capillary Refill, Normal Inspection - Back Exam Back Exam: NORMAL INSPECTION - Neurological Exam Neurological Exam: Alert, Awake Neuro motor strength exam: Left Upper Extremity: 3, Right Upper Extremity: 3, Left Lower Extremity: 2/1, Right Lower Extremity: 3 - Psychiatric Exam Psychiatric exam: Normal Affect, Normal Mood - Skin Skin Exam: Dry, Intact Assessment and Plan (1) Ankle fracture Assessment & Plan: plan for physical, occupational speech and rec therapy, patient needs a wheelchair I have evaluated Rosario De Luna (Date of : 1970) on 01/09/19 for her mobility limitation due to atypical seizure and left fibula fracture that significantly impairs her ability to participate in one or more mobility-related activities of daily living (MRADLs) such as toileting, feeding, dressing, grooming, and bathing in customary locations in the home. The beneficiarys mobility limitation cannot be sufficiently resolved by the use of an appropriately fitted cane or walker since the patient is not able to ambulate for long distances. The beneficiarys home provides adequate access between rooms, maneuvering space, and surfaces for use of the wheelchair that is provided. The beneficiary has sufficient upper body strength to propel a standard wheelchair. Use of a standard wheelchair will significantly improve the beneficiarys ability to participate in MRADLs and she will use it on a regular basis in the home. Ms. De Luna has expressed a willingness and ability to use the wheelchair that is provided in the home. Patient requires a lightweight wheelchair 16x18 depth with anti-tippers to prevent wheelchair from tipping forward or backwards, elevating leg rests to prevent lower extremity swelling, seat belt for safety, a standard seat cushion to prevent skin breakdown, which the patient is at high risk for due to her recent diagnosis, a standard back cushion for enhanced positioning and support, and full length arm rests to safely facilitate [id number] and transfers. Status: Acute (2) Asthma exacerbation Status: Acute (3) Back strain Status: Acute (4) Breakthrough seizure Status: Acute
--- NOTE | 2019-01-10 16:35 | CP.PCM.PN ---
Subjective - Date & Time of Evaluation Date of Evaluation: 01/10/19 Time of Evaluation: 13:00 - Subjective Subjective: Neuro Follow Up Note: Ms. De Luna was evaluated this afternoon in acute rehab. She is feeling well; has not had any seizure activity and more further fatigue since being taken off of Vimpat. She is tolerating her Keppra well. Doing well with therapy. Otherwise, ROS is unremarkable. Objective - Vital Signs/Intake and Output Vital Signs (last 24 hours): Temp Pulse Resp BP Pulse Ox 97.9 F 105 H 18 108/76 96 01/10/19 09:18 01/10/19 13:37 01/10/19 09:18 01/10/19 09:18 01/10/19 13:37 - Medications Medications: Current Medications Acetaminophen (Tylenol 325mg Tab) 325 mg PO Q4 PRN PRN Reason: Pain, Mild (1-3) Last Admin: 01/05/19 10:43 Dose: 325 mg Acetaminophen (Tylenol 325mg Tab) 650 mg PO Q4 PRN PRN Reason: Pain, moderate (4-7) Acetylcysteine (Acetylcysteine 20%) 2 ml INH RBID [facility] Last Admin: 01/10/19 07:43 Dose: 2 ml Albuterol/Ipratropium (Duoneb 3 Mg/0.5 Mg (3 Ml) Ud) 3 ml INH RQ6 PRN PRN Reason: Shortness of Breath Albuterol/Ipratropium (Duoneb 3 Mg/0.5 Mg (3 Ml) Ud) 3 ml INH RQ6 [facility] Last Admin: 01/10/19 14:51 Dose: 3 ml Atorvastatin Calcium (Lipitor) 10 mg PO DIN [facility] Last Admin: 01/09/19 16:32 Dose: 10 mg Benzocaine/Menthol (Cepacol Sore Throat) 1 cullen PO Q1 PRN PRN Reason: Sore Throat Last Admin: 01/07/19 01:13 Dose: 1 cullen Benzonatate (Tessalon Perles) 200 mg PO Q8 PRN PRN Reason: Cough Clindamycin HCl (Cleocin) 300 mg PO Q8 [facility]; Protocol Last Admin: 01/10/19 06:24 Dose: 300 mg Diazepam (Valium) 5 mg PO HS [facility] Last Admin: 01/09/19 21:41 Dose: Not Given Docusate Sodium (Colace) 100 mg PO BID [facility] Last Admin: 01/10/19 08:32 Dose: 100 mg Enoxaparin Sodium (Lovenox) 40 mg SC DAILY [facility]; Protocol Last Admin: 01/10/19 08:32 Dose: 40 mg Famotidine (Pepcid) 40 mg PO DAILY PRN PRN Reason: ACID REFLUX Last Admin: 01/08/19 08:44 Dose: 40 mg Home Med (Patient's Own Medication) 1 unit PO DAILY [facility] Last Admin: 01/10/19 08:33 Dose: 1 unit Home Med (Patient's Own Medication) 3 unit PO Q12 [facility] Last Admin: 01/10/19 08:33 Dose: 3 unit Home Med (Patient's Own Medication) 1 unit PO Q12 [facility] Last Admin: 01/10/19 08:33 Dose: 1 unit Lactobacillus Acidophilus (Bacid Acidophilus) 1 cap PO DAILY [facility] Last Admin: 01/10/19 08:36 Dose: 1 cap Lorazepam (Ativan) 1 mg PO Q4 PRN PRN Reason: Agitation Magnesium Hydroxide (Milk Of Magnesia) 15 ml PO Q6 PRN PRN Reason: Constipation Mometasone Furoate (Asmanex Twisthaler 220 Mcg) 1 puff INH DAILY [facility] Last Admin: 01/10/19 08:32 Dose: 1 puff Oxycodone/Acetaminophen (Percocet 5/325 Mg Tab) 1 tab PO Q4 PRN PRN Reason: Pain, moderate (4-7) Stop: 01/13/19 08:57 Oxycodone/Acetaminophen (Percocet 5/325 Mg Tab) 2 tab PO Q6 PRN PRN Reason: Pain, severe (8-10) Stop: 01/13/19 08:58 Last Admin: 01/10/19 09:54 Dose: 2 tab Pantoprazole Sodium (Protonix Ec Tab) 40 mg PO DAILY [facility] Last Admin: 01/10/19 08:34 Dose: 40 mg Promethazine HCl/Dextromethorphan (Phenergan Dm Syrup) 10 ml PO Q6 PRN PRN Reason: Cough Last Admin: 01/10/19 08:38 Dose: 10 ml Sumatriptan Succinate (Imitrex Tab) 100 mg PO DAILY PRN PRN Reason: Migraine headache Last Admin: 01/07/19 17:50 Dose: 100 mg - Labs Labs: 01/09/19 07:50 01/09/19 07:50 - Constitutional Appears: Well, Non-toxic, No Acute Distress - Head Exam Head Exam: NORMOCEPHALIC - Eye Exam Eye Exam: EOMI, Normal appearance, PERRL Pupil Exam: NORMAL ACCOMODATION, PERRL - ENT Exam ENT Exam: Mucous Membranes Moist - Neck Exam Neck Exam: Full ROM, Normal Inspection - Respiratory Exam Respiratory Exam: NORMAL BREATHING PATTERN - Neurological Exam Neurological Exam: Alert, Awake, CN II-XII Intact, Oriented x3 Neuro motor strength exam: Left Upper Extremity: 3, Right Upper Extremity: 5, Left Lower Extremity: 3, Right Lower Extremity: 5 Additional comments: No tremors or abnormal movements. - Psychiatric Exam Psychiatric exam: Normal Affect, Normal Mood Assessment and Plan (1) Seizure Assessment & Plan: -Continue current management. -Continue Keppra as ordered. Our office has processed the pre-authorization with the pt's insurance company to refill her Keppra. We should have the pre-a txh by early next week. Loren Torres, NOHEMI, [employer] d/w Dr. Tilley Status: Chronic
[2019-01-11] MEDS: Albuterol-Ipratrop 3 mg / 0.5 (3 ml) UD INH SCH ×4 (01:00→19:37)
[2019-01-11 01:19] VITALS: RESP 20
[2019-01-11] MEDS: Acetylcysteine 20% Inhal Soln (4ml) INH SCH ×2 (07:35→19:37)
[2019-01-11 07:41] LABS: BASO % 0.5 % (0.0-2.0); EOS # 0.2 K/uL (0.0-0.7); EOS % 2.1 % (0.0-4.0); HEMOGLOBIN 11.6 g/dL (12.0-16.0); LYMPH # 1.9 K/uL (1.0-4.3); LYMPH % 23.6 % (20.0-40.0); MEAN CELL VOLUME 87.3 fl (81.0-99.0); MEAN CORPUSCULAR HEMOGLOBIN 29.6 pg (27.0-31.0); MEAN CORPUSCULAR HGB CONC 33.8 g/dL (33.0-37.0); MEAN PLATELET VOLUME 8.6 fl (7.2-11.7); MONO # 0.5 K/uL (0.0-0.8); MONO % 5.9 % (0.0-10.0); NEUT # 5.6 K/uL (1.8-7.0); NEUT % 67.9 % (50.0-75.0); NRBC % 0.2 % (0.0-0.0); RBC 3.92 Mil/uL (3.80-5.20); RED CELL DISTRIBUTION WIDTH 13.6 % (11.5-14.5); WHITE BLOOD COUNT 8.2 K/uL (4.8-10.8)
[2019-01-11 07:46] LABS: ALB/GLOB RATIO 1.4 (1.0-2.1); ALBUMIN 4.1 g/dL (3.5-5.0); ALT/SGPT 33 U/L (9-52); AST/SGOT 39 U/L (14-36); BLOOD UREA NITROGEN 12 mg/dl (7-17); CALCIUM 8.8 mg/dL (8.4-10.2); GFR NON-AFRICAN AMERICAN > 60
[2019-01-11] MEDS: Enoxaparin 40 mg Syringe SC SCH (08:44)
[2019-01-11] MEDS: CALCIUM MAGNESIUM ZINC PO SCH (08:45)
[2019-01-11] MEDS: CLARINEX D PO SCH ×2 (08:45→21:49)
[2019-01-11] MEDS: KEPPRA 500 MG PO SCH ×2 (08:45→21:49)
[2019-01-11] MEDS: Pantoprazole 40 mg EC Tab PO SCH (08:46)
[2019-01-11] MEDS: Lactobacillus Acidophilus 500 MU Cap PO SCH (08:49)
[2019-01-11] MEDS: Mometasone 220 mcg/puff-14 puff Inh INH SCH (10:00)
--- NOTE | 2019-01-11 18:19 | CP.PCM.PN ---
Subjective - Date & Time of Evaluation Date of Evaluation: 01/11/19 Time of Evaluation: 14:00 - Subjective Subjective: Podiatry progress notes for DR. Patricia: 48 y/o female seen and evaluated 11 days S/P ORIF left ankle fracture. Patient is seen resting comfortably in bed, in NAD, and AA0x3. was at bedside during the encounter. Patient is AAOx3 and in NAD. Patient reports pain well controlled with pain medication. Complains of mild pain to the left heel. Patient denies acute overnight events, denies any other complains at this time. Patient states that she still has dry cough. She denies any recent F/N/V/CP. Objective - Vital Signs/Intake and Output Vital Signs (last 24 hours): Temp Pulse Resp BP Pulse Ox 98.1 F 98 H 20 118/87 98 01/11/19 08:40 01/11/19 08:40 01/11/19 08:40 01/11/19 08:40 01/11/19 08:40 - Medications Medications: Current Medications Acetaminophen (Tylenol 325mg Tab) 325 mg PO Q4 PRN PRN Reason: Pain, Mild (1-3) Last Admin: 01/05/19 10:43 Dose: 325 mg Acetaminophen (Tylenol 325mg Tab) 650 mg PO Q4 PRN PRN Reason: Pain, moderate (4-7) Acetylcysteine (Acetylcysteine 20%) 2 ml INH RBID [facility] Last Admin: 01/11/19 07:35 Dose: 2 ml Albuterol/Ipratropium (Duoneb 3 Mg/0.5 Mg (3 Ml) Ud) 3 ml INH RQ6 PRN PRN Reason: Shortness of Breath Albuterol/Ipratropium (Duoneb 3 Mg/0.5 Mg (3 Ml) Ud) 3 ml INH RQ6 [facility] Last Admin: 01/11/19 13:48 Dose: 3 ml Atorvastatin Calcium (Lipitor) 10 mg PO DIN [facility] Last Admin: 01/11/19 16:30 Dose: 10 mg Benzocaine/Menthol (Cepacol Sore Throat) 1 cullen PO Q1 PRN PRN Reason: Sore Throat Last Admin: 01/07/19 01:13 Dose: 1 cullen Benzonatate (Tessalon Perles) 200 mg PO Q8 PRN PRN Reason: Cough Clindamycin HCl (Cleocin) 300 mg PO Q8 [facility]; Protocol Last Admin: 01/11/19 14:09 Dose: 300 mg Diazepam (Valium) 5 mg PO HS [facility] Last Admin: 01/10/19 21:09 Dose: 5 mg Docusate Sodium (Colace) 100 mg PO BID [facility] Last Admin: 01/11/19 16:30 Dose: 100 mg Enoxaparin Sodium (Lovenox) 40 mg SC DAILY [facility]; Protocol Last Admin: 01/11/19 08:44 Dose: 40 mg Famotidine (Pepcid) 40 mg PO DAILY PRN PRN Reason: ACID REFLUX Home Med (Patient's Own Medication) 1 unit PO DAILY [facility] Last Admin: 01/11/19 08:45 Dose: 1 unit Home Med (Patient's Own Medication) 3 unit PO Q12 [facility] Last Admin: 01/11/19 08:45 Dose: 3 unit Home Med (Patient's Own Medication) 1 unit PO Q12 [facility] Last Admin: 01/11/19 08:45 Dose: 1 unit Lactobacillus Acidophilus (Bacid Acidophilus) 1 cap PO DAILY [facility] Last Admin: 01/11/19 08:49 Dose: 1 cap Lorazepam (Ativan) 1 mg PO Q4 PRN PRN Reason: Agitation Magnesium Hydroxide (Milk Of Magnesia) 15 ml PO Q6 PRN PRN Reason: Constipation Mometasone Furoate (Asmanex Twisthaler 220 Mcg) 1 puff INH DAILY [facility] Last Admin: 01/11/19 10:00 Dose: 1 puff Oxycodone/Acetaminophen (Percocet 5/325 Mg Tab) 1 tab PO Q4 PRN PRN Reason: Pain, moderate (4-7) Stop: 01/13/19 08:57 Oxycodone/Acetaminophen (Percocet 5/325 Mg Tab) 2 tab PO Q6 PRN PRN Reason: Pain, severe (8-10) Stop: 01/13/19 08:58 Last Admin: 01/10/19 09:54 Dose: 2 tab Pantoprazole Sodium (Protonix Ec Tab) 40 mg PO DAILY [facility] Last Admin: 01/11/19 08:46 Dose: 40 mg Promethazine HCl/Dextromethorphan (Phenergan Dm Syrup) 10 ml PO Q6 PRN PRN Reason: Cough Last Admin: 01/10/19 08:38 Dose: 10 ml Sumatriptan Succinate (Imitrex Tab) 100 mg PO DAILY PRN PRN Reason: Migraine headache Last Admin: 01/11/19 14:11 Dose: 100 mg - Labs Labs: 01/11/19 05:55 01/11/19 05:55 - Constitutional Appears: Well, Non-toxic, No Acute Distress - Extremities Exam Extremities Exam: absent: Calf Tenderness Additional comments: Left lower extremity exam: VASC: DP and PT 2/4 bilaterally, Cap refill < 3 seconds to all digits, Temp gradient cool to cool, Mild edema noted to the left lateral aspect of the ankle. NEURO: Diminished due to previous hx of brain tumor. DERM: Mild edema noted to the left lateral aspect of the ankle,Surgical wound looks clean/dry and intact with sutures in place and streri-strips as well. No erythema or drainage, no clinical signs of infection, No signs of wound dehiscence. MSK: Pain on palpation to the lateral malleolous, Mild pain with ankle range of motion, MSK 3/5, left foot in a plantarflexed and inverted position due to paralysis. - Neurological Exam Neurological Exam: Alert, Awake, Oriented x3 - Psychiatric Exam Psychiatric exam: Normal Affect, Normal Mood Assessment and Plan - Assessment and Plan (Free Text) Assessment: 48 y/o female seen and evaluated 11 days S/P ORIF Left ankle fracture. Plan: Patient seen and evaluated Plan discussed with attending Dr. Patricia Charts, labs and vitals reviewed; Afebrile, WBCs; 8.2 Patient X-rays obtained: acute fracture of the distal fibula, small non- ossifying fibroma or possible bone infarct seen distal metaphysis of the tibia CT of the left ankle shows small joint effusion along with oblique fracture of the distal fibula Postoperative left ankle X-ray: Satisfactory ORIF of the fibula. Surgical wound dressed with betadine and DSD. Continue to NWB in long CAM walker Padded heel with DSD to offload heel in CAM boot Patient to stay NWB at this time to the LLE, To use wheelchair. PT on-board, Reccs appreciated Patient still in the acute rehab in the hospital. Continue icing and elevation of the LLE PRN. Podiatry will continue to follow up the patient while in house.
[2019-01-12] MEDS: Albuterol-Ipratrop 3 mg / 0.5 (3 ml) UD INH SCH ×4 (01:28→19:21)
[2019-01-12] MEDS: Acetylcysteine 20% Inhal Soln (4ml) INH SCH ×2 (07:35→19:21)
[2019-01-12] MEDS: Pantoprazole 40 mg EC Tab PO SCH (08:34)
[2019-01-12] MEDS: CALCIUM MAGNESIUM ZINC PO SCH (08:34)
[2019-01-12] MEDS: KEPPRA 500 MG PO SCH ×2 (08:34→21:06)
[2019-01-12] MEDS: CLARINEX D PO SCH ×2 (08:35→21:06)
[2019-01-12] MEDS: Enoxaparin 40 mg Syringe SC SCH (08:35)
[2019-01-12] MEDS: Mometasone 220 mcg/puff-14 puff Inh INH SCH (08:36)
[2019-01-12] MEDS: Lactobacillus Acidophilus 500 MU Cap PO SCH (08:41)
--- NOTE | 2019-01-12 11:57 | CP.PCM.PN ---
Subjective - Date & Time of Evaluation Date of Evaluation: 01/12/19 Time of Evaluation: 11:57 - Subjective Subjective: STILL COUGHING BUT LESS SOB IMPROVED NO NEW CLINICAL FINDINGS WILL CONTINUE PRESENT RX Objective - Vital Signs/Intake and Output Vital Signs (last 24 hours): Temp Pulse Resp BP Pulse Ox 97.7 F 100 H 20 132/73 100 01/12/19 10:00 01/12/19 10:00 01/12/19 10:00 01/12/19 10:00 01/12/19 10:00 - Medications Medications: Current Medications Acetaminophen (Tylenol 325mg Tab) 325 mg PO Q4 PRN PRN Reason: Pain, Mild (1-3) Last Admin: 01/05/19 10:43 Dose: 325 mg Acetaminophen (Tylenol 325mg Tab) 650 mg PO Q4 PRN PRN Reason: Pain, moderate (4-7) Acetylcysteine (Acetylcysteine 20%) 2 ml INH RBID [facility] Last Admin: 01/12/19 07:35 Dose: 2 ml Albuterol/Ipratropium (Duoneb 3 Mg/0.5 Mg (3 Ml) Ud) 3 ml INH RQ6 PRN PRN Reason: Shortness of Breath Albuterol/Ipratropium (Duoneb 3 Mg/0.5 Mg (3 Ml) Ud) 3 ml INH RQ6 [facility] Last Admin: 01/12/19 07:35 Dose: 3 ml Atorvastatin Calcium (Lipitor) 10 mg PO DIN [facility] Last Admin: 01/11/19 16:30 Dose: 10 mg Benzocaine/Menthol (Cepacol Sore Throat) 1 cullen PO Q1 PRN PRN Reason: Sore Throat Last Admin: 01/07/19 01:13 Dose: 1 cullen Benzonatate (Tessalon Perles) 200 mg PO Q8 PRN PRN Reason: Cough Clindamycin HCl (Cleocin) 300 mg PO Q8 [facility]; Protocol Last Admin: 01/12/19 08:00 Dose: 300 mg Diazepam (Valium) 5 mg PO HS [facility] Last Admin: 01/11/19 21:53 Dose: 5 mg Docusate Sodium (Colace) 100 mg PO BID [facility] Last Admin: 01/12/19 08:35 Dose: 100 mg Enoxaparin Sodium (Lovenox) 40 mg SC DAILY [facility]; Protocol Last Admin: 01/12/19 08:35 Dose: 40 mg Famotidine (Pepcid) 40 mg PO DAILY PRN PRN Reason: ACID REFLUX Last Admin: 01/12/19 08:34 Dose: 40 mg Home Med (Patient's Own Medication) 1 unit PO DAILY [facility] Last Admin: 01/12/19 08:34 Dose: 1 unit Home Med (Patient's Own Medication) 3 unit PO Q12 [facility] Last Admin: 01/12/19 08:34 Dose: 3 unit Home Med (Patient's Own Medication) 1 unit PO Q12 [facility] Last Admin: 01/12/19 08:35 Dose: 1 unit Lactobacillus Acidophilus (Bacid Acidophilus) 1 cap PO DAILY [facility] Last Admin: 01/12/19 08:41 Dose: 1 cap Lorazepam (Ativan) 1 mg PO Q4 PRN PRN Reason: Agitation Magnesium Hydroxide (Milk Of Magnesia) 15 ml PO Q6 PRN PRN Reason: Constipation Mometasone Furoate (Asmanex Twisthaler 220 Mcg) 1 puff INH DAILY [facility] Last Admin: 01/12/19 08:36 Dose: 1 puff Oxycodone/Acetaminophen (Percocet 5/325 Mg Tab) 1 tab PO Q4 PRN PRN Reason: Pain, moderate (4-7) Stop: 01/13/19 08:57 Oxycodone/Acetaminophen (Percocet 5/325 Mg Tab) 2 tab PO Q6 PRN PRN Reason: Pain, severe (8-10) Stop: 01/13/19 08:58 Last Admin: 01/10/19 09:54 Dose: 2 tab Pantoprazole Sodium (Protonix Ec Tab) 40 mg PO DAILY [facility] Last Admin: 01/12/19 08:34 Dose: 40 mg Promethazine HCl/Dextromethorphan (Phenergan Dm Syrup) 10 ml PO Q6 PRN PRN Reason: Cough Last Admin: 01/10/19 08:38 Dose: 10 ml Sumatriptan Succinate (Imitrex Tab) 100 mg PO DAILY PRN PRN Reason: Migraine headache Last Admin: 01/12/19 08:33 Dose: 100 mg - Labs Labs: 01/11/19 05:55 01/11/19 05:55
[2019-01-13] MEDS: Albuterol-Ipratrop 3 mg / 0.5 (3 ml) UD INH SCH ×4 (01:10→19:12)
--- NOTE | 2019-01-13 07:19 | CP.PCM.PN ---
Subjective - Date & Time of Evaluation Date of Evaluation: 01/13/19 Time of Evaluation: 07:19 - Subjective Subjective: Podiatry Progress Note: Dr. Patricia 48F seen and evaluated POD#13 ORIF left ankle fracture. Patient resting in bed and in NAD. She states that she has a significant migraine this morning which is causing her a lot of pain. She also notes mild foot pain at this time but tolerable. She states that her heel pain has decreased since last time her dressing was changed and think the extra padding in the CAM boot helped. She denies nausea/vomiting/fever. Objective - Vital Signs/Intake and Output Vital Signs (last 24 hours): Temp Pulse Resp BP Pulse Ox 97.7 F 90 20 132/84 99 01/12/19 21:00 01/12/19 21:00 01/12/19 21:00 01/12/19 21:00 01/12/19 21:00 - Medications Medications: Current Medications Acetaminophen (Tylenol 325mg Tab) 325 mg PO Q4 PRN PRN Reason: Pain, Mild (1-3) Last Admin: 01/05/19 10:43 Dose: 325 mg Acetaminophen (Tylenol 325mg Tab) 650 mg PO Q4 PRN PRN Reason: Pain, moderate (4-7) Acetylcysteine (Acetylcysteine 20%) 2 ml INH RBID [facility] Last Admin: 01/12/19 19:21 Dose: 2 ml Albuterol/Ipratropium (Duoneb 3 Mg/0.5 Mg (3 Ml) Ud) 3 ml INH RQ6 PRN PRN Reason: Shortness of Breath Albuterol/Ipratropium (Duoneb 3 Mg/0.5 Mg (3 Ml) Ud) 3 ml INH RQ6 [facility] Last Admin: 01/13/19 01:10 Dose: 3 ml Atorvastatin Calcium (Lipitor) 10 mg PO DIN [facility] Last Admin: 01/12/19 17:18 Dose: 10 mg Benzocaine/Menthol (Cepacol Sore Throat) 1 cullen PO Q1 PRN PRN Reason: Sore Throat Last Admin: 01/07/19 01:13 Dose: 1 cullen Benzonatate (Tessalon Perles) 200 mg PO Q8 PRN PRN Reason: Cough Last Admin: 01/12/19 23:16 Dose: 200 mg Clindamycin HCl (Cleocin) 300 mg PO Q8 [facility]; Protocol Last Admin: 01/13/19 06:07 Dose: 300 mg Diazepam (Valium) 5 mg PO HS [facility] Last Admin: 01/12/19 22:04 Dose: 5 mg Docusate Sodium (Colace) 100 mg PO BID [facility] Last Admin: 01/12/19 17:18 Dose: 100 mg Enoxaparin Sodium (Lovenox) 40 mg SC DAILY [facility]; Protocol Last Admin: 01/12/19 08:35 Dose: 40 mg Famotidine (Pepcid) 40 mg PO DAILY PRN PRN Reason: ACID REFLUX Last Admin: 01/12/19 08:34 Dose: 40 mg Home Med (Patient's Own Medication) 1 unit PO DAILY [facility] Last Admin: 01/12/19 08:34 Dose: 1 unit Home Med (Patient's Own Medication) 3 unit PO Q12 [facility] Last Admin: 01/12/19 21:06 Dose: 3 unit Home Med (Patient's Own Medication) 1 unit PO Q12 [facility] Last Admin: 01/12/19 21:06 Dose: 1 unit Lactobacillus Acidophilus (Bacid Acidophilus) 1 cap PO DAILY [facility] Last Admin: 01/12/19 08:41 Dose: 1 cap Lorazepam (Ativan) 1 mg PO Q4 PRN PRN Reason: Agitation Magnesium Hydroxide (Milk Of Magnesia) 15 ml PO Q6 PRN PRN Reason: Constipation Mometasone Furoate (Asmanex Twisthaler 220 Mcg) 1 puff INH DAILY [facility] Last Admin: 01/12/19 08:36 Dose: 1 puff Oxycodone/Acetaminophen (Percocet 5/325 Mg Tab) 1 tab PO Q4 PRN PRN Reason: Pain, moderate (4-7) Stop: 01/13/19 08:57 Oxycodone/Acetaminophen (Percocet 5/325 Mg Tab) 2 tab PO Q6 PRN PRN Reason: Pain, severe (8-10) Stop: 01/13/19 08:58 Last Admin: 01/10/19 09:54 Dose: 2 tab Pantoprazole Sodium (Protonix Ec Tab) 40 mg PO DAILY [facility] Last Admin: 01/12/19 08:34 Dose: 40 mg Promethazine HCl/Dextromethorphan (Phenergan Dm Syrup) 10 ml PO Q6 PRN PRN Reason: Cough Last Admin: 01/10/19 08:38 Dose: 10 ml Sumatriptan Succinate (Imitrex Tab) 100 mg PO DAILY PRN PRN Reason: Migraine headache Last Admin: 01/12/19 08:33 Dose: 100 mg - Labs Labs: 01/11/19 05:55 01/11/19 05:55 - Constitutional Appears: Non-toxic, No Acute Distress - Head Exam Head Exam: ATRAUMATIC, NORMOCEPHALIC - Eye Exam Eye Exam: Normal appearance - Extremities Exam Additional comments: LLE focused exam: Vasc: DP and PT 2/4 bilaterally, Cap refill < 3 seconds to all digits, Temp gradient cool to cool, Mild edema noted to the left lateral aspect of the ankle. Neuro: Diminished gross and protective sensation Derm: Mild edema noted to the left lateral aspect of the ankle, surgical incision skin edges well coapted, steri-strips in place, no dehiscence, no erythema, no clinical signs of infection Ortho: Mild pain on palpation to the lateral malleolous, Mild pain with ankle range of motion, MSK 3/5, left foot in a plantarflexed and inverted position due to paralysis. - Neurological Exam Neurological Exam: Alert, Awake, Oriented x3 - Psychiatric Exam Psychiatric exam: Normal Affect, Normal Mood - Skin Skin Exam: Warm Assessment and Plan - Assessment and Plan (Free Text) Assessment: 48F POD#13 ORIF Left ankle fracture. Plan: Patient seen and evaluated Plan discussed with attending Dr. Harshad WHALEY Patient X-rays obtained: acute fracture of the distal fibula, small non-os sifying fibroma or possible bone infarct seen distal metaphysis of the tibia CT of the left ankle shows small joint effusion along with oblique fracture of the distal fibula Postoperative left ankle X-ray: Satisfactory ORIF of the fibula. Surgical wound dressed with betadine, DSD, ROBERT NWB in CAM walker C/w PT Continue to ice and elevate LLE PRN.
[2019-01-13] MEDS: Acetylcysteine 20% Inhal Soln (4ml) INH SCH ×2 (07:33→19:12)
[2019-01-13] MEDS: Pantoprazole 40 mg EC Tab PO SCH (08:45)
--- NOTE | 2019-01-13 08:55 | PCM.RRT ---
- Constitutional Appears: Non-toxic - Eyes Additional Comments: excessive blinking - Respiratory Exam Respiratory Exam: Clear to Ausculation Bilateral. absent: Respiratory Distress Additional comments: coughing fits with clear sputum expectorated - Cardiovascular Exam Cardiovascular Exam: +S1, +S2 Additional comments: borderline tachycardia - GI/Abdominal Exam GI & Abdominal Exam: Soft, Normal Bowel Sounds. absent: Guarding, Rigid, Tenderness - Neurological Exam Neurological Exam: Alert, Awake Additional exam: able to follow commands and extend right hand - Extremities Exam Additional comments: LLE- Cam boot in place, DP pulses intact b/l, no calve tenderness Plan - Assessment of Findings&Treatment Plan [employer]PERVISOR [employer]UCATION: called by nurse SUPERVISOR [employer]UCATION time: 8:37am [employer] response time: 1 minute [employer]OR [employer] duration: 14 minutes 48 y/o F with hx of seizure, left sided paralysis, asthma & brain tumor was admitted for ORIF of left ankle fracture sustained after having a episode of seizure which have caused a left ankle fracture with ORIF. POD#13 ORIF left ankle fracture. SUPERVISOR EDUCATION was called because patient began having seizure- like activity. Initial VS: BP-139/82 Pulse- 90 Temp: 98.1F spo2-97% During the SUPERVISOR EDUCATION, patient was responsive to commands. Patient extended her arm when asked to check glucose level. Patient had coughing fits, and shook her head no when asked if she wanted a sip of water. Interventions: -Ativan 2mg IVP -Zofran PO Labs ordered: CMP, magnesium, & phosphorus Of note, abnormal movements ceased prior to administration of ativan. 48 y/o F with hx of seizure, left sided paralysis, asthma & brain tumor, admitted for ORIF of left ankle fracture with abnormal movement this morning, likely due to pseudo-seizure. -Continue protonix -Continue Ativan prn -Zofran QD added -FU CMP, magnesium, & phosphorus -Neurology currently on board
[2019-01-13] MEDS: Enoxaparin 40 mg Syringe SC SCH (08:59)
[2019-01-13] MEDS ORDERED: Oxycodone/Acetaminophen 5/325 mg Tab PO PRN ×2 (09:18→09:20)
--- NOTE | 2019-01-13 09:28 | CP.PCM.PN ---
Subjective - Date & Time of Evaluation Date of Evaluation: 01/13/19 Time of Evaluation: 09:00 - Subjective Subjective: Patient with recent PROCESS DESIGNER was seen and examined. is at the beside. Patient was speaking in slow sentences to , laying in bed. She reports pain to left lower ankle, as well as dry cough. As per , no abnormal movements since PROCESS DESIGNER. She denies any fever, chills, chest pain or shortness of breath. Objective - Vital Signs/Intake and Output Vital Signs (last 24 hours): Temp Pulse Resp BP Pulse Ox 97.7 F 90 20 132/84 99 01/12/19 21:00 01/12/19 21:00 01/12/19 21:00 01/12/19 21:00 01/12/19 21:00 - Medications Medications: Current Medications Acetaminophen (Tylenol 325mg Tab) 325 mg PO Q4 PRN PRN Reason: Pain, Mild (1-3) Last Admin: 01/05/19 10:43 Dose: 325 mg Acetaminophen (Tylenol 325mg Tab) 650 mg PO Q4 PRN PRN Reason: Pain, moderate (4-7) Acetylcysteine (Acetylcysteine 20%) 2 ml INH RBID [facility] Last Admin: 01/13/19 07:33 Dose: 2 ml Albuterol/Ipratropium (Duoneb 3 Mg/0.5 Mg (3 Ml) Ud) 3 ml INH RQ6 PRN PRN Reason: Shortness of Breath Albuterol/Ipratropium (Duoneb 3 Mg/0.5 Mg (3 Ml) Ud) 3 ml INH RQ6 [facility] Last Admin: 01/13/19 07:33 Dose: 3 ml Atorvastatin Calcium (Lipitor) 10 mg PO DIN [facility] Last Admin: 01/12/19 17:18 Dose: 10 mg Benzocaine/Menthol (Cepacol Sore Throat) 1 cullen PO Q1 PRN PRN Reason: Sore Throat Last Admin: 01/07/19 01:13 Dose: 1 cullen Benzonatate (Tessalon Perles) 200 mg PO Q8 PRN PRN Reason: Cough Last Admin: 01/12/19 23:16 Dose: 200 mg Clindamycin HCl (Cleocin) 300 mg PO Q8 [facility]; Protocol Last Admin: 01/13/19 06:07 Dose: 300 mg Diazepam (Valium) 5 mg PO HS [facility] Last Admin: 01/12/19 22:04 Dose: 5 mg Docusate Sodium (Colace) 100 mg PO BID [facility] Last Admin: 01/12/19 17:18 Dose: 100 mg Enoxaparin Sodium (Lovenox) 40 mg SC DAILY [facility]; Protocol Last Admin: 01/13/19 08:59 Dose: 40 mg Famotidine (Pepcid) 40 mg PO DAILY PRN PRN Reason: ACID REFLUX Last Admin: 01/12/19 08:34 Dose: 40 mg Home Med (Patient's Own Medication) 1 unit PO DAILY [facility] Last Admin: 01/12/19 08:34 Dose: 1 unit Home Med (Patient's Own Medication) 3 unit PO Q12 [facility] Last Admin: 01/12/19 21:06 Dose: 3 unit Home Med (Patient's Own Medication) 1 unit PO Q12 [facility] Last Admin: 01/12/19 21:06 Dose: 1 unit Lactobacillus Acidophilus (Bacid Acidophilus) 1 cap PO DAILY [facility] Last Admin: 01/12/19 08:41 Dose: 1 cap Lorazepam (Ativan) 1 mg PO Q4 PRN PRN Reason: Agitation Magnesium Hydroxide (Milk Of Magnesia) 15 ml PO Q6 PRN PRN Reason: Constipation Mometasone Furoate (Asmanex Twisthaler 220 Mcg) 1 puff INH DAILY [facility] Last Admin: 01/12/19 08:36 Dose: 1 puff Oxycodone/Acetaminophen (Percocet 5/325 Mg Tab) 2 tab PO Q6 PRN PRN Reason: Pain, severe (8-10) Stop: 01/16/19 09:20 Oxycodone/Acetaminophen (Percocet 5/325 Mg Tab) 1 tab PO Q4 PRN PRN Reason: Pain, moderate (4-7) Stop: 01/16/19 09:19 Pantoprazole Sodium (Protonix Ec Tab) 40 mg PO DAILY [facility] Last Admin: 01/13/19 08:45 Dose: 40 mg Promethazine HCl/Dextromethorphan (Phenergan Dm Syrup) 10 ml PO Q6 PRN PRN Reason: Cough Last Admin: 01/10/19 08:38 Dose: 10 ml Sumatriptan Succinate (Imitrex Tab) 100 mg PO DAILY PRN PRN Reason: Migraine headache Last Admin: 01/12/19 08:33 Dose: 100 mg - Labs Labs: 01/11/19 05:55 01/11/19 05:55 - Constitutional Appears: Non-toxic - Eye Exam Eye Exam: PERRL - ENT Exam ENT Exam: Mucous Membranes Moist - Respiratory Exam Respiratory Exam: Clear to Ausculation Bilateral - Cardiovascular Exam Cardiovascular Exam: +S1, +S2 Additional comments: borderline tachycardia - GI/Abdominal Exam GI & Abdominal Exam: Soft, Normal Bowel Sounds. absent: Guarding, Rigid, Tender ness - Extremities Exam Extremities Exam: absent: Calf Tenderness Additional comments: CAM boot in place; DP pulses intact b/l - Neurological Exam Neurological Exam: Alert, Awake, Oriented x3 - Skin Skin Exam: Dry Assessment and Plan - Assessment and Plan (Free Text) Assessment: 48 y/o F POD #13 s/p ORIF left ankle fracture. Pt has a hx of seizure, left sided paralysis, asthma & brain tumor was admitted for left ankle fracture management sustained after having a episode of seizure. Fibular fracture S/p rehab, in Acute rehab -Podiatry rec appreciated -PT/OT on hold for now given recent PROCESS DESIGNER -C/w Percocet pain med management URI -Continues to have cough -Spo2-100% -Dr. Watson on case -On phenergan -X-ray negative -Cont. to monitor Seizure (Chronic, stable) -Continue keppra 1000mg Q12h Asthma -Continue home medication Migraine -Continue home medication Diet -Regular diet DVT Lovenox 40SC
[2019-01-13 09:58] LABS: CALCIUM 9.6 mg/dL (8.4-10.2)
[2019-01-13 10:01] LABS: ALB/GLOB RATIO 1.5 (1.0-2.1); ALBUMIN 4.4 g/dL (3.5-5.0); ALT/SGPT 39 U/L (9-52); AST/SGOT 37 U/L (14-36); BLOOD UREA NITROGEN 8 mg/dl (7-17); GFR NON-AFRICAN AMERICAN > 60
[2019-01-13] MEDS: Oxycodone/Acetaminophen 5/325 mg Tab PO PRN (10:38)
[2019-01-13] MEDS: KEPPRA 500 MG PO SCH ×2 (10:42→21:37)
[2019-01-13] MEDS: CALCIUM MAGNESIUM ZINC PO SCH (10:46)
[2019-01-13] MEDS: CLARINEX D PO SCH ×2 (10:47→21:33)
[2019-01-13] MEDS: Mometasone 220 mcg/puff-14 puff Inh INH SCH (10:47)
[2019-01-13] MEDS: Lactobacillus Acidophilus 500 MU Cap PO SCH (10:48)
--- NOTE | 2019-01-13 16:07 | CP.PCM.PN ---
Subjective - Date & Time of Evaluation Date of Evaluation: 01/13/19 Time of Evaluation: 16:00 - Subjective Subjective: patient is feeling tired, and has slight nausea Objective - Vital Signs/Intake and Output Vital Signs (last 24 hours): Temp Pulse Resp BP Pulse Ox 97.7 F 90 20 132/84 99 01/12/19 21:00 01/12/19 21:00 01/12/19 21:00 01/12/19 21:00 01/12/19 21:00 - Medications Medications: Current Medications Acetaminophen (Tylenol 325mg Tab) 325 mg PO Q4 PRN PRN Reason: Pain, Mild (1-3) Last Admin: 01/05/19 10:43 Dose: 325 mg Acetaminophen (Tylenol 325mg Tab) 650 mg PO Q4 PRN PRN Reason: Pain, moderate (4-7) Acetylcysteine (Acetylcysteine 20%) 2 ml INH RBID [facility] Last Admin: 01/13/19 07:33 Dose: 2 ml Albuterol/Ipratropium (Duoneb 3 Mg/0.5 Mg (3 Ml) Ud) 3 ml INH RQ6 PRN PRN Reason: Shortness of Breath Albuterol/Ipratropium (Duoneb 3 Mg/0.5 Mg (3 Ml) Ud) 3 ml INH RQ6 [facility] Last Admin: 01/13/19 13:04 Dose: 3 ml Atorvastatin Calcium (Lipitor) 10 mg PO DIN [facility] Last Admin: 01/12/19 17:18 Dose: 10 mg Benzocaine/Menthol (Cepacol Sore Throat) 1 cullen PO Q1 PRN PRN Reason: Sore Throat Last Admin: 01/07/19 01:13 Dose: 1 cullen Benzonatate (Tessalon Perles) 200 mg PO Q8 PRN PRN Reason: Cough Last Admin: 01/12/19 23:16 Dose: 200 mg Clindamycin HCl (Cleocin) 300 mg PO Q8 [facility]; Protocol Last Admin: 01/13/19 14:03 Dose: 300 mg Diazepam (Valium) 5 mg PO HS [facility] Last Admin: 01/12/19 22:04 Dose: 5 mg Docusate Sodium (Colace) 100 mg PO BID [facility] Last Admin: 01/13/19 10:46 Dose: 100 mg Enoxaparin Sodium (Lovenox) 40 mg SC DAILY [facility]; Protocol Last Admin: 01/13/19 08:59 Dose: 40 mg Famotidine (Pepcid) 40 mg PO DAILY PRN PRN Reason: ACID REFLUX Last Admin: 01/13/19 10:46 Dose: 40 mg Home Med (Patient's Own Medication) 1 unit PO DAILY [facility] Last Admin: 01/13/19 10:46 Dose: 1 unit Home Med (Patient's Own Medication) 3 unit PO Q12 [facility] Last Admin: 01/13/19 10:42 Dose: 3 unit Home Med (Patient's Own Medication) 1 unit PO Q12 [facility] Last Admin: 01/13/19 10:47 Dose: 1 unit Lactobacillus Acidophilus (Bacid Acidophilus) 1 cap PO DAILY [facility] Last Admin: 01/13/19 10:48 Dose: 1 cap Lorazepam (Ativan) 1 mg PO Q4 PRN PRN Reason: Agitation Magnesium Hydroxide (Milk Of Magnesia) 15 ml PO Q6 PRN PRN Reason: Constipation Mometasone Furoate (Asmanex Twisthaler 220 Mcg) 1 puff INH DAILY [facility] Last Admin: 01/13/19 10:47 Dose: 1 puff Ondansetron HCl (Zofran Tab) 4 mg PO Q6 PRN PRN Reason: Nausea/Vomiting Last Admin: 01/13/19 16:02 Dose: 4 mg Oxycodone/Acetaminophen (Percocet 5/325 Mg Tab) 2 tab PO Q6 PRN PRN Reason: Pain, severe (8-10) Stop: 01/16/19 09:20 Last Admin: 01/13/19 10:38 Dose: 2 tab Oxycodone/Acetaminophen (Percocet 5/325 Mg Tab) 1 tab PO Q4 PRN PRN Reason: Pain, moderate (4-7) Stop: 01/16/19 09:19 Pantoprazole Sodium (Protonix Ec Tab) 40 mg PO DAILY [facility] Last Admin: 01/13/19 08:45 Dose: 40 mg Promethazine HCl/Dextromethorphan (Phenergan Dm Syrup) 10 ml PO Q6 PRN PRN Reason: Cough Last Admin: 01/10/19 08:38 Dose: 10 ml Sumatriptan Succinate (Imitrex Tab) 100 mg PO DAILY PRN PRN Reason: Migraine headache Last Admin: 01/12/19 08:33 Dose: 100 mg - Labs Labs: 01/11/19 05:55 01/13/19 09:30 - Constitutional Appears: Well - Head Exam Head Exam: ATRAUMATIC, NORMAL INSPECTION, NORMOCEPHALIC - Eye Exam Eye Exam: EOMI, Normal appearance, PERRL Pupil Exam: NORMAL ACCOMODATION - ENT Exam ENT Exam: Mucous Membranes Moist, Normal Exam - Neck Exam Neck Exam: Full ROM, Normal Inspection - Respiratory Exam Respiratory Exam: Clear to Ausculation Bilateral, NORMAL BREATHING PATTERN - Cardiovascular Exam Cardiovascular Exam: REGULAR RHYTHM - GI/Abdominal Exam GI & Abdominal Exam: Soft, Normal Bowel Sounds - Rectal Exam Rectal Exam: NORMAL INSPECTION - Exam External exam: NORMAL EXTERNAL EXAM - Extremities Exam Extremities Exam: Full ROM, Normal Capillary Refill, Normal Inspection - Back Exam Back Exam: NORMAL INSPECTION - Neurological Exam Neurological Exam: Alert, Awake Neuro motor strength exam: Left Upper Extremity: 3, Right Upper Extremity: 3, Left Lower Extremity: 3 (with brace stable), Right Lower Extremity: 3 - Psychiatric Exam Psychiatric exam: Normal Affect, Normal Mood - Skin Skin Exam: Dry, Intact Assessment and Plan (1) Ankle fracture Assessment & Plan: monitor for seizure, status post seizure, plan fo rpt, ot ec therapy Status: Acute (2) Asthma exacerbation Status: Acute (3) Back strain Status: Acute (4) Breakthrough seizure Status: Acute
--- NOTE | 2019-01-13 16:12 | CP.PCM.PN ---
Subjective - Date & Time of Evaluation Date of Evaluation: 01/11/19 Time of Evaluation: 12:00 - Subjective Subjective: no acute complaints at present Objective - Vital Signs/Intake and Output Vital Signs (last 24 hours): Temp Pulse Resp BP Pulse Ox 97.7 F 90 20 132/84 99 01/12/19 21:00 01/12/19 21:00 01/12/19 21:00 01/12/19 21:00 01/12/19 21:00 - Medications Medications: Current Medications Acetaminophen (Tylenol 325mg Tab) 325 mg PO Q4 PRN PRN Reason: Pain, Mild (1-3) Last Admin: 01/05/19 10:43 Dose: 325 mg Acetaminophen (Tylenol 325mg Tab) 650 mg PO Q4 PRN PRN Reason: Pain, moderate (4-7) Acetylcysteine (Acetylcysteine 20%) 2 ml INH RBID [facility] Last Admin: 01/13/19 07:33 Dose: 2 ml Albuterol/Ipratropium (Duoneb 3 Mg/0.5 Mg (3 Ml) Ud) 3 ml INH RQ6 PRN PRN Reason: Shortness of Breath Albuterol/Ipratropium (Duoneb 3 Mg/0.5 Mg (3 Ml) Ud) 3 ml INH RQ6 [facility] Last Admin: 01/13/19 13:04 Dose: 3 ml Atorvastatin Calcium (Lipitor) 10 mg PO DIN [facility] Last Admin: 01/12/19 17:18 Dose: 10 mg Benzocaine/Menthol (Cepacol Sore Throat) 1 cullen PO Q1 PRN PRN Reason: Sore Throat Last Admin: 01/07/19 01:13 Dose: 1 cullen Benzonatate (Tessalon Perles) 200 mg PO Q8 PRN PRN Reason: Cough Last Admin: 01/12/19 23:16 Dose: 200 mg Clindamycin HCl (Cleocin) 300 mg PO Q8 [facility]; Protocol Last Admin: 01/13/19 14:03 Dose: 300 mg Diazepam (Valium) 5 mg PO HS [facility] Last Admin: 01/12/19 22:04 Dose: 5 mg Docusate Sodium (Colace) 100 mg PO BID [facility] Last Admin: 01/13/19 10:46 Dose: 100 mg Enoxaparin Sodium (Lovenox) 40 mg SC DAILY [facility]; Protocol Last Admin: 01/13/19 08:59 Dose: 40 mg Famotidine (Pepcid) 40 mg PO DAILY PRN PRN Reason: ACID REFLUX Last Admin: 01/13/19 10:46 Dose: 40 mg Home Med (Patient's Own Medication) 1 unit PO DAILY [facility] Last Admin: 01/13/19 10:46 Dose: 1 unit Home Med (Patient's Own Medication) 3 unit PO Q12 [facility] Last Admin: 01/13/19 10:42 Dose: 3 unit Home Med (Patient's Own Medication) 1 unit PO Q12 [facility] Last Admin: 01/13/19 10:47 Dose: 1 unit Lactobacillus Acidophilus (Bacid Acidophilus) 1 cap PO DAILY [facility] Last Admin: 01/13/19 10:48 Dose: 1 cap Lorazepam (Ativan) 1 mg PO Q4 PRN PRN Reason: Agitation Magnesium Hydroxide (Milk Of Magnesia) 15 ml PO Q6 PRN PRN Reason: Constipation Mometasone Furoate (Asmanex Twisthaler 220 Mcg) 1 puff INH DAILY [facility] Last Admin: 01/13/19 10:47 Dose: 1 puff Ondansetron HCl (Zofran Tab) 4 mg PO Q6 PRN PRN Reason: Nausea/Vomiting Last Admin: 01/13/19 16:02 Dose: 4 mg Oxycodone/Acetaminophen (Percocet 5/325 Mg Tab) 2 tab PO Q6 PRN PRN Reason: Pain, severe (8-10) Stop: 01/16/19 09:20 Last Admin: 01/13/19 10:38 Dose: 2 tab Oxycodone/Acetaminophen (Percocet 5/325 Mg Tab) 1 tab PO Q4 PRN PRN Reason: Pain, moderate (4-7) Stop: 01/16/19 09:19 Pantoprazole Sodium (Protonix Ec Tab) 40 mg PO DAILY [facility] Last Admin: 01/13/19 08:45 Dose: 40 mg Promethazine HCl/Dextromethorphan (Phenergan Dm Syrup) 10 ml PO Q6 PRN PRN Reason: Cough Last Admin: 01/10/19 08:38 Dose: 10 ml Sumatriptan Succinate (Imitrex Tab) 100 mg PO DAILY PRN PRN Reason: Migraine headache Last Admin: 01/12/19 08:33 Dose: 100 mg - Labs Labs: 01/11/19 05:55 01/13/19 09:30 - Constitutional Appears: Well - Head Exam Head Exam: ATRAUMATIC, NORMAL INSPECTION, NORMOCEPHALIC - Eye Exam Eye Exam: EOMI, Normal appearance, PERRL Pupil Exam: NORMAL ACCOMODATION, PERRL - ENT Exam ENT Exam: Mucous Membranes Moist, Normal Exam - Neck Exam Neck Exam: Full ROM, Normal Inspection - Respiratory Exam Respiratory Exam: Clear to Ausculation Bilateral, NORMAL BREATHING PATTERN - Cardiovascular Exam Cardiovascular Exam: REGULAR RHYTHM - GI/Abdominal Exam GI & Abdominal Exam: Soft, Normal Bowel Sounds - Rectal Exam Rectal Exam: NORMAL INSPECTION - Exam External exam: NORMAL EXTERNAL EXAM - Extremities Exam Extremities Exam: Full ROM, Normal Capillary Refill - Back Exam Back Exam: NORMAL INSPECTION - Neurological Exam Neurological Exam: Alert, Awake Neuro motor strength exam: Left Lower Extremity: 3 (brace) - Psychiatric Exam Psychiatric exam: Normal Affect, Normal Mood - Skin Skin Exam: Normal Color Assessment and Plan (1) Ankle fracture Assessment & Plan: to continue with physical, occupational, rec therapy Status: Acute (2) Asthma exacerbation Status: Acute (3) Back strain Status: Acute (4) Breakthrough seizure Status: Acute
[2019-01-13 23:03] VITALS: PULSE 98
[2019-01-14] MEDS: Albuterol-Ipratrop 3 mg / 0.5 (3 ml) UD INH SCH ×3 (01:12→14:10)
[2019-01-14 05:52] LABS: BASO # 0.1 K/uL (0.0-0.2); BASO % 1.1 % (0.0-2.0); EOS # 0.2 K/uL (0.0-0.7); EOS % 1.5 % (0.0-4.0); HEMOGLOBIN 11.7 g/dL (12.0-16.0); LYMPH # 2.4 K/uL (1.0-4.3); LYMPH % 22.1 % (20.0-40.0); MEAN CELL VOLUME 86.8 fl (81.0-99.0); MEAN CORPUSCULAR HEMOGLOBIN 29.3 pg (27.0-31.0); MEAN CORPUSCULAR HGB CONC 33.7 g/dL (33.0-37.0); MEAN PLATELET VOLUME 8.4 fl (7.2-11.7); MONO # 0.6 K/uL (0.0-0.8); NEUT # 7.8 K/uL (1.8-7.0); NEUT % 70.3 % (50.0-75.0); NRBC % 0.1 % (0.0-0.0); RBC 3.98 Mil/uL (3.80-5.20); RED CELL DISTRIBUTION WIDTH 13.8 % (11.5-14.5)
[2019-01-14 06:11] LABS: BLOOD UREA NITROGEN 10 mg/dl (7-17); CALCIUM 9.1 mg/dL (8.4-10.2); GFR NON-AFRICAN AMERICAN > 60
[2019-01-14] MEDS: Acetylcysteine 20% Inhal Soln (4ml) INH SCH (08:07)
[2019-01-14] MEDS: KEPPRA 500 MG PO SCH (08:22)
[2019-01-14] MEDS: Enoxaparin 40 mg Syringe SC SCH (08:22)
[2019-01-14] MEDS: Mometasone 220 mcg/puff-14 puff Inh INH SCH (08:23)
[2019-01-14] MEDS: Pantoprazole 40 mg EC Tab PO SCH (08:24)
[2019-01-14] MEDS: CALCIUM MAGNESIUM ZINC PO SCH (08:25)
[2019-01-14] MEDS: CLARINEX D PO SCH (08:25)
[2019-01-14] MEDS: Lactobacillus Acidophilus 500 MU Cap PO SCH (08:31)
--- NOTE | 2019-01-14 08:47 | CP.PCM.PN ---
Subjective - Date & Time of Evaluation Date of Evaluation: 01/14/19 Time of Evaluation: 08:46 - Subjective Subjective: Podiatry Progress Note: Dr. Patricia 48F seen and evaluated POD#14 ORIF left ankle fracture. Patient resting in bed and in NAD. Patient reports mild pain to L ankle while laying in bed. She states that padding the area helps relieve the pain. She denies nausea/vomiting/fever. Objective - Vital Signs/Intake and Output Vital Signs (last 24 hours): Temp Pulse Resp BP Pulse Ox 97.2 F L 98 H 20 111/64 99 01/13/19 20:00 01/13/19 20:00 01/13/19 20:00 01/13/19 20:00 01/13/19 20:00 - Medications Medications: Current Medications Acetaminophen (Tylenol 325mg Tab) 325 mg PO Q4 PRN PRN Reason: Pain, Mild (1-3) Last Admin: 01/05/19 10:43 Dose: 325 mg Acetaminophen (Tylenol 325mg Tab) 650 mg PO Q4 PRN PRN Reason: Pain, moderate (4-7) Acetylcysteine (Acetylcysteine 20%) 2 ml INH RBID [facility] Last Admin: 01/14/19 08:07 Dose: 2 ml Albuterol/Ipratropium (Duoneb 3 Mg/0.5 Mg (3 Ml) Ud) 3 ml INH RQ6 PRN PRN Reason: Shortness of Breath Albuterol/Ipratropium (Duoneb 3 Mg/0.5 Mg (3 Ml) Ud) 3 ml INH RQ6 [facility] Last Admin: 01/14/19 08:07 Dose: 3 ml Atorvastatin Calcium (Lipitor) 10 mg PO DIN [facility] Last Admin: 01/13/19 17:05 Dose: 10 mg Benzocaine/Menthol (Cepacol Sore Throat) 1 cullen PO Q1 PRN PRN Reason: Sore Throat Last Admin: 01/07/19 01:13 Dose: 1 cullen Benzonatate (Tessalon Perles) 200 mg PO Q8 PRN PRN Reason: Cough Last Admin: 01/12/19 23:16 Dose: 200 mg Clindamycin HCl (Cleocin) 300 mg PO Q8 [facility]; Protocol Last Admin: 01/14/19 06:04 Dose: 300 mg Diazepam (Valium) 5 mg PO HS [facility] Last Admin: 01/13/19 21:32 Dose: 5 mg Docusate Sodium (Colace) 100 mg PO BID [facility] Last Admin: 01/14/19 08:23 Dose: 100 mg Enoxaparin Sodium (Lovenox) 40 mg SC DAILY [facility]; Protocol Last Admin: 01/14/19 08:22 Dose: 40 mg Famotidine (Pepcid) 40 mg PO DAILY PRN PRN Reason: ACID REFLUX Last Admin: 01/14/19 08:23 Dose: 40 mg Home Med (Patient's Own Medication) 1 unit PO DAILY [facility] Last Admin: 01/14/19 08:25 Dose: 1 unit Home Med (Patient's Own Medication) 3 unit PO Q12 [facility] Last Admin: 01/14/19 08:22 Dose: 3 unit Home Med (Patient's Own Medication) 1 unit PO Q12 [facility] Last Admin: 01/14/19 08:25 Dose: 1 unit Lactobacillus Acidophilus (Bacid Acidophilus) 1 cap PO DAILY [facility] Last Admin: 01/14/19 08:31 Dose: 1 cap Lorazepam (Ativan) 1 mg PO Q4 PRN PRN Reason: Agitation Magnesium Hydroxide (Milk Of Magnesia) 15 ml PO Q6 PRN PRN Reason: Constipation Mometasone Furoate (Asmanex Twisthaler 220 Mcg) 1 puff INH DAILY [facility] Last Admin: 01/14/19 08:23 Dose: 1 puff Ondansetron HCl (Zofran Tab) 4 mg PO Q6 PRN PRN Reason: Nausea/Vomiting Last Admin: 01/13/19 16:02 Dose: 4 mg Oxycodone/Acetaminophen (Percocet 5/325 Mg Tab) 2 tab PO Q6 PRN PRN Reason: Pain, severe (8-10) Stop: 01/16/19 09:20 Last Admin: 01/13/19 10:38 Dose: 2 tab Oxycodone/Acetaminophen (Percocet 5/325 Mg Tab) 1 tab PO Q4 PRN PRN Reason: Pain, moderate (4-7) Stop: 01/16/19 09:19 Pantoprazole Sodium (Protonix Ec Tab) 40 mg PO DAILY [facility] Last Admin: 01/14/19 08:24 Dose: 40 mg Promethazine HCl/Dextromethorphan (Phenergan Dm Syrup) 10 ml PO Q6 PRN PRN Reason: Cough Last Admin: 01/10/19 08:38 Dose: 10 ml Sumatriptan Succinate (Imitrex Tab) 50 mg PO DAILY PRN PRN Reason: Migraine headache Last Admin: 01/14/19 08:36 Dose: 50 mg - Labs Labs: 01/14/19 05:20 01/14/19 05:20 - Extremities Exam Additional comments: LLE focused exam: Vasc: DP and PT 2/4 bilaterally, Cap refill < 3 seconds to all digits, Temp gradient cool to cool, Mild edema noted to the left lateral aspect of the ankle. Neuro: Diminished gross and protective sensation Derm: Mild edema noted to the left lateral aspect of the ankle, surgical inci gisele skin edges well coapted, steri-strips in place, no dehiscence, no erythema, no clinical signs of infection Ortho: Mild pain on palpation to the lateral malleolous, Mild pain with ankle range of motion, MSK 3/5, left foot in a plantarflexed and inverted position due to paralysis. - Neurological Exam Neurological Exam: Alert, Awake, Oriented x3 - Psychiatric Exam Psychiatric exam: Normal Affect, Normal Mood - Skin Skin Exam: Warm Assessment and Plan - Assessment and Plan (Free Text) Assessment: 48F POD#14 ORIF Left ankle fracture. Plan: Patient seen and evaluated Plan discussed with attending Dr. Harshad WHALEY Patient X-rays obtained: acute fracture of the distal fibula, small non- ossifying fibroma or possible bone infarct seen distal metaphysis of the tibia CT of the left ankle shows small joint effusion along with oblique fracture of the distal fibula Postoperative left ankle X-ray: Satisfactory ORIF of the fibula. Suture endds cut and surgical wound dressed with betadine, DSD, ROBERT NWB in CAM walker C/w PT Stable from podiatry standpoint F/u with Dr. Patricia as outpatient
--- NOTE | 2019-01-14 09:05 | CP.PCM.PN ---
Subjective - Date & Time of Evaluation Date of Evaluation: 01/14/19 Time of Evaluation: 09:06 - Subjective Subjective: SOB IMPROVED DRY COUGH [employer]SISTS AFEBRILE Objective - Vital Signs/Intake and Output Vital Signs (last 24 hours): Temp Pulse Resp BP Pulse Ox 97.2 F L 98 H 20 111/64 99 01/13/19 20:00 01/13/19 20:00 01/13/19 20:00 01/13/19 20:00 01/13/19 20:00 - Medications Medications: Current Medications Acetaminophen (Tylenol 325mg Tab) 325 mg PO Q4 PRN PRN Reason: Pain, Mild (1-3) Last Admin: 01/05/19 10:43 Dose: 325 mg Acetaminophen (Tylenol 325mg Tab) 650 mg PO Q4 PRN PRN Reason: Pain, moderate (4-7) Acetylcysteine (Acetylcysteine 20%) 2 ml INH RBID [facility] Last Admin: 01/14/19 08:07 Dose: 2 ml Albuterol/Ipratropium (Duoneb 3 Mg/0.5 Mg (3 Ml) Ud) 3 ml INH RQ6 PRN PRN Reason: Shortness of Breath Albuterol/Ipratropium (Duoneb 3 Mg/0.5 Mg (3 Ml) Ud) 3 ml INH RQ6 [facility] Last Admin: 01/14/19 08:07 Dose: 3 ml Atorvastatin Calcium (Lipitor) 10 mg PO DIN [facility] Last Admin: 01/13/19 17:05 Dose: 10 mg Benzocaine/Menthol (Cepacol Sore Throat) 1 cullen PO Q1 PRN PRN Reason: Sore Throat Last Admin: 01/07/19 01:13 Dose: 1 cullen Benzonatate (Tessalon Perles) 200 mg PO Q8 PRN PRN Reason: Cough Last Admin: 01/12/19 23:16 Dose: 200 mg Clindamycin HCl (Cleocin) 300 mg PO Q8 [facility]; Protocol Last Admin: 01/14/19 06:04 Dose: 300 mg Diazepam (Valium) 5 mg PO HS [facility] Last Admin: 01/13/19 21:32 Dose: 5 mg Docusate Sodium (Colace) 100 mg PO BID [facility] Last Admin: 01/14/19 08:23 Dose: 100 mg Enoxaparin Sodium (Lovenox) 40 mg SC DAILY [facility]; Protocol Last Admin: 01/14/19 08:22 Dose: 40 mg Famotidine (Pepcid) 40 mg PO DAILY PRN PRN Reason: ACID REFLUX Last Admin: 01/14/19 08:23 Dose: 40 mg Home Med (Patient's Own Medication) 1 unit PO DAILY [facility] Last Admin: 01/14/19 08:25 Dose: 1 unit Home Med (Patient's Own Medication) 3 unit PO Q12 [facility] Last Admin: 01/14/19 08:22 Dose: 3 unit Home Med (Patient's Own Medication) 1 unit PO Q12 [facility] Last Admin: 01/14/19 08:25 Dose: 1 unit Lactobacillus Acidophilus (Bacid Acidophilus) 1 cap PO DAILY [facility] Last Admin: 01/14/19 08:31 Dose: 1 cap Lorazepam (Ativan) 1 mg PO Q4 PRN PRN Reason: Agitation Magnesium Hydroxide (Milk Of Magnesia) 15 ml PO Q6 PRN PRN Reason: Constipation Mometasone Furoate (Asmanex Twisthaler 220 Mcg) 1 puff INH DAILY [facility] Last Admin: 01/14/19 08:23 Dose: 1 puff Ondansetron HCl (Zofran Tab) 4 mg PO Q6 PRN PRN Reason: Nausea/Vomiting Last Admin: 01/13/19 16:02 Dose: 4 mg Oxycodone/Acetaminophen (Percocet 5/325 Mg Tab) 2 tab PO Q6 PRN PRN Reason: Pain, severe (8-10) Stop: 01/16/19 09:20 Last Admin: 01/13/19 10:38 Dose: 2 tab Oxycodone/Acetaminophen (Percocet 5/325 Mg Tab) 1 tab PO Q4 PRN PRN Reason: Pain, moderate (4-7) Stop: 01/16/19 09:19 Pantoprazole Sodium (Protonix Ec Tab) 40 mg PO DAILY [facility] Last Admin: 01/14/19 08:24 Dose: 40 mg Promethazine HCl/Dextromethorphan (Phenergan Dm Syrup) 10 ml PO Q6 PRN PRN Reason: Cough Last Admin: 01/10/19 08:38 Dose: 10 ml Sumatriptan Succinate (Imitrex Tab) 50 mg PO DAILY PRN PRN Reason: Migraine headache Last Admin: 01/14/19 08:36 Dose: 50 mg - Labs Labs: 01/14/19 05:20 01/14/19 05:20 - Constitutional Appears: Chronically Ill - Head Exam Head Exam: ATRAUMATIC, NORMAL INSPECTION, NORMOCEPHALIC - Eye Exam Eye Exam: EOMI, Normal appearance, PERRL Pupil Exam: NORMAL ACCOMODATION, PERRL - ENT Exam ENT Exam: Mucous Membranes Moist, Normal Exam - Neck Exam Neck Exam: Full ROM, Normal Inspection. absent: Lymphadenopathy - Respiratory Exam Respiratory Exam: Clear to Ausculation Bilateral, NORMAL BREATHING PATTERN - Cardiovascular Exam Cardiovascular Exam: REGULAR RHYTHM, +S1, +S2. absent: Murmur - GI/Abdominal Exam GI & Abdominal Exam: Soft, Normal Bowel Sounds. absent: Tenderness - Rectal Exam Rectal Exam: NORMAL INSPECTION - Extremities Exam Extremities Exam: Full ROM, Normal Capillary Refill. absent: Joint Swelling, Pedal Edema Additional comments: L LEG IN A BRACE - Back Exam Back Exam: NORMAL INSPECTION - Neurological Exam Neurological Exam: Alert, Awake, CN II-XII Intact, Normal Gait, Oriented x3 - Psychiatric Exam Psychiatric exam: Normal Affect, Normal Mood - Skin Skin Exam: Dry, Intact, Normal Color, Warm Assessment and Plan - Assessment and Plan (Free Text) Assessment: ASTHMA-STABLE S/P L FOOT/ANKLE FRACTURE SEIZURES Plan: D/C CLINDAMYCIN AND ORAL STEROIDS FOR POSSIBLE D/C HOME TODAY NO FURTHER PULMONARY INTERVENTION FOR NOW
[2019-01-14 09:35] VITALS: BP 119/81; TEMP 97.7; O2SAT 97
[2019-01-14] MEDS: Oxycodone/Acetaminophen 5/325 mg Tab PO PRN (10:25)
--- NOTE | 2019-01-14 13:06 | CP.PCM.PCO ---
Physician Communication Note - Physician Communication Note Physician Communication Note: neuro d/c recommendations
--- NOTE | 2019-01-14 18:28 | CP.PCM.DIS ---
Provider - Provider Date of Admission: 01/01/19 18:51 Attending physician: Timo Singh MD Consults: 01/01/19 21:09 Physiatry Consult Routine Comment: Physiatry consult Consulting Provider: Андрей Moya Consulting Physician: Андрей Moya Reason for Consult: Physiatry consult 01/02/19 00:35 Pharmacist Consult As Ordered Comment: Physician Instructions: Reason For Exam: on Lovenox 01/02/19 07:00 Neurology Consult Routine Comment: Consulting Provider: Josiah Tilley Consulting Physician: Josiah Tilley Reason for Consult: seizure 01/02/19 08:30 Case Management Referral Routine Comment: Physician Instructions: Reason For Exam: for discharge planning Reason for Referral: Discharge Planning 01/03/19 09:36 Pulmonology Consult Routine Comment: pulmonology Consulting Provider: Reginaldo Watson I Consulting Physician: Reginaldo Watson I Reason for Consult: pulmonology 01/03/19 09:38 Psychiatry Consult Routine Comment: Consulting Provider: Asael Miller Consulting Physician: Asael Miller Reason for Consult: Anxiety, depression 01/03/19 10:00 Psychology Consult Routine Comment: Psychology Consulting Provider: Lynn Ray Consulting Physician: Lynn Ray Reason for Consult: Psychology Time Spent in preparation of Discharge (in minutes): 30 Hospital Course - Lab Results Lab Results: Micro Results 01/06/19 07:46 Sputum Gram Stain - Final 01/06/19 07:46 Sputum Sputum Culture - Final NORMAL ORAL STEFFANIE Most Recent Lab Values WBC 11.0 K/uL (4.8-10.8) H 01/14/19 05:20 RBC 3.98 Mil/uL (3.80-5.20) 01/14/19 05:20 Hgb 11.7 g/dL (12.0-16.0) L 01/14/19 05:20 Hct 34.5 % (34.0-47.0) 01/14/19 05:20 MCV 86.8 fl (81.0-99.0) 01/14/19 05:20 MCH 29.3 pg (27.0-31.0) 01/14/19 05:20 MCHC 33.7 g/dL (33.0-37.0) 01/14/19 05:20 RDW 13.8 % (11.5-14.5) 01/14/19 05:20 Plt Count 448 K/uL (130-400) H 01/14/19 05:20 MPV 8.4 fl (7.2-11.7) 01/14/19 05:20 Neut % (Auto) 70.3 % (50.0-75.0) 01/14/19 05:20 Lymph % (Auto) 22.1 % (20.0-40.0) 01/14/19 05:20 Piatt % (Auto) 5.0 % (0.0-10.0) 01/14/19 05:20 Eos % (Auto) 1.5 % (0.0-4.0) 01/14/19 05:20 Baso % (Auto) 1.1 % (0.0-2.0) 01/14/19 05:20 Neut # (Auto) 7.8 K/uL (1.8-7.0) H 01/14/19 05:20 Lymph # (Auto) 2.4 K/uL (1.0-4.3) 01/14/19 05:20 Piatt # (Auto) 0.6 K/uL (0.0-0.8) 01/14/19 05:20 Eos # (Auto) 0.2 K/uL (0.0-0.7) 01/14/19 05:20 Baso # (Auto) 0.1 K/uL (0.0-0.2) 01/14/19 05:20 Sodium 136 mmol/l (132-148) 01/14/19 05:20 Potassium 4.0 MMOL/L (3.6-5.0) 01/14/19 05:20 Chloride 100 mmol/L (98-107) 01/14/19 05:20 Carbon Dioxide 24 mmol/L (22-30) 01/14/19 05:20 Anion Gap 16 (10-20) 01/14/19 05:20 BUN 10 mg/dl (7-17) 01/14/19 05:20 Creatinine 0.8 mg/dl (0.7-1.2) 01/14/19 05:20 Est GFR ( Amer) > 60 01/14/19 05:20 Est GFR (Non-Af Amer) > 60 01/14/19 05:20 POC Glucose (mg/dL) 93 mg/dL (65-110) 01/13/19 08:38 Random Glucose 91 mg/dL (65-105) 01/14/19 05:20 Calcium 9.1 mg/dL (8.4-10.2) 01/14/19 05:20 Phosphorus 3.6 mg/dl (2.5-4.5) 01/13/19 09:30 Magnesium 2.1 MG/DL (1.6-2.3) 01/13/19 09:30 Total Bilirubin 0.3 mg/dl (0.2-1.3) 01/13/19 09:30 AST 37 U/L (14-36) H 01/13/19 09:30 ALT 39 U/L (9-52) 01/13/19 09:30 Alkaline Phosphatase 124 U/L (38-126) 01/13/19 09:30 Total Protein 7.4 G/DL (6.3-8.2) 01/13/19 09:30 Albumin 4.4 g/dL (3.5-5.0) 01/13/19 09:30 Globulin 2.9 gm/dL (2.2-3.9) 01/13/19 09:30 Albumin/Globulin Ratio 1.5 (1.0-2.1) 01/13/19 09:30 - Hospital Course Hospital Course: 49 y/o F hx of seizure, left sided paralysis, asthma & brain tumor was admitted for left ankle fracture management sustained after having a episode of seizure. Podiatry was consulted. ORIF was performed. During admission, Neurology & pulmonary team were involved in patient's care & their recommendations were appreciated. She was seen and examined this morning. Patient continued to have cough, but denied any shortness of breath. Patient discharged today with fu with Dr. Singh, Dr. Tilley & Dr. Patricia. Left ankle fracture sp ORIF -Asp 325mg PO QD x 30 days -Percocet 5-325mg PO Q8 # 30 tablets -CAM boot URI (acute, resolving) Seizure (Chronic, stable) -Continue keppra Asthma (chronic, stable) Migraine (chronic, stable) Discharge Exam - Head Exam Head Exam: ATRAUMATIC, NORMAL INSPECTION, NORMOCEPHALIC - Eye Exam Eye Exam: PERRL - ENT Exam ENT Exam: Mucous Membranes Moist - Respiratory Exam Respiratory Exam: absent: Respiratory Distress - Cardiovascular Exam Cardiovascular Exam: REGULAR RHYTHM, +S1, +S2 - GI/Abdominal Exam GI & Abdominal Exam: Normal Bowel Sounds, Soft. absent: Guarding, Rigid, Tenderness - Extremities Exam Additional comments: cam boot inplace, intact on left lower leg - Neurological Exam Neurological exam: Alert, Oriented x3 - Psychiatric Exam Psychiatric exam: Normal Mood - Skin Skin Exam: Dry Discharge Plan - Discharge Medications Prescriptions: oxyCODONE/Acetaminophen [Percocet 5/325 mg Tab] 1 ea PO Q8 #30 tab - Follow Up Plan Condition: STABLE Disposition: HOME/ ROUTINE Instructions: Ankle Fracture, Asthma (DC) Additional Instructions: Non-weightbearing to the left leg, CAM boot at all time Referrals: Efrain Patricia MD [Staff Provider] - Josiah Tilley MD [Medical Doctor] - Timo Singh MD [Staff Provider] -
--- NOTE | 2019-01-14 20:56 | CP.PCM.PN ---
Subjective - Date & Time of Evaluation Date of Evaluation: 01/14/19 Time of Evaluation: 13:00 - Subjective Subjective: patient is more alert and feeling better, dressing change and monitored by podiatory Objective - Vital Signs/Intake and Output Vital Signs (last 24 hours): Temp Pulse Resp BP Pulse Ox 97.7 F 98 H 20 119/81 97 01/14/19 09:33 01/14/19 09:33 01/14/19 09:33 01/14/19 09:33 01/14/19 09:33 - Labs Labs: 01/14/19 05:20 01/14/19 05:20 - Constitutional Appears: Well - Head Exam Head Exam: ATRAUMATIC, NORMAL INSPECTION, NORMOCEPHALIC - Eye Exam Eye Exam: EOMI, Normal appearance, PERRL Pupil Exam: NORMAL ACCOMODATION, PERRL - ENT Exam ENT Exam: Mucous Membranes Moist, Normal Exam - Neck Exam Neck Exam: Full ROM, Normal Inspection - Respiratory Exam Respiratory Exam: Clear to Ausculation Bilateral, NORMAL BREATHING PATTERN - Cardiovascular Exam Cardiovascular Exam: REGULAR RHYTHM - GI/Abdominal Exam GI & Abdominal Exam: Normal Bowel Sounds - Rectal Exam Rectal Exam: NORMAL INSPECTION - Exam External exam: NORMAL EXTERNAL EXAM - Extremities Exam Extremities Exam: Full ROM, Normal Capillary Refill - Back Exam Back Exam: NORMAL INSPECTION - Neurological Exam Neurological Exam: Alert Neuro motor strength exam: Left Lower Extremity: 4 (with brace) - Psychiatric Exam Psychiatric exam: Normal Affect, Normal Mood - Skin Skin Exam: Dry, Normal Color Assessment and Plan (1) Ankle fracture Assessment & Plan: plan for discharge home today, with home services,equipment delivered, follow up with podiatry after Dc Status: Acute (2) Asthma exacerbation Status: Acute (3) Back strain Status: Acute (4) Breakthrough seizure Status: Acute
== END 2019-01-14 16:30 | disposition home health service (06) | DRG 560 ==
PROVIDERS: ADMIT Family Medicine; ATTEND Family Medicine
PROC: 3E0F7GC Introduction of Other Therapeutic Substance into Respiratory Tract, Via Natural or Artificial Opening (ICD-10-PCS; principal; 2019-01-01)
PROC: F07M6FZ Therapeutic Exercise Treatment of Musculoskeletal System - Whole Body using Assistive, Adaptive, Supportive or Protective Equipment (ICD-10-PCS; 2019-01-01)
PROC: F08Z4FZ Home Management Treatment using Assistive, Adaptive, Supportive or Protective Equipment (ICD-10-PCS; 2019-01-01)
DX: S82.832D Other fracture of upper and lower end of left fibula, subsequent encounter for closed fracture with routine healing (principal); G81.94 Hemiplegia, unspecified affecting left nondominant side; J45.901 Unspecified asthma with (acute) exacerbation; W19.XXXD Unspecified fall, subsequent encounter; Z79.899 Other long term (current) drug therapy; Z87.891 Personal history of nicotine dependence; F32.9 Major depressive disorder, single episode, unspecified; G40.909 Epilepsy, unspecified, not intractable, without status epilepticus; G43.909 Migraine, unspecified, not intractable, without status migrainosus; J06.9 Acute upper respiratory infection, unspecified; J30.0 Vasomotor rhinitis; N32.81 Overactive bladder; Z90.49 Acquired absence of other specified parts of digestive tract; D49.6 Neoplasm of unspecified behavior of brain; M25.40 Effusion, unspecified joint; M54.9 Dorsalgia, unspecified; R47.81 Slurred speech; Z85.841 Personal history of malignant neoplasm of brain